=== PATIENT | male | born 1945 | race Caucasian/White ===

== ENCOUNTER → 2016-11-02 | Outpatient (CLI) | payer MEDICARE ==
[~2016-11-02] VITALS: Ht 182.9 cm; Wt 79.8 kg
[~2016-11-02] MED LIST: BISO5TAB5 PO; CREO12CA PO; GLIP5TAB15 PO; HUMA100I5 SC; LOSA25TA8 PO; NS 1,000 ML IV ONE; PHENYLephrine HCL 500 MCG/5 ML (100MCG/ML) SYRINGE (J2370) As Ordered ONE; TOUJ1.2I SC; VOTRIENT PO
--- NOTE | 2016-11-02 10:53 | ROOR ---
Patient Name: Zeke Jo Procedure Date: 11/02/2016 10:24 AM Date of : 1945 Age: 71 Room: [facility] Gender: Male Note Status: Finalized Procedure: Colonoscopy to Cecum + Biopsies Indications: Clinically significant diarrhea of unexplained origin Providers: Kevin Valentin MD Referring MD: SHAKIRA MCHUGH DO Requesting Provider: Medicines: Monitored Anesthesia Care Complications: No immediate complications. Procedure: Pre-Anesthesia Assessment: - The heart rate, respiratory rate, oxygen saturations, blood pressure, adequacy of pulmonary ventilation, and response to care were monitored throughout the procedure. The Colonoscope was introduced through the anus and advanced to the cecum, identified by appendiceal orifice and ileocecal valve. The colonoscopy was performed without difficulty. The patient tolerated the procedure well. The quality of the bowel preparation was excellent. Findings: The perianal and digital rectal examinations were normal. Scattered small-mouthed diverticula were found in the recto-sigmoid colon, sigmoid colon and descending colon. The exam was otherwise without abnormality on direct and retroflexion views. Biopsies for histology were taken with a cold forceps from the ascending colon and transverse colon for evaluation of microscopic colitis. The exam was otherwise without abnormality. Impression: - Diverticulosis in the recto-sigmoid colon, in the sigmoid colon and in the descending colon. - The examination was otherwise normal on direct and retroflexion views. - The examination was otherwise normal. - Biopsies were taken with a cold forceps from the ascending colon and transverse colon for evaluation of microscopic colitis. - The exam was otherwise normal to the cecum. Recommendation: - Patient has a contact number available for emergencies. The signs and symptoms of potential delayed complications were discussed with the patient. Return to normal activities tomorrow. Written discharge instructions were provided to the patient. - High fiber diet. - Discharge patient to home. - Continue present medications. - Await pathology results. - Telephone GI clinic for pathology results in 1 week. - Return to referring physician. - The findings and recommendations were discussed with the patient's family. Kevin Valentin MD Kevin Valentin MD 11/02/2016 10:53:00 AM This report has been signed electronically. Number of Addenda: 0 Note Initiated On: 11/02/2016 10:24 AM Estimated Blood Loss: Estimated blood loss: none.
[2016-11-02 11:15] VITALS: BP 100/62
== END | disposition home or self-care (01) ==
LOC: M OPP 09:59
PROVIDERS: ATTEND Internal Medicine Gastroenterology
DX: R19.7 Diarrhea, unspecified (principal); K57.30 Diverticulosis of large intestine without perforation or abscess without bleeding; I12.9 Hypertensive chronic kidney disease with stage 1 through stage 4 chronic kidney disease, or unspecified chronic kidney disease; E11.9 Type 2 diabetes mellitus without complications; R91.8 Other nonspecific abnormal finding of lung field; Z85.528 Personal history of other malignant neoplasm of kidney; Z92.21 Personal history of antineoplastic chemotherapy; C25.9 Malignant neoplasm of pancreas, unspecified; Z90.5 Acquired absence of kidney; N18.9 Chronic kidney disease, unspecified; Z79.4 Long term (current) use of insulin; Z79.84 Long term (current) use of oral hypoglycemic drugs; Z79.899 Other long term (current) drug therapy
CPT/HCPCS: 45380; 88305; J2370

== ENCOUNTER → 2017-12-15 | Outpatient (REF) | payer MEDICARE | LOC: M LAB REF 12:17 | DX: E11.621 Type 2 diabetes mellitus with foot ulcer (principal); L97.524 Non-pressure chronic ulcer of other part of left foot with necrosis of bone | CPT/HCPCS: 88304 ==

== ENCOUNTER → 2018-01-10 | Outpatient (REF) | payer MEDICARE | LOC: M LAB REF 17:09 | DX: M86.171 Other acute osteomyelitis, right ankle and foot (principal); E11.621 Type 2 diabetes mellitus with foot ulcer | CPT/HCPCS: 88305 ==

== ENCOUNTER → 2018-01-11 | Outpatient (CLI) | payer MEDICARE ==
[~2018-01-11] MED LIST changes: -BISO5TAB5 PO; -CREO12CA PO; -GLIP5TAB15 PO; +HEPARIN 1,000 UNITS/ML 10ML VIAL (FOR RADIOLOGY& DIALYSIS ONLY) As Ordered; -HUMA100I5 SC; +ISOVUE-300 61% 50ML VIAL (Q9967) As Ordered; -LOSA25TA8 PO; +MIDAZOLAM INJ 2 MG/2 ML VIAL (J2250) As Ordered; -NS 1,000 ML IV ONE; -PHENYLephrine HCL 500 MCG/5 ML (100MCG/ML) SYRINGE (J2370) As Ordered ONE; -TOUJ1.2I SC; -VOTRIENT PO; +fentaNYL 100 MCG/2 ML INJECTION (J3010) As Ordered
== END ==
LOC: M IRPRO 06:19
DX: I70.235 Atherosclerosis of native arteries of right leg with ulceration of other part of foot (principal)
CPT/HCPCS: 36247

== ENCOUNTER 2018-01-14 15:55 | Inpatient (IN) | payer MEDICARE ==
[2018-01-14] MEDS: DILUENT IV (16:45)
[2018-01-14] MEDS: NS IV (16:45)
[2018-01-14] MEDS: ACETAMINOPHEN TAB 650MG DOSE (2X325MG) PO ×2 (16:45)
[2018-01-14 17:12] LABS: HEMATOCRIT 28.9 % (42.0-52.0); HEMOGLOBIN 9.1 g/dl (13.5-17.5); MEAN CORPUSCULAR HGB CONC 31.5 g/dl (32.0-36.5); MEAN CORPUSCULAR VOLUME 85.8 fl (80.0-96.0); PLATELET COUNT, AUTOMATED 217 10^3/uL (150-450); RED BLOOD COUNT 3.37 10^6/uL (4.30-6.10); RED CELL DISTRIBUTION WIDTH 14.5 % (11.5-14.5); WHITE BLOOD COUNT 15.7 10^3/uL (4.0-10.0)
[2018-01-14 17:18] LABS: POSITIVE MORPH POS FLAG
[2018-01-14 17:19] LABS: ADD MANUAL DIFFER YES; DIFF SLIDE NUMBER 325
[2018-01-14 17:23] LABS: ABG BASE EXCESS -4.1 (-2.0-2.0); ABG HCO3 19.1 MEQ/L (22.0-26.0); ABG O2 SATURATION 95.9 % (95.0-99.0); ABG PARTIAL PRESSURE CO2 27.8 mmHg (35.0-45.0); ABG PARTIAL PRESSURE O2 77.2 mmHg (75.0-100.0); ABG TOTAL CO2 19.9 MEQ/L (23.0-31.0); ABG pH (ARTERIAL) 7.454 UNITS (7.350-7.450)
[2018-01-14 17:35] LABS: INR 1.24; PROTHROMBIN TIME 15.8 SECONDS (12.1-14.4)
[2018-01-14 17:36] LABS: PARTIAL THROMBOPLASTIN TIME 40.4 SECONDS (25.4-37.6)
[2018-01-14] MEDS: AMPICILLIN SOD/SULBACTAM SOD 3 GM in D5W MINI-BAG PLUS 100 ML IV (17:45)
[2018-01-14 17:48] LABS: LACTIC ACID SEPSIS PROTOCOL 1.7 MMOL/L (0.4-2.0)
[2018-01-14 17:53] LABS: BANDS 4 % (< 11); LYMPHOCYTES 4 % (16-52); MONOCYTES 8 % (0-8); NEUTROPHILS 84 % (35-75)
[2018-01-14 17:54] LABS: HYPOCHROMASIA 1+; PLATELET ESTIMATE NORMAL (NORMAL)
[2018-01-14 18:13] LABS: APPEARANCE, URINE HAZY (CLEAR); BACTERIA, URINE AUTO 1+ (NEGATIVE); BILIRUBIN, URINE AUTO NEGATIVE (NEGATIVE); BLOOD, URINE BLOOD 1+ (NEGATIVE); COLOR, URINE YELLOW (YELLOW); GLUCOSE, URINE (UA) AUTO NEGATIVE (NEGATIVE); KETONE, URINE AUTO NEGATIVE (NEGATIVE); LEUKOCYTE ESTERASE, URINE AUTO NEGATIVE (NEGATIVE); MUCUS, URINE SMALL (NEGATIVE); NITRITE, URINE AUTO NEGATIVE (NEGATIVE); PROTEIN, URINE AUTO 2+ mg/dL (NEGATIVE); RBC, URINE AUTO 0 /HPF (0-3); SQUAMOUS EPITHELIAL CELL UR AU 1 /HPF (0-6); UROBILINOGEN, URINE AUTO 0.2 mg/dL (0.0-2.0); WBC, URINE AUTO 16 /HPF (0-3)
[2018-01-14 18:25] LABS: INFLUENZA A AMPLIFICATION NEGATIVE (NEGATIVE); INFLUENZA B AMPLIFICATION NEGATIVE (NEGATIVE)
[2018-01-14 19:52] LABS: ALBUMIN 2.5 GM/DL (3.2-5.2); ALBUMIN/GLOBULIN RATIO 0.71 (1.00-1.93); ALKALINE PHOSPHATASE 197 U/L (45-117); ALT/SGPT 37 U/L (12-78); AMYLASE 7 U/L (25-115); ANION GAP 10 MEQ/L (8-16); AST/SGOT 25 U/L (7-37); BILIRUBIN,DIRECT 0.2 MG/DL (0.0-0.2); BILIRUBIN,TOTAL 0.7 MG/DL (0.2-1.0); BLOOD UREA NITROGEN 36 MG/DL (7-18); CARBON DIOXIDE LEVEL 24 MEQ/L (21-32); CHLORIDE LEVEL 109 MEQ/L (98-107); CK-MB VALUE MASS < 1.0 NG/ML (<3.6); CPK CREATINE PHOSPHOKINASE 52 U/L (39-308); CREATININE FOR GFR 2.25 MG/DL (0.70-1.30); GLOMERULAR FILTRATION RATE 30.8 (>42); GLUCOSE, FASTING 78 MG/DL (70-100); MB/CK RELATIVE INDEX 1.92 (< OR =4); POTASSIUM SERUM 3.8 MEQ/L (3.5-5.1); SODIUM LEVEL 143 MEQ/L (136-145); TROPONIN I < 0.02 NG/ML (< 0.10)
[2018-01-14] MEDS ORDERED: ONDANSETRON 4MG/2ML VIAL (J2405) IV ×2 (21:00)
[2018-01-14] MEDS ORDERED: DEXTROSE 50% 50 ML SYRINGE IV ×2 (21:00)
[2018-01-14] MEDS ORDERED: GLUCAGON FOR INJ 1 MG VIAL (J1610) SC ×2 (21:00)
[2018-01-14 21:21] LABS: BEDSIDE GLUCOSE 88 MG/DL (83-110)
[2018-01-15] MEDS: VANCOMYCIN HCL 1,000 MG, VIAL MATE ADAPTER 1 EACH in D5W 250 ML IV ×4 (00:44→11:48)
[2018-01-15] MEDS: ACETAMINOPHEN TAB 650MG DOSE (2X325MG) PO ×10 (00:44→23:48)
[2018-01-15] MEDS: VANCOMYCIN ORAL SOL 250MG/5ML ORAL SYRINGE PO ×8 (01:34→23:47)
[2018-01-15] MEDS ORDERED: PANTOPRAZOLE 40MG INJ (PROTONIX) (C9113) IV ×2 (01:45)
[2018-01-15] MEDS: GABAPENTIN 300 MG CAP PO ×4 (02:21→20:29)
[2018-01-15] MEDS: HumaLOG INSULIN (NovoLOG) PER UNIT SC ×10 (02:21→20:29)
[2018-01-15] MEDS: PIPERACILLIN/TAZOBACTAM SOD 2.25 GM in D5W MINI-BAG PLUS 50 ML IV ×5 (02:22→23:49)
[2018-01-15] MEDS: NS 1,000 ML IV ×8 (02:22→10:30)
[2018-01-15 02:31] LABS: BEDSIDE GLUCOSE 128 MG/DL (83-110)
[2018-01-15] MEDS: LEVEMIR (INSULIN DETEMIR) 1 UNITS/0.01ML SC ×4 (02:38→20:29)
[2018-01-15] MEDS: NS 500 ML IV ×4 (02:45→13:16)
[2018-01-15] MEDS ORDERED: NS 1,000 ML IV ×2 (02:45)
[2018-01-15 05:23] LABS: HEMATOCRIT 20.9 % (42.0-52.0); MEAN CORPUSCULAR HEMOGLOBIN 27.5 pg (27.0-33.0); MEAN CORPUSCULAR HGB CONC 31.6 g/dl (32.0-36.5); MEAN CORPUSCULAR VOLUME 87.1 fl (80.0-96.0); PLATELET COUNT, AUTOMATED 171 10^3/uL (150-450); RED CELL DISTRIBUTION WIDTH 14.6 % (11.5-14.5); WHITE BLOOD COUNT 11.3 10^3/uL (4.0-10.0)
[2018-01-15 05:35] LABS: ANION GAP 9 MEQ/L (8-16); BLOOD UREA NITROGEN 38 MG/DL (7-18); CARBON DIOXIDE LEVEL 20 MEQ/L (21-32); CHLORIDE LEVEL 111 MEQ/L (98-107); GLOMERULAR FILTRATION RATE 31.6 (>42); GLUCOSE, FASTING 136 MG/DL (70-100); POTASSIUM SERUM 3.2 MEQ/L (3.5-5.1); SODIUM LEVEL 140 MEQ/L (136-145)
[2018-01-15 05:42] LABS: ADD MANUAL DIFFER YES; DIFF SLIDE NUMBER 71; HEMOGLOBIN 6.6 g/dl (13.5-17.5); POSITIVE MORPH POS FLAG
[2018-01-15] MEDS: HEPARIN SOD (PORCINE) 5000 UNITS/ML VIAL SC ×4 (06:00→13:08)
[2018-01-15 06:02] LABS: BANDS 3 % (< 11); LYMPHOCYTES 4 % (16-52); MONOCYTES 8 % (0-8); NEUTROPHILS 85 % (35-75); PLATELET ESTIMATE NORMAL (NORMAL)
[2018-01-15 06:03] LABS: HYPOCHROMASIA 1+
[2018-01-15] MEDS: CREON-12 CAPSULE PO ×8 (08:32→20:29)
[2018-01-15] MEDS: LACTOBACILLUS ACIDOPHILUS CAP (BACID) PO ×6 (08:33→18:02)
[2018-01-15] MEDS: MULTIVITAMINS/MINERALS THERAP 1 TAB PO ×2 (08:33)
[2018-01-15 08:42] LABS: IMMEDIATE SPIN CROSSMATCH 1 2
[2018-01-15 11:32] LABS: BEDSIDE GLUCOSE 140 MG/DL (83-110)
[2018-01-15 16:26] LABS: HEMATOCRIT 28.6 % (42.0-52.0)
[2018-01-15 17:37] LABS: BEDSIDE GLUCOSE 186 MG/DL (83-110)
[2018-01-15 20:27] LABS: BEDSIDE GLUCOSE 204 MG/DL (83-110)
[2018-01-15] MEDS: HEPARIN SOD (PORCINE) 5000 UNITS/ML VIAL SQ ×2 (20:30)
[2018-01-16] MEDS: NS 1,000 ML IV ×6 (01:10→09:15)
[2018-01-16 04:34] LABS: HEMATOCRIT 25.6 % (42.0-52.0); HEMOGLOBIN 8.3 g/dl (13.5-17.5); MEAN CORPUSCULAR HEMOGLOBIN 27.7 pg (27.0-33.0); MEAN CORPUSCULAR HGB CONC 32.4 g/dl (32.0-36.5); MEAN CORPUSCULAR VOLUME 85.3 fl (80.0-96.0); PLATELET COUNT, AUTOMATED 188 10^3/uL (150-450); RED CELL DISTRIBUTION WIDTH 14.7 % (11.5-14.5); WHITE BLOOD COUNT 13.5 10^3/uL (4.0-10.0)
[2018-01-16 04:40] LABS: ADD MANUAL DIFFER YES; DIFF SLIDE NUMBER 47; POSITIVE MORPH POS FLAG
[2018-01-16 04:56] LABS: ANION GAP 9 MEQ/L (8-16); BLOOD UREA NITROGEN 36 MG/DL (7-18); CALCIUM LEVEL 6.7 MG/DL (8.8-10.2); CARBON DIOXIDE LEVEL 20 MEQ/L (21-32); CHLORIDE LEVEL 112 MEQ/L (98-107); CREATININE FOR GFR 1.91 MG/DL (0.70-1.30); GLOMERULAR FILTRATION RATE 37.2 (>42); GLUCOSE, FASTING 153 MG/DL (70-100); POTASSIUM SERUM 3.4 MEQ/L (3.5-5.1); SODIUM LEVEL 141 MEQ/L (136-145)
[2018-01-16 05:21] LABS: ANISOCYTOSIS 1+; BANDS 5 % (< 11); EOSINOPHILS 2 % (0-5); LYMPHOCYTES 6 % (16-52); METAMYELOCYTES 2 % (0-0); MONOCYTES 4 % (0-8); MYELOCYTES 1 % (0-0); NEUTROPHILS 80 % (35-75); PLATELET CLUMPS SMALL AMT; PLATELET ESTIMATE NORMAL (NORMAL)
[2018-01-16] MEDS: VANCOMYCIN ORAL SOL 250MG/5ML ORAL SYRINGE PO ×8 (06:24→23:56)
[2018-01-16] MEDS: ACETAMINOPHEN TAB 650MG DOSE (2X325MG) PO ×4 (06:24→23:56)
[2018-01-16] MEDS: PIPERACILLIN/TAZOBACTAM SOD 2.25 GM in D5W MINI-BAG PLUS 50 ML IV (06:24)
[2018-01-16] MEDS: LACTOBACILLUS ACIDOPHILUS CAP (BACID) PO ×6 (08:23→17:39)
[2018-01-16] MEDS: MULTIVITAMINS/MINERALS THERAP 1 TAB PO ×2 (08:23)
[2018-01-16] MEDS: POTASSIUM CHLORIDE 10 MEQ SR TABLET PO ×2 (08:24)
[2018-01-16] MEDS: CREON-12 CAPSULE PO ×8 (08:24→21:02)
[2018-01-16] MEDS: HEPARIN SOD (PORCINE) 5000 UNITS/ML VIAL SQ ×4 (08:24→21:03)
[2018-01-16] MEDS: HumaLOG INSULIN (NovoLOG) PER UNIT SC ×8 (08:25→21:00)
[2018-01-16 11:50] LABS: VANCOMYCIN RANDOM 9.9 UG/ML
[2018-01-16] MEDS: FIDAXOMICIN 200 MG TAB (DIFICID) PO ×4 (11:58→21:03)
[2018-01-16] MEDS: VANCOMYCIN HCL 1,000 MG, VIAL MATE ADAPTER 1 EACH in D5W 250 ML IV ×2 (12:00)
[2018-01-16 17:09] LABS: BEDSIDE GLUCOSE 224 MG/DL (83-110)
[2018-01-16 19:44] LABS: BEDSIDE GLUCOSE 190 MG/DL (83-110)
[2018-01-16] MEDS: GABAPENTIN 300 MG CAP PO ×2 (21:02)
[2018-01-16] MEDS: zolPIDEM TARTRATE 5 MG TAB PO ×2 (21:02)
[2018-01-16] MEDS: LEVEMIR (INSULIN DETEMIR) 1 UNITS/0.01ML SC ×2 (21:03)
[2018-01-17 05:44] LABS: HEMATOCRIT 27.4 % (42.0-52.0); HEMOGLOBIN 8.9 g/dl (13.5-17.5); MEAN CORPUSCULAR HEMOGLOBIN 27.3 pg (27.0-33.0); MEAN CORPUSCULAR HGB CONC 32.5 g/dl (32.0-36.5); PLATELET COUNT, AUTOMATED 213 10^3/uL (150-450); RED BLOOD COUNT 3.26 10^6/uL (4.30-6.10); RED CELL DISTRIBUTION WIDTH 14.9 % (11.5-14.5); WHITE BLOOD COUNT 15.6 10^3/uL (4.0-10.0)
[2018-01-17 06:14] LABS: ADD MANUAL DIFFER YES; DIFF SLIDE NUMBER 39; POSITIVE MORPH POS FLAG
[2018-01-17 06:16] LABS: BANDS 2 % (< 11); EOSINOPHILS 7 % (0-5); LYMPHOCYTES 6 % (16-52); METAMYELOCYTES 1 % (0-0); MONOCYTES 2 % (0-8); MYELOCYTES 2 % (0-0); NEUTROPHILS 80 % (35-75); PLATELET ESTIMATE NORMAL (NORMAL)
[2018-01-17 06:21] LABS: ANION GAP 8 MEQ/L (8-16); BLOOD UREA NITROGEN 32 MG/DL (7-18); CALCIUM LEVEL 7.2 MG/DL (8.8-10.2); CARBON DIOXIDE LEVEL 20 MEQ/L (21-32); CHLORIDE LEVEL 116 MEQ/L (98-107); CREATININE FOR GFR 1.44 MG/DL (0.70-1.30); GLOMERULAR FILTRATION RATE 51.5 (>42); GLUCOSE, FASTING 139 MG/DL (70-100); POTASSIUM SERUM 3.7 MEQ/L (3.5-5.1); SODIUM LEVEL 144 MEQ/L (136-145)
[2018-01-17] MEDS: VANCOMYCIN ORAL SOL 250MG/5ML ORAL SYRINGE PO ×4 (06:25→12:29)
[2018-01-17] MEDS: VANCOMYCIN HCL 1,000 MG, VIAL MATE ADAPTER 1 EACH in D5W 250 ML IV ×2 (06:25)
[2018-01-17] MEDS: MULTIVITAMINS/MINERALS THERAP 1 TAB PO ×2 (08:38)
[2018-01-17] MEDS: LACTOBACILLUS ACIDOPHILUS CAP (BACID) PO ×6 (08:38→18:30)
[2018-01-17] MEDS: CREON-12 CAPSULE PO ×8 (08:39→20:06)
[2018-01-17] MEDS: FIDAXOMICIN 200 MG TAB (DIFICID) PO ×4 (08:39→20:06)
[2018-01-17] MEDS: HEPARIN SOD (PORCINE) 5000 UNITS/ML VIAL SQ ×4 (08:40→20:06)
[2018-01-17] MEDS: HumaLOG INSULIN (NovoLOG) PER UNIT SC ×8 (08:42→21:00)
[2018-01-17 10:35] LABS: BEDSIDE GLUCOSE 112 MG/DL (83-110)
[2018-01-17 12:21] LABS: BEDSIDE GLUCOSE 147 MG/DL (83-110)
[2018-01-17] MEDS: BISOPROLOL FUMARATE 5 MG TAB PO ×2 (12:30)
[2018-01-17 16:54] LABS: BEDSIDE GLUCOSE 185 MG/DL (83-110)
[2018-01-17] MEDS: GABAPENTIN 300 MG CAP PO ×2 (20:06)
[2018-01-17] MEDS: SODIUM CHLORIDE 0.9% INJ 10 ML SYR IV ×2 (20:08)
[2018-01-17] MEDS: zolPIDEM TARTRATE 5 MG TAB PO ×2 (21:21)
[2018-01-17] MEDS: LEVEMIR (INSULIN DETEMIR) 1 UNITS/0.01ML SC ×2 (21:22)
[2018-01-17 21:27] LABS: BEDSIDE GLUCOSE 196 MG/DL (83-110)
[2018-01-18] MEDS: VANCOMYCIN HCL 1,000 MG, VIAL MATE ADAPTER 1 EACH in D5W 250 ML IV ×2 (00:03)
[2018-01-18] MEDS: SODIUM CHLORIDE 0.9% INJ 10 ML SYR IV ×6 (01:08→10:09)
[2018-01-18 05:48] LABS: BASO # 0.1 10^3/uL (0.0-0.2); BASO % 0.8 % (0.0-1.0); EOS # 0.6 10^3/uL (0.0-0.50); EOS % 5.8 % (0.0-3.0); HEMATOCRIT 27.2 % (42.0-52.0); HEMOGLOBIN 8.9 g/dl (13.5-17.5); IMMATURE GRANULOCYTE % 4.6 % (0-3.0); LYMPH % 9.2 % (24.0-44.0); MEAN CORPUSCULAR HEMOGLOBIN 27.4 pg (27.0-33.0); MEAN CORPUSCULAR HGB CONC 32.7 g/dl (32.0-36.5); MEAN CORPUSCULAR VOLUME 83.7 fl (80.0-96.0); MONO # 0.6 10^3/uL (0.0-0.8); MONO % 5.8 % (0.0-5.0); NEUTROPHILS # 7.8 10^3/uL (1.8-7.7); NEUTROPHILS % 73.8 % (36.0-66.0); PLATELET COUNT, AUTOMATED 226 10^3/uL (150-450); RED BLOOD COUNT 3.25 10^6/uL (4.30-6.10); RED CELL DISTRIBUTION WIDTH 15.1 % (11.5-14.5); WHITE BLOOD COUNT 10.5 10^3/uL (4.0-10.0)
[2018-01-18 06:11] LABS: ANION GAP 9 MEQ/L (8-16); BLOOD UREA NITROGEN 28 MG/DL (7-18); CALCIUM LEVEL 6.9 MG/DL (8.8-10.2); CARBON DIOXIDE LEVEL 22 MEQ/L (21-32); CHLORIDE LEVEL 115 MEQ/L (98-107); CREATININE FOR GFR 1.21 MG/DL (0.70-1.30); GLOMERULAR FILTRATION RATE > 60.0 (>42); GLUCOSE, FASTING 190 MG/DL (70-100); MAGNESIUM LEVEL 2.1 MG/DL (1.8-2.4); POTASSIUM SERUM 3.5 MEQ/L (3.5-5.1); SODIUM LEVEL 146 MEQ/L (136-145)
[2018-01-18] MEDS: MULTIVITAMINS/MINERALS THERAP 1 TAB PO ×2 (09:00)
[2018-01-18] MEDS: HumaLOG INSULIN (NovoLOG) PER UNIT SC ×8 (09:09→21:00)
[2018-01-18] MEDS: FIDAXOMICIN 200 MG TAB (DIFICID) PO ×4 (10:01→22:02)
[2018-01-18] MEDS: CREON-12 CAPSULE PO ×8 (10:01→22:02)
[2018-01-18] MEDS: LACTOBACILLUS ACIDOPHILUS CAP (BACID) PO ×6 (10:01→17:38)
[2018-01-18] MEDS: BISOPROLOL FUMARATE 5 MG TAB PO ×2 (10:02)
[2018-01-18] MEDS: HEPARIN SOD (PORCINE) 5000 UNITS/ML VIAL SQ ×4 (10:03→22:03)
[2018-01-18 12:23] LABS: BEDSIDE GLUCOSE 176 MG/DL (83-110)
[2018-01-18 17:28] LABS: BEDSIDE GLUCOSE 115 MG/DL (83-110)
[2018-01-18] MEDS: LEVEMIR (INSULIN DETEMIR) 1 UNITS/0.01ML SC ×2 (21:00)
[2018-01-18 21:06] LABS: BEDSIDE GLUCOSE 99 MG/DL (83-110)
[2018-01-18] MEDS: GABAPENTIN 300 MG CAP PO ×2 (22:02)
[2018-01-18 22:08] LABS: BEDSIDE GLUCOSE 131 MG/DL (83-110)
[2018-01-19] MEDS: SODIUM CHLORIDE 0.9% INJ 10 ML SYR IV ×4 (04:10→08:30)
[2018-01-19 04:16] LABS: HEMATOCRIT 27.9 % (42.0-52.0); HEMOGLOBIN 8.9 g/dl (13.5-17.5); MEAN CORPUSCULAR HEMOGLOBIN 27.3 pg (27.0-33.0); MEAN CORPUSCULAR HGB CONC 31.9 g/dl (32.0-36.5); MEAN CORPUSCULAR VOLUME 85.6 fl (80.0-96.0); PLATELET COUNT, AUTOMATED 227 10^3/uL (150-450); RED BLOOD COUNT 3.26 10^6/uL (4.30-6.10); RED CELL DISTRIBUTION WIDTH 15.3 % (11.5-14.5); WHITE BLOOD COUNT 8.3 10^3/uL (4.0-10.0)
[2018-01-19 04:20] LABS: ADD MANUAL DIFFER YES; DIFF SLIDE NUMBER 22; POS COUNT POS FLAG; POSITIVE MORPH POS FLAG
[2018-01-19 04:50] LABS: ANION GAP 11 MEQ/L (8-16); BLOOD UREA NITROGEN 26 MG/DL (7-18); C REACTIVE PROTEIN QUANTITATIV 6.06 MG/DL (0.00-0.30); CALCIUM LEVEL 6.8 MG/DL (8.8-10.2); CARBON DIOXIDE LEVEL 21 MEQ/L (21-32); CHLORIDE LEVEL 114 MEQ/L (98-107); CREATININE FOR GFR 1.15 MG/DL (0.70-1.30); GLOMERULAR FILTRATION RATE > 60.0 (>42); GLUCOSE, FASTING 211 MG/DL (70-100); MAGNESIUM LEVEL 1.9 MG/DL (1.8-2.4); POTASSIUM SERUM 3.4 MEQ/L (3.5-5.1); SODIUM LEVEL 146 MEQ/L (136-145)
[2018-01-19 05:14] LABS: BANDS 2 % (< 11); BASOPHILS 1 % (0-4); EOSINOPHILS 6 % (0-5); LYMPHOCYTES 11 % (16-52); MONOCYTES 2 % (0-8); MYELOCYTES 2 % (0-0); NEUTROPHILS 76 % (35-75)
[2018-01-19 05:15] LABS: PLATELET ESTIMATE NORMAL (NORMAL)
[2018-01-19 05:19] LABS: ANISOCYTOSIS 1+
[2018-01-19] MEDS: CREON-12 CAPSULE PO ×8 (08:28→20:48)
[2018-01-19] MEDS: POTASSIUM CHLORIDE 10 MEQ SR TABLET PO ×2 (08:28)
[2018-01-19] MEDS: FIDAXOMICIN 200 MG TAB (DIFICID) PO ×4 (08:28→20:49)
[2018-01-19] MEDS: LACTOBACILLUS ACIDOPHILUS CAP (BACID) PO ×6 (08:28→17:51)
[2018-01-19] MEDS: HumaLOG INSULIN (NovoLOG) PER UNIT SC ×8 (08:29→20:39)
[2018-01-19] MEDS: MULTIVITAMINS/MINERALS THERAP 1 TAB PO ×2 (08:29)
[2018-01-19] MEDS: BISOPROLOL FUMARATE 5 MG TAB PO ×2 (08:30)
[2018-01-19] MEDS: HEPARIN SOD (PORCINE) 5000 UNITS/ML VIAL SQ ×4 (08:30→20:49)
[2018-01-19 11:44] LABS: BEDSIDE GLUCOSE 227 MG/DL (83-110)
[2018-01-19 17:32] LABS: BEDSIDE GLUCOSE 225 MG/DL (83-110)
[2018-01-19 20:40] LABS: BEDSIDE GLUCOSE 246 MG/DL (83-110)
[2018-01-19] MEDS: LEVEMIR (INSULIN DETEMIR) 1 UNITS/0.01ML SC ×2 (20:49)
[2018-01-19] MEDS: GABAPENTIN 300 MG CAP PO ×2 (20:49)
[2018-01-20 04:04] LABS: HEMATOCRIT 27.8 % (42.0-52.0); HEMOGLOBIN 8.8 g/dl (13.5-17.5); MEAN CORPUSCULAR HEMOGLOBIN 27.2 pg (27.0-33.0); MEAN CORPUSCULAR HGB CONC 31.7 g/dl (32.0-36.5); MEAN CORPUSCULAR VOLUME 86.1 fl (80.0-96.0); PLATELET COUNT, AUTOMATED 251 10^3/uL (150-450); RED BLOOD COUNT 3.23 10^6/uL (4.30-6.10); RED CELL DISTRIBUTION WIDTH 15.5 % (11.5-14.5); WHITE BLOOD COUNT 8.8 10^3/uL (4.0-10.0)
[2018-01-20 04:06] LABS: ADD MANUAL DIFFER YES; DIFF SLIDE NUMBER 9; POS COUNT POS FLAG; POSITIVE MORPH POS FLAG
[2018-01-20 04:28] LABS: BANDS 3 % (< 11); BASOPHILS 2 % (0-4); EOSINOPHILS 7 % (0-5); LYMPHOCYTES 15 % (16-52); METAMYELOCYTES 3 % (0-0); MONOCYTES 2 % (0-8); MYELOCYTES 1 % (0-0); NEUTROPHILS 67 % (35-75)
[2018-01-20 04:29] LABS: ANION GAP 8 MEQ/L (8-16); BLOOD UREA NITROGEN 24 MG/DL (7-18); C REACTIVE PROTEIN QUANTITATIV 3.38 MG/DL (0.00-0.30); CALCIUM LEVEL 7.2 MG/DL (8.8-10.2); CARBON DIOXIDE LEVEL 24 MEQ/L (21-32); CHLORIDE LEVEL 116 MEQ/L (98-107); CREATININE FOR GFR 1.18 MG/DL (0.70-1.30); GLOMERULAR FILTRATION RATE > 60.0 (>42); GLUCOSE, FASTING 125 MG/DL (70-100); POTASSIUM SERUM 3.5 MEQ/L (3.5-5.1); SODIUM LEVEL 148 MEQ/L (136-145); TOXIC GRANULATION 1+
[2018-01-20 04:30] LABS: ANISOCYTOSIS 1+; HYPOCHROMASIA 1+; PLATELET ESTIMATE NORMAL (NORMAL)
[2018-01-20] MEDS: HumaLOG INSULIN (NovoLOG) PER UNIT SC ×8 (07:53→20:54)
[2018-01-20] MEDS: CREON-12 CAPSULE PO ×8 (08:00→20:51)
[2018-01-20] MEDS: HEPARIN SOD (PORCINE) 5000 UNITS/ML VIAL SQ ×4 (09:00→20:52)
[2018-01-20] MEDS: SODIUM CHLORIDE 0.9% INJ 10 ML SYR IV ×2 (09:00)
[2018-01-20] MEDS: LACTOBACILLUS ACIDOPHILUS CAP (BACID) PO ×6 (09:35→18:00)
[2018-01-20] MEDS: MULTIVITAMINS/MINERALS THERAP 1 TAB PO ×2 (09:35)
[2018-01-20] MEDS: BISOPROLOL FUMARATE 5 MG TAB PO ×2 (09:36)
[2018-01-20] MEDS: FIDAXOMICIN 200 MG TAB (DIFICID) PO ×4 (09:36→20:51)
[2018-01-20] MEDS: D5W 1,000 ML IV ×2 (10:42)
[2018-01-20 12:40] LABS: BEDSIDE GLUCOSE 210 MG/DL (83-110)
[2018-01-20 14:27] LABS: ANION GAP 5 MEQ/L (8-16); BLOOD UREA NITROGEN 23 MG/DL (7-18); CALCIUM LEVEL 7.5 MG/DL (8.8-10.2); CARBON DIOXIDE LEVEL 25 MEQ/L (21-32); CHLORIDE LEVEL 113 MEQ/L (98-107); CREATININE FOR GFR 1.22 MG/DL (0.70-1.30); GLOMERULAR FILTRATION RATE > 60.0 (>42); GLUCOSE, FASTING 224 MG/DL (70-100); POTASSIUM SERUM 3.7 MEQ/L (3.5-5.1); SODIUM LEVEL 143 MEQ/L (136-145)
[2018-01-20] MEDS ORDERED: fentaNYL 100 MCG/2 ML INJECTION (J3010) As Ordered ×2 (14:46)
[2018-01-20] MEDS ORDERED: ONDANSETRON 4MG/2ML VIAL (J2405) As Ordered ×2 (14:47)
[2018-01-20] MEDS ORDERED: LIDOCAINE 2% INJ 100 MG/5 ML SDV (FOR ANES.) As Ordered ×2 (14:47)
[2018-01-20] MEDS ORDERED: PROPOFOL 200 MG/20 ML VIAL As Ordered ×4 (14:47→16:41)
[2018-01-20] MEDS ORDERED: MIDAZOLAM INJ 2 MG/2 ML VIAL (J2250) As Ordered ×2 (14:47)
[2018-01-20] MEDS: LIDOCAINE 1% MDV 20ML VIAL As Ordered ×2 (16:39)
[2018-01-20] MEDS: BUPIVACAINE HCL 0.5% 10 ML VIAL As Ordered ×2 (16:39)
[2018-01-20] MEDS ORDERED: PHENYLEPHRINE INJ 10MG/ML VIAL (J2370) As Ordered ×2 (16:51)
[2018-01-20] MEDS: VANCOMYCIN HCL 500 MG/10 ML VIAL (J3370) As Ordered ×2 (17:00)
[2018-01-20] MEDS ORDERED: fentaNYL 100 MCG/2 ML INJECTION (J3010) IV ×2 (18:30)
[2018-01-20] MEDS ORDERED: ONDANSETRON 4MG/2ML VIAL (J2405) IV ×2 (18:30)
[2018-01-20] MEDS ORDERED: LR 1,000 ML IV ×2 (18:30)
[2018-01-20] MEDS ORDERED: NORCO, ANEXSIA 5/325MG TABLET (HYDROcodone/ACETAMINOPHEN) PO ×2 (18:30)
[2018-01-20 20:22] LABS: BEDSIDE GLUCOSE 162 MG/DL (83-110)
[2018-01-20] MEDS: LEVEMIR (INSULIN DETEMIR) 1 UNITS/0.01ML SC ×2 (20:52)
[2018-01-20] MEDS: GABAPENTIN 300 MG CAP PO ×2 (20:52)
[2018-01-21] MEDS: PERCOCET 5MG/325MG TAB PO ×6 (00:15→19:42)
[2018-01-21 01:00] LABS: HEMATOCRIT 29.1 % (42.0-52.0); HEMOGLOBIN 9.2 g/dl (13.5-17.5); MEAN CORPUSCULAR HEMOGLOBIN 27.5 pg (27.0-33.0); MEAN CORPUSCULAR HGB CONC 31.6 g/dl (32.0-36.5); MEAN CORPUSCULAR VOLUME 87.1 fl (80.0-96.0); PLATELET COUNT, AUTOMATED 237 10^3/uL (150-450); RED BLOOD COUNT 3.34 10^6/uL (4.30-6.10); RED CELL DISTRIBUTION WIDTH 15.6 % (11.5-14.5)
[2018-01-21 01:26] LABS: INR 1.08; PROTHROMBIN TIME 14.2 SECONDS (12.1-14.4)
[2018-01-21 01:28] LABS: ALBUMIN 1.8 GM/DL (3.2-5.2); ALBUMIN/GLOBULIN RATIO 0.64 (1.00-1.93); ALKALINE PHOSPHATASE 147 U/L (45-117); ALT/SGPT 36 U/L (12-78); ANION GAP 7 MEQ/L (8-16); AST/SGOT 27 U/L (7-37); BILIRUBIN,TOTAL 0.3 MG/DL (0.2-1.0); BLOOD UREA NITROGEN 22 MG/DL (7-18); CALCIUM LEVEL 7.2 MG/DL (8.8-10.2); CARBON DIOXIDE LEVEL 25 MEQ/L (21-32); CHLORIDE LEVEL 113 MEQ/L (98-107); CREATININE FOR GFR 1.25 MG/DL (0.70-1.30); GLOMERULAR FILTRATION RATE > 60.0 (>42); GLUCOSE, FASTING 263 MG/DL (70-100); POTASSIUM SERUM 3.7 MEQ/L (3.5-5.1); SODIUM LEVEL 145 MEQ/L (136-145); TOTAL PROTEIN 4.6 GM/DL (6.4-8.2)
[2018-01-21] MEDS: HumaLOG INSULIN (NovoLOG) PER UNIT SC ×8 (08:04→20:30)
[2018-01-21] MEDS: LACTOBACILLUS ACIDOPHILUS CAP (BACID) PO ×6 (08:05→17:58)
[2018-01-21] MEDS: CREON-12 CAPSULE PO ×8 (08:05→20:30)
[2018-01-21 08:26] LABS: HEMATOCRIT 29.6 % (42.0-52.0); HEMOGLOBIN 9.4 g/dl (13.5-17.5); MEAN CORPUSCULAR HEMOGLOBIN 27.6 pg (27.0-33.0); MEAN CORPUSCULAR HGB CONC 31.8 g/dl (32.0-36.5); MEAN CORPUSCULAR VOLUME 87.1 fl (80.0-96.0); PLATELET COUNT, AUTOMATED 265 10^3/uL (150-450); RED CELL DISTRIBUTION WIDTH 15.6 % (11.5-14.5); WHITE BLOOD COUNT 9.3 10^3/uL (4.0-10.0)
[2018-01-21 08:27] LABS: POS COUNT POS FLAG; POSITIVE MORPH POS FLAG
[2018-01-21 08:28] LABS: ADD MANUAL DIFFER YES; DIFF SLIDE NUMBER 8
[2018-01-21 08:39] LABS: BANDS 1 % (< 11); EOSINOPHILS 5 % (0-5); LYMPHOCYTES 18 % (16-52); MONOCYTES 2 % (0-8); NEUTROPHILS 74 % (35-75); PLATELET ESTIMATE NORMAL (NORMAL)
[2018-01-21 08:45] LABS: ANION GAP 5 MEQ/L (8-16); BLOOD UREA NITROGEN 21 MG/DL (7-18); C REACTIVE PROTEIN QUANTITATIV 2.18 MG/DL (0.00-0.30); CALCIUM LEVEL 7.4 MG/DL (8.8-10.2); CARBON DIOXIDE LEVEL 26 MEQ/L (21-32); CHLORIDE LEVEL 115 MEQ/L (98-107); CREATININE FOR GFR 1.21 MG/DL (0.70-1.30); GLOMERULAR FILTRATION RATE > 60.0 (>42); GLUCOSE, FASTING 156 MG/DL (70-100); MAGNESIUM LEVEL 2.2 MG/DL (1.8-2.4); POTASSIUM SERUM 3.9 MEQ/L (3.5-5.1); SODIUM LEVEL 146 MEQ/L (136-145)
[2018-01-21] MEDS: MULTIVITAMINS/MINERALS THERAP 1 TAB PO ×2 (10:03)
[2018-01-21] MEDS: FIDAXOMICIN 200 MG TAB (DIFICID) PO ×4 (10:04→20:30)
[2018-01-21] MEDS: BISOPROLOL FUMARATE 5 MG TAB PO ×2 (10:04)
[2018-01-21] MEDS: HEPARIN SOD (PORCINE) 5000 UNITS/ML VIAL SQ ×4 (10:05→20:29)
[2018-01-21] MEDS: SODIUM CHLORIDE 0.9% INJ 10 ML SYR IV ×2 (10:06)
[2018-01-21 12:08] LABS: BEDSIDE GLUCOSE 60 MG/DL (83-110)
[2018-01-21 17:06] LABS: BEDSIDE GLUCOSE 171 MG/DL (83-110)
[2018-01-21 20:23] LABS: BEDSIDE GLUCOSE 231 MG/DL (83-110)
[2018-01-21] MEDS: GABAPENTIN 300 MG CAP PO ×2 (20:30)
[2018-01-21] MEDS: LEVEMIR (INSULIN DETEMIR) 1 UNITS/0.01ML SC ×2 (20:30)
[2018-01-22] MEDS: HumaLOG INSULIN (NovoLOG) PER UNIT SC ×8 (07:30→20:42)
[2018-01-22 07:37] LABS: BEDSIDE GLUCOSE 54 MG/DL (83-110)
[2018-01-22] MEDS: FIDAXOMICIN 200 MG TAB (DIFICID) PO ×4 (08:22→21:28)
[2018-01-22] MEDS: MULTIVITAMINS/MINERALS THERAP 1 TAB PO ×2 (08:22)
[2018-01-22] MEDS: CREON-12 CAPSULE PO ×8 (08:22→21:00)
[2018-01-22] MEDS: LACTOBACILLUS ACIDOPHILUS CAP (BACID) PO ×6 (08:23→17:14)
[2018-01-22] MEDS: BISOPROLOL FUMARATE 5 MG TAB PO ×2 (08:24)
[2018-01-22] MEDS: SODIUM CHLORIDE 0.9% INJ 10 ML SYR IV ×6 (08:24→08:44)
[2018-01-22] MEDS: HEPARIN SOD (PORCINE) 5000 UNITS/ML VIAL SQ ×4 (08:24→21:28)
[2018-01-22 10:06] LABS: BASO # 0.1 10^3/uL (0.0-0.2); BASO % 0.4 % (0.0-1.0); EOS # 0.1 10^3/uL (0.0-0.50); EOS % 1.1 % (0.0-3.0); HEMATOCRIT 28.6 % (42.0-52.0); IMMATURE GRANULOCYTE % 2.4 % (0-3.0); LYMPH # 0.8 10^3/uL (1.5-4.5); LYMPH % 6.6 % (24.0-44.0); MEAN CORPUSCULAR HEMOGLOBIN 27.6 pg (27.0-33.0); MEAN CORPUSCULAR HGB CONC 31.5 g/dl (32.0-36.5); MEAN CORPUSCULAR VOLUME 87.7 fl (80.0-96.0); MONO # 0.6 10^3/uL (0.0-0.8); MONO % 4.5 % (0.0-5.0); NEUTROPHILS # 10.4 10^3/uL (1.8-7.7); PLATELET COUNT, AUTOMATED 252 10^3/uL (150-450); RED BLOOD COUNT 3.26 10^6/uL (4.30-6.10); RED CELL DISTRIBUTION WIDTH 15.7 % (11.5-14.5); WHITE BLOOD COUNT 12.3 10^3/uL (4.0-10.0)
[2018-01-22 10:17] LABS: MAGNESIUM LEVEL 1.8 MG/DL (1.8-2.4)
[2018-01-22 10:24] LABS: ALBUMIN 1.8 GM/DL (3.2-5.2); ALBUMIN/GLOBULIN RATIO 0.55 (1.00-1.93); ALKALINE PHOSPHATASE 140 U/L (45-117); ALT/SGPT 32 U/L (12-78); ANION GAP 5 MEQ/L (8-16); AST/SGOT 19 U/L (7-37); BILIRUBIN,TOTAL 0.4 MG/DL (0.2-1.0); BLOOD UREA NITROGEN 18 MG/DL (7-18); C REACTIVE PROTEIN QUANTITATIV 5.68 MG/DL (0.00-0.30); CALCIUM LEVEL 7.4 MG/DL (8.8-10.2); CARBON DIOXIDE LEVEL 27 MEQ/L (21-32); CHLORIDE LEVEL 110 MEQ/L (98-107); CREATININE FOR GFR 1.22 MG/DL (0.70-1.30); GLOMERULAR FILTRATION RATE > 60.0 (>42); GLUCOSE, FASTING 130 MG/DL (70-100); POTASSIUM SERUM 3.8 MEQ/L (3.5-5.1); SODIUM LEVEL 142 MEQ/L (136-145); TOTAL PROTEIN 5.1 GM/DL (6.4-8.2)
[2018-01-22 12:40] LABS: BEDSIDE GLUCOSE 96 MG/DL (83-110)
[2018-01-22] MEDS: PERCOCET 5MG/325MG TAB PO ×4 (14:27→23:01)
[2018-01-22 17:58] LABS: BEDSIDE GLUCOSE 220 MG/DL (83-110)
[2018-01-22 20:30] LABS: BEDSIDE GLUCOSE 213 MG/DL (83-110)
[2018-01-22] MEDS: LEVEMIR (INSULIN DETEMIR) 1 UNITS/0.01ML SC ×2 (21:28)
[2018-01-22] MEDS: GABAPENTIN 300 MG CAP PO ×2 (21:28)
[2018-01-23 06:04] LABS: BASO # 0.1 10^3/uL (0.0-0.2); BASO % 0.6 % (0.0-1.0); EOS # 0.2 10^3/uL (0.0-0.50); EOS % 2.9 % (0.0-3.0); HEMATOCRIT 26.5 % (42.0-52.0); HEMOGLOBIN 8.4 g/dl (13.5-17.5); IMMATURE GRANULOCYTE % 2.1 % (0-3.0); LYMPH # 1.1 10^3/uL (1.5-4.5); LYMPH % 13.7 % (24.0-44.0); MEAN CORPUSCULAR HEMOGLOBIN 27.5 pg (27.0-33.0); MEAN CORPUSCULAR HGB CONC 31.7 g/dl (32.0-36.5); MEAN CORPUSCULAR VOLUME 86.9 fl (80.0-96.0); MONO # 0.5 10^3/uL (0.0-0.8); MONO % 5.9 % (0.0-5.0); NEUTROPHILS # 6.2 10^3/uL (1.8-7.7); NEUTROPHILS % 74.8 % (36.0-66.0); PLATELET COUNT, AUTOMATED 213 10^3/uL (150-450); RED BLOOD COUNT 3.05 10^6/uL (4.30-6.10); RED CELL DISTRIBUTION WIDTH 15.7 % (11.5-14.5); WHITE BLOOD COUNT 8.3 10^3/uL (4.0-10.0)
[2018-01-23 06:38] LABS: ALBUMIN 1.7 GM/DL (3.2-5.2); ALBUMIN/GLOBULIN RATIO 0.57 (1.00-1.93); ALKALINE PHOSPHATASE 126 U/L (45-117); ALT/SGPT 25 U/L (12-78); ANION GAP 5 MEQ/L (8-16); AST/SGOT 11 U/L (7-37); BILIRUBIN,TOTAL 0.3 MG/DL (0.2-1.0); BLOOD UREA NITROGEN 18 MG/DL (7-18); C REACTIVE PROTEIN QUANTITATIV 6.76 MG/DL (0.00-0.30); CALCIUM LEVEL 7.5 MG/DL (8.8-10.2); CARBON DIOXIDE LEVEL 27 MEQ/L (21-32); CHLORIDE LEVEL 111 MEQ/L (98-107); GLOMERULAR FILTRATION RATE > 60.0 (>42); GLUCOSE, FASTING 98 MG/DL (70-100); MAGNESIUM LEVEL 1.8 MG/DL (1.8-2.4); POTASSIUM SERUM 3.4 MEQ/L (3.5-5.1); SODIUM LEVEL 143 MEQ/L (136-145); TOTAL PROTEIN 4.7 GM/DL (6.4-8.2)
[2018-01-23] MEDS: HumaLOG INSULIN (NovoLOG) PER UNIT SC ×8 (07:30→23:54)
[2018-01-23] MEDS: POTASSIUM CHLORIDE 10 MEQ SR TABLET PO ×2 (08:46)
[2018-01-23] MEDS: FIDAXOMICIN 200 MG TAB (DIFICID) PO ×2 (08:46)
[2018-01-23] MEDS: LACTOBACILLUS ACIDOPHILUS CAP (BACID) PO ×6 (08:46→18:29)
[2018-01-23] MEDS: MULTIVITAMINS/MINERALS THERAP 1 TAB PO ×2 (08:46)
[2018-01-23] MEDS: CREON-12 CAPSULE PO ×8 (08:46→21:19)
[2018-01-23] MEDS: BISOPROLOL FUMARATE 5 MG TAB PO ×2 (08:51)
[2018-01-23] MEDS ORDERED: SODIUM CHLORIDE 0.9% INJ 10 ML SYR IV ×2 (09:00)
[2018-01-23] MEDS ORDERED: SLF 3 ML SYR IV ×2 (10:30)
[2018-01-23 11:31] LABS: BEDSIDE GLUCOSE 128 MG/DL (83-110)
[2018-01-23] MEDS: PERCOCET 5MG/325MG TAB PO ×2 (11:49)
[2018-01-23] MEDS: D5W/0.45% SODIUM CHLORIDE 1,000 ML IV ×4 (11:50→23:53)
[2018-01-23] MEDS: HEPARIN SOD (PORCINE) 5000 UNITS/ML VIAL SQ ×4 (11:50→21:20)
[2018-01-23] MEDS: SLF 3 ML SYR IV ×4 (11:52→21:21)
[2018-01-23] MEDS: GOLYTELY SOLN 4000 ML BTL PO ×2 (14:13)
[2018-01-23 18:04] LABS: BEDSIDE GLUCOSE 247 MG/DL (83-110)
[2018-01-23] MEDS: LEVEMIR (INSULIN DETEMIR) 1 UNITS/0.01ML SC ×2 (21:20)
[2018-01-23] MEDS: GABAPENTIN 300 MG CAP PO ×2 (21:21)
[2018-01-23 21:38] LABS: ANION GAP 8 MEQ/L (8-16); BLOOD UREA NITROGEN 13 MG/DL (7-18); CALCIUM LEVEL 7.5 MG/DL (8.8-10.2); CARBON DIOXIDE LEVEL 27 MEQ/L (21-32); CHLORIDE LEVEL 105 MEQ/L (98-107); CREATININE FOR GFR 1.18 MG/DL (0.70-1.30); GLOMERULAR FILTRATION RATE > 60.0 (>42); GLUCOSE, FASTING 303 MG/DL (70-100); MAGNESIUM LEVEL 1.8 MG/DL (1.8-2.4); POTASSIUM SERUM 3.9 MEQ/L (3.5-5.1); SODIUM LEVEL 140 MEQ/L (136-145)
[2018-01-23 23:09] LABS: BEDSIDE GLUCOSE 223 MG/DL (83-110)
[2018-01-24] MEDS: PERCOCET 5MG/325MG TAB PO ×2 (00:52)
[2018-01-24 06:01] LABS: BEDSIDE GLUCOSE 61 MG/DL (83-110)
[2018-01-24 06:03] LABS: BASO # 0.1 10^3/uL (0.0-0.2); BASO % 0.7 % (0.0-1.0); EOS # 0.3 10^3/uL (0.0-0.50); EOS % 3.8 % (0.0-3.0); HEMATOCRIT 24.2 % (42.0-52.0); HEMOGLOBIN 7.8 g/dl (13.5-17.5); IMMATURE GRANULOCYTE % 1.2 % (0-3.0); LYMPH # 1.1 10^3/uL (1.5-4.5); LYMPH % 14.6 % (24.0-44.0); MEAN CORPUSCULAR HGB CONC 32.2 g/dl (32.0-36.5); MEAN CORPUSCULAR VOLUME 86.7 fl (80.0-96.0); MONO # 0.4 10^3/uL (0.0-0.8); MONO % 5.4 % (0.0-5.0); NEUTROPHILS # 5.6 10^3/uL (1.8-7.7); NEUTROPHILS % 74.3 % (36.0-66.0); PLATELET COUNT, AUTOMATED 231 10^3/uL (150-450); RED BLOOD COUNT 2.79 10^6/uL (4.30-6.10); RED CELL DISTRIBUTION WIDTH 15.8 % (11.5-14.5); WHITE BLOOD COUNT 7.5 10^3/uL (4.0-10.0)
[2018-01-24] MEDS: SLF 3 ML SYR IV ×6 (06:05→21:34)
[2018-01-24] MEDS: HumaLOG INSULIN (NovoLOG) PER UNIT SC ×6 (06:05→18:32)
[2018-01-24 06:24] LABS: ALBUMIN 1.7 GM/DL (3.2-5.2); ALBUMIN/GLOBULIN RATIO 0.52 (1.00-1.93); ALKALINE PHOSPHATASE 121 U/L (45-117); ALT/SGPT 24 U/L (12-78); ANION GAP 5 MEQ/L (8-16); AST/SGOT 14 U/L (7-37); BILIRUBIN,TOTAL 0.5 MG/DL (0.2-1.0); BLOOD UREA NITROGEN 10 MG/DL (7-18); C REACTIVE PROTEIN QUANTITATIV 7.71 MG/DL (0.00-0.30); CALCIUM LEVEL 7.3 MG/DL (8.8-10.2); CARBON DIOXIDE LEVEL 28 MEQ/L (21-32); CHLORIDE LEVEL 111 MEQ/L (98-107); CREATININE FOR GFR 0.95 MG/DL (0.70-1.30); GLOMERULAR FILTRATION RATE > 60.0 (>42); GLUCOSE, FASTING 54 MG/DL (70-100); MAGNESIUM LEVEL 1.8 MG/DL (1.8-2.4); POTASSIUM SERUM 3.2 MEQ/L (3.5-5.1); SODIUM LEVEL 144 MEQ/L (136-145)
[2018-01-24] MEDS ORDERED: PROPOFOL 200 MG/20 ML VIAL As Ordered ×4 (07:00→15:18)
[2018-01-24] MEDS ORDERED: LIDOCAINE 2% INJ 100 MG/5 ML SDV (FOR ANES.) As Ordered ×2 (07:06)
[2018-01-24] MEDS: BISOPROLOL FUMARATE 5 MG TAB PO ×2 (08:18)
[2018-01-24] MEDS: MULTIVITAMINS/MINERALS THERAP 1 TAB PO ×2 (08:18)
[2018-01-24] MEDS: LACTOBACILLUS ACIDOPHILUS CAP (BACID) PO ×6 (08:18→18:28)
[2018-01-24] MEDS: CREON-12 CAPSULE PO ×8 (08:18→21:28)
[2018-01-24] MEDS: POTASSIUM CHLORIDE 10 MEQ SR TABLET PO ×2 (08:19)
[2018-01-24] MEDS: GLUCOSE 4 GM CHEW TABLET PO ×4 (08:20→09:00)
[2018-01-24] MEDS: HEPARIN SOD (PORCINE) 5000 UNITS/ML VIAL SQ ×4 (09:00→21:28)
[2018-01-24 10:30] LABS: BEDSIDE GLUCOSE 96 MG/DL (83-110)
[2018-01-24 12:03] LABS: BEDSIDE GLUCOSE 73 MG/DL (83-110)
[2018-01-24 12:21] LABS: HEMATOCRIT 27.1 % (42.0-52.0); HEMOGLOBIN 8.6 g/dl (13.5-17.5)
[2018-01-24] MEDS: D5W/0.45% SODIUM CHLORIDE 1,000 ML IV ×4 (12:28→21:34)
[2018-01-24 14:20] LABS: BEDSIDE GLUCOSE 78 MG/DL (83-110)
[2018-01-24] MEDS: FECAL MICROBIOTA PREPARATION 250 ML BTL (J3590) XX ×2 (14:45)
[2018-01-24 18:11] LABS: BEDSIDE GLUCOSE 114 MG/DL (83-110)
[2018-01-24 21:14] LABS: BEDSIDE GLUCOSE 238 MG/DL (83-110)
[2018-01-24] MEDS: GABAPENTIN 300 MG CAP PO ×2 (21:28)
[2018-01-24] MEDS: LEVEMIR (INSULIN DETEMIR) 1 UNITS/0.01ML SC ×2 (21:29)
[2018-01-24 23:50] LABS: BEDSIDE GLUCOSE 298 MG/DL (83-110)
[2018-01-25] MEDS: HumaLOG INSULIN (NovoLOG) PER UNIT SC ×8 (00:23→18:17)
[2018-01-25 05:53] LABS: BEDSIDE GLUCOSE 95 MG/DL (83-110)
[2018-01-25] MEDS: SLF 3 ML SYR IV ×6 (05:53→20:37)
[2018-01-25 06:51] LABS: BASO % 0.6 % (0.0-1.0); EOS # 0.1 10^3/uL (0.0-0.50); EOS % 2.1 % (0.0-3.0); HEMATOCRIT 26.2 % (42.0-52.0); HEMOGLOBIN 8.2 g/dl (13.5-17.5); IMMATURE GRANULOCYTE % 1.2 % (0-3.0); LYMPH % 15.7 % (24.0-44.0); MEAN CORPUSCULAR HEMOGLOBIN 27.6 pg (27.0-33.0); MEAN CORPUSCULAR HGB CONC 31.3 g/dl (32.0-36.5); MEAN CORPUSCULAR VOLUME 88.2 fl (80.0-96.0); MONO # 0.3 10^3/uL (0.0-0.8); NEUTROPHILS % 75.4 % (36.0-66.0); PLATELET COUNT, AUTOMATED 242 10^3/uL (150-450); RED BLOOD COUNT 2.97 10^6/uL (4.30-6.10); RED CELL DISTRIBUTION WIDTH 15.9 % (11.5-14.5); WHITE BLOOD COUNT 6.6 10^3/uL (4.0-10.0)
[2018-01-25 07:09] LABS: ALBUMIN 1.6 GM/DL (3.2-5.2); ALBUMIN/GLOBULIN RATIO 0.52 (1.00-1.93); ALKALINE PHOSPHATASE 122 U/L (45-117); ALT/SGPT 22 U/L (12-78); ANION GAP 8 MEQ/L (8-16); AST/SGOT 16 U/L (7-37); BILIRUBIN,TOTAL 0.5 MG/DL (0.2-1.0); BLOOD UREA NITROGEN 6 MG/DL (7-18); C REACTIVE PROTEIN QUANTITATIV 5.94 MG/DL (0.00-0.30); CALCIUM LEVEL 7.5 MG/DL (8.8-10.2); CARBON DIOXIDE LEVEL 27 MEQ/L (21-32); CHLORIDE LEVEL 110 MEQ/L (98-107); CREATININE FOR GFR 0.98 MG/DL (0.70-1.30); GLOMERULAR FILTRATION RATE > 60.0 (>42); GLUCOSE, FASTING 90 MG/DL (70-100); MAGNESIUM LEVEL 1.8 MG/DL (1.8-2.4); POTASSIUM SERUM 3.4 MEQ/L (3.5-5.1); SODIUM LEVEL 145 MEQ/L (136-145); TOTAL PROTEIN 4.7 GM/DL (6.4-8.2)
[2018-01-25] MEDS: MULTIVITAMINS/MINERALS THERAP 1 TAB PO ×2 (09:57)
[2018-01-25] MEDS: CREON-12 CAPSULE PO ×8 (09:58→20:36)
[2018-01-25] MEDS: BISOPROLOL FUMARATE 5 MG TAB PO ×2 (09:58)
[2018-01-25] MEDS: POTASSIUM CHLORIDE 10 MEQ SR TABLET PO ×2 (09:58)
[2018-01-25] MEDS: LACTOBACILLUS ACIDOPHILUS CAP (BACID) PO ×6 (09:58→17:57)
[2018-01-25] MEDS: HEPARIN SOD (PORCINE) 5000 UNITS/ML VIAL SQ ×4 (09:59→20:36)
[2018-01-25 11:53] LABS: BEDSIDE GLUCOSE 155 MG/DL (83-110)
[2018-01-25 12:02] LABS: HEMATOCRIT 28.3 % (42.0-52.0); HEMOGLOBIN 8.8 g/dl (13.5-17.5)
[2018-01-25 18:04] LABS: BEDSIDE GLUCOSE 240 MG/DL (83-110)
[2018-01-25 18:16] LABS: HEMATOCRIT 28.3 % (42.0-52.0); HEMOGLOBIN 8.8 g/dl (13.5-17.5)
[2018-01-25] MEDS: GABAPENTIN 300 MG CAP PO ×2 (20:36)
[2018-01-25] MEDS: LEVEMIR (INSULIN DETEMIR) 1 UNITS/0.01ML SC ×2 (20:36)
[2018-01-25 23:45] LABS: BEDSIDE GLUCOSE 222 MG/DL (83-110)
[2018-01-26 00:38] LABS: HEMATOCRIT 24.2 % (42.0-52.0); HEMOGLOBIN 7.6 g/dl (13.5-17.5)
[2018-01-26] MEDS: HumaLOG INSULIN (NovoLOG) PER UNIT SC ×4 (05:32)
[2018-01-26] MEDS: SLF 3 ML SYR IV ×2 (05:32)
[2018-01-26 05:37] LABS: BEDSIDE GLUCOSE 65 MG/DL (83-110)
[2018-01-26 05:44] LABS: BASO # 0.1 10^3/uL (0.0-0.2); EOS # 0.2 10^3/uL (0.0-0.50); EOS % 2.9 % (0.0-3.0); HEMATOCRIT 26.8 % (42.0-52.0); HEMOGLOBIN 8.2 g/dl (13.5-17.5); IMMATURE GRANULOCYTE % 0.6 % (0-3.0); LYMPH # 1.5 10^3/uL (1.5-4.5); LYMPH % 21.1 % (24.0-44.0); MEAN CORPUSCULAR HEMOGLOBIN 26.8 pg (27.0-33.0); MEAN CORPUSCULAR HGB CONC 30.6 g/dl (32.0-36.5); MEAN CORPUSCULAR VOLUME 87.6 fl (80.0-96.0); MONO # 0.4 10^3/uL (0.0-0.8); MONO % 5.4 % (0.0-5.0); NEUTROPHILS # 4.8 10^3/uL (1.8-7.7); PLATELET COUNT, AUTOMATED 252 10^3/uL (150-450); RED BLOOD COUNT 3.06 10^6/uL (4.30-6.10); RED CELL DISTRIBUTION WIDTH 15.9 % (11.5-14.5)
[2018-01-26 06:09] LABS: ALBUMIN 1.8 GM/DL (3.2-5.2); ALKALINE PHOSPHATASE 132 U/L (45-117); ALT/SGPT 25 U/L (12-78); ANION GAP 6 MEQ/L (8-16); AST/SGOT 18 U/L (7-37); BILIRUBIN,TOTAL 0.4 MG/DL (0.2-1.0); BLOOD UREA NITROGEN 11 MG/DL (7-18); C REACTIVE PROTEIN QUANTITATIV 4.14 MG/DL (0.00-0.30); CALCIUM LEVEL 7.6 MG/DL (8.8-10.2); CARBON DIOXIDE LEVEL 28 MEQ/L (21-32); CHLORIDE LEVEL 112 MEQ/L (98-107); CREATININE FOR GFR 1.06 MG/DL (0.70-1.30); GLOMERULAR FILTRATION RATE > 60.0 (>42); GLUCOSE, FASTING 63 MG/DL (70-100); MAGNESIUM LEVEL 1.8 MG/DL (1.8-2.4); POTASSIUM SERUM 3.9 MEQ/L (3.5-5.1); SODIUM LEVEL 146 MEQ/L (136-145); TOTAL PROTEIN 5.4 GM/DL (6.4-8.2)
[2018-01-26 06:47] LABS: BEDSIDE GLUCOSE 119 MG/DL (83-110)
[2018-01-26] MEDS: HEPARIN SOD (PORCINE) 5000 UNITS/ML VIAL SQ ×2 (09:30)
[2018-01-26] MEDS: MULTIVITAMINS/MINERALS THERAP 1 TAB PO ×2 (09:30)
[2018-01-26] MEDS: BISOPROLOL FUMARATE 5 MG TAB PO ×2 (09:32)
[2018-01-26] MEDS: LACTOBACILLUS ACIDOPHILUS CAP (BACID) PO ×2 (09:32)
[2018-01-26] MEDS: CREON-12 CAPSULE PO ×2 (09:32)
[2018-01-26] MEDS ORDERED: LEVEMIR (INSULIN DETEMIR) 1 UNITS/0.01ML SC ×2 (21:00)
[2018-02-20] MEDS ORDERED: SODIUM CHLORIDE 0.9% INJ 10 ML SYR IV ×2 (09:00)
== END 2018-01-26 11:22 | disposition home or self-care (01) | DRG 854 ==
LOC: M MSPAV 01-15 01:56 → M ICU 01-15 06:20 → M ED 15:55 → M PCU 01-19 16:13 → M ED INP 23:44
PROC: 0Y6S0Z0 Detachment at Left 2nd Toe, Complete, Open Approach (ICD-10-PCS; principal; 2018-01-20 16:00)
PROC: 0Y6Q0Z0 Detachment at Left 1st Toe, Complete, Open Approach (ICD-10-PCS; 2018-01-20 16:00)
PROC: 0Y6M0ZF Detachment at Right Foot, Partial 5th Ray, Open Approach (ICD-10-PCS; 2018-01-20 16:00)
PROC: 0LBW0ZZ Excision of Left Foot Tendon, Open Approach (ICD-10-PCS; 2018-01-20 16:00)
PROC: 0JBQ0ZZ Excision of Right Foot Subcutaneous Tissue and Fascia, Open Approach (ICD-10-PCS; 2018-01-20 16:00)
PROC: 30233N1 Transfusion of Nonautologous Red Blood Cells into Peripheral Vein, Percutaneous Approach (ICD-10-PCS; 2018-01-20 16:30)
PROC: 3E0H8GC Introduction of Other Therapeutic Substance into Lower GI, Via Natural or Artificial Opening Endoscopic (ICD-10-PCS; 2018-01-20 16:30)
PROC: B41DYZZ Fluoroscopy of Aorta and Bilateral Lower Extremity Arteries using Other Contrast (ICD-10-PCS; 2018-01-20 16:30)
DX: A41.9 Sepsis, unspecified organism (principal); C78.7 Secondary malignant neoplasm of liver and intrahepatic bile duct; C78.89 Secondary malignant neoplasm of other digestive organs; A04.72 Enterocolitis due to Clostridium difficile, not specified as recurrent; C64.9 Malignant neoplasm of unspecified kidney, except renal pelvis; C78.00 Secondary malignant neoplasm of unspecified lung; M86.671 Other chronic osteomyelitis, right ankle and foot; E11.52 Type 2 diabetes mellitus with diabetic peripheral angiopathy with gangrene; L97.516 Non-pressure chronic ulcer of other part of right foot with bone involvement without evidence of necrosis; L97.526 Non-pressure chronic ulcer of other part of left foot with bone involvement without evidence of necrosis; N17.9 Acute kidney failure, unspecified; I70.235 Atherosclerosis of native arteries of right leg with ulceration of other part of foot; E11.621 Type 2 diabetes mellitus with foot ulcer; I12.9 Hypertensive chronic kidney disease with stage 1 through stage 4 chronic kidney disease, or unspecified chronic kidney disease; N18.3 Chronic kidney disease, stage 3 (moderate); D64.9 Anemia, unspecified; E11.42 Type 2 diabetes mellitus with diabetic polyneuropathy; Z86.14 Personal history of Methicillin resistant Staphylococcus aureus infection; Z90.5 Acquired absence of kidney; Z89.422 Acquired absence of other left toe(s); Z79.4 Long term (current) use of insulin; Z79.899 Other long term (current) drug therapy

== ENCOUNTER 2018-03-05 13:55 | Inpatient (IN) | payer MEDICARE ==
[2018-03-05 14:40] LABS: BASO % 0.3 % (0.0-1.0); EOS # 0.2 10^3/uL (0.0-0.50); EOS % 1.2 % (0.0-3.0); HEMATOCRIT 29.3 % (42.0-52.0); IMMATURE GRANULOCYTE % 0.8 % (0-3.0); LYMPH % 7.7 % (24.0-44.0); MEAN CORPUSCULAR HEMOGLOBIN 27.2 pg (27.0-33.0); MEAN CORPUSCULAR HGB CONC 30.7 g/dl (32.0-36.5); MEAN CORPUSCULAR VOLUME 88.5 fl (80.0-96.0); MONO # 0.5 10^3/uL (0.0-0.8); MONO % 4.1 % (0.0-5.0); NEUTROPHILS # 11.2 10^3/uL (1.8-7.7); NEUTROPHILS % 85.9 % (36.0-66.0); PLATELET COUNT, AUTOMATED 289 10^3/uL (150-450); RED BLOOD COUNT 3.31 10^6/uL (4.30-6.10); RED CELL DISTRIBUTION WIDTH 15.9 % (11.5-14.5)
[2018-03-05 15:07] LABS: LACTIC ACID SEPSIS PROTOCOL 1.3 MMOL/L (0.4-2.0)
[2018-03-05 15:11] LABS: ANION GAP 7 MEQ/L (8-16); BLOOD UREA NITROGEN 25 MG/DL (7-18); CALCIUM LEVEL 9.3 MG/DL (8.8-10.2); CARBON DIOXIDE LEVEL 26 MEQ/L (21-32); CHLORIDE LEVEL 102 MEQ/L (98-107); CREATININE FOR GFR 1.54 MG/DL (0.70-1.30); GLOMERULAR FILTRATION RATE 47.6 (>42); GLUCOSE, FASTING 233 MG/DL (70-100); POTASSIUM SERUM 4.6 MEQ/L (3.5-5.1); SODIUM LEVEL 135 MEQ/L (136-145)
[2018-03-05 16:04] LABS: ERYTHROCYTE SEDIMENTATION RATE 126 mm/hr (0-20)
[2018-03-05] MEDS ORDERED: DEXTROSE 50% 50 ML SYRINGE IV (16:15)
[2018-03-05] MEDS ORDERED: GLUCAGON FOR INJ 1 MG VIAL (J1610) SC (16:15)
[2018-03-05] MEDS ORDERED: GLUCOSE 4 GM CHEW TABLET PO (16:15)
[2018-03-05] MEDS ORDERED: ONDANSETRON 4MG/2ML VIAL (J2405) IV (16:30)
[2018-03-05 17:47] LABS: BEDSIDE GLUCOSE 193 MG/DL (83-110)
[2018-03-05] MEDS: HumaLOG INSULIN (NovoLOG) PER UNIT SC ×2 (18:07→20:56)
[2018-03-05] MEDS: VANCOMYCIN HCL 1,000 MG, VIAL MATE ADAPTER 1 EACH in D5W 250 ML IV ×2 (18:08→22:10)
[2018-03-05 20:16] LABS: BEDSIDE GLUCOSE 198 MG/DL (83-110)
[2018-03-05] MEDS: SENOKOT S TAB PO (21:00)
[2018-03-05] MEDS: NS 1,000 ML IV (21:03)
[2018-03-05] MEDS: LEVEMIR (INSULIN DETEMIR) 1 UNITS/0.01ML SC (21:10)
[2018-03-05] MEDS: GABAPENTIN 300 MG CAP PO (21:11)
[2018-03-05] MEDS: HEPARIN SOD (PORCINE) 5000 UNITS/ML VIAL SC (21:11)
[2018-03-05] MEDS: LACTOBACILLUS ACIDOPHILUS CAP (BACID) PO (21:11)
[2018-03-05] MEDS: CREON-12 CAPSULE PO (21:33)
[2018-03-05] MEDS: ACETAMINOPHEN TAB 650MG DOSE (2X325MG) PO (22:22)
[2018-03-06 06:16] LABS: BASO % 0.3 % (0.0-1.0); EOS # 0.3 10^3/uL (0.0-0.50); EOS % 2.7 % (0.0-3.0); HEMATOCRIT 26.2 % (42.0-52.0); HEMOGLOBIN 8.3 g/dl (13.5-17.5); IMMATURE GRANULOCYTE % 0.6 % (0-3.0); MEAN CORPUSCULAR HEMOGLOBIN 27.7 pg (27.0-33.0); MEAN CORPUSCULAR HGB CONC 31.7 g/dl (32.0-36.5); MEAN CORPUSCULAR VOLUME 87.3 fl (80.0-96.0); MONO # 0.3 10^3/uL (0.0-0.8); MONO % 2.6 % (0.0-5.0); NEUTROPHILS # 10.2 10^3/uL (1.8-7.7); NEUTROPHILS % 85.8 % (36.0-66.0); PLATELET COUNT, AUTOMATED 251 10^3/uL (150-450); RED CELL DISTRIBUTION WIDTH 15.9 % (11.5-14.5); WHITE BLOOD COUNT 11.9 10^3/uL (4.0-10.0)
[2018-03-06 06:43] LABS: ALBUMIN 2.3 GM/DL (3.2-5.2); ALBUMIN/GLOBULIN RATIO 0.47 (1.00-1.93); ALKALINE PHOSPHATASE 134 U/L (45-117); ALT/SGPT 26 U/L (12-78); ANION GAP 7 MEQ/L (8-16); AST/SGOT 15 U/L (7-37); BILIRUBIN,TOTAL 0.4 MG/DL (0.2-1.0); BLOOD UREA NITROGEN 23 MG/DL (7-18); CALCIUM LEVEL 8.4 MG/DL (8.8-10.2); CARBON DIOXIDE LEVEL 25 MEQ/L (21-32); CHLORIDE LEVEL 106 MEQ/L (98-107); CREATININE FOR GFR 1.39 MG/DL (0.70-1.30); GLOMERULAR FILTRATION RATE 53.6 (>42); GLUCOSE, FASTING 124 MG/DL (70-100); POTASSIUM SERUM 4.1 MEQ/L (3.5-5.1); SODIUM LEVEL 138 MEQ/L (136-145); TOTAL PROTEIN 7.2 GM/DL (6.4-8.2)
[2018-03-06] MEDS: ACETAMINOPHEN TAB 650MG DOSE (2X325MG) PO (08:16)
[2018-03-06] MEDS: HumaLOG INSULIN (NovoLOG) PER UNIT SC ×4 (08:16→21:42)
[2018-03-06] MEDS: HEPARIN SOD (PORCINE) 5000 UNITS/ML VIAL SC ×2 (08:17→21:41)
[2018-03-06] MEDS: LACTOBACILLUS ACIDOPHILUS CAP (BACID) PO ×3 (08:17→17:36)
[2018-03-06] MEDS: BISOPROLOL FUMARATE 5 MG TAB PO (08:17)
[2018-03-06] MEDS: CREON-12 CAPSULE PO ×2 (08:17→17:37)
[2018-03-06] MEDS: MULTIVITAMINS/MINERALS THERAP 1 TAB PO (08:17)
[2018-03-06] MEDS: SENOKOT S TAB PO ×2 (08:17→21:41)
[2018-03-06] MEDS: INFLUENZA VIRUS VACCINE HIGH DOSE 0.5 ML SYRINGE (90662) IM (09:00)
[2018-03-06 11:30] LABS: BEDSIDE GLUCOSE 69 MG/DL (83-110)
[2018-03-06] MEDS: VANCOMYCIN HCL 1,000 MG, VIAL MATE ADAPTER 1 EACH in D5W 250 ML IV (15:07)
[2018-03-06 16:59] LABS: BEDSIDE GLUCOSE 230 MG/DL (83-110)
[2018-03-06 20:44] LABS: BEDSIDE GLUCOSE 285 MG/DL (83-110)
[2018-03-06] MEDS: GABAPENTIN 300 MG CAP PO (21:41)
[2018-03-06] MEDS: LEVEMIR (INSULIN DETEMIR) 1 UNITS/0.01ML SC (21:42)
[2018-03-07] MEDS: RAMELTEON 8 MG TAB (ROZEREM) PO ×2 (00:42→23:05)
[2018-03-07 01:51] LABS: APPEARANCE, URINE CLEAR (CLEAR); BACTERIA, URINE AUTO NEGATIVE (NEGATIVE); BILIRUBIN, URINE AUTO NEGATIVE (NEGATIVE); BLOOD, URINE BLOOD NEGATIVE (NEGATIVE); COLOR, URINE YELLOW (YELLOW); GLUCOSE, URINE (UA) AUTO 2+ mg/dL (NEGATIVE); KETONE, URINE AUTO NEGATIVE (NEGATIVE); LEUKOCYTE ESTERASE, URINE AUTO NEGATIVE (NEGATIVE); NITRITE, URINE AUTO NEGATIVE (NEGATIVE); PROTEIN, URINE AUTO 1+ mg/dL (NEGATIVE); RBC, URINE AUTO 1 /HPF (0-3); SPECIFIC GRAVITY URINE AUTO 1.017 (1.002-1.035); SQUAMOUS EPITHELIAL CELL UR AU 0 /HPF (0-6); UROBILINOGEN, URINE AUTO 0.2 mg/dL (0.0-2.0); WBC, URINE AUTO 1 /HPF (0-3)
[2018-03-07 02:05] LABS: OSMOLALITY URINE 643 MOSM/KG (500-800)
[2018-03-07 02:18] LABS: CHLORIDE,RANDOM URINE 160 MEQ/L; CREATININE,RANDOM URINE 81.6 MG/DL; POTASSIUM RANDOM URINE 32.8 MEQ/L; SODIUM,RANDOM URINE 153 MEQ/L; TOTAL PROTEIN,RANDOM URINE 90.6 MG/DL (0.0-12.0)
[2018-03-07 07:18] LABS: BEDSIDE GLUCOSE 55 MG/DL (83-110)
[2018-03-07] MEDS: HumaLOG INSULIN (NovoLOG) PER UNIT SC ×4 (07:24→22:43)
[2018-03-07] MEDS: SENOKOT S TAB PO ×2 (07:51→22:30)
[2018-03-07] MEDS: LACTOBACILLUS ACIDOPHILUS CAP (BACID) PO ×3 (07:51→18:00)
[2018-03-07] MEDS: VANCOMYCIN HCL 1,000 MG, VIAL MATE ADAPTER 1 EACH in D5W 250 ML IV ×2 (07:51→16:22)
[2018-03-07] MEDS: CREON-12 CAPSULE PO ×2 (07:51→18:00)
[2018-03-07] MEDS: MULTIVITAMINS/MINERALS THERAP 1 TAB PO (07:51)
[2018-03-07] MEDS: BISOPROLOL FUMARATE 5 MG TAB PO (07:52)
[2018-03-07 08:56] LABS: BASO # 0.1 10^3/uL (0.0-0.2); BASO % 0.5 % (0.0-1.0); EOS # 0.4 10^3/uL (0.0-0.50); EOS % 3.9 % (0.0-3.0); HEMATOCRIT 23.9 % (42.0-52.0); HEMOGLOBIN 7.5 g/dl (13.5-17.5); IMMATURE GRANULOCYTE % 0.5 % (0-3.0); MEAN CORPUSCULAR HGB CONC 31.4 g/dl (32.0-36.5); MONO # 0.5 10^3/uL (0.0-0.8); MONO % 4.8 % (0.0-5.0); NEUTROPHILS # 8.6 10^3/uL (1.8-7.7); NEUTROPHILS % 81.3 % (36.0-66.0); PLATELET COUNT, AUTOMATED 248 10^3/uL (150-450); RED BLOOD COUNT 2.78 10^6/uL (4.30-6.10); RED CELL DISTRIBUTION WIDTH 15.9 % (11.5-14.5); WHITE BLOOD COUNT 10.6 10^3/uL (4.0-10.0)
[2018-03-07 09:23] LABS: ALBUMIN 2.3 GM/DL (3.2-5.2); ALBUMIN/GLOBULIN RATIO 0.59 (1.00-1.93); ALKALINE PHOSPHATASE 125 U/L (45-117); ALT/SGPT 26 U/L (12-78); ANION GAP 11 MEQ/L (8-16); AST/SGOT 15 U/L (7-37); BILIRUBIN,TOTAL 0.3 MG/DL (0.2-1.0); BLOOD UREA NITROGEN 21 MG/DL (7-18); CALCIUM LEVEL 8.2 MG/DL (8.8-10.2); CARBON DIOXIDE LEVEL 24 MEQ/L (21-32); CHLORIDE LEVEL 107 MEQ/L (98-107); CREATININE FOR GFR 1.19 MG/DL (0.70-1.30); GLOMERULAR FILTRATION RATE > 60.0 (>42); GLUCOSE, FASTING 93 MG/DL (70-100); MAGNESIUM LEVEL 2.3 MG/DL (1.8-2.4); SODIUM LEVEL 142 MEQ/L (136-145); TOTAL PROTEIN 6.2 GM/DL (6.4-8.2)
[2018-03-07 11:25] LABS: BEDSIDE GLUCOSE 190 MG/DL (83-110)
[2018-03-07] MEDS: PERCOCET 5MG/325MG TAB PO ×2 (11:58→22:31)
[2018-03-07 15:52] LABS: VANCOMYCIN LEVEL TROUGH 14.1 UG/ML (10.0-20.0)
[2018-03-07 16:31] LABS: BEDSIDE GLUCOSE 119 MG/DL (83-110)
[2018-03-07] MEDS: BUPIVACAINE HCL 0.5% 10 ML VIAL As Ordered (19:40)
[2018-03-07] MEDS: LIDOCAINE 1% MDV 20ML VIAL As Ordered (19:40)
[2018-03-07] MEDS: LIDOCAINE 1% SDV INJ 30 ML VIAL As Ordered (19:49)
[2018-03-07] MEDS ORDERED: fentaNYL 100 MCG/2 ML INJECTION (J3010) As Ordered (19:59)
[2018-03-07] MEDS ORDERED: MIDAZOLAM INJ 2 MG/2 ML VIAL (J2250) As Ordered (19:59)
[2018-03-07] MEDS ORDERED: ONDANSETRON 4MG/2ML VIAL (J2405) As Ordered (19:59)
[2018-03-07] MEDS ORDERED: PROPOFOL 200 MG/20 ML VIAL As Ordered ×4 (19:59→20:00)
[2018-03-07] MEDS ORDERED: LIDOCAINE 2% INJ 100 MG/5 ML SDV (FOR ANES.) As Ordered (20:01)
[2018-03-07 20:07] LABS: BEDSIDE GLUCOSE 141 MG/DL (83-110)
[2018-03-07] MEDS ORDERED: PHENYLephrine HCL 500 MCG/5 ML (100MCG/ML) SYRINGE (J2370) As Ordered (20:21)
[2018-03-07] MEDS: LR 1,000 ML IV (21:00)
[2018-03-07] MEDS ORDERED: MORPHINE 4 MG/ML 1ML VIAL/SYRINGE (J2270) IV (21:00)
[2018-03-07] MEDS ORDERED: fentaNYL 100 MCG/2 ML INJECTION (J3010) IV (21:00)
[2018-03-07] MEDS ORDERED: ONDANSETRON 4MG/2ML VIAL (J2405) IV (21:00)
[2018-03-07 22:26] LABS: BEDSIDE GLUCOSE 106 MG/DL (83-110)
[2018-03-07] MEDS: GABAPENTIN 300 MG CAP PO (22:30)
[2018-03-08 00:08] LABS: BEDSIDE GLUCOSE 206 MG/DL (83-110)
[2018-03-08] MEDS: LEVEMIR (INSULIN DETEMIR) 1 UNITS/0.01ML SC ×2 (00:23→21:34)
[2018-03-08] MEDS: VANCOMYCIN HCL 1,000 MG, VIAL MATE ADAPTER 1 EACH in D5W 250 ML IV ×2 (03:29→20:58)
[2018-03-08 04:25] LABS: BEDSIDE GLUCOSE 317 MG/DL (83-110)
[2018-03-08] MEDS: PERCOCET 5MG/325MG TAB PO ×4 (06:01→23:04)
[2018-03-08 06:25] LABS: ALBUMIN 2.2 GM/DL (3.2-5.2); ALBUMIN/GLOBULIN RATIO 0.45 (1.00-1.93); ALKALINE PHOSPHATASE 118 U/L (45-117); ALT/SGPT 23 U/L (12-78); ANION GAP 6 MEQ/L (8-16); AST/SGOT 14 U/L (7-37); BILIRUBIN,TOTAL 0.3 MG/DL (0.2-1.0); BLOOD UREA NITROGEN 20 MG/DL (7-18); CARBON DIOXIDE LEVEL 27 MEQ/L (21-32); CHLORIDE LEVEL 103 MEQ/L (98-107); CREATININE FOR GFR 1.28 MG/DL (0.70-1.30); GLUCOSE, FASTING 287 MG/DL (70-100); POTASSIUM SERUM 4.7 MEQ/L (3.5-5.1); SODIUM LEVEL 136 MEQ/L (136-145); TOTAL PROTEIN 7.1 GM/DL (6.4-8.2)
[2018-03-08 06:51] LABS: BASO % 0.4 % (0.0-1.0); EOS # 0.4 10^3/uL (0.0-0.50); EOS % 5.6 % (0.0-3.0); HEMATOCRIT 27.4 % (42.0-52.0); HEMOGLOBIN 8.4 g/dl (13.5-17.5); IMMATURE GRANULOCYTE % 0.8 % (0-3.0); LYMPH % 13.5 % (24.0-44.0); MEAN CORPUSCULAR HEMOGLOBIN 27.5 pg (27.0-33.0); MEAN CORPUSCULAR HGB CONC 30.7 g/dl (32.0-36.5); MEAN CORPUSCULAR VOLUME 89.5 fl (80.0-96.0); MONO # 0.5 10^3/uL (0.0-0.8); MONO % 6.5 % (0.0-5.0); NEUTROPHILS # 5.7 10^3/uL (1.8-7.7); NEUTROPHILS % 73.2 % (36.0-66.0); PLATELET COUNT, AUTOMATED 239 10^3/uL (150-450); RED BLOOD COUNT 3.06 10^6/uL (4.30-6.10); RED CELL DISTRIBUTION WIDTH 16.1 % (11.5-14.5); WHITE BLOOD COUNT 7.7 10^3/uL (4.0-10.0)
[2018-03-08] MEDS: CREON-12 CAPSULE PO ×2 (08:28→17:22)
[2018-03-08] MEDS: SENOKOT S TAB PO ×2 (08:28→20:57)
[2018-03-08] MEDS: HEPARIN SOD (PORCINE) 5000 UNITS/ML VIAL SC ×2 (08:28→20:58)
[2018-03-08] MEDS: LACTOBACILLUS ACIDOPHILUS CAP (BACID) PO ×3 (08:28→17:22)
[2018-03-08] MEDS: MULTIVITAMINS/MINERALS THERAP 1 TAB PO (08:28)
[2018-03-08] MEDS: BISOPROLOL FUMARATE 5 MG TAB PO (08:28)
[2018-03-08] MEDS: HumaLOG INSULIN (NovoLOG) PER UNIT SC ×4 (08:29→21:34)
[2018-03-08 11:54] LABS: BEDSIDE GLUCOSE 73 MG/DL (83-110)
[2018-03-08 16:33] LABS: BEDSIDE GLUCOSE 200 MG/DL (83-110)
[2018-03-08 20:38] LABS: VANCOMYCIN LEVEL TROUGH 16.7 UG/ML (10.0-20.0)
[2018-03-08] MEDS: GABAPENTIN 300 MG CAP PO (20:57)
[2018-03-08 21:14] LABS: BEDSIDE GLUCOSE 325 MG/DL (83-110)
[2018-03-08] MEDS: RAMELTEON 8 MG TAB (ROZEREM) PO (21:34)
[2018-03-09 06:44] LABS: BASO % 0.5 % (0.0-1.0); EOS # 0.3 10^3/uL (0.0-0.50); EOS % 4.1 % (0.0-3.0); HEMATOCRIT 24.6 % (42.0-52.0); HEMOGLOBIN 7.6 g/dl (13.5-17.5); IMMATURE GRANULOCYTE % 0.7 % (0-3.0); LYMPH # 1.1 10^3/uL (1.5-4.5); MEAN CORPUSCULAR HGB CONC 30.9 g/dl (32.0-36.5); MEAN CORPUSCULAR VOLUME 87.2 fl (80.0-96.0); MONO # 0.5 10^3/uL (0.0-0.8); MONO % 6.3 % (0.0-5.0); NEUTROPHILS # 6.2 10^3/uL (1.8-7.7); NEUTROPHILS % 75.4 % (36.0-66.0); PLATELET COUNT, AUTOMATED 245 10^3/uL (150-450); RED BLOOD COUNT 2.82 10^6/uL (4.30-6.10); RED CELL DISTRIBUTION WIDTH 15.9 % (11.5-14.5); WHITE BLOOD COUNT 8.2 10^3/uL (4.0-10.0)
[2018-03-09 06:59] LABS: ALBUMIN 2.1 GM/DL (3.2-5.2); ALBUMIN/GLOBULIN RATIO 0.45 (1.00-1.93); ALKALINE PHOSPHATASE 106 U/L (45-117); ALT/SGPT 20 U/L (12-78); ANION GAP 4 MEQ/L (8-16); AST/SGOT 12 U/L (7-37); BILIRUBIN,TOTAL 0.3 MG/DL (0.2-1.0); BLOOD UREA NITROGEN 20 MG/DL (7-18); CALCIUM LEVEL 8.1 MG/DL (8.8-10.2); CARBON DIOXIDE LEVEL 29 MEQ/L (21-32); CHLORIDE LEVEL 105 MEQ/L (98-107); CREATININE FOR GFR 1.31 MG/DL (0.70-1.30); GLOMERULAR FILTRATION RATE 57.4 (>42); GLUCOSE, FASTING 147 MG/DL (70-100); POTASSIUM SERUM 4.5 MEQ/L (3.5-5.1); SODIUM LEVEL 138 MEQ/L (136-145); TOTAL PROTEIN 6.8 GM/DL (6.4-8.2)
[2018-03-09] MEDS: HEPARIN SOD (PORCINE) 5000 UNITS/ML VIAL SC (08:46)
[2018-03-09] MEDS: HumaLOG INSULIN (NovoLOG) PER UNIT SC ×4 (08:47→20:42)
[2018-03-09] MEDS: MULTIVITAMINS/MINERALS THERAP 1 TAB PO (08:47)
[2018-03-09] MEDS: SENOKOT S TAB PO ×2 (08:47→20:39)
[2018-03-09] MEDS: CREON-12 CAPSULE PO ×2 (08:49→18:15)
[2018-03-09] MEDS: PERCOCET 5MG/325MG TAB PO ×3 (08:49→22:01)
[2018-03-09] MEDS: LACTOBACILLUS ACIDOPHILUS CAP (BACID) PO ×3 (08:49→18:15)
[2018-03-09] MEDS: BISOPROLOL FUMARATE 5 MG TAB PO (09:00)
[2018-03-09 11:47] LABS: BEDSIDE GLUCOSE 168 MG/DL (83-110)
[2018-03-09 12:16] LABS: HEMATOCRIT 24.7 % (42.0-52.0); HEMOGLOBIN 7.5 g/dl (13.5-17.5)
[2018-03-09] MEDS: VANCOMYCIN HCL 1,000 MG, VIAL MATE ADAPTER 1 EACH in D5W 250 ML IV (15:12)
[2018-03-09 18:16] LABS: BEDSIDE GLUCOSE 308 MG/DL (83-110)
[2018-03-09] MEDS: GABAPENTIN 300 MG CAP PO (20:39)
[2018-03-09] MEDS: LEVEMIR (INSULIN DETEMIR) 1 UNITS/0.01ML SC (20:40)
[2018-03-09 20:43] LABS: BEDSIDE GLUCOSE 297 MG/DL (83-110)
[2018-03-09] MEDS: RAMELTEON 8 MG TAB (ROZEREM) PO (22:00)
[2018-03-10 06:18] LABS: BASO # 0.1 10^3/uL (0.0-0.2); BASO % 0.7 % (0.0-1.0); EOS # 0.4 10^3/uL (0.0-0.50); EOS % 4.7 % (0.0-3.0); HEMATOCRIT 24.4 % (42.0-52.0); HEMOGLOBIN 7.6 g/dl (13.5-17.5); IMMATURE GRANULOCYTE % 1.2 % (0-3.0); LYMPH # 1.1 10^3/uL (1.5-4.5); LYMPH % 14.5 % (24.0-44.0); MEAN CORPUSCULAR HEMOGLOBIN 27.1 pg (27.0-33.0); MEAN CORPUSCULAR HGB CONC 31.1 g/dl (32.0-36.5); MEAN CORPUSCULAR VOLUME 87.1 fl (80.0-96.0); MONO # 0.5 10^3/uL (0.0-0.8); MONO % 6.5 % (0.0-5.0); NEUTROPHILS # 5.4 10^3/uL (1.8-7.7); NEUTROPHILS % 72.4 % (36.0-66.0); PLATELET COUNT, AUTOMATED 255 10^3/uL (150-450); RED CELL DISTRIBUTION WIDTH 15.9 % (11.5-14.5); WHITE BLOOD COUNT 7.4 10^3/uL (4.0-10.0)
[2018-03-10 06:53] LABS: ALBUMIN 2.3 GM/DL (3.2-5.2); ALBUMIN/GLOBULIN RATIO 0.53 (1.00-1.93); ALKALINE PHOSPHATASE 106 U/L (45-117); ALT/SGPT 18 U/L (12-78); ANION GAP 8 MEQ/L (8-16); AST/SGOT 9 U/L (7-37); BILIRUBIN,TOTAL 0.3 MG/DL (0.2-1.0); BLOOD UREA NITROGEN 20 MG/DL (7-18); CALCIUM LEVEL 8.4 MG/DL (8.8-10.2); CARBON DIOXIDE LEVEL 26 MEQ/L (21-32); CHLORIDE LEVEL 106 MEQ/L (98-107); CREATININE FOR GFR 1.18 MG/DL (0.70-1.30); GLOMERULAR FILTRATION RATE > 60.0 (>42); GLUCOSE, FASTING 102 MG/DL (70-100); MAGNESIUM LEVEL 2.1 MG/DL (1.8-2.4); POTASSIUM SERUM 4.3 MEQ/L (3.5-5.1); SODIUM LEVEL 140 MEQ/L (136-145); TOTAL PROTEIN 6.6 GM/DL (6.4-8.2)
[2018-03-10] MEDS: CREON-12 CAPSULE PO ×2 (08:31→17:33)
[2018-03-10] MEDS: MULTIVITAMINS/MINERALS THERAP 1 TAB PO (08:31)
[2018-03-10] MEDS: LACTOBACILLUS ACIDOPHILUS CAP (BACID) PO ×3 (08:31→17:33)
[2018-03-10] MEDS: SENOKOT S TAB PO ×2 (08:31→20:30)
[2018-03-10] MEDS: HumaLOG INSULIN (NovoLOG) PER UNIT SC ×4 (08:31→20:30)
[2018-03-10] MEDS: VANCOMYCIN HCL 1,000 MG, VIAL MATE ADAPTER 1 EACH in D5W 250 ML IV (08:31)
[2018-03-10] MEDS: BISOPROLOL FUMARATE 5 MG TAB PO (08:32)
[2018-03-10] MEDS: PERCOCET 5MG/325MG TAB PO ×2 (08:41→19:35)
[2018-03-10 12:10] LABS: BEDSIDE GLUCOSE 134 MG/DL (83-110)
[2018-03-10 17:00] LABS: BEDSIDE GLUCOSE 310 MG/DL (83-110)
[2018-03-10 20:21] LABS: BEDSIDE GLUCOSE 301 MG/DL (83-110)
[2018-03-10] MEDS: GABAPENTIN 300 MG CAP PO (20:30)
[2018-03-10] MEDS: RAMELTEON 8 MG TAB (ROZEREM) PO (20:30)
[2018-03-10] MEDS: LEVEMIR (INSULIN DETEMIR) 1 UNITS/0.01ML SC (20:30)
[2018-03-11] MEDS: VANCOMYCIN HCL 1,000 MG, VIAL MATE ADAPTER 1 EACH in D5W 250 ML IV (03:00)
[2018-03-11] MEDS: PERCOCET 5MG/325MG TAB PO ×2 (06:21→10:58)
[2018-03-11 06:42] LABS: BASO # 0.1 10^3/uL (0.0-0.2); BASO % 0.8 % (0.0-1.0); EOS # 0.3 10^3/uL (0.0-0.50); EOS % 4.5 % (0.0-3.0); HEMATOCRIT 28.2 % (42.0-52.0); HEMOGLOBIN 8.7 g/dl (13.5-17.5); IMMATURE GRANULOCYTE % 1.3 % (0-3.0); LYMPH # 1.2 10^3/uL (1.5-4.5); LYMPH % 15.8 % (24.0-44.0); MEAN CORPUSCULAR HEMOGLOBIN 27.1 pg (27.0-33.0); MEAN CORPUSCULAR HGB CONC 30.9 g/dl (32.0-36.5); MEAN CORPUSCULAR VOLUME 87.9 fl (80.0-96.0); MONO # 0.4 10^3/uL (0.0-0.8); MONO % 5.9 % (0.0-5.0); NEUTROPHILS # 5.3 10^3/uL (1.8-7.7); NEUTROPHILS % 71.7 % (36.0-66.0); PLATELET COUNT, AUTOMATED 292 10^3/uL (150-450); RED BLOOD COUNT 3.21 10^6/uL (4.30-6.10); RED CELL DISTRIBUTION WIDTH 15.9 % (11.5-14.5); WHITE BLOOD COUNT 7.4 10^3/uL (4.0-10.0)
[2018-03-11 07:04] LABS: ALBUMIN 2.4 GM/DL (3.2-5.2); ALBUMIN/GLOBULIN RATIO 0.46 (1.00-1.93); ALKALINE PHOSPHATASE 107 U/L (45-117); ALT/SGPT 22 U/L (12-78); ANION GAP 7 MEQ/L (8-16); AST/SGOT 11 U/L (7-37); BILIRUBIN,TOTAL 0.4 MG/DL (0.2-1.0); BLOOD UREA NITROGEN 19 MG/DL (7-18); CARBON DIOXIDE LEVEL 28 MEQ/L (21-32); CHLORIDE LEVEL 105 MEQ/L (98-107); CREATININE FOR GFR 1.17 MG/DL (0.70-1.30); GLOMERULAR FILTRATION RATE > 60.0 (>42); GLUCOSE, FASTING 111 MG/DL (70-100); POTASSIUM SERUM 4.5 MEQ/L (3.5-5.1); SODIUM LEVEL 140 MEQ/L (136-145); TOTAL PROTEIN 7.6 GM/DL (6.4-8.2)
[2018-03-11] MEDS: CREON-12 CAPSULE PO (08:17)
[2018-03-11] MEDS: SENOKOT S TAB PO (08:17)
[2018-03-11] MEDS: LACTOBACILLUS ACIDOPHILUS CAP (BACID) PO ×2 (08:17→12:18)
[2018-03-11] MEDS: HumaLOG INSULIN (NovoLOG) PER UNIT SC ×2 (08:17→12:18)
[2018-03-11] MEDS: MULTIVITAMINS/MINERALS THERAP 1 TAB PO (08:17)
[2018-03-11] MEDS: BISOPROLOL FUMARATE 5 MG TAB PO (08:18)
[2018-03-11 11:34] LABS: BEDSIDE GLUCOSE 167 MG/DL (83-110)
[2018-03-11] MEDS: LINEZOLID 600MG TABLET (ZYVOX) PO (15:23)
== END 2018-03-11 15:30 | disposition home or self-care (01) | DRG 617 ==
LOC: M ED 13:55 → M ED INP 16:21 → M MSPAV 18:45
PROC: 0Y6P0Z0 Detachment at Right 1st Toe, Complete, Open Approach (ICD-10-PCS; principal; 2018-03-07 16:45)
PROC: 0Y6R0Z0 Detachment at Right 2nd Toe, Complete, Open Approach (ICD-10-PCS; 2018-03-07 16:45)
PROC: 0Y6T0Z0 Detachment at Right 3rd Toe, Complete, Open Approach (ICD-10-PCS; 2018-03-07 16:45)
PROC: 0Y6V0Z0 Detachment at Right 4th Toe, Complete, Open Approach (ICD-10-PCS; 2018-03-07 16:45)
DX: E11.69 Type 2 diabetes mellitus with other specified complication (principal); C78.7 Secondary malignant neoplasm of liver and intrahepatic bile duct; C78.89 Secondary malignant neoplasm of other digestive organs; L97.518 Non-pressure chronic ulcer of other part of right foot with other specified severity; M86.171 Other acute osteomyelitis, right ankle and foot; E11.40 Type 2 diabetes mellitus with diabetic neuropathy, unspecified; E11.51 Type 2 diabetes mellitus with diabetic peripheral angiopathy without gangrene; B95.4 Other streptococcus as the cause of diseases classified elsewhere; E11.621 Type 2 diabetes mellitus with foot ulcer; Z66 Do not resuscitate; D64.9 Anemia, unspecified; N17.9 Acute kidney failure, unspecified; I10 Essential (primary) hypertension; Z86.14 Personal history of Methicillin resistant Staphylococcus aureus infection; Z90.5 Acquired absence of kidney; Z89.421 Acquired absence of other right toe(s); Z89.422 Acquired absence of other left toe(s); Z79.4 Long term (current) use of insulin; Z79.899 Other long term (current) drug therapy

== ENCOUNTER 2018-03-23 09:06 | Inpatient (IN) | payer MEDICARE ==
[2018-03-23] MEDS ORDERED: LR 1,000 ML IV (09:15)
[2018-03-23] MEDS ORDERED: fentaNYL 100 MCG/2 ML INJECTION (J3010) As Ordered (10:01)
[2018-03-23] MEDS ORDERED: LIDOCAINE 2% INJ 100 MG/5 ML SDV (FOR ANES.) As Ordered (10:01)
[2018-03-23] MEDS ORDERED: PROPOFOL 200 MG/20 ML VIAL As Ordered (10:01)
[2018-03-23] MEDS ORDERED: MIDAZOLAM INJ 2 MG/2 ML VIAL (J2250) As Ordered (10:02)
[2018-03-23 10:17] LABS: BEDSIDE GLUCOSE 103 MG/DL (83-110)
[2018-03-23] MEDS ORDERED: ceFAZolin 2 GM/D5W 50 ML IV BAG (J0690 PER 500MG) As Ordered (10:28)
[2018-03-23] MEDS: LIDOCAINE 1% MDV 20ML VIAL As Ordered (11:01)
[2018-03-23] MEDS: BUPIVACAINE HCL 0.5% 10 ML VIAL As Ordered (11:01)
[2018-03-23] MEDS ORDERED: PHENYLephrine HCL 500 MCG/5 ML (100MCG/ML) SYRINGE (J2370) As Ordered (11:10)
[2018-03-23] MEDS ORDERED: ONDANSETRON 4MG/2ML VIAL (J2405) As Ordered (11:23)
[2018-03-23] MEDS: LR 1,000 ML IV (12:00)
[2018-03-23] MEDS ORDERED: fentaNYL 100 MCG/2 ML INJECTION (J3010) IV (12:00)
[2018-03-23] MEDS ORDERED: GLUCAGON FOR INJ 1 MG VIAL (J1610) SC (13:15)
[2018-03-23] MEDS ORDERED: DEXTROSE 50% 50 ML SYRINGE IV (13:15)
[2018-03-23] MEDS ORDERED: GLUCOSE 4 GM CHEW TABLET PO (13:15)
[2018-03-23] MEDS ORDERED: BISACODYL 10 MG SUPP PR (13:15)
[2018-03-23] MEDS ORDERED: ONDANSETRON 4MG/2ML VIAL (J2405) IV (13:15)
[2018-03-23] MEDS ORDERED: ACETAMINOPHEN TAB 650MG DOSE (2X325MG) PO (13:15)
[2018-03-23] MEDS: MULTIVITAMINS/MINERALS THERAP 1 TAB PO (14:33)
[2018-03-23] MEDS: VANCOMYCIN HCL 1,000 MG, VIAL MATE ADAPTER 1 EACH in D5W 250 ML IV ×2 (14:34→16:01)
[2018-03-23 15:20] LABS: ANION GAP 5 MEQ/L (8-16); BLOOD UREA NITROGEN 36 MG/DL (7-18); CALCIUM LEVEL 8.9 MG/DL (8.8-10.2); CARBON DIOXIDE LEVEL 28 MEQ/L (21-32); CHLORIDE LEVEL 107 MEQ/L (98-107); CREATININE FOR GFR 1.35 MG/DL (0.70-1.30); GLOMERULAR FILTRATION RATE 55.5 (>42); GLUCOSE, FASTING 140 MG/DL (70-100); POTASSIUM SERUM 4.5 MEQ/L (3.5-5.1); SODIUM LEVEL 140 MEQ/L (136-145)
[2018-03-23 17:51] LABS: C REACTIVE PROTEIN QUANTITATIV 3.18 MG/DL (0.00-0.30)
[2018-03-23] MEDS: HumaLOG INSULIN (NovoLOG) PER UNIT SC ×2 (18:13→22:16)
[2018-03-23] MEDS: GABAPENTIN 300 MG CAP PO (19:50)
[2018-03-23] MEDS: SENOKOT S TAB PO (19:50)
[2018-03-23] MEDS: CREON-12 CAPSULE PO (19:51)
[2018-03-23] MEDS: PERCOCET 5MG/325MG TAB PO (19:51)
[2018-03-23] MEDS: RAMELTEON 8 MG TAB (ROZEREM) PO (22:28)
[2018-03-24] MEDS: PERCOCET 5MG/325MG TAB PO ×3 (05:48→18:11)
[2018-03-24 06:52] LABS: HEMATOCRIT 23.2 % (42.0-52.0); HEMOGLOBIN 7.2 g/dl (13.5-17.5); MEAN CORPUSCULAR HEMOGLOBIN 27.4 pg (27.0-33.0); MEAN CORPUSCULAR VOLUME 88.2 fl (80.0-96.0); RED BLOOD COUNT 2.63 10^6/uL (4.30-6.10); RED CELL DISTRIBUTION WIDTH 16.9 % (11.5-14.5); WHITE BLOOD COUNT 7.5 10^3/uL (4.0-10.0)
[2018-03-24 07:05] LABS: ANION GAP 7 MEQ/L (8-16); BLOOD UREA NITROGEN 33 MG/DL (7-18); CALCIUM LEVEL 8.5 MG/DL (8.8-10.2); CARBON DIOXIDE LEVEL 25 MEQ/L (21-32); CHLORIDE LEVEL 107 MEQ/L (98-107); CREATININE FOR GFR 1.35 MG/DL (0.70-1.30); GLOMERULAR FILTRATION RATE 55.5 (>42); GLUCOSE, FASTING 113 MG/DL (70-100); POTASSIUM SERUM 4.7 MEQ/L (3.5-5.1); SODIUM LEVEL 139 MEQ/L (136-145)
[2018-03-24 07:06] LABS: C REACTIVE PROTEIN QUANTITATIV 4.35 MG/DL (0.00-0.30)
[2018-03-24 07:21] LABS: IMMATURE PLATELET FRACTION % 2.4 % (0.0-10.9); PLATELET COUNT, AUTOMATED 96 10^3/uL (150-450)
[2018-03-24 08:55] LABS: FERRITIN 300 NG/ML (26-388); IRON (FE) 79 UG/DL (65-175); PERCENT SATURATION 35.7 % (19.7-50.0); TOTAL IRON BINDING CAPACITY 221 UG/DL (250-450)
[2018-03-24] MEDS: BISOPROLOL FUMARATE 5 MG TAB PO (09:00)
[2018-03-24] MEDS: LOSARTAN 25 MG TAB PO (09:00)
[2018-03-24] MEDS: VANCOMYCIN HCL 1,000 MG, VIAL MATE ADAPTER 1 EACH in D5W 250 ML IV (09:09)
[2018-03-24] MEDS: CREON-12 CAPSULE PO ×2 (09:10→19:57)
[2018-03-24] MEDS: SENOKOT S TAB PO ×2 (09:14→19:57)
[2018-03-24] MEDS: MULTIVITAMINS/MINERALS THERAP 1 TAB PO (09:14)
[2018-03-24] MEDS: HumaLOG INSULIN (NovoLOG) PER UNIT SC ×4 (09:15→19:57)
[2018-03-24 12:16] LABS: BEDSIDE GLUCOSE 213 MG/DL (83-110)
[2018-03-24 13:12] LABS: HEMATOCRIT 22.6 % (42.0-52.0)
[2018-03-24 15:02] LABS: FOLATE 23.8 NG/ML (>5.4)
[2018-03-24 16:06] LABS: IMMEDIATE SPIN CROSSMATCH 1 1
[2018-03-24] MEDS: GABAPENTIN 300 MG CAP PO (19:57)
[2018-03-24 21:58] LABS: BEDSIDE GLUCOSE 194 MG/DL (83-110)
[2018-03-24 21:59] LABS: BEDSIDE GLUCOSE 300 MG/DL (83-110)
[2018-03-24 21:59] LABS: BEDSIDE GLUCOSE 263 MG/DL (83-110)
[2018-03-24 21:59] LABS: BEDSIDE GLUCOSE 230 MG/DL (83-110)
[2018-03-25] MEDS: VANCOMYCIN HCL 1,000 MG, VIAL MATE ADAPTER 1 EACH in D5W 250 ML IV (02:02)
[2018-03-25] MEDS: PERCOCET 5MG/325MG TAB PO ×4 (03:49→21:00)
[2018-03-25 07:25] LABS: HEMATOCRIT 24.1 % (42.0-52.0); HEMOGLOBIN 7.5 g/dl (13.5-17.5); MEAN CORPUSCULAR HEMOGLOBIN 27.3 pg (27.0-33.0); MEAN CORPUSCULAR HGB CONC 31.1 g/dl (32.0-36.5); MEAN CORPUSCULAR VOLUME 87.6 fl (80.0-96.0); RED BLOOD COUNT 2.75 10^6/uL (4.30-6.10); RED CELL DISTRIBUTION WIDTH 16.4 % (11.5-14.5); WHITE BLOOD COUNT 7.2 10^3/uL (4.0-10.0)
[2018-03-25 07:48] LABS: ANION GAP 5 MEQ/L (8-16); BLOOD UREA NITROGEN 28 MG/DL (7-18); CALCIUM LEVEL 8.2 MG/DL (8.8-10.2); CARBON DIOXIDE LEVEL 27 MEQ/L (21-32); CHLORIDE LEVEL 104 MEQ/L (98-107); CREATININE FOR GFR 1.37 MG/DL (0.70-1.30); GLOMERULAR FILTRATION RATE 54.5 (>42); GLUCOSE, FASTING 187 MG/DL (70-100); MAGNESIUM LEVEL 1.9 MG/DL (1.8-2.4); POTASSIUM SERUM 4.8 MEQ/L (3.5-5.1); SODIUM LEVEL 136 MEQ/L (136-145)
[2018-03-25 08:11] LABS: PLATELET COUNT, AUTOMATED 70 10^3/uL (150-450)
[2018-03-25 08:12] LABS: IMMATURE PLATELET FRACTION % 3.1 % (0.0-10.9)
[2018-03-25] MEDS: SENOKOT S TAB PO ×2 (09:05→20:58)
[2018-03-25] MEDS: LOSARTAN 25 MG TAB PO (09:05)
[2018-03-25] MEDS: HumaLOG INSULIN (NovoLOG) PER UNIT SC ×4 (09:05→21:01)
[2018-03-25] MEDS: MULTIVITAMINS/MINERALS THERAP 1 TAB PO (09:05)
[2018-03-25] MEDS: CREON-12 CAPSULE PO ×2 (09:06→20:59)
[2018-03-25] MEDS: BISOPROLOL FUMARATE 5 MG TAB PO (09:07)
[2018-03-25 11:35] LABS: IMMEDIATE SPIN CROSSMATCH 1 1
[2018-03-25 11:45] LABS: BEDSIDE GLUCOSE 238 MG/DL (83-110)
[2018-03-25] MEDS: LevoFLOXacin IV 750 MG in APPROPRIATE DILUENT 1 EA IV (14:09)
[2018-03-25 16:17] LABS: BEDSIDE GLUCOSE 280 MG/DL (83-110)
[2018-03-25 20:25] LABS: BEDSIDE GLUCOSE 278 MG/DL (83-110)
[2018-03-25] MEDS: GABAPENTIN 300 MG CAP PO (20:58)
[2018-03-25] MEDS: RAMELTEON 8 MG TAB (ROZEREM) PO (22:55)
[2018-03-26 07:13] LABS: HEMATOCRIT 26.2 % (42.0-52.0); HEMOGLOBIN 8.5 g/dl (13.5-17.5); MEAN CORPUSCULAR HEMOGLOBIN 28.1 pg (27.0-33.0); MEAN CORPUSCULAR HGB CONC 32.4 g/dl (32.0-36.5); MEAN CORPUSCULAR VOLUME 86.8 fl (80.0-96.0); RED BLOOD COUNT 3.02 10^6/uL (4.30-6.10)
[2018-03-26 07:18] LABS: PLATELET COUNT, AUTOMATED 71 10^3/uL (150-450)
[2018-03-26 07:41] LABS: ANION GAP 7 MEQ/L (8-16); BLOOD UREA NITROGEN 28 MG/DL (7-18); CALCIUM LEVEL 8.7 MG/DL (8.8-10.2); CARBON DIOXIDE LEVEL 26 MEQ/L (21-32); CHLORIDE LEVEL 104 MEQ/L (98-107); GLOMERULAR FILTRATION RATE 57.9 (>42); GLUCOSE, FASTING 246 MG/DL (70-100); POTASSIUM SERUM 4.7 MEQ/L (3.5-5.1); SODIUM LEVEL 137 MEQ/L (136-145)
[2018-03-26] MEDS: HumaLOG INSULIN (NovoLOG) PER UNIT SC ×4 (08:06→21:00)
[2018-03-26] MEDS: MULTIVITAMINS/MINERALS THERAP 1 TAB PO (08:07)
[2018-03-26] MEDS: SENOKOT S TAB PO ×2 (08:07→21:06)
[2018-03-26] MEDS: CREON-12 CAPSULE PO ×2 (08:07→21:07)
[2018-03-26] MEDS: BISOPROLOL FUMARATE 5 MG TAB PO (08:07)
[2018-03-26] MEDS: PERCOCET 5MG/325MG TAB PO ×2 (08:08→18:27)
[2018-03-26] MEDS: LOSARTAN 25 MG TAB PO (08:08)
[2018-03-26] MEDS: MOM 30ML SUSPENSION UDC PO (10:26)
[2018-03-26 11:49] LABS: BEDSIDE GLUCOSE 234 MG/DL (83-110)
[2018-03-26] MEDS: LevoFLOXacin IV 750 MG in APPROPRIATE DILUENT 1 EA IV (12:14)
[2018-03-26 16:55] LABS: BEDSIDE GLUCOSE 333 MG/DL (83-110)
[2018-03-26 20:33] LABS: BEDSIDE GLUCOSE 233 MG/DL (83-110)
[2018-03-26] MEDS: GABAPENTIN 300 MG CAP PO (21:06)
[2018-03-26] MEDS: RAMELTEON 8 MG TAB (ROZEREM) PO (21:09)
[2018-03-27 06:32] LABS: HEMATOCRIT 24.5 % (42.0-52.0); HEMOGLOBIN 7.9 g/dl (13.5-17.5); MEAN CORPUSCULAR HEMOGLOBIN 28.2 pg (27.0-33.0); MEAN CORPUSCULAR HGB CONC 32.2 g/dl (32.0-36.5); MEAN CORPUSCULAR VOLUME 87.5 fl (80.0-96.0); RED CELL DISTRIBUTION WIDTH 16.1 % (11.5-14.5); WHITE BLOOD COUNT 6.6 10^3/uL (4.0-10.0)
[2018-03-27 06:42] LABS: PLATELET COUNT, AUTOMATED 78 10^3/uL (150-450)
[2018-03-27 06:43] LABS: IMMATURE PLATELET FRACTION % 4.6 % (0.0-10.9)
[2018-03-27 07:02] LABS: ANION GAP 5 MEQ/L (8-16); BLOOD UREA NITROGEN 28 MG/DL (7-18); CALCIUM LEVEL 8.7 MG/DL (8.8-10.2); CARBON DIOXIDE LEVEL 28 MEQ/L (21-32); CHLORIDE LEVEL 104 MEQ/L (98-107); CREATININE FOR GFR 1.26 MG/DL (0.70-1.30); GLOMERULAR FILTRATION RATE > 60.0 (>42); GLUCOSE, FASTING 241 MG/DL (70-100); POTASSIUM SERUM 4.4 MEQ/L (3.5-5.1); SODIUM LEVEL 137 MEQ/L (136-145)
[2018-03-27] MEDS: HumaLOG INSULIN (NovoLOG) PER UNIT SC ×5 (07:30→21:38)
[2018-03-27 09:07] LABS: RETIC HEMOGLOBIN EQUIVALENT 33.8 pg (24-36); RETICULOCYTE # 11.2 10^9/L (17-77); RETICULOCYTE % 0.4 % (0.5-1.5)
[2018-03-27] MEDS ORDERED: PROPOFOL 200 MG/20 ML VIAL As Ordered (09:36)
[2018-03-27] MEDS ORDERED: MIDAZOLAM INJ 2 MG/2 ML VIAL (J2250) As Ordered (09:36)
[2018-03-27] MEDS ORDERED: LIDOCAINE 2% INJ 100 MG/5 ML SDV (FOR ANES.) As Ordered (09:36)
[2018-03-27] MEDS ORDERED: fentaNYL 100 MCG/2 ML INJECTION (J3010) As Ordered (09:36)
[2018-03-27] MEDS: LIDOCAINE 1% MDV 20ML VIAL As Ordered (09:59)
[2018-03-27] MEDS: BUPIVACAINE HCL 0.5% 10 ML VIAL As Ordered (09:59)
[2018-03-27] MEDS: LR 1,000 ML IV (10:43)
[2018-03-27] MEDS ORDERED: HumaLOG INSULIN (NovoLOG) PER UNIT As Ordered (11:14)
[2018-03-27 11:15] LABS: BEDSIDE GLUCOSE 254 MG/DL (83-110)
[2018-03-27] MEDS ORDERED: PERCOCET 5MG/325MG TAB PO (11:15)
[2018-03-27] MEDS ORDERED: fentaNYL 100 MCG/2 ML INJECTION (J3010) IV (11:15)
[2018-03-27] MEDS ORDERED: ONDANSETRON 4MG/2ML VIAL (J2405) IV (11:15)
[2018-03-27] MEDS: CREON-12 CAPSULE PO ×2 (11:50→20:06)
[2018-03-27] MEDS: LevoFLOXacin IV 750 MG in APPROPRIATE DILUENT 1 EA IV (11:50)
[2018-03-27] MEDS: BISOPROLOL FUMARATE 5 MG TAB PO (11:51)
[2018-03-27] MEDS: LOSARTAN 25 MG TAB PO (11:52)
[2018-03-27] MEDS: SENOKOT S TAB PO ×2 (11:52→20:06)
[2018-03-27] MEDS: MULTIVITAMINS/MINERALS THERAP 1 TAB PO (11:52)
[2018-03-27] MEDS: PERCOCET 5MG/325MG TAB PO (16:12)
[2018-03-27 16:48] LABS: BEDSIDE GLUCOSE 291 MG/DL (83-110)
[2018-03-27] MEDS: LEVEMIR (INSULIN DETEMIR) 1 UNITS/0.01ML SC (20:06)
[2018-03-27] MEDS: GABAPENTIN 300 MG CAP PO (20:06)
[2018-03-27 20:15] LABS: BEDSIDE GLUCOSE 280 MG/DL (83-110)
[2018-03-28] MEDS: PERCOCET 5MG/325MG TAB PO ×2 (05:58→16:27)
[2018-03-28 07:06] LABS: HEMATOCRIT 24.4 % (42.0-52.0); HEMOGLOBIN 7.8 g/dl (13.5-17.5); MEAN CORPUSCULAR HEMOGLOBIN 28.1 pg (27.0-33.0); MEAN CORPUSCULAR VOLUME 87.8 fl (80.0-96.0); RED BLOOD COUNT 2.78 10^6/uL (4.30-6.10); RED CELL DISTRIBUTION WIDTH 16.1 % (11.5-14.5); WHITE BLOOD COUNT 6.8 10^3/uL (4.0-10.0)
[2018-03-28 07:18] LABS: IMMATURE PLATELET FRACTION % 3.5 % (0.0-10.9); PLATELET COUNT, AUTOMATED 96 10^3/uL (150-450)
[2018-03-28 07:27] LABS: ANION GAP 6 MEQ/L (8-16); BLOOD UREA NITROGEN 29 MG/DL (7-18); CALCIUM LEVEL 8.6 MG/DL (8.8-10.2); CARBON DIOXIDE LEVEL 27 MEQ/L (21-32); CHLORIDE LEVEL 106 MEQ/L (98-107); CREATININE FOR GFR 1.36 MG/DL (0.70-1.30); GLUCOSE, FASTING 246 MG/DL (70-100); MAGNESIUM LEVEL 1.9 MG/DL (1.8-2.4); POTASSIUM SERUM 4.5 MEQ/L (3.5-5.1); SODIUM LEVEL 139 MEQ/L (136-145)
[2018-03-28] MEDS: HumaLOG INSULIN (NovoLOG) PER UNIT SC ×4 (08:28→20:16)
[2018-03-28] MEDS: LOSARTAN 25 MG TAB PO (08:28)
[2018-03-28] MEDS: MULTIVITAMINS/MINERALS THERAP 1 TAB PO (08:28)
[2018-03-28] MEDS: BISOPROLOL FUMARATE 5 MG TAB PO (08:28)
[2018-03-28] MEDS: CREON-12 CAPSULE PO ×2 (08:28→20:09)
[2018-03-28] MEDS: SENOKOT S TAB PO ×2 (08:28→20:09)
[2018-03-28 11:16] LABS: IMMEDIATE SPIN CROSSMATCH 1 1
[2018-03-28 11:47] LABS: BEDSIDE GLUCOSE 230 MG/DL (83-110)
[2018-03-28 17:13] LABS: BEDSIDE GLUCOSE 235 MG/DL (83-110)
[2018-03-28] MEDS: LevoFLOXacin IV 750 MG in APPROPRIATE DILUENT 1 EA IV (17:47)
[2018-03-28] MEDS: GABAPENTIN 300 MG CAP PO (20:09)
[2018-03-28] MEDS: LEVEMIR (INSULIN DETEMIR) 1 UNITS/0.01ML SC (20:10)
[2018-03-28 20:11] LABS: BEDSIDE GLUCOSE 297 MG/DL (83-110)
[2018-03-29] MEDS: PERCOCET 5MG/325MG TAB PO ×3 (03:14→21:25)
[2018-03-29 06:21] LABS: HEMATOCRIT 26.8 % (42.0-52.0); HEMOGLOBIN 8.7 g/dl (13.5-17.5); MEAN CORPUSCULAR HEMOGLOBIN 28.1 pg (27.0-33.0); MEAN CORPUSCULAR HGB CONC 32.5 g/dl (32.0-36.5); MEAN CORPUSCULAR VOLUME 86.5 fl (80.0-96.0); PLATELET COUNT, AUTOMATED 132 10^3/uL (150-450); RED CELL DISTRIBUTION WIDTH 16.1 % (11.5-14.5)
[2018-03-29 06:45] LABS: ANION GAP 6 MEQ/L (8-16); BLOOD UREA NITROGEN 28 MG/DL (7-18); CARBON DIOXIDE LEVEL 27 MEQ/L (21-32); CHLORIDE LEVEL 107 MEQ/L (98-107); CREATININE FOR GFR 1.19 MG/DL (0.70-1.30); GLOMERULAR FILTRATION RATE > 60.0 (>42); GLUCOSE, FASTING 71 MG/DL (70-100); SODIUM LEVEL 140 MEQ/L (136-145)
[2018-03-29] MEDS: HumaLOG INSULIN (NovoLOG) PER UNIT SC ×4 (07:27→21:00)
[2018-03-29] MEDS: BISOPROLOL FUMARATE 5 MG TAB PO (08:43)
[2018-03-29] MEDS: CREON-12 CAPSULE PO ×2 (08:43→21:16)
[2018-03-29] MEDS: LOSARTAN 25 MG TAB PO (08:44)
[2018-03-29] MEDS: MULTIVITAMINS/MINERALS THERAP 1 TAB PO (08:44)
[2018-03-29] MEDS: SENOKOT S TAB PO ×2 (08:44→21:16)
[2018-03-29 12:37] LABS: BEDSIDE GLUCOSE 226 MG/DL (83-110)
[2018-03-29] MEDS: LevoFLOXacin IV 750 MG in APPROPRIATE DILUENT 1 EA IV (12:43)
[2018-03-29] MEDS ORDERED: MIDAZOLAM INJ 2 MG/2 ML VIAL (J2250) As Ordered (16:12)
[2018-03-29] MEDS ORDERED: PROPOFOL 200 MG/20 ML VIAL As Ordered (16:12)
[2018-03-29] MEDS ORDERED: ONDANSETRON 4MG/2ML VIAL (J2405) As Ordered (16:12)
[2018-03-29] MEDS ORDERED: LIDOCAINE 2% INJ 100 MG/5 ML SDV (FOR ANES.) As Ordered (16:12)
[2018-03-29 16:33] LABS: BEDSIDE GLUCOSE 159 MG/DL (83-110)
[2018-03-29] MEDS: LIDOCAINE 1% SDV INJ 30 ML VIAL As Ordered (16:50)
[2018-03-29] MEDS: BUPIVACAINE HCL 0.5% 10 ML VIAL As Ordered (16:50)
[2018-03-29] MEDS ORDERED: PHENYLephrine HCL 500 MCG/5 ML (100MCG/ML) SYRINGE (J2370) As Ordered (17:04)
[2018-03-29] MEDS ORDERED: fentaNYL 100 MCG/2 ML INJECTION (J3010) As Ordered (17:07)
[2018-03-29] MEDS ORDERED: ONDANSETRON 4MG/2ML VIAL (J2405) IV (17:45)
[2018-03-29] MEDS: LR 1,000 ML IV (17:45)
[2018-03-29 18:28] LABS: BEDSIDE GLUCOSE 128 MG/DL (83-110)
[2018-03-29 20:37] LABS: BEDSIDE GLUCOSE 248 MG/DL (83-110)
[2018-03-29] MEDS: GABAPENTIN 300 MG CAP PO (21:16)
[2018-03-29] MEDS: LEVEMIR (INSULIN DETEMIR) 1 UNITS/0.01ML SC (21:17)
[2018-03-30] MEDS: PERCOCET 5MG/325MG TAB PO ×3 (03:25→20:51)
[2018-03-30 07:08] LABS: HEMATOCRIT 27.2 % (42.0-52.0); HEMOGLOBIN 8.6 g/dl (13.5-17.5); MEAN CORPUSCULAR HEMOGLOBIN 27.5 pg (27.0-33.0); MEAN CORPUSCULAR HGB CONC 31.6 g/dl (32.0-36.5); MEAN CORPUSCULAR VOLUME 86.9 fl (80.0-96.0); PLATELET COUNT, AUTOMATED 116 10^3/uL (150-450); RED BLOOD COUNT 3.13 10^6/uL (4.30-6.10); RED CELL DISTRIBUTION WIDTH 16.1 % (11.5-14.5); WHITE BLOOD COUNT 5.9 10^3/uL (4.0-10.0)
[2018-03-30 07:22] LABS: ANION GAP 2 MEQ/L (8-16); BLOOD UREA NITROGEN 26 MG/DL (7-18); C REACTIVE PROTEIN QUANTITATIV 7.44 MG/DL (0.00-0.30); CALCIUM LEVEL 8.4 MG/DL (8.8-10.2); CARBON DIOXIDE LEVEL 30 MEQ/L (21-32); CHLORIDE LEVEL 106 MEQ/L (98-107); GLOMERULAR FILTRATION RATE 57.9 (>42); GLUCOSE, FASTING 220 MG/DL (70-100); MAGNESIUM LEVEL 2.2 MG/DL (1.8-2.4); POTASSIUM SERUM 4.5 MEQ/L (3.5-5.1); SODIUM LEVEL 138 MEQ/L (136-145)
[2018-03-30] MEDS: HumaLOG INSULIN (NovoLOG) PER UNIT SC ×4 (07:48→20:50)
[2018-03-30] MEDS: CREON-12 CAPSULE PO ×2 (08:08→20:49)
[2018-03-30] MEDS: LOSARTAN 25 MG TAB PO (08:08)
[2018-03-30] MEDS: BISOPROLOL FUMARATE 5 MG TAB PO (08:08)
[2018-03-30] MEDS: SENOKOT S TAB PO ×2 (08:09→20:50)
[2018-03-30] MEDS: MULTIVITAMINS/MINERALS THERAP 1 TAB PO (08:09)
[2018-03-30 11:13] LABS: BEDSIDE GLUCOSE 115 MG/DL (83-110)
[2018-03-30] MEDS: LevoFLOXacin IV 750 MG in APPROPRIATE DILUENT 1 EA IV (12:34)
[2018-03-30 17:25] LABS: BEDSIDE GLUCOSE 245 MG/DL (83-110)
[2018-03-30 20:13] LABS: BEDSIDE GLUCOSE 286 MG/DL (83-110)
[2018-03-30] MEDS: LEVEMIR (INSULIN DETEMIR) 1 UNITS/0.01ML SC (20:50)
[2018-03-30] MEDS: GABAPENTIN 300 MG CAP PO (20:50)
[2018-03-31] MEDS: PERCOCET 5MG/325MG TAB PO ×3 (04:00→22:33)
[2018-03-31 06:30] LABS: C REACTIVE PROTEIN QUANTITATIV 8.07 MG/DL (0.00-0.30)
[2018-03-31 07:31] LABS: BEDSIDE GLUCOSE 114 MG/DL (83-110)
[2018-03-31] MEDS: CREON-12 CAPSULE PO ×2 (08:45→21:24)
[2018-03-31] MEDS: LOSARTAN 25 MG TAB PO (08:46)
[2018-03-31] MEDS: MULTIVITAMINS/MINERALS THERAP 1 TAB PO (08:46)
[2018-03-31] MEDS: BISOPROLOL FUMARATE 5 MG TAB PO (08:47)
[2018-03-31] MEDS: SENOKOT S TAB PO ×2 (08:53→21:24)
[2018-03-31] MEDS: HumaLOG INSULIN (NovoLOG) PER UNIT SC ×4 (09:17→21:25)
[2018-03-31 11:48] LABS: BEDSIDE GLUCOSE 173 MG/DL (83-110)
[2018-03-31] MEDS: LevoFLOXacin IV 750 MG in APPROPRIATE DILUENT 1 EA IV (13:47)
[2018-03-31 16:43] LABS: BEDSIDE GLUCOSE 304 MG/DL (83-110)
[2018-03-31 20:40] LABS: BEDSIDE GLUCOSE 322 MG/DL (83-110)
[2018-03-31] MEDS: GABAPENTIN 300 MG CAP PO (21:24)
[2018-03-31] MEDS: LEVEMIR (INSULIN DETEMIR) 1 UNITS/0.01ML SC (21:25)
[2018-04-01 05:48] LABS: BEDSIDE GLUCOSE 106 MG/DL (83-110)
[2018-04-01 06:11] LABS: C REACTIVE PROTEIN QUANTITATIV 6.77 MG/DL (0.00-0.30)
[2018-04-01] MEDS: HumaLOG INSULIN (NovoLOG) PER UNIT SC (07:30)
[2018-04-01] MEDS: SENOKOT S TAB PO (10:50)
[2018-04-01] MEDS: MULTIVITAMINS/MINERALS THERAP 1 TAB PO (10:50)
[2018-04-01] MEDS: LOSARTAN 25 MG TAB PO (10:51)
[2018-04-01] MEDS: CREON-12 CAPSULE PO (10:51)
[2018-04-01] MEDS: BISOPROLOL FUMARATE 5 MG TAB PO (10:51)
[2018-04-01] MEDS: PERCOCET 5MG/325MG TAB PO (10:52)
[2018-04-01 11:26] LABS: BEDSIDE GLUCOSE 154 MG/DL (83-110)
== END 2018-04-01 12:44 | disposition home or self-care (01) | DRG 629 ==
LOC: M SDC 09:06 → M MS5PR 12:50 → M SDC 13:13 → M MS5PR 13:14
PROVIDERS: Internal Medicine
PROC: 0X6 Anatomical Regions, Upper Extremities, Detachment (ICD-10-PCS; 2018-03-23 10:20)
PROC: 0QBN0ZZ Excision of Right Metatarsal, Open Approach (ICD-10-PCS; principal; 2018-03-23 10:52)
PROC: 0HDMXZZ Extraction of Right Foot Skin, External Approach (ICD-10-PCS; 2018-03-23 10:52)
PROC: 30233N1 Transfusion of Nonautologous Red Blood Cells into Peripheral Vein, Percutaneous Approach (ICD-10-PCS; 2018-03-23 10:52)
DX: E11.69 Type 2 diabetes mellitus with other specified complication (principal); L03.115 Cellulitis of right lower limb; C78.7 Secondary malignant neoplasm of liver and intrahepatic bile duct; C78.89 Secondary malignant neoplasm of other digestive organs; C64.9 Malignant neoplasm of unspecified kidney, except renal pelvis; M86.171 Other acute osteomyelitis, right ankle and foot; E11.40 Type 2 diabetes mellitus with diabetic neuropathy, unspecified; I12.9 Hypertensive chronic kidney disease with stage 1 through stage 4 chronic kidney disease, or unspecified chronic kidney disease; N18.3 Chronic kidney disease, stage 3 (moderate); B96.89 Other specified bacterial agents as the cause of diseases classified elsewhere; E11.51 Type 2 diabetes mellitus with diabetic peripheral angiopathy without gangrene; E11.22 Type 2 diabetes mellitus with diabetic chronic kidney disease; L97.519 Non-pressure chronic ulcer of other part of right foot with unspecified severity; D64.9 Anemia, unspecified; E11.621 Type 2 diabetes mellitus with foot ulcer; Z79.4 Long term (current) use of insulin; Z90.5 Acquired absence of kidney; Z89.422 Acquired absence of other left toe(s); Z89.421 Acquired absence of other right toe(s); Z79.899 Other long term (current) drug therapy

== ENCOUNTER → 2019-03-08 | Outpatient (CLI) | payer MEDICARE ==
[~2019-03-08] MED LIST changes: +BASA100I SC; +BISO10TA14 PO; +BISO5TAB14 PO; +CREO12CA PO; +DIFI200T PO; +DOXY100C37 PO; +GABA-843 PO; +GLIP10TA18 PO; +GLIP5TAB20 PO; -HEPARIN 1,000 UNITS/ML 10ML VIAL (FOR RADIOLOGY& DIALYSIS ONLY) As Ordered; +HUMA100I5 SC; +INSUH10VL SC; -ISOVUE-300 61% 50ML VIAL (Q9967) As Ordered; +LEVA750T7 PO; +LEVO500T3 PO; +LOSA25TA14 PO; -MIDAZOLAM INJ 2 MG/2 ML VIAL (J2250) As Ordered; +OPDI240I IV; +PERCOCET PO; +RISATAB3 PO; +SYNT25TA PO; +TOUJ1.2I SC; +VITMTA PO; +VOTRIENT PO; +ZYVO1TAB PO; -fentaNYL 100 MCG/2 ML INJECTION (J3010) As Ordered
[2019-03-08 16:21] LABS: BASO # 0.1 10^3/uL (0.0-0.2); BASO % 1.1 % (0.0-1.0); EOS % 13.3 % (0.0-3.0); HEMATOCRIT 38.6 % (42.0-52.0); HEMOGLOBIN 12.3 g/dl (13.5-17.5); LYMPH # 1.5 10^3/uL (1.5-5.0); LYMPH % 20.6 % (24.0-44.0); MEAN CORPUSCULAR HEMOGLOBIN 29.9 pg (27.0-33.0); MEAN CORPUSCULAR HGB CONC 31.9 g/dl (32.0-36.5); MEAN CORPUSCULAR VOLUME 93.7 fl (80.0-96.0); MONO # 0.5 10^3/uL (0.0-0.8); MONO % 6.1 % (0.0-5.0); NEUTROPHILS # 4.4 10^3/uL (1.5-8.5); NEUTROPHILS % 58.6 % (36.0-66.0); PLATELET COUNT, AUTOMATED 154 10^3/uL (150-450); RED BLOOD COUNT 4.12 10^6/uL (4.30-6.10); WHITE BLOOD COUNT 7.4 10^3/uL (4.0-10.0)
[2019-03-08 16:45] LABS: CALCIUM LEVEL 9.1 MG/DL (8.8-10.2); CREATININE FOR GFR 1.77 MG/DL (0.70-1.30); GLOMERULAR FILTRATION RATE 40.5 (>42); POTASSIUM SERUM 5.2 MEQ/L (3.5-5.1)
== END ==
LOC: M LAB 14:57
PROVIDERS: ATTEND Surgery Vascular Surgery
DX: I70.235 Atherosclerosis of native arteries of right leg with ulceration of other part of foot (principal); I70.213 Atherosclerosis of native arteries of extremities with intermittent claudication, bilateral legs

== ENCOUNTER → 2019-04-13 | Outpatient (CLI) | payer MEDICARE ==
[~2019-04-13] MED LIST changes: -BASA100I SC; +BISO10TA10 PO; -BISO10TA14 PO; -BISO5TAB14 PO; +BISO5TAB9 PO; -LEVO500T3 PO; -SYNT25TA PO
[2019-04-13 15:16] LABS: HEMATOCRIT 41.1 % (42.0-52.0); HEMOGLOBIN 13.1 g/dl (13.5-17.5); MEAN CORPUSCULAR HEMOGLOBIN 29.3 pg (27.0-33.0); MEAN CORPUSCULAR HGB CONC 31.9 g/dl (32.0-36.5); MEAN CORPUSCULAR VOLUME 91.9 fl (80.0-96.0); PLATELET COUNT, AUTOMATED 155 10^3/uL (150-450); RED BLOOD COUNT 4.47 10^6/uL (4.30-6.10); WHITE BLOOD COUNT 6.2 10^3/uL (4.0-10.0)
[2019-04-13 15:38] LABS: CALCIUM LEVEL 9.2 MG/DL (8.8-10.2); CREATININE FOR GFR 1.52 MG/DL (0.70-1.30); GLOMERULAR FILTRATION RATE 48.2 (>42); POTASSIUM SERUM 4.6 MEQ/L (3.5-5.1)
== END ==
LOC: M LAB 14:50
PROVIDERS: ATTEND Surgery Vascular Surgery
DX: I70.235 Atherosclerosis of native arteries of right leg with ulceration of other part of foot (principal)

== ENCOUNTER → 2019-04-17 | Outpatient (CLI) | payer MEDICARE ==
[~2019-04-17] MED LIST changes: +HEPARIN 1,000 UNITS/ML 10ML VIAL (FOR RADIOLOGY& DIALYSIS ONLY) As Ordered ONE; +ISOVUE-300 61% 50ML VIAL (Q9967) As Ordered ONE; +LIDOCAINE 1% MDV 20ML VIAL As Ordered ONE; +MIDAZOLAM INJ 2 MG/2 ML VIAL (J2250) As Ordered ONE; +diphenhydrAMINE INJ 50MG/ML VIAL (J1200) As Ordered ONE; +fentaNYL 100 MCG/2 ML INJECTION (J3010) As Ordered ONE
--- NOTE | 2019-04-17 13:51 | ROOPDOC ---
[facility] Report Of Operation Report of Operation DATE OF PROCEDURE: 04/17/19 PREPROCEDURE DIAGNOSES: Atherosclerosis of the [place] vessels with nonhealing wound right plantar foot POSTPROCEDURE DIAGNOSES: Same PROCEDURE: 1. Ultrasound-guided access left common femoral artery 2. Aortoiliofemoral arteriogram with right lower extremity runoff with selection of right common femoral artery, right anterior tibial artery, right peroneal artery 3. Angioplasty right distal SFA and popliteal artery with 5 x 200 [place] balloon 4. Angioplasty right anterior tibial artery with 2.5 x 220 [place] balloon and 2 x 220 [place] balloon 5. Attempt to cross chronic total occlusion peroneal artery and posterior tibial artery, aborted 6. Completion arteriograms 7. Minx closure left common femoral artery SURGEON: Rona Fontaine MD ANESTHESIA: Lidocaine local anesthesia 9 mL. Monitored intravenous conscious sedation was supervised by Dr. Fontaine. The patient was independently monitored by registered nurse in to the department of radiology using automated blood pressure, EKG, and pulse oximetry. The detailed conscious sedation record is probably housed in the hospital information system. The following is the brief sedation record: Start time 11:40, stop time 13:20, Versed 1 mg IV, fentanyl 25 g IV, heparin 5000 units IV. CONTRAST: 58 mL Isovue INDICATION FOR PROCEDURE: This is a very pleasant 73-year-old gentleman with long-standing atherosclerosis of the [place] vessels and history of right foot transmetatarsal amputation, healed, who developed a plantar ulcer on his right foot that has failed to heal despite aggressive wound care with podiatry. The patient peripheral vascular diseases likely a large contributor, and we discussed the risks benefits and alternatives to arteriogram with attempt for intervention to see if we can improve in line flow-through of the foot. Risks benefits and alternatives were explained. The patient was agreeable to proceed. Informed consent was obtained. INTERPRETATION: 1. Aortoiliac vessels are widely patent. 2. The right common femoral artery is widely patent as is the profunda. The anguiano perficial femoral artery is mildly ectatic but no flow-limiting stenoses are noted. 3. There is a 70% focal stenosis in the mid popliteal artery along with some ectasia proximal to this up to Vikash's canal. After angioplasty, there is less than 10% residual stenosis in the popliteal artery. No extravasation, embolization, or dissection noted. 4. Despite over an hour aggressive attempts, we were not able to open in-line flow through any of the 3 tibial vessels to the foot. The anterior tibial artery with the best flow to the lower leg, but he did have a 40% stenosis at the origin. We were able to cross in the anterior tibial artery almost to the ankle, but could not go the last few centimeters into the dorsal pedis vessel. The posterior tibial artery has a large mobile plaque right at its origin, and then occludes 5 cm from the origin and appears to faintly reconstitute near the ankle with collaterals from the distal anterior tibial artery. The peroneal artery is open for the proximal third, but heavily stenotic, and then has occasional reconstitution throughout its path from collaterals from the anterior tibial artery. The entire foot is filled with collaterals, and I do not see named vessels at all. There is however an extensive amount of collaterals, likely from a decade or more of arterial occlusions in the distal tibials. We were able to angioplasty the right anterior tibial artery to the ankle with a 2.5 x 220 [place] balloon and 2 x 220 [place] balloon. Completion arteriograms did not show extravasation embolization or dissection. We also attempted to angioplasty the peroneal artery in order to open up a path for us to cross more distally, but this was unsuccessful and we only angioplasty the proximal third of the vessel. REPORT OF OPERATION: The patient was brought to the angiographic suite in stable condition and bilateral groins were prepped and draped in a sterile fashion. A timeout was performed. Local anesthesia was administered to the skin and subcutaneous tissue over the left common femoral artery and a microneedle was used to access the artery under ultrasound guidance. A wire was passed through this access and a micro-sheath was placed, and through this access of Glidewire was advanced under fluoroscopic guidance into the aorta. A 6 [place] sheath was placed and flushed with saline. The catheter was placed over the wire and and aortoiliofemoral arteriogram was performed. Please see interpretation above. We then went up and over the bifurcation with the Glidewire and catheter and selected the common femoral artery. Arteriograms were performed. Please see interpretation above. We then selected the SFA and distal arteriograms were performed. We then advanced the Glidewire across the popliteal artery and the catheter was removed, and the sheath was exchanged for 45 cm 6 [place] sheath. The sheath was flushed with saline. We angioplasty across the popliteal artery and the distal SFA with a 5 x 200 [place] balloon. Three-minute inflations was performed. Following this, there is no dissection or extravasation, and less than 10% residual stenosis was noted. We did not feel the patient required a stent in this area. Next, we spent over an hour trying to cross through the tibial vessels with multiple wires and catheters and balloons. Eventually, we were able to cross to the ankle in the anterior tibial artery and open this up, but could not get the last few centimeters across to the dorsal pedis artery for in-line flow to the foot. We were however able to open up flow at the origin of the vessel with no significant residual stenosis noted, as well as open up flow to the ankle to improve flow to the collateral circulation. This is not as good as if we could divide in-line flow to the foot, but unfortunately this was the best we could offer today. Aggressive attempts were made to cross through the posterior tibial artery and we were eventually able to get around the plaque at the origin but could not pass the balloon passed it to angioplasty at. We also could not pass a wire distally, so outflow would not have been optimal even if we had been able to angioplasty the origin. The peroneal artery was extremely calcified and occludes several centimeters from its origin. We were able to cross just distal to this but despite aggressive attempts with angioplasty we were not able to open up any further distally. We attempted multiple wires and catheters, and we attempted to create a path by angioplasty down to the occlusion, but unfortunately were not able to get anything further distal. Eventually, our attempts to gain in-line flow to the foot were aborted and we exchanged sheath for short 6 [place] sheath and a mynx closure device was deployed with good hemostasis. Pressure was held for 10 minutes and the patient was taken to recovery in stable condition. He tolerated the procedure well. ESTIMATED BLOOD LOSS: Approximately 5 mL. COMPLICATIONS: None. PLAN: We'll see the patient back in clinic within the week to see how he is doing status post intervention, and check his left groin access. It is unclear if we have made enough improvement that he will see a benefit for wound healing on the right foot. Ideally, we would be able to get in line flow-through at least one tibial vessel all the way to the foot, but at the ankle the patient only has significant collaterals from long-term occlusions arising from the distal anterior tibial artery. We will discuss an clinic proceeding with the left lower extremity arteriogram and intervention. Okay to resume all home medications. RONA FONTAINE MD Apr 17, 2019 13:51
[2019-04-17 17:44] VITALS: BP 150/72
== END ==
LOC: M IRPRO 09:31
PROVIDERS: ATTEND Surgery Vascular Surgery
DX: I70.235 Atherosclerosis of native arteries of right leg with ulceration of other part of foot (principal); L97.519 Non-pressure chronic ulcer of other part of right foot with unspecified severity; I70.92 Chronic total occlusion of artery of the extremities
CPT/HCPCS: 37224; 37228; 75710; 99152; 99153; C1725; C1760; C1769; C1887; C1894; J2250; J3010; Q9967

== ENCOUNTER → 2019-05-08 | Outpatient (CLI) | payer MEDICARE ==
[~2019-05-08] MED LIST changes: +SYNT25TA PO; -diphenhydrAMINE INJ 50MG/ML VIAL (J1200) As Ordered ONE
[2019-05-08 08:50] LABS: HEMATOCRIT 40.8 % (42.0-52.0); HEMOGLOBIN 12.8 g/dl (13.5-17.5); MEAN CORPUSCULAR HEMOGLOBIN 29.6 pg (27.0-33.0); MEAN CORPUSCULAR HGB CONC 31.4 g/dl (32.0-36.5); MEAN CORPUSCULAR VOLUME 94.2 fl (80.0-96.0); PLATELET COUNT, AUTOMATED 145 10^3/uL (150-450); RED BLOOD COUNT 4.33 10^6/uL (4.30-6.10); WHITE BLOOD COUNT 6.3 10^3/uL (4.0-10.0)
[2019-05-08 09:01] LABS: CALCIUM LEVEL 8.9 MG/DL (8.8-10.2); CREATININE FOR GFR 1.72 MG/DL (0.70-1.30); GLOMERULAR FILTRATION RATE 41.8 (>42); POTASSIUM SERUM 4.5 MEQ/L (3.5-5.1)
--- NOTE | 2019-05-08 10:47 | ROOPDOC ---
[facility] Report Of Operation Report of Operation DATE OF PROCEDURE: 05/08/19 PREPROCEDURE DIAGNOSES: Atherosclerosis in the [place] vessels with nonhealing wound left lower extremity. POSTPROCEDURE DIAGNOSES: Same. PROCEDURE: 1. Ultrasound-guided access right common femoral artery 2. Aortoiliofemoral arteriogram and left lower extremity runoff from common femoral artery selection and SFA selection 3. Angioplasty left superficial femoral artery and popliteal artery with 6 x 200 [place] balloon 4. Angioplasty proximal left posterior tibial artery, peroneal artery, and anterior tibial artery with 2.5 x 220 [place] balloon 5. Attempt to cry distal left posterior tibial artery, peroneal artery, anterior tibial artery, aborted 6. Mynx closure right common femoral artery SURGEON: Rona Fontaine MD ANESTHESIA: Local anesthesia 7 mL lidocaine. Moderate intravenous conscious sedation was supervised by Dr. Fontaine. The patient was independently monitor by registered nurse assigned in the department of radiology using automated blood pressure, EKG, and pulse oximetry. The detailed sedation record is permanently [place] the hospital information system. The following a brief sedation record: Start time 09:40, stop time 10:20, heparin 5000 units IV, fentanyl 50 g IV, Versed 1 mg IV. CONTRAST: 41 mL Isovue-300 INDICATION FOR PROCEDURE: Mr Jo is a very pleasant 73-year-old gentleman with atherosclerosis the [place] vessels a nonhealing wound left foot. The patient's wound is almost healed, but has stalled. We know from his noninvasive study that he has calcification of the entire arterial tree of the lower extremities, with severe tibial disease. We discussed the risks benefits and alternatives to an arteriogram in an attempt to open in-line flow to the foot. Risks benefits and alternatives were explained and he is agreeable to proceed. Informed consent was obtained. INTERPRETATION: 1. The aortoiliofemoral segments are heavily calcified but widely patent. No flow limitation noted. 2. The left common femoral artery is heavily calcified but widely patent and runs off into an extremely calcified ectatic profunda, and an ectatic and calcified superficial femoral artery. No focal stenoses are noted, but the entire vessel is ectatic which does somewhat limit flow. The popliteal artery is also heavily calcified but patent. Runoff to the foot is pretty limited. The p atient has flow through the anterior tibial artery to the ankle but it is heavily calcified and stenotic. There is a gap in perfusion across the ankle which then is crossed with collaterals into the dorsal pedis artery. The peroneal artery is diminutive but intermittently patent down to the ankle. The posterior tibial artery occludes 5 cm from its origin and does not reconstitute through collaterals. 3. After angioplasty of the left superficial femoral artery and popliteal artery with 6 x 200 [place] balloon, there is widely patent flow with no areas of dissection, extravasation, or embolization. The rate of flow is improved after a ngioplasty. 4. Aggressive attempts were made to cross through to all 3 tibials to the foot. Unfortunately, we were able to pass R wire distally but could not get a crossing catheter or balloon to pass distally. I attempted to open up flow a little at a time by angioplasty and down to the area of calcified occlusion, and seeing if I can pass the balloon distal to this after angioplasty, but we were unsuccessful. All 3 vessels were attempted in a similar fashion. We were able to get the wire distal but we'll could not pass the catheter or balloon. We did angioplasty down to the area of and possible occlusion in all 3 vessels to improve inflow, but did not restore in-line flow to the foot. Following angioplasty at the origin of the anterior tibial peroneal and posterior tibial artery, there was improved in flow and no dissection embolization or extravasation was noted. REPORT OF OPERATION: The patient was brought to the angiographic suite in stable condition. His bilateral groins were prepped and draped in a sterile fashion. A timeout was performed. Local anesthesia was administered to the skin and subcutaneous tissue over the right groin and a microneedle was used to access the common femoral artery under ultrasound guidance over the femoral head. A wire was passed through this access and the needle was removed and a micro- sheath was placed. Through this micro-sheath, Glidewire was advanced into the distal aorta under fluoroscopic guidance. The sheath was then exchanged for 6 [place] sheath over the wire using a Seldinger technique and flushed with saline. Following this, we advanced an omniflush catheter and is distal aorta and found widely patent iliac flow. We then went up and over the bifurcation with the catheter and Glidewire and selected the common femoral artery. Femoral arteriogram was performed. Please see interpretation above. We then selected the superficial femoral artery and a distal runoff was performed. Please see interpretation above. We then advanced the wire under fluoroscopic guidance into the distal popliteal artery and angioplasty the length of the superficial femoral artery and the proximal popliteal artery with a 6 x 200 [place] balloon for three-minute inflations along the length of the vessel. Following this, there was less ectasia and more brisk flow through the femoral system. We then exchanged the wire for an O18 Glidewire advantage and first selected the anterio r tibial artery. We were able to pass the wire to the distal anterior tibial artery, but could not cross the mid arterial occlusion with a crossing catheter or the balloon. We angioplastied with a 2.5 x 220 [place] balloon up to the occlusion for three-minute inflations, and then try to advance the balloon after angioplasty, but still could not navigate through. We have no other 018 crossing catheter at this time other than the [place]. Aggressive attempts were made to spin the catheter and the balloon to try to cross, but we could not get through. We then repeated this process in the posterior tibial artery. I was able to get the wire almost to the ankle, but could not pass a crossing catheter or balloon past the mid vessel. We angioplasty the proximal aspect with a 2.5 x 220 [place] balloon for three-minute inflations but then could not advance the catheter or the balloon any further. We then navigated the wire into the peroneal artery and we were able to pass the wire almost to the ankle, but again we could not navigate a balloon or catheter past the mid calf. We performed an angioplasty with a 2.5 x 220 [place] balloon to the mid calf and attempted to push the balloon further after angioplasty but again were not able to get the balloon or the catheter to go any further. Completion arteriogram stitch show improved flow, but no in-line flow to the foot, but the collateral circulation is improved at the ankle. I'm not sure this will be satisfactory for wound healing. The patient will likely need a more aggressive attempt at crossing to the distal ankle and we will attempt to special order additional catheters to try and cross. I did explain to him that it may be that the vessels are too calcified for us to improve flow, but it may be worth one more try. We exchanged the sheath for short 6 [place] sheath over Glidewire and flushed the sheath was saline. A mynx closure device was deployed under fluoroscopic guidance with good hemostasis. Pressure was held for 10 minutes and the patient was taken to recovery in stable condition. ESTIMATED BLOOD LOSS: Approximately 5 mL. COMPLICATIONS: None. PLAN: Unfortunately, today we were unable to cross distally in any of the tibial vessels due to heavy calcification. Neither are crossing catheter or balloon would past the calcified lesions. Depending on how the patient does with wound healing with a limited improvement in flow we gave him today, we may elect to bring him back for second procedure with special order crossing catheters to see if we could improve flow distally. We'd like to get at least one vessel in-line flow to the foot. We will see how he does when we see him in clinic. He can res ume all home medications. RONA FONTAINE MD May 08, 2019 10:47
[2019-05-08 14:15] VITALS: BP 133/76
== END ==
LOC: M IRPRO 08:09
PROVIDERS: ATTEND Surgery Vascular Surgery
DX: I70.245 Atherosclerosis of native arteries of left leg with ulceration of other part of foot (principal); I70.92 Chronic total occlusion of artery of the extremities; L97.529 Non-pressure chronic ulcer of other part of left foot with unspecified severity
CPT/HCPCS: 37224; 37228; 37232; 75710; 75774; 80048; 85027; 99152; 99153; C1725; C1729; C1760; C1769; C1887; C1894; J2250; J3010; Q9967

== ENCOUNTER → 2019-06-06 | Outpatient (REF) | payer MEDICARE ==
[~2019-06-06] MED LIST changes: -HEPARIN 1,000 UNITS/ML 10ML VIAL (FOR RADIOLOGY& DIALYSIS ONLY) As Ordered ONE; -ISOVUE-300 61% 50ML VIAL (Q9967) As Ordered ONE; -LIDOCAINE 1% MDV 20ML VIAL As Ordered ONE; -MIDAZOLAM INJ 2 MG/2 ML VIAL (J2250) As Ordered ONE; -fentaNYL 100 MCG/2 ML INJECTION (J3010) As Ordered ONE
== END ==
LOC: M LAB REF 17:47
PROVIDERS: ATTEND Podiatrist Foot & Ankle Surgery
DX: M89.9 Disorder of bone, unspecified (principal)

== ENCOUNTER 2019-06-16 14:52 | Inpatient (IN) | payer MEDICARE ==
[~2019-06-16] VITALS: Ht 182.9 cm; Wt 84.1 kg
[2019-06-16 17:17] LABS: BASO # 0.1 10^3/uL (0.0-0.2); BASO % 0.7 % (0.0-1.0); EOS # 0.6 10^3/uL (0.0-0.5); EOS % 6.6 % (0.0-3.0); HEMATOCRIT 38.7 % (42.0-52.0); LYMPH # 1.4 10^3/uL (1.5-5.0); LYMPH % 16.3 % (24.0-44.0); MEAN CORPUSCULAR HEMOGLOBIN 29.2 pg (27.0-33.0); MEAN CORPUSCULAR VOLUME 94.2 fl (80.0-96.0); MONO # 0.4 10^3/uL (0.0-0.8); MONO % 5.2 % (0.0-5.0); NEUTROPHILS # 5.8 10^3/uL (1.5-8.5); NEUTROPHILS % 70.2 % (36.0-66.0); PLATELET COUNT, AUTOMATED 217 10^3/uL (150-450); RED BLOOD COUNT 4.11 10^6/uL (4.30-6.10); WHITE BLOOD COUNT 8.3 10^3/uL (4.0-10.0)
[2019-06-16 17:31] LABS: INR 1.07; PROTHROMBIN TIME 13.7 SECONDS (11.8-14.0)
[2019-06-16 17:32] LABS: PARTIAL THROMBOPLASTIN TIME 38.9 SECONDS (25.0-38.4)
[2019-06-16 17:37] LABS: C REACTIVE PROTEIN QUANTITATIV 3.3 MG/DL (0.00-0.30); CALCIUM LEVEL 9.1 MG/DL (8.8-10.2); CREATININE FOR GFR 1.76 MG/DL (0.70-1.30); GLOMERULAR FILTRATION RATE 40.7 (>42); POTASSIUM SERUM 5.1 MEQ/L (3.5-5.1)
--- NOTE | 2019-06-16 17:37 | REP ---
Clinical: Necrosis. Technique: AP, lateral, bilateral oblique views of the left foot. Findings: Partial amputation involving the first and second toes. Underlying osteopenia, degenerative changes and evidence for small vessel disease. No periosteal reaction or obvious aggressive erosive changes are appreciated. There is evidence for subluxation at the fourth DIP joint. Impression: Changes as described above including partial amputation at the first and second toes and subluxation at the fourth DIP joint. No radiographic evidence to definitively suggest osteomyelitis. Electronically Signed by Solo Garcia MD 06/16/2019 05:28 P
[2019-06-16] MEDS ORDERED: ceFAZolin SOD 1 GM in D5W MINI-BAG PLUS 50 ML IV ONE (18:00)
[2019-06-16 18:10] LABS: ERYTHROCYTE SEDIMENTATION RATE 67 mm/hr (0-20)
[2019-06-16] MEDS ORDERED: NS 500 ML IV ONE (18:15)
[2019-06-16] MEDS ORDERED: VANCOMYCIN HCL 1,000 MG, VIAL MATE ADAPTER 1 EACH in D5W 250 ML IV ONE (19:00)
[2019-06-16] MEDS ORDERED: CEFTAROLINE FOSAMIL 600 MG in D5W MINI-BAG PLUS 50 ML IV ONE (19:00)
[2019-06-16] MEDS ORDERED: BASA100I SC (19:11)
[2019-06-16] MEDS ORDERED: LEVO500T3 PO (19:12)
[2019-06-16] MEDS: HumaLOG INSULIN (NovoLOG) PER UNIT SC SCH (21:00)
[2019-06-17] MEDS ORDERED: GLUCOSE 4 GM CHEW TABLET PO PRN
[2019-06-17] MEDS ORDERED: DEXTROSE 50% 50 ML SYRINGE IV PRN
[2019-06-17] MEDS ORDERED: GLUCAGON FOR INJ 1 MG VIAL (J1610) SC PRN
[2019-06-17 00:45] VITALS: BP 127/92
[2019-06-17] MEDS: LEVEMIR (INSULIN DETEMIR) 1 UNITS/0.01ML SC SCH ×2 (01:33→20:26)
[2019-06-17] MEDS: GABAPENTIN 300 MG CAP PO SCH ×2 (01:33→20:26)
--- NOTE | 2019-06-17 05:22 | HPEPDOC ---
[facility] Medical History & Physical Date of Admission Jun 17, 2019 Date of Service: Jun 17, 2019 Attending Physician: STANISLAW ACEVES MD History and Physical CHIEF COMPLAINT: Left Foot cellulitis HISTORY OF PRESENT ILLNESS: Patient is a 73 year old male with a past medical history significant for renal cell carcinoma with metastases to the liver and pancreas, diabetes mellitus type 2, diabetic neuropathy, hypertension, and history of osteomyelitis requiring amputation of all toes on the right foot and chronic right foot nonhealing ulcers who presented to the [facility] ER with complaint redness in his left foot. Patient states that he was previously seen in Dr. Kline office on the . He stated that he had part of his left third toe amputated and there was plans for further debridement/amputation on the 28 of June. The patient stated that he has recently developed redness in his left foot tracking up his leg. He denies any pain but states that he is unable to feel pain as he has significant neuropathy. He does admits to chills. He denies any fevers, nausea, or vomiting. He states that he otherwise feels well. In the ER the patient was afebrile and vitally stable. There was no elevation in his WBC. He had a slight lactic acidosis which corrected with IV fluid bolus. Hospitalist service was consulted and the patient was admitted for further evaluation and management of his left foot cellulitis PAST MEDICAL HISTORY: 1. 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 Diabetes Mellitus Type 2 3. Diabetic Neuropathy 4. Chronic Nonhealing diabetic ulcers on the right and left foot PAST SURGICAL HISTORY: 1. Angiogram 2. Left sided Nephrectomy 3. Left second toe amputation 4. Left first toe puncture amputation for osteomyelitis 5. Right knee surgery 6. Right foot debridement 7. Right toe amputation 1-5 8. Colonoscopy SOCIAL HISTORY: Patient lives at home with his . He ambulates without a cane or walker. He is a nonsmoker. He denies alcohol use. He denies IV or illicit drug use FAMILY HISTORY: Patients father has a history of a myocardial infarction. His mother had heart disease and diabetes. His sister has diabetes ALLERGIES: Please see below. REVIEW OF SYSTEMS: CONSTITUTIONAL: Admits to chills. Denies fevers. Denies unintentional weight loss. Denies night sweats HEENT: Denies cough. Denies dysphagia. Denies pain on swallowing. Denies lymphadenopathy CARDIOVASCULAR: Denies chest pain, palpitations, or feelings of the heart racing RESPIRATORY: Denies shortness of breath or wheezing GASTROINTESTINAL: Denies abdominal pain, nausea, vomiting, diarrhea, or constipation GENITOURINARY: Denies increased frequency, urgency, or retention/ SKIN: Admits to chronic right foot ulceration on plantar aspect. Admits to left 3rd toe ulceration/necrosis. Admits to erythema of left foot NEUROLOGICAL: Admits to diabetic neuropathy. Denies changes in gait from baseline. Denies difficulty with balance PSYCHIATRIC: Denies depression or anxiety t ENDOCRINE: Denies heat intolerance or cold intolerance HEMATOLOGIC/LYMPHATIC: Denies easy bruising or bleeding. Denies history of DVT or PE HOME MEDICATIONS: Please see below. PHYSICAL EXAMINATION: VITAL SIGNS: Temperature 98.0, pulse 93, respiratory rate 18, blood pressure 158/70, pulse oximetry 100% on room air. GENERAL APPEARANCE: Patient is awake, alert, and oriented. He is lying in bed comfortably. He does not appear to be in any acute distress HEENT: Atraumatic normocephalic. Eyes are nonicteric. Trachea is midline. No palpable cervical, axillary, or supraclavicular lymphadenoapthy CARDIOVASCULAR: Normal S1, S2. Regular rate and rhythm. No clicks rubs or murmurs LUNGS: Clear vesicular lung sounds bilaterally. Good respiratory effort. No wheezes, rhonchi, or rales ABDOMEN: Soft, nondistended. Nontender. No rebound tenderness or guarding. Norm oactive bowel sounds throughout EXTREMITIES: Left second toe amputated. Left third toe with necrotic ulcer. Area of erythema tracking from left third toe up the dorsal aspect of the foot. Right foot with transmetatarsal amputation. Area of ulceration on the plantar aspect of the right foot without necrosis or gangrene. Full and equal pulses in bilateral upper and lower extremities NEUROLOGICAL: No focal neurological deficits PSYCHIATRIC: Mood and affect appear appropriate LABORATORY DATA: See below. IMAGING: Clinical: Necrosis. Technique: AP, lateral, bilateral oblique views of the left foot. Findings: Partial amputation involving the first and second toes. Underlying osteopenia, degenerative changes and evidence for small vessel disease. No periosteal reaction or obvious aggressive erosive changes are appreciated. There is evidence for subluxation at the fourth DIP joint. Impression: Changes as described above including partial amputation at the first and second toes and subluxation at the fourth DIP joint. No radiographic evidence to definitively suggest osteomyelitis. Electronically Signed by Solo Garcia MD 06/16/2019 05:28 P MICROBIOLOGY: Please see below. ASSESSMENT: Patient is a 73 year old male with diabetes mellitus type 2 and chronic nonhealing ulcers on the right and left foot requiring amputation who presented to the [facility] ER with right third toe necrosis and cellulitis . PLAN: 1. Left foot cellulitis/3rd to necrosis/osteomyelitis -Patients left 3rd toe has an area of necrosis with overlying erythema tracking up the dorsal aspect of his foot. Concerning for cellulitis and possible osteomyelitis -Will start Ceftaroline. -Patient is followed by Dr. Hyatt as an outpatient. Will likely need amputation of his left 3rd toe. Consultation placed 2. Diabetes Mellitus Type 2 -Levemir 10 untis QHS -Sliding scale coverage 3. Hypertension -Continue home medications including losartan, Zebeta 4. Diabetic Neuropathy -Continue gabapentin 5. DVT prophylaxis -Heparin SQ Vital Signs Vital Signs Date Time Temp Pulse Resp B/P (MAP) Pulse Ox O2 Delivery O2 Flow Rate FiO2 06/17/19 00:45 97.9 94 18 127/92 (104) 99 Room Air Laboratory Data Labs 24H Laboratory Tests 2 06/16/19 17:00: Immature Granulocyte % (Auto) 1.0, Neutrophils (%) (Auto) 70.2H, Lymphocytes (%) (Auto) 16.3L, Monocytes (%) (Auto) 5.2H, Eosinophils (%) (Auto) 6.6H, Basophils (%) (Auto) 0.7, Neutrophils # (Auto) 5.8, Lymphocytes # (Auto) 1.4L, Monocytes # (Auto) 0.4, Eosinophils # (Auto) 0.6H, Basophils # (Auto) 0.1, Nucleated Red Blood Cells % (auto) 0.0, Erythrocyte Sedimentation Rate 67H, Prothrombin Time 13.7, Prothromb Time International Ratio 1.07, Activated Partial Thromboplast Time 38.9H, Anion Gap 5L, Glomerular Filtration Rate 40.7L, Lactic Acid Level 2.6*H, Calcium Level 9.1, C-Reactive Protein, Quantitative 3.30H 06/16/19 21:19: Lactic Acid Followup at 4 Hours 0.9 06/17/19 00:52: Bedside Glucose (Misc Panel) 237H CBC/BMP Laboratory Tests 06/16/19 17:00 Microbiology Microbiology 06/16/19 Blood Culture, Received Pending 06/16/19 Blood Culture, Received Pending Home Medications Scheduled Bisoprolol Fumarate (Bisoprolol Fumarate) 10 Mg Tab, 5 MG PO DAILY Gabapentin (Gabapentin) 300 Mg Cap, 300 MG PO QHS Glipizide (Glipizide ER) 10 Mg Tab, 10 MG PO DAILY Insulin Glargine,Hum.rec.anlog (Basaglar Kwikpen U-100) 100 Unit/1 Ml Insuln.pen, 20-24 UNIT SC QHS Insulin Human Lispro (Novolog) 100 U/Ml Inj, 1 DOSE SC AC PER SLIDING SCALE Levofloxacin (Levofloxacin) 500 Mg Tablet, 500 MG PO DAILY Levothyroxine Sodium (Synthroid) 25 Mcg Tablet, 25 MCG PO DAILY Losartan Potassium (Losartan Potassium) 25 Mg Tab, 25 MG PO DAILY Multivitamins (Thera M Plus Tablet) 1 Tab Tab, 1 TAB PO DAILY Nivolumab (Opdivo) 240 Mg/24 Ml Inj, 240 MG IV Q4WKS Pancreatic Enzymes (Creon Dr 12,000 Units Capsule) 1 Ea Capcr, 1 CAP PO BID Allergies Coded Allergies: No Known Allergies (Unverified , 03/23/18) A-FIB/CHADSVASC A-FIB History Current/History of A-Fib/PAF?: No AMERICA AGGARWAL DO Jun 17, 2019 05:01
[2019-06-17] MEDS: LEVOTHYROXINE 25MCG TABLET (0.025MG) PO SCH (05:32)
[2019-06-17] MEDS: HEPARIN SOD (PORCINE) 5000 UNITS/ML VIAL SQ SCH ×2 (05:33→17:14)
[2019-06-17 06:26] VITALS: BP 93/60
[2019-06-17 06:46] LABS: HEMATOCRIT 34.7 % (42.0-52.0); HEMOGLOBIN 10.9 g/dl (13.5-17.5); MEAN CORPUSCULAR HGB CONC 31.4 g/dl (32.0-36.5); MEAN CORPUSCULAR VOLUME 92.3 fl (80.0-96.0); PLATELET COUNT, AUTOMATED 174 10^3/uL (150-450); RED BLOOD COUNT 3.76 10^6/uL (4.30-6.10); WHITE BLOOD COUNT 7.4 10^3/uL (4.0-10.0)
[2019-06-17 07:09] LABS: C REACTIVE PROTEIN QUANTITATIV 2.38 MG/DL (0.00-0.30); CALCIUM LEVEL 8.4 MG/DL (8.8-10.2); CREATININE FOR GFR 1.44 MG/DL (0.70-1.30); GLOMERULAR FILTRATION RATE 51.3 (>42); POTASSIUM SERUM 4.8 MEQ/L (3.5-5.1)
[2019-06-17] MEDS: MULTIVITAMINS/MINERALS THERAP 1 TAB PO SCH (08:20)
[2019-06-17] MEDS: ACETAMINOPHEN TAB 650MG DOSE (2X325MG) PO PRN ×2 (08:20→18:48)
[2019-06-17] MEDS: CREON-12 CAPSULE PO SCH ×2 (08:20→17:14)
[2019-06-17] MEDS: bisoproloL fumarate 5 MG TAB PO SCH (08:20)
[2019-06-17] MEDS: HumaLOG INSULIN (NovoLOG) PER UNIT SC SCH ×4 (08:21→20:21)
[2019-06-17] MEDS: CEFTAROLINE FOSAMIL 600 MG in D5W MINI-BAG PLUS 50 ML IV SCH ×2 (08:21→20:26)
[2019-06-17] MEDS ORDERED: LOSARTAN 25 MG TAB PO SCH (09:00)
--- NOTE | 2019-06-17 10:48 | IPNPDOC ---
Subjective Date Seen The patient was seen on 06/17/19. Subjective Chief Complaint/HPI pt comfortable ,in no dsitress General: Denies: ROS Unobtainable, Chills, Night Sweats, Fatigue, Malaise, Normal Appetite, Other Symptoms Constitutional: Denies: Chills, Fever, Malaise, Night Sweats, Weakness, Fatigue, Weight Loss, Lethargy, Other Eyes: Denies: Pain, Vision change, Conjunctivae inflammation, Eyelid inflammation, Redness, Other ENT: Denies: Head Aches, Ear Pain, Dysphagia, Sinus Congestion, Post Nasal Drip, Sore Throat, Epistaxis, Other Symptoms Skin: Denies: Rash, Lesions, Jaundice, Bruising, Itching, Dry, Breakdown, Nail Changes, Other Pulmonary: Denies: Dyspnea, Cough, Pleuritic Chest Pain, Other Symptoms Cardiovascular: Denies: Chest Pain, Palpitations, Orthopnea, Paroxysmal Noc. Dyspnea, Edema, Lt Headedness, Other Symptoms Gastrointestinal: Denies: Nausea, Vomiting, Abdominal Pain, Diarrhea, Constipation, Melena, Hematochezia, Other Symptoms Musculoskeletal: Denies: Neck Pain, Back Pain, Shoulder Pain, Arm Pain, Hand Pain, Leg Pain, Foot Pain, Joint Pain, Muscle Pain, Spasms, Other Symptoms Neurological: Denies: Weakness, Numbness, Incoordination, Change in speech, Confusion, Seizures, Other Symptoms Psych: Denies: Mood Normal, Anxiety, Depression, Memory Issues, Thoughts of Self Harm, Anger, Thoughts of Harming Other, Other Psych Objective Physical Examination General Exam: Positive: Alert, Cooperative Eye Exam: Positive: PERRLA, Conjunctiva & lids normal ENT Exam: Positive: Atraumatic, Mucous membr. moist/pink Neck Exam: Positive: Supple Chest Exam: Positive: Normal air movement Heart Exam: Positive: Rate Normal, Normal S1, Normal S2 Abdomen Exam: Positive: Normal bowel sounds, Soft Extremity Exam: Positive: Normal pulses Skin Exam: Positive: Nl turgor and temperature Neuro Exam: Positive: Strength at 5/5 X4 ext, Sensation Intact, Cranial Nerves 3-12 NL Assessment /Plan Problems (1) Cellulitis of right foot Status: Acute Problem Text: Left foot cellulitis/3rd toe necrosis/osteomyelitis Patients left 3rd toe has an area of necrosis with overlying erythema tracking up the dorsal aspect of his foot. Concerning for cellulitis and possible osteomyelitis Patient has been started onceftroline and will continue same seen by podiatry, most likely crepitation is scheduled tomorrow. Awaiting official consult in the chart (2) DM2 (diabetes mellitus, type 2) Status: Chronic Problem Text: Fingerstick blood sugar every before meals and at bedtime with coverage Continue Levemir 10 units daily at bedtime (3) HTN (hypertension) Status: Chronic Problem Text: Under control Continue lovastatin and zebetta Plan/VTE VTE Prophylaxis Ordered?: Yes VS, I&O, 24H, Fishbone Vital Signs/I&O Vital Signs Date Time Temp Pulse Resp B/P (MAP) Pulse Ox O2 Delivery O2 Flow Rate FiO2 06/17/19 08:20 101 115/62 06/17/19 06:26 98.5 18 98 Room Air I&O- Last 24 Hours up to 6 AM 06/17/19 06:00 Intake Total 900 ml Output Total 260 ml Balance 640 ml Laboratory Data 24H LABS Laboratory Tests 2 06/16/19 17:00: Immature Granulocyte % (Auto) 1.0, Neutrophils (%) (Auto) 70.2H, Lymphocytes (%) (Auto) 16.3L, Monocytes (%) (Auto) 5.2H, Eosinophils (%) (Auto) 6.6H, Basophils (%) (Auto) 0.7, Neutrophils # (Auto) 5.8, Lymphocytes # (Auto) 1.4L, Monocytes # (Auto) 0.4, Eosinophils # (Auto) 0.6H, Basophils # (Auto) 0.1, Nucleated Red Blood Cells % (auto) 0.0, Erythrocyte Sedimentation Rate 67H, Prothrombin Time 13.7, Prothromb Time International Ratio 1.07, Activated Partial Thromboplast Time 38.9H, Anion Gap 5L, Glomerular Filtration Rate 40.7L, Lactic Acid Level 2.6*H, Calcium Level 9.1, C-Reactive Protein, Quantitative 3.30H 06/16/19 21:19: Lactic Acid Followup at 4 Hours 0.9 06/17/19 00:52: Bedside Glucose (Misc Panel) 237H 06/17/19 06:24: Nucleated Red Blood Cells % (auto) 0.0, Anion Gap 5L, Glomerular Filtration Rate 51.3, Calcium Level 8.4L, C-Reactive Protein, Quantitative 2.38H CBC/BMP Laboratory Tests 06/16/19 17:00 06/17/19 06:24 Microbiology Microbiology 06/16/19 Blood Culture, Received Pending 06/16/19 Blood Culture, Received Pending CHRIS ROSENBERG MD Jun 17, 2019 10:48
[2019-06-17 14:00] VITALS: BP 82/52
[2019-06-17 20:03] VITALS: BP 78/46
[2019-06-17 20:19] VITALS: BP 77/46
[2019-06-17] MEDS ORDERED: NS 1,000 ML IV ONE (20:30)
[2019-06-18 05:40] VITALS: BP 100/68
[2019-06-18] MEDS: LEVOTHYROXINE 25MCG TABLET (0.025MG) PO SCH (05:56)
[2019-06-18 06:40] LABS: HEMATOCRIT 34.6 % (42.0-52.0); MEAN CORPUSCULAR HEMOGLOBIN 29.6 pg (27.0-33.0); MEAN CORPUSCULAR HGB CONC 31.8 g/dl (32.0-36.5); PLATELET COUNT, AUTOMATED 170 10^3/uL (150-450); RED BLOOD COUNT 3.72 10^6/uL (4.30-6.10); WHITE BLOOD COUNT 6.4 10^3/uL (4.0-10.0)
[2019-06-18 07:02] LABS: CALCIUM LEVEL 8.9 MG/DL (8.8-10.2); CREATININE FOR GFR 1.68 MG/DL (0.70-1.30); POTASSIUM SERUM 4.6 MEQ/L (3.5-5.1)
[2019-06-18] MEDS ORDERED: KETOROLAC 60 MG/2 ML VIAL (J1885) As Ordered ONE (07:24)
[2019-06-18] MEDS ORDERED: dexameTHASONE 4 MG/ML 1ML VIAL (J1100) As Ordered ONE (07:24)
[2019-06-18] MEDS ORDERED: ONDANSETRON 4MG/2ML VIAL (J2405) As Ordered ONE (07:24)
[2019-06-18] MEDS ORDERED: LIDOCAINE 2% INJ 100 MG/5 ML SDV (FOR ANES.) As Ordered ONE (07:24)
[2019-06-18] MEDS ORDERED: PROPOFOL 200 MG/20 ML VIAL As Ordered ONE ×2 (07:24→08:24)
[2019-06-18] MEDS ORDERED: fentaNYL 100 MCG/2 ML INJECTION (J3010) As Ordered ONE (07:27)
[2019-06-18] MEDS ORDERED: MIDAZOLAM INJ 2 MG/2 ML VIAL (J2250) As Ordered ONE (07:28)
[2019-06-18] MEDS: HumaLOG INSULIN (NovoLOG) PER UNIT SC SCH ×4 (07:30→20:35)
[2019-06-18] MEDS ORDERED: LIDOCAINE 1% SDV INJ 30 ML VIAL As Ordered ONE (07:38)
[2019-06-18] MEDS ORDERED: BUPIVACAINE HCL 0.5% 30 ML VIAL As Ordered ONE (07:38)
[2019-06-18] MEDS: CREON-12 CAPSULE PO SCH ×2 (08:00→17:10)
[2019-06-18] MEDS: CEFTAROLINE FOSAMIL 600 MG in D5W MINI-BAG PLUS 50 ML IV SCH ×2 (08:00→20:15)
[2019-06-18] MEDS ORDERED: PHENYLephrine HCL 500 MCG/5 ML (100MCG/ML) SYRINGE (J2370) As Ordered ONE (08:31)
[2019-06-18] MEDS: MULTIVITAMINS/MINERALS THERAP 1 TAB PO SCH ×3 (09:00→12:25)
[2019-06-18] MEDS: bisoproloL fumarate 5 MG TAB PO SCH (09:00)
[2019-06-18] MEDS ORDERED: PERCOCET 5MG/325MG TAB PO PRN (09:15)
[2019-06-18] MEDS ORDERED: ONDANSETRON 4MG/2ML VIAL (J2405) IV PRN (09:15)
--- NOTE | 2019-06-18 09:15 | IPNPDOC ---
Subjective Date Seen The patient was seen on 06/18/19. Subjective Chief Complaint/HPI Scheduled for surgical procedure today by Dr. Grubbs General: Denies: ROS Unobtainable, Chills, Night Sweats, Fatigue, Malaise, Normal Appetite, Other Symptoms Constitutional: Denies: Chills, Fever, Malaise, Night Sweats, Weakness, Fatigue, Weight Loss, Lethargy, Other Skin: Denies: Rash, Lesions, Jaundice, Bruising, Itching, Dry, Breakdown, Nail Changes, Other Pulmonary: Denies: Dyspnea, Cough, Pleuritic Chest Pain, Other Symptoms Cardiovascular: Denies: Chest Pain, Palpitations, Orthopnea, Paroxysmal Noc. Dyspnea, Edema, Lt Headedness, Other Symptoms Gastrointestinal: Denies: Nausea, Vomiting, Abdominal Pain, Diarrhea, Constipation, Melena, Hematochezia, Other Symptoms Musculoskeletal: Denies: Neck Pain, Back Pain, Shoulder Pain, Arm Pain, Hand Pain, Leg Pain, Foot Pain, Joint Pain, Muscle Pain, Spasms, Other Symptoms Neurological: Denies: Weakness, Numbness, Incoordination, Change in speech, Confusion, Seizures, Other Symptoms Objective Physical Examination General Exam: Positive: Alert, Cooperative Eye Exam: Positive: PERRLA, Conjunctiva & lids normal ENT Exam: Positive: Atraumatic, Mucous membr. moist/pink Neck Exam: Positive: Supple Chest Exam: Positive: Normal air movement Heart Exam: Positive: Rate Normal, Normal S1, Normal S2 Abdomen Exam: Positive: Normal bowel sounds, Soft Extremity Exam: Positive: Normal pulses Skin Exam: Positive: Nl turgor and temperature Neuro Exam: Positive: Strength at 5/5 X4 ext, Sensation Intact, Cranial Nerves 3-12 NL Assessment /Plan Problems (1) Cellulitis of right foot Status: Acute Problem Text: Left foot cellulitis/3rd toe necrosis/osteomyelitis Patients left 3rd toe has an area of necrosis with overlying erythema tracking up the dorsal aspect of his foot. Concerning for cellulitis and possible osteomyelitis Patient has been started on ceftroline and will continue same Patient is scheduled for surgical procedure by Dr. Grubbs today Further, as per podiatry (2) DM2 (diabetes mellitus, type 2) Status: Chronic Problem Text: Fingerstick blood sugar every before meals and at bedtime with coverage Continue Levemir 10 units daily at bedtime (3) HTN (hypertension) Status: Chronic Problem Text: Under control Continue lovastatin and zebetta Plan/VTE VTE Prophylaxis Ordered?: Yes VS, I&O, 24H, Fishbone Vital Signs/I&O Vital Signs Date Time Temp Pulse Resp B/P (MAP) Pulse Ox O2 Delivery O2 Flow Rate FiO2 06/18/19 09:05 91 16 112/61 (78) 98 Room Air 06/18/19 09:00 2 06/18/19 08:55 97.0 I&O- Last 24 Hours up to 6 AM 06/18/19 06:00 Intake Total 2630 ml Output Total 1250 ml Balance 1380 ml Laboratory Data 24H LABS Laboratory Tests 2 06/17/19 11:41: Bedside Glucose (Misc Panel) 142H 06/17/19 16:22: Bedside Glucose (Misc Panel) 345H 06/17/19 19:59: Bedside Glucose (Misc Panel) 220H 06/18/19 06:17: Nucleated Red Blood Cells % (auto) 0.0, Anion Gap 7L, Glomerular Filtration Rate 43.0, Calcium Level 8.9 06/18/19 09:07: Bedside Glucose (Misc Panel) 136H CBC/BMP Laboratory Tests 06/18/19 06:17 Microbiology Microbiology 06/16/19 Blood Culture - Preliminary, Resulted No growth after 24 hours . All specim... 06/16/19 Blood Culture - Preliminary, Resulted No growth after 24 hours . All specim... CHRIS ROSENBERG MD Jun 18, 2019 09:15
[2019-06-18] MEDS ORDERED: NORCO, ANEXSIA 5/325MG TABLET (HYDROcodone/ACETAMINOPHEN) PO PRN (10:15)
[2019-06-18 10:30] VITALS: BP 120/63
[2019-06-18 11:00] VITALS: BP 117/63
[2019-06-18 14:00] VITALS: BP 90/58
[2019-06-18] MEDS: GABAPENTIN 300 MG CAP PO SCH (20:15)
[2019-06-18] MEDS: LEVEMIR (INSULIN DETEMIR) 1 UNITS/0.01ML SC SCH (20:16)
--- NOTE | 2019-06-18 20:22 | CR ---
DATE OF CONSULTATION: 06/17/2019 REASON FOR CONSULTATION: toe infection Mr. Jo is well known to me and who presented to the hospital on 06/16/2019 due to worsening left foot infection. He was seen in my office approximately a week ago with worsening of ulceration on the left 4th toe. He had at that time removal of some bone in attempt to prevent need for amputation; however, toe progressed with further dysvascular changes on followup, and he is tentatively scheduled for amputation on June 28. He presented to the hospital due to worsening redness and swelling surrounding this site. PAST MEDICAL HISTORY: Significant for: 1. Diabetes with neuropathy. 2. Chronic nonhealing ulcerations on both feet. 3. Renal cell carcinoma with metastases. PAST SURGICAL HISTORY: 1. Left-sided nephrectomy. 2. Left foot toe amputations. 3. Right foot toe amputations. 4. Bilateral lower extremity angioplasties. ALLERGIES: None. REVIEW OF SYSTEMS: Negative for nausea, vomiting, fever, or chills. Labs are reviewed. White blood cell count is 7.4, ESR 67, CRP is 2.38. Creatinine is 1.44. IMAGING STUDIES: Show no soft tissue emphysema. Lower extremity examination: On the right foot there is an ulceration on the plantar forefoot, granular tissue. No surrounding erythema. On the left foot, the 4th toe has total eschar of the distal third of the toe with some proximal erythema. No purulence or other necrosis noted. ASSESSMENT: A 73-year-old diabetic male with left 4th toe gangrene, right foot ulceration. PLAN: Patient scheduled for amputation of 4th toe tomorrow morning. Continue empiric antibiotics. Wound dressing orders ordered for right foot. AMARIS
[2019-06-18 22:00] VITALS: BP 111/61
[2019-06-19 02:00] VITALS: BP 108/54
[2019-06-19] MEDS: LEVOTHYROXINE 25MCG TABLET (0.025MG) PO SCH (05:15)
[2019-06-19 06:00] VITALS: BP 107/58
[2019-06-19] MEDS: HEPARIN SOD (PORCINE) 5000 UNITS/ML VIAL SQ SCH ×2 (06:18→16:56)
[2019-06-19 06:29] LABS: BASO # 0.1 10^3/uL (0.0-0.2); EOS # 0.5 10^3/uL (0.0-0.5); EOS % 9.9 % (0.0-3.0); HEMATOCRIT 30.2 % (42.0-52.0); HEMOGLOBIN 9.6 g/dl (13.5-17.5); LYMPH # 1.1 10^3/uL (1.5-5.0); MEAN CORPUSCULAR HEMOGLOBIN 29.4 pg (27.0-33.0); MEAN CORPUSCULAR HGB CONC 31.8 g/dl (32.0-36.5); MEAN CORPUSCULAR VOLUME 92.4 fl (80.0-96.0); MONO # 0.4 10^3/uL (0.0-0.8); MONO % 6.7 % (0.0-5.0); NEUTROPHILS # 3.2 10^3/uL (1.5-8.5); PLATELET COUNT, AUTOMATED 128 10^3/uL (150-450); RED BLOOD COUNT 3.27 10^6/uL (4.30-6.10); WHITE BLOOD COUNT 5.2 10^3/uL (4.0-10.0)
[2019-06-19 07:01] LABS: ALBUMIN 2.7 GM/DL (3.2-5.2); BILIRUBIN,TOTAL 0.4 MG/DL (0.2-1.0); CALCIUM LEVEL 8.1 MG/DL (8.8-10.2); CREATININE FOR GFR 1.6 MG/DL (0.70-1.30); GLOMERULAR FILTRATION RATE 45.5 (>42); POTASSIUM SERUM 4.8 MEQ/L (3.5-5.1); TOTAL PROTEIN 6.5 GM/DL (6.4-8.2)
[2019-06-19] MEDS: MULTIVITAMINS/MINERALS THERAP 1 TAB PO SCH (08:23)
[2019-06-19] MEDS: bisoproloL fumarate 5 MG TAB PO SCH (08:23)
[2019-06-19] MEDS: CREON-12 CAPSULE PO SCH ×2 (08:23→16:55)
[2019-06-19] MEDS: CEFTAROLINE FOSAMIL 600 MG in D5W MINI-BAG PLUS 50 ML IV SCH ×2 (08:24→21:03)
[2019-06-19] MEDS: HumaLOG INSULIN (NovoLOG) PER UNIT SC SCH ×4 (08:25→21:00)
[2019-06-19 10:00] VITALS: BP 112/64
--- NOTE | 2019-06-19 10:36 | RO ---
DATE OF SURGERY: 06/18/2019 PREOPERATIVE DIAGNOSIS: Left 4th toe gangrene. POSTOPERATIVE DIAGNOSIS: Left 4th toe gangrene. PROCEDURE: Left 4th toe amputation. SURGEON: David Hyatt DPM ACCESS MANAGER: None ANESTHESIA: Monitored anesthesia care with preoperative injection of 8 mL of 1:1 mixture of 1% lidocaine plain and 0.5% Marcaine plain. ESTIMATED BLOOD LOSS: Minimal. MATERIALS: 3-0 nylon. INJECTABLES: None. COMPLICATIONS: None. SPECIMEN: Left 4th toe. Zeke Jo is a 73-year-old male who was admitted to the hospital 06/16/2019 due to left 4th toe amputation. He had tentatively been scheduled for amputation of the 4th toe in June. However, the toe was noted to be worse and causing cellulitis. Decision was made to bring him to the operating room for more urgent amputation of toe. The patient's side and site were identified and marked in the preoperative holding area. Consent was reviewed and obtained. All risks, complications, and alternatives to the procedure were explained to the patient in detail, and all questions were answered. DESCRIPTION OF PROCEDURE: The patient was brought to the operating room and placed on the operating table in supine position. Monitored anesthesia care was delivered by the anesthesia team. A preoperative injection of 8 mL of 1:1 mixture of 1% lidocaine plain and 0.5% Marcaine plain were injected to the left foot. The left foot was prepped and draped in normal sterile fashion. No tourniquet was used during the procedure. Incision was made around the left 4th toe. The distal portion of the toe was noted to be gangrenous, and there was some trace purulence from the wound. An elliptical incision was carried through with a #15 blade, and the toe was disarticulated at the metatarsophalangeal joint. Extensor and flexor tendons were resected. The site was irrigated with normal saline solution. No further necrotic or purulent tissue was noted in the wound base. The incision was repaired using 3-0 nylon. Sterile dressings were applied. The patient was brought to postanesthesia care unit (PACU) with vital signs stable and neurovascular status intact. He will be readmitted to the floor for continued antibiotics. Will follow.
--- NOTE | 2019-06-19 11:05 | IPNPDOC ---
Subjective Date Seen The patient was seen on 06/19/19. Subjective Chief Complaint/HPI Patient is comfortable in no distress. Offers no new complaints General: Denies: ROS Unobtainable, Chills, Night Sweats, Fatigue, Malaise, Normal Appetite, Other Symptoms Constitutional: Denies: Chills, Fever, Malaise, Night Sweats, Weakness, Fatigue, Weight Loss, Lethargy, Other Pulmonary: Denies: Dyspnea, Cough, Pleuritic Chest Pain, Other Symptoms Cardiovascular: Denies: Chest Pain, Palpitations, Orthopnea, Paroxysmal Noc. Dyspnea, Edema, Lt Headedness, Other Symptoms Gastrointestinal: Denies: Nausea, Vomiting, Abdominal Pain, Diarrhea, Constipation, Melena, Hematochezia, Other Symptoms Musculoskeletal: Denies: Neck Pain, Back Pain, Shoulder Pain, Arm Pain, Hand Pain, Leg Pain, Foot Pain, Joint Pain, Muscle Pain, Spasms, Other Symptoms Neurological: Denies: Weakness, Numbness, Incoordination, Change in speech, Confusion, Seizures, Other Symptoms Objective Physical Examination General Exam: Positive: Alert, Cooperative Chest Exam: Positive: Normal air movement Heart Exam: Positive: Rate Normal, Normal S1, Normal S2 Abdomen Exam: Positive: Normal bowel sounds, Soft Extremity Exam: Positive: Normal pulses Skin Exam: Positive: Nl turgor and temperature Neuro Exam: Positive: Strength at 5/5 X4 ext, Sensation Intact, Cranial Nerves 3-12 NL Assessment /Plan Problems (1) Cellulitis of right foot Status: Acute Problem Text: Left foot cellulitis/3rd toe necrosis/osteomyelitis Patients left 4th toe has an area of necrosis with overlying erythema tracking up the dorsal aspect of his foot. Concerning for cellulitis and possible osteomyelitis Patient has been started on ceftroline and will continue same Patient had a right fourth toe amputation done by Dr. simms The recommendation and dressing as per podiatry Discharge home once patient is cleared by podiatry (2) DM2 (diabetes mellitus, type 2) Status: Chronic Problem Text: Fingerstick blood sugar every before meals and at bedtime with coverage Continue Levemir 10 units daily at bedtime (3) HTN (hypertension) Status: Chronic Problem Text: Under control Continue lovastatin and zebetta Plan/VTE VTE Prophylaxis Ordered?: Yes VS, I&O, 24H, Fishbone Vital Signs/I&O Vital Signs Date Time Temp Pulse Resp B/P (MAP) Pulse Ox O2 Delivery O2 Flow Rate FiO2 06/19/19 10:00 96.7 91 16 112/64 (80) 100 Room Air 06/18/19 09:00 2 I&O- Last 24 Hours up to 6 AM 06/19/19 05:59 Intake Total 1515 ml Output Total 1601 ml Balance -86 ml Laboratory Data 24H LABS Laboratory Tests 2 06/18/19 11:34: Bedside Glucose (Misc Panel) 186H 06/18/19 16:36: Bedside Glucose (Misc Panel) 237H 06/18/19 20:25: Bedside Glucose (Misc Panel) 323H 06/19/19 06:06: Immature Granulocyte % (Auto) 0.4, Neutrophils (%) (Auto) 61.0, Lymphocytes (%) (Auto) 21.0L, Monocytes (%) (Auto) 6.7H, Eosinophils (%) (Auto) 9.9H, Basophils (%) (Auto) 1.0, Neutrophils # (Auto) 3.2, Lymphocytes # (Auto) 1.1L, Monocytes # (Auto) 0.4, Eosinophils # (Auto) 0.5, Basophils # (Auto) 0.1, Nucleated Red Blood Cells % (auto) 0.0, Anion Gap 7L, Glomerular Filtration Rate 45.5, Calcium Level 8.1L, Total Bilirubin 0.4, Aspartate Amino Transf (AST/SGOT) 10, Alanine Aminotransferase (ALT/SGPT) 11L, Alkaline Phosphatase 77, Total Protein 6.5, Albumin 2.7L, Albumin/Globulin Ratio 0.71L CBC/BMP Laboratory Tests 06/19/19 06:06 Microbiology Microbiology 06/16/19 Blood Culture - Preliminary, Resulted No Growth after 48 hours. All Specime... 06/16/19 Blood Culture - Preliminary, Resulted No Growth after 48 hours. All Specime... CHRIS ROSENBERG MD Jun 19, 2019 11:05
[2019-06-19 14:00] VITALS: BP 123/67
[2019-06-19] MEDS: LEVEMIR (INSULIN DETEMIR) 1 UNITS/0.01ML SC SCH (21:03)
[2019-06-19] MEDS: GABAPENTIN 300 MG CAP PO SCH (21:03)
[2019-06-19 22:00] VITALS: BP 125/71
[2019-06-20] MEDS: LEVOTHYROXINE 25MCG TABLET (0.025MG) PO SCH (05:24)
[2019-06-20] MEDS: HEPARIN SOD (PORCINE) 5000 UNITS/ML VIAL SQ SCH (05:24)
[2019-06-20 06:00] VITALS: BP 122/81
[2019-06-20 06:14] LABS: BASO # 0.1 10^3/uL (0.0-0.2); EOS # 0.5 10^3/uL (0.0-0.5); EOS % 7.8 % (0.0-3.0); HEMATOCRIT 31.5 % (42.0-52.0); HEMOGLOBIN 9.8 g/dl (13.5-17.5); LYMPH # 1.3 10^3/uL (1.5-5.0); LYMPH % 21.2 % (24.0-44.0); MEAN CORPUSCULAR HGB CONC 31.1 g/dl (32.0-36.5); MEAN CORPUSCULAR VOLUME 93.2 fl (80.0-96.0); MONO # 0.4 10^3/uL (0.0-0.8); MONO % 6.5 % (0.0-5.0); NEUTROPHILS # 3.9 10^3/uL (1.5-8.5); PLATELET COUNT, AUTOMATED 144 10^3/uL (150-450); RED BLOOD COUNT 3.38 10^6/uL (4.30-6.10); WHITE BLOOD COUNT 6.2 10^3/uL (4.0-10.0)
[2019-06-20 06:46] LABS: ALBUMIN 2.9 GM/DL (3.2-5.2); BILIRUBIN,TOTAL 0.6 MG/DL (0.2-1.0); CALCIUM LEVEL 8.7 MG/DL (8.8-10.2); CREATININE FOR GFR 1.45 MG/DL (0.70-1.30); GLOMERULAR FILTRATION RATE 50.9 (>42); POTASSIUM SERUM 4.8 MEQ/L (3.5-5.1); TOTAL PROTEIN 6.6 GM/DL (6.4-8.2)
[2019-06-20 08:12] VITALS: BP 122/81
[2019-06-20] MEDS: MULTIVITAMINS/MINERALS THERAP 1 TAB PO SCH (08:12)
[2019-06-20] MEDS: CREON-12 CAPSULE PO SCH (08:12)
[2019-06-20] MEDS: bisoproloL fumarate 5 MG TAB PO SCH (08:12)
[2019-06-20] MEDS: CEFTAROLINE FOSAMIL 600 MG in D5W MINI-BAG PLUS 50 ML IV SCH (08:13)
[2019-06-20] MEDS: HumaLOG INSULIN (NovoLOG) PER UNIT SC SCH ×2 (08:13→12:37)
[2019-06-20] MEDS ORDERED: ZYVO1TAB PO (11:01)
--- NOTE | 2019-06-20 11:05 | DS.PDOC ---
Discharge Summary General Date of Admission Jun 16, 2019 at 23:39 Date of Discharge 06/20/2019 Attending Physician: STANISLAW ACEVES MD Discharge Summary PROCEDURES PERFORMED DURING STAY: None. ADMITTING DIAGNOSES: 1. Dry gangrene. DISCHARGE DIAGNOSES: 1. Dry gangrene. COMPLICATIONS/CHIEF COMPLAINT: Diabetic Foot Ulcer,Dm2,Htn,Metastatic Renal Cell. HISTORY OF PRESENT ILLNESS: 73-year-old male with past medical history of diabetes, hypertension, renal cell carcinoma, was admitted for left foot fourth toe dry gangrene with surrounding erythema. Patient was treated with IV a ntibiotics and underwent toe amputation, no complications, doing well. Patient has been reevaluated by podiatry who recommended discharge on Zyvox for 7 more days. Patient is without complaints at this time, clinically hemodynamically stable for discharge. HOSPITAL COURSE: As above. DISCHARGE MEDICATIONS: Please see below. ALLERGIES: Please see below. PHYSICAL EXAMINATION: VITAL SIGNS: Please see below. GENERAL: No distress HEENT: Normocephalic, atraumatic, moist mucous membranes NECK: Supple CARDIOVASCULAR EXAMINATION: S1, S2, no murmurs RESPIRATORY EXAMINATION: Clear to auscultation, no wheezing ABDOMINAL EXAMINATION: Soft, nontender, nondistended, positive bowel sounds EXTREMITIES: Right foot status post amputation of all toes, left foot dressing in place SKIN: No rash NEUROLOGICAL EXAMINATION: Alert and oriented 3, no focal deficits PSYCHIATRIC EXAMINATION: Calm and cooperative LABORATORY DATA: Please see below. PROGNOSIS: Fair ACTIVITY: As tolerated. DIET: Cardiac with consistent carbs DISCHARGE PLAN: Follow-up with podiatry PCP 1-2 weeks DISPOSITION: Home. DISCHARGE INSTRUCTIONS: 1. As above. DISCHARGE CONDITION: Stable. TIME SPENT ON DISCHARGE: Greater than 34 minutes. Vital Signs/I&Os Vital Signs Date Time Temp Pulse Resp B/P (MAP) Pulse Ox O2 Delivery O2 Flow Rate FiO2 06/20/19 08:12 94 122/81 06/20/19 06:00 99.3 18 93 Room Air 06/18/19 09:00 2 I&O- Last 24 Hours up to 6 AM 06/20/19 06:00 Intake Total 1520 ml Output Total 925 ml Balance 595 ml Laboratory Data Labs 24H Laboratory Tests 2 06/19/19 11:43: Bedside Glucose (Misc Panel) 153H 06/19/19 16:40: Bedside Glucose (Misc Panel) 161H 06/19/19 20:15: Bedside Glucose (Misc Panel) 224H 06/20/19 05:58: Immature Granulocyte % (Auto) 0.5, Neutrophils (%) (Auto) 63.0, Lymphocytes (%) (Auto) 21.2L, Monocytes (%) (Auto) 6.5H, Eosinophils (%) (Auto) 7.8H, Basophils (%) (Auto) 1.0, Neutrophils # (Auto) 3.9, Lymphocytes # (Auto) 1.3L, Monocytes # (Auto) 0.4, Eosinophils # (Auto) 0.5, Basophils # (Auto) 0.1, Nucleated Red Blood Cells % (auto) 0.0, Anion Gap 5L, Glomerular Filtration Rate 50.9, Calcium Level 8.7L, Total Bilirubin 0.6, Aspartate Amino Transf (AST/SGOT) 12, Alanine Aminotransferase (ALT/SGPT) 11L, Alkaline Phosphatase 79, Total Protein 6.6, Albumin 2.9L, Albumin/Globulin Ratio 0.78L CBC/BMP Laboratory Tests 06/20/19 05:58 FSBS Laboratory Tests Test 06/19/19 11:43 06/19/19 16:40 06/19/19 20:15 Range/Units Bedside Glucose (Misc Panel) 153 161 224 83-110 MG/DL Microbiology Microbiology 06/16/19 Blood Culture - Preliminary, Resulted No Growth after 72 hours. All specime... 06/16/19 Blood Culture - Preliminary, Resulted No Growth after 72 hours. All specime... Discharge Medications Scheduled Bisoprolol Fumarate (Bisoprolol Fumarate) 10 Mg Tab, 5 MG PO DAILY, (Reported) Gabapentin (Gabapentin) 300 Mg Cap, 300 MG PO QHS, (Reported) Glipizide (Glipizide ER) 10 Mg Tab, 10 MG PO DAILY, (Reported) Insulin Glargine,Hum.rec.anlog (Basaglar Kwikpen U-100) 100 Unit/1 Ml Insuln.pen, 20-24 UNIT SC QHS, (Reported) Insulin Human Lispro (Novolog) 100 U/Ml Inj, 1 DOSE SC AC, (Reported) PER SLIDING SCALE Levothyroxine Sodium (Synthroid) 25 Mcg Tablet, 25 MCG PO DAILY, (Reported) Linezolid (Zyvox) 600 Mg Tablet, 1 TAB PO BID with food Losartan Potassium (Losartan Potassium) 25 Mg Tab, 25 MG PO DAILY, (Reported) Multivitamins (Thera M Plus Tablet) 1 Tab Tab, 1 TAB PO DAILY, (Reported) Nivolumab (Opdivo) 240 Mg/24 Ml Inj, 240 MG IV Q4WKS, (Reported) Pancreatic Enzymes (Creon Dr 12,000 Units Capsule) 1 Ea Capcr, 1 CAP PO BID, (Reported) Allergies Coded Allergies: No Known Allergies (Unverified , 03/23/18) STANISLAW ACEVES MD Jun 20, 2019 11:05
--- NOTE | 2019-06-20 15:21 | IPN ---
DATE: 06/20/2019 The patient is seen and examined. He denies overnight complaints. He states that he is feeling "great." Vitals are examined. Maximum temperature (t-max) 99.3. Laboratories reviewed. White blood cell count is 6.2. Lower extremity examination: Fourth toe amputation site, the incision is well coapted. Erythema has greatly improved. The right foot was inspected as well with some improvement noted to the wound base. ASSESSMENT: 73-year-old male status post left fourth toe amputation. PLAN: The patient is okay for discharge. The patient will be sent home with 7 days of linezolid 600 mg twice a day. He should followup in my office next week.
== END 2019-06-20 13:30 | disposition home or self-care (01) | DRG 256 ==
LOC: M ED 14:52 → M ED INP 23:39 → M MS5PR 06-17 00:50
PROVIDERS: ADMIT Internal Medicine; ATTEND Internal Medicine
PROC: 0Y6W0Z1 Detachment at Left 4th Toe, High, Open Approach (ICD-10-PCS; principal; 2019-06-18 07:30)
DX: E11.52 Type 2 diabetes mellitus with diabetic peripheral angiopathy with gangrene (principal); L03.116 Cellulitis of left lower limb; M86.172 Other acute osteomyelitis, left ankle and foot; E11.621 Type 2 diabetes mellitus with foot ulcer; I10 Essential (primary) hypertension; Z79.4 Long term (current) use of insulin; Z79.899 Other long term (current) drug therapy; L97.529 Non-pressure chronic ulcer of other part of left foot with unspecified severity; L97.519 Non-pressure chronic ulcer of other part of right foot with unspecified severity

== ENCOUNTER → 2019-09-04 | Outpatient (REF) | payer MEDICARE ==
[~2019-09-04] MED LIST changes: +BASA100I SC; -BISO10TA10 PO; +BISO10TA14 PO; +BISO5TAB14 PO; -BISO5TAB9 PO; +LEVO500T3 PO
[2019-09-04 16:41] LABS: MAU/CREAT RATIO 58.5 MCG/MG (0.0-30.0)
== END ==
LOC: M LAB REF 15:34
PROVIDERS: ATTEND Nurse Practitioner Family
DX: E11.65 Type 2 diabetes mellitus with hyperglycemia (principal)

== ENCOUNTER 2019-10-16 22:25 | Inpatient (IN) | payer MEDICARE ==
[~2019-10-16] VITALS: Ht 182.9 cm; Wt 84.1 kg
--- NOTE | 2019-10-16 22:42 | REPVR ---
PROCEDURE INFORMATION: Exam: CT Head Without Contrast Exam date and time: 10/16/2019 10:33 PM Age: 74 years old Clinical indication: Pain; Headache; Additional info: Unable to speak or answer questions started at 2029 TECHNIQUE: Imaging protocol: Computed tomography of the head without contrast. Radiation optimization: All CT scans at this facility use at least one of these dose optimization techniques: automated exposure control; mA and/or kV adjustment per patient size (includes targeted exams where dose is matched to clinical indication); or iterative reconstruction. Other technique: STROKE PROTOCOL was implemented. COMPARISON: No relevant prior studies available. FINDINGS: There are no intra-or extra-axial hemorrhages or fluid collections. There is no mass effect or midline shift. Ventricles are symmetrical and mildly dilated with associated cortical volume loss consistent with generalized atrophy. Chronic ischemic changes in the periventricular deep white matter. Atherosclerotic changes within intracranial arteries. Relatively uniform attenuation of major intracranial arteries. There are no focal parenchymal abnormalities. No calvarial fractures. ASPECTS (Anderson Stroke Program Early CT Score) is 10 IMPRESSION: Generalized atrophy and chronic ischemic changes. No acute intracranial process. No intracranial hemorrhage. If clinical concern for acute infarction, MRI with diffusion weighted sequences or intracranial CTA should be considered. Electronically signed by: Kevin Blakely On 10/16/2019 22:42:01 PM
[2019-10-16] MEDS ORDERED: ACETAMINOPHEN 650 MG SUPP PR ONE (22:45)
[2019-10-16] MEDS ORDERED: NS 1,000 ML IV ONE (22:45)
[2019-10-16 22:57] LABS: HEMATOCRIT 41.7 % (42.0-52.0); HEMOGLOBIN 12.5 g/dl (13.5-17.5); MEAN CORPUSCULAR HEMOGLOBIN 29.6 pg (27.0-33.0); MEAN CORPUSCULAR VOLUME 98.6 fl (80.0-96.0); RED BLOOD COUNT 4.23 10^6/uL (4.30-6.10); WHITE BLOOD COUNT 6.9 10^3/uL (4.0-10.0)
[2019-10-16] MEDS ORDERED: ACETAMINOPHEN *IV* 1,000 MG in IV 1 EA IV ONE (23:00)
[2019-10-16 23:05] LABS: PLATELET COUNT, AUTOMATED 70 10^3/uL (150-450)
[2019-10-16 23:07] LABS: INR 1.25; PROTHROMBIN TIME 15.4 SECONDS (11.8-14.0)
[2019-10-16 23:08] LABS: PARTIAL THROMBOPLASTIN TIME 31.9 SECONDS (25.0-38.4)
[2019-10-16 23:10] LABS: LYMPHOCYTES 5 % (16-44); MONOCYTES 4 % (0-5); NEUTROPHILS 84 % (28-66)
[2019-10-16 23:11] LABS: ANISOCYTOSIS 1+; HYPOCHROMASIA 1+; PLATELET ESTIMATE DECREASED (NORMAL)
[2019-10-16 23:13] LABS: DOHLE BODIES 1+
[2019-10-16] MEDS ORDERED: NS 1,520 ML in IV 1 EA IV ONE (23:15)
[2019-10-16 23:18] LABS: HEMOGLOBIN A1c 10.1 %
[2019-10-16 23:28] LABS: APPEARANCE, URINE HAZY (CLEAR); BACTERIA, URINE AUTO 1+ (NEGATIVE); BILIRUBIN, URINE AUTO NEGATIVE (NEGATIVE); BLOOD, URINE BLOOD 2+ (NEGATIVE); COLOR, URINE YELLOW (YELLOW); GLUCOSE, URINE (UA) AUTO 3+ mg/dL (NEGATIVE); KETONE, URINE AUTO 1+ mg/dL (NEGATIVE); LEUKOCYTE ESTERASE, URINE AUTO NEGATIVE (NEGATIVE); NITRITE, URINE AUTO NEGATIVE (NEGATIVE); PROTEIN, URINE AUTO 1+ mg/dL (NEGATIVE); RBC, URINE AUTO 7 /HPF (0-3); SPECIFIC GRAVITY URINE AUTO 1.025 (1.002-1.035); SQUAMOUS EPITHELIAL CELL UR AU 0 /HPF (0-6); TRANSITIONAL EPITHELIAL AUTO <1 /HPF; UROBILINOGEN, URINE AUTO 0.2 mg/dL (0.0-2.0); WBC, URINE AUTO 1 /HPF (0-3)
[2019-10-16 23:29] LABS: ACETONE/KETONE 41.09 MG/DL (<2.81); ALBUMIN 3.2 GM/DL (3.2-5.2); BILIRUBIN,DIRECT 0.2 MG/DL (0.0-0.2); BILIRUBIN,TOTAL 0.7 MG/DL (0.2-1.0); CALCIUM LEVEL 8.5 MG/DL (8.8-10.2); CK-MB VALUE MASS 2.6 NG/ML (<3.6); CREATININE FOR GFR 2.73 MG/DL (0.70-1.30); GLOMERULAR FILTRATION RATE 24.5 (>42); MAGNESIUM LEVEL 2.9 MG/DL (1.8-2.4); MB/CK RELATIVE INDEX 0.75 (< OR =4); PHOSPHORUS LEVEL 2.7 MG/DL (2.5-4.9); POTASSIUM SERUM 4.8 MEQ/L (3.5-5.1); TROPONIN I 0.02 NG/ML (< 0.10)
[2019-10-16] MEDS ORDERED: HumuLIN R (REGULAR) INSULIN (NovoLIN R) **100U/ML** PER UNIT IV ONE (23:30)
[2019-10-16 23:36] LABS: ABG BASE EXCESS -9.4 (-2.0-2.0); ABG HCO3 15.1 MEQ/L (22.0-26.0); ABG O2 SATURATION 98.6 % (95.0-99.0); ABG PARTIAL PRESSURE CO2 28.3 mmHg (35.0-45.0); ABG PARTIAL PRESSURE O2 133.4 mmHg (75.0-100.0); ABG STANDARD HCO3 16.9 MEQ/L (22.0-26.0); ABG TOTAL CO2 15.9 MEQ/L (23.0-31.0); ABG pH (ARTERIAL) 7.344 UNITS (7.350-7.450)
[2019-10-16] MEDS ORDERED: VANCOMYCIN HCL 1,750 MG in D5W 250 ML IV ONE (23:45)
[2019-10-16] MEDS ORDERED: INSULIN HUMAN REGULAR 100 UNITS in NS 99 ML IV SCH (23:45)
[2019-10-16] MEDS ORDERED: INSULIN IV RATE CHANGE DOCUMENTATION ML/HR XX SCH (23:45)
[2019-10-17] VITALS (18 sets, daily range): BP systolic 99–174; BP diastolic 55–87
[2019-10-17 00:39] LABS: ERYTHROCYTE SEDIMENTATION RATE 63 mm/hr (0-20)
[2019-10-17] MEDS: INSULIN HUMAN REGULAR 100 UNITS in NS 99 ML IV SCH ×3 (00:40→08:14)
[2019-10-17 00:45] LABS: VENOUS BASE EXCESS -9.5 (-2.0-2.0); VENOUS HCO3 18.2 MEQ/L (23.0-27.0); VENOUS O2 SATURATION 56.9 % (60.0-80.0); VENOUS PARTIAL PRESSURE CO2 47.7 mmHg (38.0-50.0); VENOUS PARTIAL PRESSURE O2 34.3 mmHg (30.0-50.0); VENOUS STANDARD HCO3 16.2 MEQ/L; VENOUS TOTAL CO2 19.7 MEQ/L (24.0-28.0)
[2019-10-17] MEDS: KCL 20MEQ in NS 1000ML 1,000 ML IV SCH ×2 (00:45→01:22)
[2019-10-17] MEDS ORDERED: ONDANSETRON 4MG/2ML VIAL IV PRN (00:45)
[2019-10-17] MEDS ORDERED: VANCOMYCIN HCL 750 MG, VIAL MATE ADAPTER 1 EACH in D5W 250 ML IV ONE ×4 (01:00)
[2019-10-17] MEDS ORDERED: PIPERACILLIN/TAZOBACTAM SOD 3.375 GM in D5W MINI-BAG PLUS 50 ML IV SCH (02:00)
[2019-10-17] MEDS ORDERED: METAL LOCK LOOP XX ONE (02:28)
--- NOTE | 2019-10-17 02:33 | IPNPDOC ---
Text Note Date of Service The patient was seen on 10/17/19. NOTE TIME OF SERVICE 125AM Mr. Jo is a 74 yr old w a PMH of renal cancer, DM and hypothyroidism who is admitted for management of HHS likely 2/2 RLE osteomyelitis. 1 HHS 2/2 osteo- HHS/DKA order set 2 Metabolic Encephalopathy - tx hyperglycemia 3 Sepsis 2/2 Osteo - sepsis order set / f/u w 4 NORBERT on CKD - ulytes for FENa and renal US 5.Bicytopenia (2/2 sepsis and chemo ?) - trend CBC and monitor for bleeding, f/u iron studies 6.Transaminitis - trend LFTs 7. Renal Cell CA - obtain records from Oncologist 8. Chemo Induced Rash - obtain records from Oncologist Rest per 's H&P VS,Fishbone, I+O VS, Fishbone, I+O Laboratory Tests 10/16/19 22:44 Vital Signs Date Time Temp Pulse Resp B/P (MAP) Pulse Ox O2 Delivery O2 Flow Rate FiO2 10/17/19 02:00 99.0 108 22 115/64 (81) 97 10/16/19 23:40 Room Air I&O- Last 24 Hours up to 6 AM 10/17/19 05:59 Output Total 100 ml Balance -100 ml DEBORAH SILVEIRA MD Oct 17, 2019 02:33
[2019-10-17 02:35] LABS: CALCIUM LEVEL 7.2 MG/DL (8.8-10.2); CREATININE FOR GFR 2.34 MG/DL (0.70-1.30); GLOMERULAR FILTRATION RATE 29.2 (>42)
[2019-10-17 02:42] LABS: CALCIUM LEVEL 7.2 MG/DL (8.8-10.2); CREATININE FOR GFR 2.39 MG/DL (0.70-1.30); GLOMERULAR FILTRATION RATE 28.5 (>42); PHOSPHORUS LEVEL 1.5 MG/DL (2.5-4.9); POTASSIUM SERUM 3.4 MEQ/L (3.5-5.1)
[2019-10-17] MEDS ORDERED: OPDI240I IV (03:01)
[2019-10-17] MEDS ORDERED: LOSA25TA14 PO (03:01)
[2019-10-17 03:15] LABS: VENOUS BASE EXCESS -7.5 (-2.0-2.0); VENOUS HCO3 18.9 MEQ/L (23.0-27.0); VENOUS O2 SATURATION 98.7 % (60.0-80.0); VENOUS PARTIAL PRESSURE CO2 41.6 mmHg (38.0-50.0); VENOUS PARTIAL PRESSURE O2 139.6 mmHg (30.0-50.0); VENOUS PH 7.275 UNITS (7.330-7.430); VENOUS STANDARD HCO3 18.4 MEQ/L; VENOUS TOTAL CO2 20.2 MEQ/L (24.0-28.0)
--- NOTE | 2019-10-17 03:58 | PHACANCOPD ---
PHARMACY VANCOMYCIN DOSING Pt Demographics Demographics Patient Age:74 , Weight:84.090 , Gender: male Adjusted Body Weight Date: 10/17/19, Adjusted Body Weight: [80] Kg Vancomycin Vancomycin indication: RLE OSTEO(DIABETIC INFECTION) Vancomycin Target Ranges: 15-20 mcg/ml Vancomycin Load Y/N: Yes Load Dose Date Time Vancomycin Load Dose: 1.5GM Date: 10/15 Time: 234 Vancomycin Dose Date: 10/17/19. Current Vancomycin Dose: [1 GM Q24H] Intermittent Dosing?: No Labs Micro Microbiology 10/16/19 Urine Culture, Received Pending 10/16/19 Blood Culture, Received Pending 10/16/19 Blood Culture, Received Pending Creatinine Clearance Date:10/17/19. Creatinine Clearance: [7.3].CALCULATED Assessment and Plan Maintaining Current Dose?: Yes Reason for dose change: No Dose Change Pharmacist Note Pharmacist Note Date: 10/17/19. Pharmacist note:74YOM,HT:72",WT:84. 1(ABW=80)KG,SCR=2.73,CRCL~27.3.Extensive hx of comorbidities, admitted D/T diabetic foot infection(R/O osteo).TX includes Pip/Tazo 3.375 IV [id number] and Pharmacy dosed Vancomycin.Vanco 1.5 gm as loading dose / then will begin 1 gram IV [id number] on 10/16@1500.First trough is scheduled for 10/17@1400(prior to the 3rd dose. Will continue to follow [facility] Oct 17, 2019 03:58
--- NOTE | 2019-10-17 04:01 | HPEPDOC ---
[facility] Medical History & Physical Date of Admission Oct 17, 2019 Date of Service: Oct 17, 2019 History and Physical CHIEF COMPLAINT: Altered mental status and hyperglycemia HISTORY OF PRESENT ILLNESS: This is a 74-year-old male with type 2 diabetes, chronic non-healing ulcers of the right foot as well as multiple amputation of the left toes, renal cell carcinoma with metastases currently chemotherapy presenting with altered mental status and sepsis. The time I exam he was not appropriate answering questions so his provided majority of the history. The is also a poor historian but states the last 3 days the patient has had no altered mental status is that when communicating his noncoherent and he was urinating a lot. She denies him having any fevers, chills, night sweats. She believes he is not taking his medication for the last 24 hours and has noticed decreased by mouth intake in the last couple of days. She does know his last chemotherapy was 10/05(Wednesday) and he normally gets a rash after his chemotherapy. She does not believe he got a rash this time though and his flushed skin that he has on exam today is baseline. The patient was unable to communicate appropriately any complaints today. In the ER, vitals showed febrile (100.7), tachycardic at 136, tachypnea (>20), with normotensive blood pressure. Is not appropriately answering questions. CBC did show normal WBC, glucose of 1035, BUN and creatinine of 71 and 2.73 respectively, ABG pH was 7.344 and lactic acid was 2.830. ED, CT the head was negative as well as chest x-ray. Hospital team was then called for management HHS. PAST MEDICAL HISTORY: 1. 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 Diabetes Mellitus Type 2 3. Diabetic Neuropathy 4. Chronic Nonhealing diabetic ulcers on the right and left foot 5. History of C. difficile HOME MEDICATIONS: Please see below. ALLERGIES: Please see below PAST SURGICAL HISTORY: 1. Angiogram 2. Left sided Nephrectomy 3. Left second toe amputation 4. Left first toe puncture amputation for osteomyelitis 5. Right knee surgery 6. Right foot debridement 7. Right toe amputation 1-5 8. Cataract 9. Left fourth toe amputation for osteomyelitis SOCIAL HISTORY: Lives with: , Tobacco use: Denies. ETOH: Denies,Illicit drug use: Denies, CODE STATUS: DNR/DNI FAMILY HISTORY: Reviewed and noncontributory. Father- history of [place], mother- history of heart disease and diabetes, sister -history of diabetes. REVIEW OF SYSTEMS: 10 point review of system could not be done for the patient was not cooperative during exam and repeated all symptoms when asked. PHYSICAL EXAMINATION: VITAL SIGNS: See below GENERAL: 74 year old flushed male laying up in bed awake alert oriented to person. Not place or time, selectively not answering questions and will repeated words when speaking in complete sentences but no acute respiratory distress HEENT: Atraumatic, normocephalic, pupils equal round reactive at baseline currently constricted, moist mucous membranes trachea is midline CARDIOVASCULAR: S1, S2 regular rate and rhythm. 3 /6 left sternal murmur loudest at the fifth intercostal space no radiation. No carotid bruits noted. No lower extremity edema. RESPIRATORY: Cannot hear posterior lung sounds with patient without move forward. Lateral lung sounds clear to auscultate bilaterally no obvious rhonchi, rales or wheezing ABDOMINAL: Positive bowel sounds in all 4 quadrants, soft nontender, no skin changes noted. EXTREMITIES: Left foot: Toes amputated. No necrosis or skin breakdown noted. Right foot: open wound 3X1cm with depth of 2cm appreciate on the plantar aspect of the foot. No pus or discharge noted slight erythema around the wound. Denies any pain or tenderness. NEUROLOGICAL: Upper extremity muscle strength 4 out of 5. Lower extremity muscle strength would not perform. Awake alert oriented to person. Not place or time, selectively not answering questions and will repeated words when speaking in sh ort sentence LABORATORY DATA: See below. MICROBIOLOGY: Please see below. IMAGIN10/16/[address] Generalized atrophy and chronic ischemic changes. No acute intracranial process. No intracranial hemorrhage. If clinical concern for acute infarction, MRI with diffusion weighted sequences or intracranial CTA should be considered. Chest X-ray Official report pending Foot X-ray Official report pending ASSESSMENT & PLAN: This is a 74-year-old male with type 2 diabetes, chronic nonhealing ulcers of the right foot as well as multiple amputation of the left toes, renal cell carcinoma with metastases currently chemotherapy presenting with altered mental status and sepsis. PROBLEMS: 1. Hyperosmolar Hyperglycemic. (PH>7.3, Glucose >600, Anion Gap<12, trace urine ketones), Non-anion metabolic acidosis. possibly due to Poor PO intake and possible osteo on the right foot. Insulin Drip, VBGq2h, bmp Q2-4H, aggressive iv fluids, montior fsbs q1h 2. Metabolic encephalopathy. Possibly secondary to sepsis as well as HHS, CT head negative. Neuro checks every 2 hours, Check ammonia, predict improvement with glucose control. Once off insulin and mentation has improved can take off bedrest and place activity as tolerated and pt/ot consult. 3. Sepsis possibly secondary to right diabetic foot ulcer versus osteomyelitis. s/p Vanc in the ER. Obtain foot x-ray, ESR, CRP and trend. Cover broad-spectrum with vancomycin and Zosyn. Sees Dr. Hyatt outpatient, consider consultation in the a.m to assess if bone biopsy vs MRI of the foot. Blood culture x2. De-escala te 3.Hypertension. hold home medication because NPO status and will monitor for he is currently hypovolemic on exam and will need aggressive IVF fluids due to problem 1. 4.Diabetic Neuropathy -old home gabapentin due to nothing by mouth status 5. Renal Cell Carcinoma with metastases to the liver and pancreas. Under the care [facility] oncology. Hold home pancreatic enzymes while nothing by mouth well restart when advancing diet. 6.Anemia and Thrombocytopenia. No active bleeds. Currently is getting chemotherapy, as is unsure of medication. Possible opdivio, Monitor with daily CBCs while on heparin 7. 3/6 sytolic murmur. states known history of heart murmur. Because 3/6 on exam, obtaining TTE 8. Chemotherapy induced rash, will review records but I believe hes on opdivo, and does believe he does get a rash s/p chemo. Will monitor, he appears flushed on exam but no papular or pustules noted on exam. DVT PROPHYLAXIS: Heparin BID monitor platelets DISPOSITION: Admits to ICU for HHS management expect >2 midnights. Vital Signs Vital Signs Date Time Temp Pulse Resp B/P (MAP) Pulse Ox O2 Delivery O2 Flow Rate FiO2 10/17/19 03:00 99.6 109 18 120/55 (76) 99 Room Air Laboratory Data Labs 24H Laboratory Tests 2 10/16/19 22:44: Neutrophils (%) (Auto) , Nucleated Red Blood Cells % (auto) 0.0, Neutrophils 84H, Band Neutrophils 7, Lymphocytes (Manual) 5L, Monocytes (Manual) 4, Hypochromasia 1+, Anisocytosis 1+, Dohle Bodies 1+, Platelet Estimate DECREASED, Immature Platelet Fraction 8.1, Erythrocyte Sedimentation Rate 63H, Prothrombin Time 15.4H, Prothromb Time International Ratio 1.25, Activated Partial Thrombop last Time 31.9, Anion Gap 13, Glomerular Filtration Rate 24.5L, Estimated Mean Plasma Glucose 243H, Hemoglobin A1c 10.1, Osmolality 368H, Calcium Level 8.5L, Phosphorus Level 2.7, Magnesium Level 2.9H, Total Bilirubin 0.7, Direct Bilirubin 0.2, Aspartate Amino Transf (AST/SGOT) 38H, Alanine Aminotransferase (ALT/SGPT) 62, Alkaline Phosphatase 125H, Total Creatine Kinase 345H, Creatine Kinase MB 2.6, Creatine Kinase MB Relative Index 0.75, Troponin I 0.02, C- Reactive Protein, Quantitative 26.00H, Total Protein 7.0, Albumin 3.2, Albumin/Globulin Ratio 0.84L, Amylase Level 7L, Lipase 35L, B-Hydroxybutyrate 41.09H 10/16/19 22:46: POC Glucose (Misc Panel) > 700*H, POC Sodium (Misc Panel) 133L, POC Potassium (Misc Panel) 4.8, POC Chloride (Misc Panel) 99, POC Total CO2 (Misc Panel) 20.0L, POC Blood Urea Nitrogen (Misc Panel 60H, POC Ionized Calcium (Misc Panel) 4.6, POC Creatinine (Misc Panel) 2.5H, POC Hematocrit (Misc Panel) 41.0 10/16/19 22:51: POC Lactate (Misc Panel) 2.83*H 10/16/19 22:53: Blood Gas Bicarbonate Standard 16.9L, Arterial Blood pH 7.344L, Arterial Blood Partial Pressure CO2 28.3L, Arterial Blood Partial Pressure O2 133.4H, Arterial Blood Total CO2 15.9L, Arterial Blood HCO3 15.1L, Arterial Blood Base Excess - 9.4L, Arterial Blood Oxygen Saturation 98.6 10/16/19 23:05: Urine Color YELLOW, Urine Appearance HAZY, Urine pH 5.0, Urine Specific [place] 1.025, Urine Protein 1+H, Urine Glucose (Auto)(UA) 3+H, Urine Ketones (Auto) 1+H, Urine Blood 2+H, Urine Nitrite NEGATIVE, Urine Bilirubin NEGATIVE, Urine Urobilinogen 0.2, Urine Leukocyte Esterase (Auto) NEGATIVE, Urine WBC (Auto) 1, Urine RBC (Auto) 7H, Urine Hyaline Casts (Auto) 0, Urine Bacteria (Auto) 1+H, Urine Squamous Epithelial Cells 0, Urine Transitional Epithelial Cells <1, Urine Sperm (Auto) 10/16/19 23:44: Coronavirus (COVID-19)(PCR) NEGATIVE 10/17/19 00:14: POC Glucose (Misc Panel) > 700*H, POC Sodium (Misc Panel) 140, POC Potassium (Misc Panel) 3.5, POC Chloride (Misc Panel) 107, POC Total CO2 (Misc Panel) 19.0L, POC Blood Urea Nitrogen (Misc Panel 62H, POC Ionized Calcium (Misc Panel) 4.5, POC Creatinine (Misc Panel) 2.0H, POC Hematocrit (Misc Panel) 29.0L 10/17/19 00:31: Blood Gas Bicarbonate Standard 16.2, Venous Blood pH 7.200L, Venous Blood Partial Pressure CO2 47.7, Venous Blood Partial Pressure O2 34.3, Venous Blood Total Carbon Dioxide 19.7L, Venous Blood HCO3 18.2L, Venous Blood Oxygen Saturation 56.9L, Venous Blood Base Excess -9.5L, Anion Gap 11, Glomerular Filtration Rate 28.5L, Calcium Level 7.2#L, Phosphorus Level 1.5#L, Ammonia < 10 10/17/19 01:45: Lactic Acid Level 2.7*H 10/17/19 02:30: Anion Gap 11, Glomerular Filtration Rate 29.2L, Calcium Level 7.2L 10/17/19 02:59: Bedside Glucose (Misc Panel) 588*H 10/17/19 03:04: Blood Gas Bicarbonate Standard 18.4, Venous Blood pH 7.275L, Venous Blood Partial Pressure CO2 41.6, Venous Blood Partial Pressure O2 139.6H, Venous Blood Total Carbon Dioxide 20.2L, Venous Blood HCO3 18.9L, Venous Blood Oxygen Saturation 98.7H, Venous Blood Base Excess -7.5L CBC/BMP Laboratory Tests 10/16/19 22:44 10/17/19 00:31 10/17/19 02:30 Microbiology Microbiology 10/16/19 Urine Culture, Received Pending 10/16/19 Blood Culture, Received Pending 10/16/19 Blood Culture, Received Pending Home Medications Scheduled Bisoprolol Fumarate (Bisoprolol Fumarate) 10 Mg Tab, 5 MG PO DAILY Gabapentin (Gabapentin) 300 Mg Cap, 300 MG PO QHS Glipizide (Glipizide ER) 10 Mg Tab, 10 MG PO DAILY Insulin Glargine,Hum.rec.anlog (Basaglar Kwikpen U-100) 100 Unit/1 Ml Insuln.pen, 50 UNIT SC QHS Insulin Human Lispro (Novolog) 100 U/Ml Inj, 1 DOSE SC AC PER SLIDING SCALE Levothyroxine Sodium (Synthroid) 25 Mcg Tablet, 25 MCG PO DAILY Losartan Potassium (Losartan Potassium) 25 Mg Tablet, 25 MG PO DAILY Multivitamins (Thera M Plus Tablet) 1 Tab Tab, 1 TAB PO DAILY Nivolumab (Opdivo) 240 Mg/24 Ml Vial, 240 MG IV Q4WKS LAST INFUSION ON 10/06/19 Pancreatic Enzymes (Creon Dr 12,000 Units Capsule) 1 Ea Capcr, 2 CAP PO AC BEFORE MEALS AND SNACKS Allergies Coded Allergies: No Known Allergies (Unverified , 03/23/18) GME ATTESTATION GME ATTESTATION My faculty preceptor for this patient encounter was physically present during the encounter and was fully available. All aspects of the patient interview, examination, medical decision making process, and medical care plan development were reviewed and approved by the faculty preceptor. The faculty preceptor is aware and concurs with the plan as stated in the body of this note and will attest to such by his/her cosignature. ATTENDING NOTE I reviewed and 's H&P and agree with the findings as documented. Pls see my progress dated 10/17/19 for additional details. SOWMYA BERNARD DO Oct 17, 2019 04:01 DEBORAH SILVEIRA MD October 20, 2019 06:12
--- NOTE | 2019-10-17 04:20 | REP ---
Clinical: Diabetes with swelling and pain. Technique: AP, lateral, bilateral oblique views of the right foot. Findings: Evidence for prior amputation at the level of the metatarsal bases. Overlying soft tissue swelling and vascular calcifications are identified. No obvious significant periosteal reaction is appreciated. Focal area of subcutaneous emphysema underlying the first/second metatarsal bases consistent with ulcer. Impression: Evidence for prior amputation. Swelling and subcutaneous emphysema consistent with cellulitis and ulcer. Electronically Signed by Solo Garcia MD 10/17/2019 04:11 A
--- NOTE | 2019-10-17 04:22 | REP ---
Clinical: Sepsis. Shock . Comparison: 01/14/2018 . Findings: The mediastinum and cardiac silhouette are stable and within normal limits for portable technique. [id number] again identified with tip in the SVC/right atrium. The lung ravi demonstrate increased vascular and interstitial markings which may be on the basis of technical factors although mild interstitial edema cannot be excluded. No discrete focal consolidation or definite effusion. No pneumothorax. Skeletal structures are intact. Impression: Cannot exclude interstitial edema. No focal consolidation or definite effusion. Electronically Signed by Solo Garcia MD 10/17/2019 04:14 A
[2019-10-17 04:25] LABS: VENOUS BASE EXCESS -5.9 (-2.0-2.0); VENOUS HCO3 19.6 MEQ/L (23.0-27.0); VENOUS O2 SATURATION 98.9 % (60.0-80.0); VENOUS PARTIAL PRESSURE O2 144.2 mmHg (30.0-50.0); VENOUS STANDARD HCO3 19.6 MEQ/L; VENOUS TOTAL CO2 20.8 MEQ/L (24.0-28.0)
[2019-10-17] MEDS: ACETAMINOPHEN TAB 650MG DOSE (2X325MG) PO PRN ×2 (06:05→12:46)
[2019-10-17 06:18] LABS: VENOUS BASE EXCESS -8.2 (-2.0-2.0); VENOUS HCO3 19.9 MEQ/L (23.0-27.0); VENOUS O2 SATURATION 69.3 % (60.0-80.0); VENOUS PARTIAL PRESSURE CO2 51.5 mmHg (38.0-50.0); VENOUS PARTIAL PRESSURE O2 41.6 mmHg (30.0-50.0); VENOUS PH 7.205 UNITS (7.330-7.430); VENOUS STANDARD HCO3 17.4 MEQ/L; VENOUS TOTAL CO2 21.5 MEQ/L (24.0-28.0)
[2019-10-17] MEDS: INSULIN IV RATE CHANGE DOCUMENTATION ML/HR XX SCH ×6 (06:20→11:00)
[2019-10-17] MEDS ORDERED: ACETAMINOPHEN *IV* 1,000 MG in IV 1 EA IV ONE (06:30)
[2019-10-17] MEDS ORDERED: METOPROLOL 5 MG/5 ML VIAL IV STA (06:33)
[2019-10-17 07:15] LABS: C REACTIVE PROTEIN QUANTITATIV 25.6 MG/DL (0.00-0.30); CALCIUM LEVEL 8.3 MG/DL (8.8-10.2); CREATININE FOR GFR 2.14 MG/DL (0.70-1.30); GLOMERULAR FILTRATION RATE 32.4 (>42); MAGNESIUM LEVEL 2.9 MG/DL (1.8-2.4); POTASSIUM SERUM 3.7 MEQ/L (3.5-5.1)
[2019-10-17] MEDS ORDERED: KCL 20MEQ IN D5/0.45NS 1000ML 1,000 ML IV SCH (07:15)
[2019-10-17 07:24] LABS: ERYTHROCYTE SEDIMENTATION RATE 65 mm/hr (0-20)
[2019-10-17 07:45] LABS: HEMATOCRIT 39.5 % (42.0-52.0); HEMOGLOBIN 12.5 g/dl (13.5-17.5); MEAN CORPUSCULAR HEMOGLOBIN 29.3 pg (27.0-33.0); MEAN CORPUSCULAR HGB CONC 31.6 g/dl (32.0-36.5); MEAN CORPUSCULAR VOLUME 92.5 fl (80.0-96.0); RED BLOOD COUNT 4.27 10^6/uL (4.30-6.10); WHITE BLOOD COUNT 7.7 10^3/uL (4.0-10.0)
[2019-10-17 07:47] LABS: PLATELET COUNT, AUTOMATED 73 10^3/uL (150-450)
[2019-10-17] MEDS ORDERED: KCL 20MEQ in NS 1000ML 1,000 ML IV SCH (08:00)
[2019-10-17] MEDS: MEROPENEM INJ 1 GM in IV 1 EA IV SCH ×2 (08:10→20:00)
[2019-10-17] MEDS: HEPARIN SOD (PORCINE) 5000UNITS/ML VIAL (J1644 PER 1000UNITS) SC SCH ×2 (08:11→21:01)
[2019-10-17] MEDS ORDERED: INSULIN HUMAN REGULAR 100 UNITS in NS 99 ML IV SCH (08:18)
[2019-10-17 09:16] LABS: ABG HCO3 18.9 MEQ/L (22.0-26.0); ABG O2 SATURATION 97.8 % (95.0-99.0); ABG PARTIAL PRESSURE CO2 34.7 mmHg (35.0-45.0); ABG PARTIAL PRESSURE O2 106.8 mmHg (75.0-100.0); ABG STANDARD HCO3 19.5 MEQ/L (22.0-26.0); ABG TOTAL CO2 19.9 MEQ/L (23.0-31.0); ABG pH (ARTERIAL) 7.353 UNITS (7.350-7.450)
[2019-10-17] MEDS ORDERED: POTASSIUM PHOSPHATE INJ 30 MMOL in D5W 500 ML IV ONE (10:00)
[2019-10-17 10:34] LABS: CALCIUM LEVEL 7.4 MG/DL (8.8-10.2); CREATININE FOR GFR 2.06 MG/DL (0.70-1.30); GLOMERULAR FILTRATION RATE 33.9 (>42); POTASSIUM SERUM 4.2 MEQ/L (3.5-5.1)
--- NOTE | 2019-10-17 10:35 | IPNPDOC ---
Text Note Date of Service The patient was seen on 10/17/19. NOTE SUBJECTIVE: Patient is a 74-year-old male admitted early this morning with altered mental status and found to be in a hyperosmolar hyperglycemic state likely secondary to sepsis from presumed osteomyelitis of his right foot. He is alert, oriented, answering questions appropriately now and states that since last he began having fever, chills, frequent urination, and diminished appetite. He apparently tried to reach out to an outpatient office, but was met with no response and so he waited, hoping his symptoms would self resolve. He states his became concerned when he was not getting better and brought him into the emergency department. Currently he is feeling well without any acute complaints however he continues to be febrile in spite of multiple Tylenol administrations and cooling packs. OBJECTIVE: PHYSICAL EXAM: Vitals: (see below) General: No acute distress, sitting up comfortably in bed. HEENT: Normocephalic, atraumatic. EOMI. No scleral icterus. Dry mucous membranes. No pharyngeal erythema or uvular deviation. Neck: No JVD, lymphadenopathy, or thyromegaly. Cardiac: Tachycardic rate, regular rhythm, Normal S1 and S2, systolic murmur, no gallops, rubs. Pulm: Clear to auscultation b/l. Symmetric thorax. No wheezing, crackles, rhonchi Abd: Bowel Sounds present. Abdomen is soft, non-tender, non-distended. No guarding, rebound tenderness, or rigidity. No hepatosplenomegaly. No masses or eccymosis. Ext: No edema or cyanosis. Left foot with 3 toes amputated, no necrosis/skin breakdown. Right foot wrapped currently, but per admitting providers note shows 3x1cm open wound with depth of 2 cm on distal aspect of plantar surface without pus/discharge, mild erythema circumferentially. Vascular: Capillary refill=3 seconds. Neuro: No focal neuro deficits. AOx3. LABORATORY DATA, MICROBIOLOGY: Please see below. IMAGING STUDIES: 10/16/2019 chest x-ray: Cannot exclude interstitial edema. No focal consolidation or definite effusion. Excellent 10/17/2019 right foot x-ray: Evidence for prior amputation. Swelling and subcutaneous emphysema consistent with cellulitis and ulcer. ASSESSMENT AND PLAN: #.Hyperosmolar hyperglycemic State possibly 2/2 foot wound - Mentation significantly improved s/p IVF, insulin. D/C neuro checks, ABG showing normal pH, continue fsbs q1H, awaiting repeat osmolarity to transition to SQ insulin over 2-4 hours while on insulin drip. Switching IVF to D5W 1/2NS as K is appropriate currently. Will continue IVF until patient's volume status returns to baseline. #. Sepsis secondary to foot wound - Foot XR showing subcutaneous emphysema and ulceration. Patient is on Vanc/merropenem renally dosed in light of kidney injury. Continue with IVF, repeat lactic acid 3.2, trending down. - Preliminary blood culture showing gram positive cocci in clusters, patient is already on appropriate abx. - Dr. Hyatt with podiatry consulted, recommendations appreciated. #. Fever -IV Tylenol Q6H for 24 hours ordered as this seems to more readily resolve his rigors which cause him to become tachycardic to the 160s, gave one time dose of toradol #. Tachycardia -Seems to be tied to patient's overall sepsis and clinical dehydration. Will hold off on further IV Lopressor unless patient becomes symptomatic, continue with IVF hydration as patient is still volume down following 4-5 liters of fluid. #. Metabolic encephalopathy -Resolved. #. Acute on chronic renal failure -Baseline Cr=1.6, likely secondary to dehydration from poor PO intake over the last 5 days. Will continue w/ IVF. Hold nephrotoxic agents. #. Renal Cell Carcinoma w/ mets to liver and pancreas. - Seen by Dr. Ocampo at [facility]. #. Skin cancer - Has been taking immunomodulator for past year through [facility]. #. Diabetic Neuropathy - Hold home gabapentin #. Hypertension - Holding home meds for now, will resume as needed if his blood pressure rises #. Systolic murmur -Echo pending #. Iron deficiency Anemia -Will start patient on PO iron. #. Thrombocytopenia. -Continue to monitor, hold heparin for plt count<50K DVT prophylaxis: heparin DISPOSITION: pending clinical improvement Attending attestation: I evaluated and examined the patient in person; I discussed the care with Resident in detail and agree with the plan above. VS,Fishbone, I+O VS, Fishbone, I+O Laboratory Tests 10/16/19 22:44 10/17/19 00:31 10/17/19 02:30 10/17/19 06:11 10/17/19 06:12 10/17/19 09:58 Vital Signs Date Time Temp Pulse Resp B/P (MAP) Pulse Ox O2 Delivery O2 Flow Rate FiO2 10/17/19 09:00 100.4 10/17/19 07:44 104 22 99/58 (72) 99 Room Air I&O- Last 24 Hours up to 6 AM 10/17/19 05:59 Intake Total 0 ml Output Total 800 ml Balance -800 ml GME ATTESTATION GME ATTESTATION My faculty preceptor for this patient encounter was physically present during the encounter and was fully available. All aspects of the patient interview, examination, medical decision making process, and medical care plan development were reviewed and approved by the faculty preceptor. The faculty preceptor is aware and concurs with the plan as stated in the body of this note and will attest to such by his/her cosignature. SENDY LUNA DO Oct 17, 2019 10:35 STANISLAW ACEVES MD October 24, 2019 19:00
[2019-10-17] MEDS ORDERED: D5W/0.45% SODIUM CHLORIDE 1,000 ML IV SCH (10:45)
[2019-10-17] MEDS ORDERED: LEVEMIR (INSULIN DETEMIR) 1 UNITS/0.01ML SC ONE (12:00)
[2019-10-17] MEDS ORDERED: KETOROLAC 30 MG/ML 1ML VIAL IV ONE (14:00)
[2019-10-17] MEDS ORDERED: NS 1,000 ML IV ONE ×2 (14:00→14:30)
[2019-10-17] MEDS ORDERED: GLUCAGON INJ 1MG VIAL SC PRN (14:30)
[2019-10-17] MEDS ORDERED: DEXTROSE 50% 50 ML SYRINGE IV PRN (14:30)
[2019-10-17] MEDS ORDERED: GLUCOSE 4GM CHEW TABLET PO PRN (14:30)
[2019-10-17 14:53] LABS: CALCIUM LEVEL 7.4 MG/DL (8.8-10.2); CREATININE FOR GFR 1.88 MG/DL (0.70-1.30); GLOMERULAR FILTRATION RATE 37.6 (>42); POTASSIUM SERUM 4.4 MEQ/L (3.5-5.1)
[2019-10-17] MEDS ORDERED: VANCOMYCIN HCL 1,000 MG, VIAL MATE ADAPTER 1 EACH in D5W 250 ML IV SCH (15:00)
[2019-10-17] MEDS ORDERED: ACETAMINOPHEN *IV* 1,000 MG IV SCH ×2 (15:00)
[2019-10-17] MEDS: HumaLOG INSULIN (NovoLOG) PER UNIT SC SCH ×2 (17:24→20:55)
[2019-10-17] MEDS: LR 1,000 ML IV SCH ×2 (17:25→21:21)
[2019-10-17] MEDS: ACETAMINOPHEN *IV* 1,000 MG IV SCH ×4 (17:27→23:28)
[2019-10-17 18:10] LABS: CALCIUM LEVEL 7.5 MG/DL (8.8-10.2); CREATININE FOR GFR 1.77 MG/DL (0.70-1.30); GLOMERULAR FILTRATION RATE 40.3 (>42); POTASSIUM SERUM 4.4 MEQ/L (3.5-5.1)
--- NOTE | 2019-10-17 21:27 | REPVR ---
PROCEDURE INFORMATION: Exam: MR Right Lower Extremity Other Than Joint Without Contrast; Foot Exam date and time: 10/17/2019 9:02 PM Age: 74 years old Clinical indication: Cellulitis; Right; Patient HX: RT foot ulcer, PT has had all toes removed, ulcer is in ball of foot. Unable to give PT contrast at this time, only 1 kidney remaining, gfr too low; Additional info: Eval for osteomyelitis metatarsals TECHNIQUE: Imaging protocol: MR of the Right lower extremity without contrast. Exam focused on the foot. COMPARISON: MRI FOOT WITHOUT CONTRAST RIGHT 03/05/2018 4:31 PM FINDINGS: Patient has undergone prior transmetatarsal amputation. Plantar ulceration is seen at the level of the residual great toe metatarsal base. No underlying fluid collection suggestive of a drainable abscess. Edema signal is present in the intrinsic muscles and soft tissues of the plantar foot. No replacement of normal fat signal within the residual proximal great toe metatarsal, or the metatarsal bases of the remaining rays and no abnormal marrow signal in the midfoot bones or hindfoot. IMPRESSION: No evidence of osteomyelitis or soft tissue abscess. Transmetatarsal amputation, with soft tissue ulceration over the medial plantar foot with underlying cellulitis or nonspecific soft tissue edema present Electronically signed by: Shree Ayon On 10/17/2019 21:27:33 PM
--- NOTE | 2019-10-17 22:30 | ECHO ---
DATE OF PROCEDURE: 10/17/2019 REFERRING PHYSICIAN: Dr. Ann Foy INDICATION: Cardiac murmur unspecified. HEIGHT: 183 cm WEIGHT: 85 kg 2D MEASUREMENTS: Aortic annulus: 2.2 cm Left atrium: 4.0 cm Ventricular septum: 1.20 cm Posterior wall: 1.20 cm Left ventricle diastole: 4.6 cm Inferior vena cava: 2.0 cm (more than 50% respiratory variation). DOPPLER MEASUREMENTS: No aortic stenosis. No aortic regurgitation. Aortic valve velocity: 151 cm/s LVOT velocity: 85.8 cm/s LVOT VTI: 16.4 cm Mild mitral regurgitation. No mitral stenosis. Mitral E velocity: 130 cm/s Mitral A velocity: 153 cm/s Mild tricuspid regurgitation. Estimated right ventricle systolic pressure: 42-47 mmHg assuming a right atrial pressure of 5-10 mmHg. Trace pulmonic regurgitation. pulmonary acceleration time: 77 ms MITRAL ANNULAR TISSUE DOPPLER: E prime septal: 6.1 cm/s E prime lateral: 9.4 cm/s DESCRIPTION: Rhythm was sinus tachycardia. This was a moderately technically difficult echocardiogram. No pericardial effusion. This was a 2D, M-mode, color flow Doppler and pulse wave Doppler examination and included mitral annular tissue Doppler. CONCLUSIONS: 1. Severe focal thickening and focal calcific deposits of a 3-cusp aortic valve. No aortic stenosis. No aortic regurgitation. 2. Left ventricle wall thickness is at the upper limits of normal. Hyperdynamic left ventricular (LV) systolic function. Left ventricular ejection fraction (LVEF) 70% by visual estimate. No regional wall motion abnormalities of the left ventricle. Grade 1 LV diastolic dysfunction (impaired relaxation filling pattern). 3. Mild dilatation of the aortic root at the level of the sinus of Valsalva (3.9 cm). 4. Severe mitral annular calcification. No mitral stenosis. Mild mitral regurgitation. 5. Suggestive of moderate elevation of estimated right ventricle systolic pressure. Normal right ventricle size with hyperdynamic right ventricle (RV) systolic function. Suggestive of normal central venous pressure (5-10 mmHg).
[2019-10-17] MEDS ORDERED: bisoproloL fumarate 5 MG TAB PO ONE (23:45)
[2019-10-18] VITALS (9 sets, daily range): BP systolic 101–132; BP diastolic 56–76
--- NOTE | 2019-10-18 00:32 | CR ---
DATE OF CONSULTATION: 10/17/2019 REASON FOR CONSULTATION: Right foot infection. Zeke Jo is a 74-year-old gentleman who is well known to me who was admitted to the hospital with altered mental status. He has longstanding ulceration on his right foot, which appears to be the source of his infection and fevers. He is under treatment for renal cell carcinoma with metastasis, and he has had recent chemotherapy on 10/06/2019. He had not followed up with me in several weeks secondary to concerns with COVID-19. On last discussion, his wound had been stable. PAST MEDICAL HISTORY: Significant for renal cell carcinoma, diabetes with neuropathy, chronic ulcerations both feet, history of Clostridium difficile. ALLERGIES: No known drug allergies. SOCIAL HISTORY: Denies alcohol. Denies tobacco use. FAMILY HISTORY: Noncontributory. REVIEW OF SYSTEMS: Positive for fever and chills. VITALS: Are reviewed. Maximum temperature (Tmax) is 102.8. Most recent was 99.5. LABS: Are reviewed. White blood cell count is 7.7. ESR is 65. CRP 25.6. Blood cultures are pending. A foot x-ray shows signs of subcutaneous emphysema consistent with the ulceration and previous amputations of the metatarsals. LOWER EXTREMITY EXAMINATION: Right foot inspected. There is an ulceration on the plantar forefoot. There is some mild erythema. No purulence and no significant necrotic tissue. No fluctuance with the wound. ASSESSMENT: 74-year-old diabetic male with right foot cellulitis, possible osteomyelitis. PLAN: We will order MRI to further evaluate the metatarsals. We will plan for operative biopsy and bone resection tomorrow. He should be nothing by mouth at midnight. Continue empiric antibiotics. Will follow.
[2019-10-18] MEDS: LR 1,000 ML IV SCH ×3 (01:21→17:28)
--- NOTE | 2019-10-18 01:39 | REPVR ---
PROCEDURE INFORMATION: Exam: US Retroperitoneal Limited, Kidneys Exam date and time: 10/18/2019 1:28 AM Age: 74 years old Clinical indication: Abnormal findings; Abnormal lab test; Abnormal kidney function lab tests; Prior surgery; Surgery date: 6+ months; Surgery type: Lt nephrectomy; Additional info: Oc TECHNIQUE: Imaging protocol: Real-time ultrasound of the retroperitoneum with image documentation. Examination was focused on the kidneys. COMPARISON: RENAL US 03/05/2018 6:17 PM FINDINGS: Right kidney measures 11.4 cm in length. Left kidney is surgically absent. Renal parenchymal echotexture and cortical thickness are normal. No solid renal mass, cyst or hydronephrosis. No shadowing, echogenic foci suggestive of stones. Bladder is decompressed and not well seen. IMPRESSION: Normal appearance of the right kidney in a patient who has undergone a prior left nephrectomy. Electronically signed by: Shree Ayon On 10/18/2019 01:38:58 AM
[2019-10-18] MEDS ORDERED: traMADol 50 MG TAB PO ONE (03:15)
[2019-10-18 03:21] LABS: CREATININE,RANDOM URINE 59.9 MG/DL
[2019-10-18] MEDS ORDERED: traMADol 50 MG TAB As Ordered ONE (03:23)
[2019-10-18] MEDS: ACETAMINOPHEN *IV* 1,000 MG IV SCH ×4 (05:32→11:51)
[2019-10-18 06:24] LABS: HEMATOCRIT 31.2 % (42.0-52.0); MEAN CORPUSCULAR HEMOGLOBIN 29.3 pg (27.0-33.0); MEAN CORPUSCULAR HGB CONC 31.7 g/dl (32.0-36.5); MEAN CORPUSCULAR VOLUME 92.3 fl (80.0-96.0); RED BLOOD COUNT 3.38 10^6/uL (4.30-6.10); WHITE BLOOD COUNT 5.5 10^3/uL (4.0-10.0)
[2019-10-18 06:42] LABS: C REACTIVE PROTEIN QUANTITATIV 18.5 MG/DL (0.00-0.30); MAGNESIUM LEVEL 2.2 MG/DL (1.8-2.4)
[2019-10-18 07:12] LABS: HEMOGLOBIN 9.9 g/dl (13.5-17.5); PLATELET COUNT, AUTOMATED 42 10^3/uL (150-450)
[2019-10-18 07:41] LABS: ERYTHROCYTE SEDIMENTATION RATE 58 mm/hr (0-20)
[2019-10-18] MEDS: MEROPENEM INJ 1 GM in IV 1 EA IV SCH ×2 (07:45→20:37)
[2019-10-18] MEDS: HumaLOG INSULIN (NovoLOG) PER UNIT SC SCH ×4 (07:46→20:38)
[2019-10-18 08:08] LABS: ALBUMIN 1.9 GM/DL (3.2-5.2); BILIRUBIN,TOTAL 0.5 MG/DL (0.2-1.0); CALCIUM LEVEL 7.2 MG/DL (8.8-10.2); CREATININE FOR GFR 1.54 MG/DL (0.70-1.30); GLOMERULAR FILTRATION RATE 47.4 (>42); POTASSIUM SERUM 4.1 MEQ/L (3.5-5.1); TOTAL PROTEIN 5.4 GM/DL (6.4-8.2)
[2019-10-18] MEDS ORDERED: dexameTHASONE 4 MG/ML 1ML VIAL (J1100 PER 1MG) As Ordered ONE (08:18)
[2019-10-18] MEDS ORDERED: propofoL 200 MG/20 ML VIAL As Ordered ONE (08:18)
[2019-10-18] MEDS ORDERED: fentaNYL 100 MCG/2 ML INJECTION (J3010) As Ordered ONE (08:18)
[2019-10-18] MEDS ORDERED: ONDANSETRON 4MG/2ML VIAL As Ordered ONE (08:18)
[2019-10-18] MEDS ORDERED: LIDOCAINE 2% 100MG/5ML SDV (FOR ANES.) As Ordered ONE (08:18)
[2019-10-18] MEDS ORDERED: BUPIVACAINE HCL 0.5% 30 ML VIAL As Ordered ONE (08:52)
[2019-10-18] MEDS ORDERED: LIDOCAINE 1% SDV 30ML VIAL As Ordered ONE (08:52)
[2019-10-18] MEDS ORDERED: bisoproloL fumarate 5 MG TAB PO SCH (09:00)
[2019-10-18 09:22] LABS: VANCOMYCIN RANDOM 15.7 UG/ML
--- NOTE | 2019-10-18 09:22 | ECGEPIP ---
[facility] Test Date: 2019-10-17 Pat Name: LEXY SCHMITT Department: Room: [place] [address] Gender: Male [employer] Driver: DEVYN : 1945 Requested By: SENDY LUNA Order Number: [id number] Reading MD: Ravindra Smith Measurements Intervals Holt Rate: 145 P: 56 OH: 142 QRS: 5 QRSD: 90 T: 55 QT: 262 QTc: 408 Interpretive Statements Sinus tachycardia versus atrial flutter, with 2:1 atrial to ventricular conduction Incomplete right bundle branch block Nonspecific T-wave abnormalities Compared to prior tracing of 10/16/2019, heart rate is significantly faster Electronically Signed on 10-18-2019 9:21:51 EDT by Ravindra Smith
[2019-10-18] MEDS ORDERED: LR 1,000 ML IV SCH (10:45)
[2019-10-18] MEDS ORDERED: METOCLOPRAMIDE INJ 10MG/2ML VIAL (J2765 PER 1) IV PRN (10:45)
[2019-10-18] MEDS ORDERED: fentaNYL 100 MCG/2 ML INJECTION (J3010) IV PRN (10:45)
[2019-10-18] MEDS ORDERED: ONDANSETRON 4MG/2ML VIAL IV PRN (10:45)
[2019-10-18] MEDS ORDERED: PERCOCET 5MG/325MG TAB PO PRN (10:45)
[2019-10-18] MEDS: VANCOMYCIN HCL 1,000 MG, VIAL MATE ADAPTER 1 EACH in D5W 250 ML IV SCH (11:52)
--- NOTE | 2019-10-18 12:44 | IPNPDOC ---
Text Note Date of Service The patient was seen on 10/18/19. NOTE SUBJECTIVE: Patient is a 74-year-old male admitted with altered mental status, found to be in a hyperosmolar hyperglycemic state likely secondary to sepsis from presumed osteomyelitis of his right foot vs port. He had an episode of rigors with associated sinus tach yesterday and today he reports he is doing well. He denies any fever, chills, chest pain, difficulty breathing, abdominal pain, nausea, or vomiting. He is scheduled to go to the OR with Dr. Hyatt sometime today. OBJECTIVE: PHYSICAL EXAM: Vitals: (see below) General: No acute distress, sitting up comfortably in bed. HEENT: Normocephalic, atraumatic. EOMI. No scleral icterus. Dry mucous membranes. No pharyngeal erythema or uvular deviation. Neck: No JVD, lymphadenopathy, or thyromegaly. Cardiac: RRR, Normal S1 and S2, no murmurs on auscultation, no gallops, rubs. Pulm: Clear to auscultation b/l. Symmetric thorax. No wheezing, crackles, rhonchi Abd: Bowel Sounds present. Abdomen is soft, non-tender, non-distended. No guarding, rebound tenderness, or rigidity. No hepatosplenomegaly. No masses or e ccymosis. Ext: No edema or cyanosis. Left foot with 3 toes amputated, no necrosis/skin breakdown. Right foot wrapped currently, but per admitting providers note shows 3x1cm open wound with depth of 2 cm on distal aspect of plantar surface without pus/discharge, mild erythema circumferentially. Vascular: Capillary refill<2 seconds. Neuro: No focal neuro deficits. AOx3. LABORATORY DATA, MICROBIOLOGY: Please see below. IMAGING STUDIES: 10/16/2019 chest x-ray: Cannot exclude interstitial edema. No focal consolidation or definite effusion. Excellent 10/17/2019 right foot x-ray: Evidence for prior amputation. Swelling and subcutaneous emphysema consistent with cellulitis and ulcer. 10/17/2019 Right foot MRI: No evidence of osteomyelitis or soft tissue abscess. Transmetatarsal amputation, with soft tissue ulceration over the medial plantar foot with underlying cellulitis or nonspecific soft tissue edema present ASSESSMENT AND PLAN: #. Staph aureus bacteremia secondary to foot wound vs indwelling port - OR today for possible debridement per Dr. Hyatt. - Continue empiric abx coverage with Vanc, merropenem. Afebrile since 1500 on 10/17/2019. Repeat blood cultures daily. DANIELITO ordered out of concern for infective endocarditis (meets 2 major, 2 minor criteria on modified KING) - General surgery consulted for removal of port, Dr. Potts to see patient. - Cardiology consulted for DANIELITO. - Plan to consult ID following results of DANIELITO. - Dr. Hyatt with podiatry consulted, recommendations appreciated. #. Acute on chronic renal failure -Baseline Cr=1.6, FeNa showing pre-renal etiology. Creatinine continues to improve w/ IVF. Will continue w/ IVF. Hold nephrotoxic agents. #. Systolic murmur -Echo showing LVEF of 70%, grade 1 LV diastolic dysfunction. Moderately elevated Right ventricle systolic pressure. #. Iron deficiency Anemia -Will start patient on PO iron. #. Thrombocytopenia. -Holding heparin #. T2DM -Sliding scale insulin #. Hyperosmolar hyperglycemic State - Resolved #. Tachycardia -Resolved s/p fluid resuscitation #. Metabolic encephalopathy -Resolved. #. Renal Cell Carcinoma w/ mets to liver and pancreas. - Seen by Dr. Ocampo at [facility]. #. Skin cancer - Has been taking immunomodulator for past year through [facility]. #. Diabetic Neuropathy - Hold home gabapentin #. Hypertension - Holding home meds for now, will resume as needed if his blood pressure rises DVT prophylaxis: holding heparin, continue teds, seqs DISPOSITION: pending clinical improvement Attending attestation: I evaluated and examined the patient in person; I discussed the care with Resident in detail and agree with the plan above. VS,Fishbone, I+O VS, Fishbone, I+O Laboratory Tests 10/17/19 14:18 10/17/19 17:34 10/18/19 06:02 Vital Signs Date Time Temp Pulse Resp B/P (MAP) Pulse Ox O2 Delivery O2 Flow Rate FiO2 10/18/19 10:53 98.1 89 14 114/59 (77) 97 Nasal Cannula 2 I&O- Last 24 Hours up to 6 AM 10/18/19 06:00 Intake Total 6175 ml Output Total 1970 ml Balance 4205 ml GME ATTESTATION GME ATTESTATION My faculty preceptor for this patient encounter was physically present during the encounter and was fully available. All aspects of the patient interview, examination, medical decision making process, and medical care plan development were reviewed and approved by the faculty preceptor. The faculty preceptor is aware and concurs with the plan as stated in the body of this note and will attest to such by his/her cosignature. SENDY LUNA DO Oct 18, 2019 12:44 STANISLAW ACEVES MD October 24, 2019 19:09
[2019-10-18] MEDS: FERROUS GLUCONATE 324 MG TAB PO SCH (15:11)
--- NOTE | 2019-10-18 16:32 | ECGEPIP ---
[facility] - ED Test Date: 2019-10-16 Pat Name: LEXY SCHMITT Department: Room: [place] [address] Gender: Male [employer] Inspector: DANG : 1945 Requested By: RAMÍREZ GRIFFIN Order Number: [id number] Reading MD: Maria Kapadia Measurements Intervals Kevin Rate: 118 P: 55 NH: 168 QRS: -9 QRSD: 94 T: 39 QT: 312 QTc: 438 Interpretive Statements SINUS TACHYCARDIA POSSIBLE RIGHT VENTRICULAR CONDUCTION DELAY ABNORMAL RHYTHM ECG NSTTW abnormalities DECREASED RATE 01/14/18 Electronically Signed on 10-18-2019 16:32:06 EDT by Maria Kapadia
[2019-10-19 02:00] VITALS: BP 134/82
[2019-10-19] MEDS: VANCOMYCIN HCL 1,000 MG, VIAL MATE ADAPTER 1 EACH in D5W 250 ML IV SCH ×2 (04:10→22:16)
[2019-10-19 06:00] VITALS: BP 137/76
[2019-10-19 06:59] LABS: HEMATOCRIT 27.1 % (42.0-52.0); HEMOGLOBIN 8.8 g/dl (13.5-17.5); MEAN CORPUSCULAR HEMOGLOBIN 29.8 pg (27.0-33.0); MEAN CORPUSCULAR HGB CONC 32.5 g/dl (32.0-36.5); MEAN CORPUSCULAR VOLUME 91.9 fl (80.0-96.0); RED BLOOD COUNT 2.95 10^6/uL (4.30-6.10); WHITE BLOOD COUNT 6.8 10^3/uL (4.0-10.0)
[2019-10-19 07:02] LABS: PLATELET COUNT, AUTOMATED 51 10^3/uL (150-450)
[2019-10-19 07:26] LABS: C REACTIVE PROTEIN QUANTITATIV 16.6 MG/DL (0.00-0.30); MAGNESIUM LEVEL 2.2 MG/DL (1.8-2.4)
[2019-10-19 07:50] LABS: ERYTHROCYTE SEDIMENTATION RATE 68 mm/hr (0-20)
[2019-10-19] MEDS ORDERED: ACETAMINOPHEN TAB 650MG DOSE (2X325MG) PO PRN (08:15)
[2019-10-19] MEDS: FERROUS GLUCONATE 324 MG TAB PO SCH (08:31)
[2019-10-19] MEDS: HumaLOG INSULIN (NovoLOG) PER UNIT SC SCH ×4 (08:31→21:00)
[2019-10-19] MEDS: MEROPENEM INJ 1 GM in IV 1 EA IV SCH (08:32)
--- NOTE | 2019-10-19 08:34 | IPN ---
DATE: 10/19/2019 I was asked by Dr. Thomas to perform transesophageal echocardiogram on Mr. Jo. He is a very pleasant 74-year-old man who has a history of metastatic renal cell carcinoma and presented with Staph aureus bacteremia. The origin of the bacteria at this point is uncertain. There are several potential sources that include osteomyelitis of his right foot, but also he has a chronic indwelling catheter. But because Staph aureus is involved, there is suspicion for endocarditis. Transthoracic echocardiogram did not reveal any evidence for vegetations, but obviously the sensitivity is not good and consequently transesophageal echocardiogram was requested I met with this patient. I had a discussion about the nature of the procedure, its potential complications and implications of the findings. He did sign appropriate consent. I also examined the patient. The pertinent findings are that he has full dentures, his airway is at least class II. I do appreciate a holosystolic murmur best heard at the apex and at left sternal border, about 2/6 intensity. Lungs are relatively clear, even though air movement is fair. There is a bandage over his foot. Neurologically, he is completely intact. On laboratories, his CBC reveals hemoglobin 8.8, hematocrit 27, and platelet count 51,000, which is slightly up from yesterday. Basic metabolic panel reveals sodium 140, potassium 4.1, BUN 45, creatinine 1.5 and glucose 230. He tested negative for COVID infection. His blood culture has been growing Staph aureus with repeated sets. The original culture is from October 15 and he has two out of two positive for methicillin-resistant Staphylococcus aureus (MRSA), the second one from , which is just 2 days ago and preliminary reading again shows that there are gram-positive cocci in clusters likely indicating persistent bacteremia. The cultures from the so far preliminary are negative in 24 hours. The procedure will be tentatively performed for later today depending on my office and the OR schedule. The patient is being kept nothing by mouth (n.p.o.) after breakfast. [facility]
[2019-10-19 08:43] LABS: CALCIUM LEVEL 7.3 MG/DL (8.8-10.2); CREATININE FOR GFR 1.43 MG/DL (0.70-1.30); GLOMERULAR FILTRATION RATE 51.6 (>42)
[2019-10-19] MEDS ORDERED: LIDOCAINE W/EPINEPHRINE 1% 20ML VIAL SC ONE (09:00)
[2019-10-19] MEDS ORDERED: LEVEMIR (INSULIN DETEMIR) 1 UNITS/0.01ML SC ONE (09:15)
[2019-10-19] MEDS ORDERED: HumaLOG INSULIN (NovoLOG) PER UNIT SC ONE (10:15)
--- NOTE | 2019-10-19 10:17 | IPNPDOC ---
Text Note Date of Service The patient was seen on 10/19/19. NOTE SUBJECTIVE: Patient is a 74-year-old male admitted with altered mental status, found to be in a hyperosmolar hyperglycemic state likely secondary to sepsis from presumed osteomyelitis of his right foot vs port. Patient reports he is doing well. He denies any fever, chills, chest pain, difficulty breathing, abdominal pain, nausea, or vomiting. His finger sticks this morning were elevated. OBJECTIVE: PHYSICAL EXAM: Vitals: (see below) General: No acute distress, sitting up comfortably in bed. HEENT: Normocephalic, atraumatic. EOMI. No scleral icterus. Dry mucous membra arabella. No pharyngeal erythema or uvular deviation. Neck: No JVD, lymphadenopathy, or thyromegaly. Cardiac: RRR, Normal S1 and S2, no murmurs on auscultation, no gallops, rubs. Pulm: Clear to auscultation b/l. Symmetric thorax. No wheezing, crackles, rhonchi Abd: Bowel Sounds present. Abdomen is soft, non-tender, non-distended. No guarding, rebound tenderness, or rigidity. No hepatosplenomegaly. No masses or eccymosis. Ext: No edema or cyanosis. Left foot with 3 toes amputated, no necrosis/skin breakdown. Right foot wrapped with bandages. Vascular: Capillary refill<2 seconds. Neuro: No focal neuro deficits. AOx3. LABORATORY DATA, MICROBIOLOGY: Please see below. IMAGING STUDIES: 10/16/2019 chest x-ray: Cannot exclude interstitial edema. No focal consolidation or definite effusion. Excellent 10/17/2019 right foot x-ray: Evidence for prior amputation. Swelling and subcutaneous emphysema consistent with cellulitis and ulcer. 10/17/2019 Right foot MRI: No evidence of osteomyelitis or soft tissue abscess. Transmetatarsal amputation, with soft tissue ulceration over the medial plantar foot with underlying cellulitis or nonspecific soft tissue edema present ASSESSMENT AND PLAN: #. Staph aureus bacteremia secondary to foot wound vs indwelling port - Post-op day 1 from trans-metatarsal surgery. - Continue empiric abx coverage with Vanc, merropenem, initial cultures showing MRSA, will titrate down as appropriate and once cultures from foot wound are returned. Has continued to be afebrile. Repeat blood cultures daily. - DANIELITO ordered out of concern for infective endocarditis (meets 2 major, 2 minor criteria on modified KING) - Cardiology consulted for DANIELITO, recommendations appreciated. - General surgery consulted for removal of port, Dr. Potts to see patient. - ID consulted for MRSA, recommendations appreciated. - Dr. Hyatt with podiatry consulted, recommendations appreciated. #. Acute on chronic renal failure -Creatinine likely back to baseline now. Resolved. #. Systolic murmur -Echo showing LVEF of 70%, grade 1 LV diastolic dysfunction. Moderately elevated Right ventricle systolic pressure. #. Iron deficiency Anemia -Will start patient on PO iron. - Likely also result of recent surgery, will check occult blood as well. #. Thrombocytopenia. -Improving, continue holding heparin #. T2DM -Sliding scale insulin - Starting levemir 10 units QHS #. Hyperosmolar hyperglycemic State - Resolved #. Tachycardia -Resolved s/p fluid resuscitation #. Metabolic encephalopathy -Resolved. #. Renal Cell Carcinoma w/ mets to liver and pancreas. - Seen by Dr. Ocampo at [facility]. #. Skin cancer - Has been taking immunomodulator for past year through [facility]. #. Diabetic Neuropathy - Hold home gabapentin #. Hypertension - Holding home meds for now, will resume as needed if his blood pressure rises DVT prophylaxis: holding heparin, continue teds, seqs DISPOSITION: pending clinical improvement Attending attestation: I evaluated and examined the patient in person; I discussed the care with Resident in detail and agree with the plan above. VS,Fishbone, I+O VS, Fishbone, I+O Laboratory Tests 10/19/19 06:31 Vital Signs Date Time Temp Pulse Resp B/P (MAP) Pulse Ox O2 Delivery O2 Flow Rate FiO2 10/19/19 06:00 99.0 112 18 137/76 (96) 98 Room Air 10/18/19 22:00 2.0 I&O- Last 24 Hours up to 6 AM 10/19/19 06:00 Intake Total 3885 ml Output Total 3275 ml Balance 610 ml GME ATTESTATION GME ATTESTATION My faculty preceptor for this patient encounter was physically present during the encounter and was fully available. All aspects of the patient interview, examination, medical decision making process, and medical care plan development were reviewed and approved by the faculty preceptor. The faculty preceptor is aware and concurs with the plan as stated in the body of this note and will attest to such by his/her cosignature. SENDY LUNA DO Oct 19, 2019 10:17 STANISLAW ACEVES MD October 24, 2019 19:20
--- NOTE | 2019-10-19 13:44 | RO ---
DATE OF PROCEDURE: 10/18/2019 PREOPERATIVE DIAGNOSIS: Right foot diabetic ulceration with bone infection. POSTOPERATIVE DIAGNOSIS: Right foot diabetic ulceration with bone infection. PROCEDURE: Right foot bone excision metatarsals one and two with excisional wound debridement. SURGEON: David Hyatt DPM CURATOR OF EDUCATION: None. ANESTHESIA: Monitored anesthesia care. Preoperative injection of 17 mL of 1:1 mixture of 1% lidocaine and 1/2% Marcaine plain. ESTIMATED BLOOD LOSS: Minimal. MATERIALS: #3-0 nylon. INJECTABLES: None. COMPLICATIONS: None. CONDITION: Stable. INDICATIONS: Zeke Jo is a 74-year-old male who was admitted to [facility] with right foot infection. He has long standing ulceration with a wound with positive prep to bone. Decision made to bring him to the operating room for excision of the bone responsible for the wound and infection. The patient site and side were identified and marked in the preholding area. Consent was reviewed and obtained. All risks, complications and alternatives to the procedure were explained to the patient in detail and all questions were answered. DESCRIPTION OF PROCEDURE: The patient was brought to the operating room and placed on the operating room table in supine position. Monitored anesthesia care was provided by the anesthesia team. Preoperative injection of 17 mL of 1:1 mixture of 1% lidocaine plain and 0.50% Marcaine plain were injected to the right foot. The right foot was prepped and draped in normal sterile fashion. A tourniquet was applied to the right ankle and inflated at 250 mmHg. The wound was inspected. There was noted to be a sinus tracking to both the first and second metatarsal bones. There was some trace purulence underneath this wound. A #15 blade was used to open the non viable tissue and swab cultures were taken aerobic and anaerobic of the fluid. Debridement was performed using #15 blade and rongeur including subcutaneous tissue and tendon. Following this, a dorsal incision was made over the first interspace and carried through with #15 blade. Dissection was carried to the first metatarsal as identified. Overlying soft tissue attachments were released using #15 blade. Using a sagittal saw, the first metatarsal bone was resected leaving a small portion of the remaining metatarsal base. Following this, the second metatarsal bone was released of soft tissue attachments and resected with sagittal saw. These were both sent for pathology. The site was then irrigated with normal saline. Some further nonviable tissue was removed until no necrotic tissue or purulence was noted. Following this, the dorsal incision was closed using #3-0 nylon. Sterile dressings were applied. The tourniquet was deflated. The patient was brought to the postanesthesia care unit (PACU) with vital signs stable and neurovascular status intact. He will be readmitted for continued antibiotics and monitoring. Will follow him inpatient.
[2019-10-19 14:00] VITALS: BP 139/76
[2019-10-19] MEDS ORDERED: LIDOCAINE 2% 100MG/5ML SDV (FOR ANES.) As Ordered ONE (16:22)
[2019-10-19] MEDS ORDERED: fentaNYL 100 MCG/2 ML INJECTION (J3010) As Ordered ONE (16:22)
[2019-10-19] MEDS ORDERED: propofoL 200 MG/20 ML VIAL As Ordered ONE (16:22)
[2019-10-19] MEDS ORDERED: CETACAINE SPRAY 5GM As Ordered ONE (17:16)
[2019-10-19] MEDS ORDERED: LIDOCAINE VISCOUS 2% SOLN 15ML UDC As Ordered ONE (17:17)
[2019-10-19] MEDS ORDERED: MIDAZOLAM INJ 2MG/2ML VIAL (J2250 PER 1MG) As Ordered ONE (17:19)
[2019-10-19] MEDS ORDERED: PHENYLephrine HCL 500 MCG/5 ML (100MCG/ML) SYRINGE (J2370) As Ordered ONE (17:43)
[2019-10-19] MEDS ORDERED: ONDANSETRON 4MG/2ML VIAL IV PRN (18:15)
[2019-10-19] MEDS ORDERED: fentaNYL 100 MCG/2 ML INJECTION (J3010) IV PRN (18:15)
[2019-10-19] MEDS ORDERED: LR 1,000 ML IV SCH ×2 (18:15→18:30)
--- NOTE | 2019-10-19 19:01 | T-ECHO ---
DATE OF PROCEDURE: 10/19/2019 REFERRING PHYSICIAN: Dick Thomas DO INDICATION: Methicillin-resistant Staphylococcus aureus (MRSA) bacteremia. ANESTHESIOLOGY: Dr. Leighann Holly BRIEF HISTORY: Mr. Jo is a 74-year-old man who unfortunately has a multitude of medical problems that besides others include history of renal cell carcinoma with metastases to liver and pancreas and lung. He has been on chronic on Opdivo therapy. He also has osteomyelitis in his feet. He presented to hospital with symptoms of infection, and was found to have MRSA bacteremia. Consequently, transesophageal echocardiogram was requested in order to rule out bacterial endocarditis. Procedure was performed in operating room. The appropriate consent was obtained on the morning of the procedure. The patient presented in fasting condition. I again examined him briefly prior to the procedure itself and explained the nature and potential risks and complications. DESCRIPTION OF PROCEDURE: After appropriate time-out was taken, patient's posterior throat was anesthetized using viscous lidocaine and Cetacaine spray, bite block was applied, and he was positioned in left lateral decubitus position. After appropriate level of sedation was administered by anesthesiology, I introduced a multiplane transesophageal (TE) probe to the esophagus without difficulty. I never entered the stomach. After appropriate images were obtained, the probe was withdrawn. There were no immediate complications, and the patient tolerated the procedure well. He was mildly tachycardic throughout with heart rate between 100 and 120 beats per minute, which did not differ from his condition prior to the procedure. FINDINGS: Left ventricle has normal systolic function, I estimate ejection fraction (EF) around 65-70%. No obvious wall motion abnormalities are seen. Right ventricle also appears to be normal size and systolic function. Both atria appear grossly normal. Aortic valve has three cusps. It has minimal thread- like echodensities attached to its edges consistent with excrescences of Lambl. By color Doppler imaging, there is no significant stenosis or insufficiency. Tricuspid valve was also well seen. It is free of vegetations and has normal mobility. By color Doppler imaging, there is approximately mild or [id number] tricuspid insufficiency. Calculated pulmonary artery pressure is in the low 30s corresponding to mild pulmonary hypertension. Pulmonic valve was relatively poorly seen, and I cannot comment much on its structure. Mitral valve, unfortunately, exhibits mobile echodensity attached to posterior mitral leaflet consistent with vegetation. There is approximately moderate mitral insufficiency by color Doppler imaging. Left atrial appendage is free of thrombi. There is normal flow in left-sided pulmonary veins. Atrial septum is intact based on color Doppler imaging. I was not able to image right-sided pulmonary veins. I also did not enter the stomach to obtain transgastric view due to concerns about the patient's thrombocytopenia and metastatic spread to the pancreas and liver. His thoracic aorta exhibits mild atherosclerosis but no thrombi or mobile material. CONCLUSIONS: 1. Preserved left ventricular (LV) systolic function. 2. Mobile echodensity attached to posterior mitral leaflet consistent with vegetation with resulting approximately moderate mitral insufficiency. 3. Minimal probably thrombotic thread-like echodensities attached to aortic valve with no stenosis or insufficiency. 4. Mild to moderate tricuspid insufficiency. 5. Intact atrial septum. 6. Left atrial appendage free of thrombi. 7. Normal flow in left-sided pulmonary veins. 8. Minimal thoracic atherosclerosis. COMMENT: Results of the study were communicated to Dr. Thomas and also to the patient. Further management remains as per his primary team. Unfortunately, in the setting of his multiple comorbidities, endocarditis portends a poor prognosis. MTDD
[2019-10-19] MEDS ORDERED: guaiFENesin SYRUP 200 MG/10 ML UDC PO PRN (20:30)
[2019-10-19] MEDS ORDERED: FUROSEMIDE 20MG/2ML VIAL (J1940) IV ONE (21:00)
[2019-10-19] MEDS ORDERED: LEVEMIR (INSULIN DETEMIR) 1 UNITS/0.01ML SC SCH ×2 (21:00)
[2019-10-19 22:00] VITALS: BP 140/89
--- NOTE | 2019-10-20 00:32 | REP ---
Clinical: Shortness of breath. Comparison: 10/16/2019. Findings: Subtle area of infiltrate in the right mid lung zone is appreciated. No effusion. No pneumothorax. Mediastinum and cardiac silhouette normal. Skeletal structures intact. Impression: Subtle opacity in the right mid lung zone. Follow-up to resolution recommended. Electronically Signed by Solo Garcia MD 10/20/2019 12:23 A
[2019-10-20] MEDS ORDERED: KETOROLAC 30 MG/ML 1ML VIAL IV ONE (00:45)
[2019-10-20] MEDS: LEVALBUTEROL 1.25 MG/0.5 ML CONCENTRATE NEB INH PRN (00:46)
[2019-10-20 06:00] VITALS: BP 142/87
--- NOTE | 2019-10-20 06:47 | IPN ---
DATE: 10/19/2019 The patient is sitting at bedside. Denies overnight complaints. States he has no pain in his foot. Vitals are reviewed. T-max 99. Labs are reviewed. White blood cell count is 6.8, ESR is 68. His creatinine today is 1.43. Glucose this morning was 418. Operative cultures are all pending as well as operative pathology. The foot is examined. Dorsal incision is intact. Plantar wound with fairly granular base without any further necrotic tissue. ASSESSMENT: 74-year-old male with presumptive osteomyelitis and sepsis, status post bone excision. PLAN: Continue empiric antibiotics. He does have blood cultures with methicillin-resistant Staphylococcus aureus (MRSA). Start daily dressing changes, Hydrofera BLUE to plantar wound, change daily. Will follow.
[2019-10-20 06:53] LABS: HEMATOCRIT 28.1 % (42.0-52.0); MEAN CORPUSCULAR HEMOGLOBIN 29.2 pg (27.0-33.0); MEAN CORPUSCULAR VOLUME 91.2 fl (80.0-96.0); RED BLOOD COUNT 3.08 10^6/uL (4.30-6.10); WHITE BLOOD COUNT 7.5 10^3/uL (4.0-10.0)
[2019-10-20 06:55] LABS: PLATELET COUNT, AUTOMATED 78 10^3/uL (150-450)
[2019-10-20 07:25] LABS: C REACTIVE PROTEIN QUANTITATIV 13.1 MG/DL (0.00-0.30); CALCIUM LEVEL 7.3 MG/DL (8.8-10.2); CREATININE FOR GFR 1.38 MG/DL (0.70-1.30); GLOMERULAR FILTRATION RATE 53.8 (>42); MAGNESIUM LEVEL 2.2 MG/DL (1.8-2.4); POTASSIUM SERUM 4.3 MEQ/L (3.5-5.1)
[2019-10-20] MEDS: HumaLOG INSULIN (NovoLOG) PER UNIT SC SCH ×4 (07:30→22:07)
[2019-10-20 07:48] LABS: ERYTHROCYTE SEDIMENTATION RATE 73 mm/hr (0-20)
[2019-10-20] MEDS ORDERED: LEVEMIR (INSULIN DETEMIR) 1 UNITS/0.01ML SC SCH (09:00)
[2019-10-20] MEDS: FERROUS GLUCONATE 324 MG TAB PO SCH (09:55)
[2019-10-20] MEDS: HEPARIN SOD (PORCINE) 5000UNITS/ML VIAL (J1644 PER 1000UNITS) SQ SCH ×3 (09:55→22:07)
[2019-10-20] MEDS ORDERED: LR 1,000 ML IV SCH (10:00)
[2019-10-20] MEDS ORDERED: LR 1,000 ML IV ONE (10:00)
[2019-10-20] MEDS ORDERED: VARIBAR NECTAR 40% w/v 240ML SUSP BTL As Ordered ONE ×2 (11:10→11:12)
[2019-10-20] MEDS ORDERED: VARIBAR PUDDING 40% w/v 230ML TUBE As Ordered ONE (11:10)
[2019-10-20] MEDS ORDERED: E-Z-PAQUE 96% w/w SUSP 176GM BTL As Ordered ONE (11:11)
--- NOTE | 2019-10-20 12:18 | REP ---
CHEST X-RAY: Three views. HISTORY: Fever. Comparison chest x-ray: October 19, 2019. FINDINGS: There is plate-like atelectasis at the left base and in the right perihilar region unchanged from the comparison radiograph. No new infiltrate is appreciated. Heart is not enlarged. No acute bony abnormality. IMPRESSION: Right perihilar and left base plate-like atelectasis. Electronically Signed by Cornelius Henning MD 10/20/2019 12:57 P
--- NOTE | 2019-10-20 13:09 | CR ---
DATE OF CONSULTATION: 10/19/2019 HISTORY OF PRESENT ILLNESS: Zeke Jo is a 74-year-old male who presented to the emergency department due to about a weeks history of intermittent fevers and chills along with frequent urination and decreased appetite. He has a chronic non healing diabetic ulcer on his right foot which has been operated on previously by Dr. Hyatt and has been treated by Dr. Whelan. He states the wound overall had not been worsening in size, there had been no increased swelling, warmth or discharge, and he had been continuing with his regular wound care. On presentation, he also had an altered mental status and was diagnosed with hyperosmolar hyperglycemic state. He had a foot x-ray which showed subcutaneous emphysema and ulceration concerning for osteomyelitis. He also grew blood cultures positive for methicillin-resistant Staphylococcus aureus (MRSA). Dr. Hyatt was consulted and performed a bone resection. Fragments from the right first metatarsal and right second metatarsal were sent for pathology and revealed acute osteomyelitis. He has been on vancomycin and meropenem, this is day #3. The patient also has a history of renal cell carcinoma with metastasis to the liver and lung and has been on chemotherapy since 2016. He has an Vzzrjb-S-Frjh in place, which he states has been in place since starting chemotherapy in 2016. His last chemotherapy was on 10/06/2019 with OPDIVO. He follows with [facility]. REVIEW OF SYSTEMS: Ten point review of systems was negative other than mentioned in history of present illness (HPI). PAST MEDICAL HISTORY: Renal cell carcinoma with metastasis to the liver and lung. Type 2 diabetes mellitus. Diabetic neuropathy. Chronic non healing ulcer of the right foot. History of Clostridium difficile infection. PAST SURGICAL HISTORY: Left sided nephrectomy. Multiple left sided toe amputations. Right toe amputation of digits 1 through 5. Right foot debridement. Right knee surgery. Cataracts, bilateral. Lower extremity angiography. SOCIAL HISTORY: Never smoker. No alcohol use. Denies IV drug use. Lives at home with his and one dog. FAMILY MEDICAL HISTORY: Father with coronary artery disease. Mother with history of heart disease and diabetes mellitus. Sister with diabetes mellitus. HOME MEDICATIONS: - bisoprolol 5 mg daily - gabapentin 300 mg at night - glipizide ER 10 mg daily - Basaglar 50 units at bedtime - NovoLog per sliding scale with meals - levothyroxine 25 mcg daily - losartan 25 mg daily - OPDIVO every 4 weeks infusion - pancreatic enzymes before meals ALLERGIES: No known allergies. PHYSICAL EXAMINATION: Vital Signs: Temperature 98.6, heart rate 117, respiratory rate 18, blood pressure 139/76, oxygen saturation 97% on room air. General: The patient is alert, lying comfortably in bed, in no acute distress. HEENT: Normocephalic, atraumatic. Sclerae anicteric. Conjunctivae clear. Neck: Supple. No lymphadenopathy. Lungs: Clear to auscultation bilaterally. No wheezing, rhonchi or rales. Heart: Tachycardic, regular rhythm. Normal S1 and S2. 3/6 holosystolic murmur over the left lower sternal border. No gallops or rubs. Abdomen: Soft. Nontender. Nondistended. Bowel sounds present. No hepatosplenomegaly or masses appreciated. Extremities: Difficult to palpate dorsalis and posterior tibial pulses bilaterally. No edema or cyanosis. Left foot with three well healed toe amputations. Right foot with an ulceration on the plantar surface which is bleeding slightly, but appears clean without any purulent discharge. There is mild surrounding erythema, without warmth or swelling. No necrotic tissue noted. There are sutures over the dorsal surface of the distal mid foot. All five toes have been amputated. Neurologic: Alert and oriented. No focal deficits appreciated. Psychiatric: Normal mood and affect. LABORATORY DATA: White blood cell count 6.8, hemoglobin 8.8, hematocrit 27.1, platelet count 51. ESR 68. Sodium 139, potassium 5.0, chloride 109, bicarbonate 23, BUN 47, creatinine 1.43, glucose 418. CRP 16.6. Vancomycin level 15.7. MRSA PCR positive. COVID-19 negative. Microbiology: A few blood cultures drawn 10/16/2019 positive for MRSA. Urine culture 10/16/2019 positive for Staphylococcus aureus 1000 CFU/mL. Two blood cultures drawn 10/17/2019 positive for staphylococcus aureus, sensitivities pending. One blood culture 10/18/2019 drawn from port negative at 24 hours. Right foot wound culture 10/18/2019 shows many gram positive cocci in pairs and clusters on gram stain, further results pending. Two blood cultures drawn 10/19/2019 pending. Catheter tip culture 10/19/2019 pending. IMAGING: Foot x-ray of the right foot shows evidence of prior amputation, swelling and subcutaneous emphysema consistent with cellulitis and ulcer. Foot MRI negative for osteomyelitis or soft tissue abscess. IMPRESSION/ PLAN : 1. MRSA bacteremia most likely infusaport. One possible source is his right foot wound, cultures currently growing what looks like Staphylococcus species. His [id number]-[id number] is another possible source, this was removed today, 10/19/2019, and cultures are currently pending. We have discontinued the meropenem as his wound culture is growing what looks like Staphylococcus aureus and will be covered with the vancomycin alone. Transesophageal echocardiogram (DANIELITO) is planned for today to rule out endocarditis. If this is negative, his followup cultures are negative, and he remains afebrile, this would be an uncomplicated Staphylococcus aureus infection requiring two weeks of antibiotic therapy. However, if he does not meet that criteria, he may need a longer duration of therapy. He will likely need a midline or peripherally inserted central catheter (PICC) placement to continue vancomycin infusions at home after discharge. 2. Chronic non healing right foot ulceration. The wound looks clean. Wound culture grew Staphylococcus species which is covered by vancomycin. Antibiotics may be adjusted based on full culture and sensitivities. Continue with daily dressing changes and followup with Dr. Whelan after discharge. AMARIS
[2019-10-20 14:00] VITALS: BP 148/86
[2019-10-20] MEDS: VANCOMYCIN HCL 1,000 MG, VIAL MATE ADAPTER 1 EACH in D5W 250 ML IV SCH (15:45)
--- NOTE | 2019-10-20 15:49 | REP ---
Examination Requested: Cookie Swallow Reason For Exam: Cough The procedure was performed by COLIN Diaz, under the direct supervision of Dr. Gomes. The procedure was performed with Arlen Bae from speech pathology present. 5 ml aliquots of thin, pudding, mixed fruit within nectar base, soft food, and nectar consistency barium was administered. Penetration was visualized with thin consistency barium. The detailed report of this examination will be provided by speech pathology. 2.4 minutes of fluoroscopy time was utilized for this procedure. Reviewed by COLIN Carranza 10/20/2019 01:15 P Electronically Signed by Tonio Gomes MD 10/20/2019 03:40 P
--- NOTE | 2019-10-20 20:09 | IPNPDOC ---
Text Note Date of Service The patient was seen on 10/20/19. NOTE SUBJECTIVE: Patient is a 74-year-old male admitted with altered mental status, found to be in a hyperosmolar hyperglycemic state likely secondary to sepsis from presumed osteomyelitis of his right foot vs port. Patient had coughing fits overnight with concern for aspiration pneumonia as well as a fever treated with x1 dose of toradol. He is feeling ok this morning but is being kept NPO until speech eval is performed. He denies any complaints at this time including fever, chills, chest pain, difficulty breathing, abdominal pain, nausea, or vomiting. OBJECTIVE: PHYSICAL EXAM: Vitals: (see below) General: No acute distress, sitting up comfortably in bed. HEENT: Normocephalic, atraumatic. EOMI. No scleral icterus. Dry mucous membranes. No pharyngeal erythema or uvular deviation. Neck: No JVD, lymphadenopathy, or thyromegaly. Cardiac: RRR, Normal S1 and S2, no murmurs on auscultation, no gallops, rubs. Pulm: Clear to auscultation b/l. Symmetric thorax. No wheezing, crackles, rhonchi Abd: Bowel Sounds present. Abdomen is soft, non-tender, non-distended. Ext: No edema or cyanosis. Left foot with 3 toes amputated, no necrosis/skin breakdown. Right foot wrapped with bandages. Vascular: Capillary refill<2 seconds. Neuro: No focal neuro deficits. AOx3. LABORATORY DATA, MICROBIOLOGY: Please see below. ASSESSMENT AND PLAN: #. 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 indwelling port - Post-op day 2 from trans-metatarsal surgery. DANIELITO done yesterday showing po - Continue empiric abx coverage with Vanc. Merrem DC'd by ID. Patient febrilex1 overnight, continuing to repeat blood cultures daily. CRP downtrending. - DANIELITO performed showing posterior mitral valve vegetations - Port removed by Dr. Potts - ID consulted for MRSA, recommendations appreciated. - Dr. Hyatt with podiatry consulted, recommendations appreciated. #. Tachycardia -Patient put out 2 liters yesterday likely because of his elevated glucose levels, will give LRx2 or when NPO diet DC'd, suspect this is due to dehydration from fluid loss. #. Swallowing difficulties -Diet altered per speech recommendations. #. Acute on chronic renal failure -Creatinine likely back to baseline now. Resolved. #. Systolic murmur -Echo showing LVEF of 70%, grade 1 LV diastolic dysfunction. Moderately elevated Right ventricle systolic pressure. #. Iron deficiency Anemia -Hgb stable, continue PO iron #. Thrombocytopenia. -Improving, hold heparin for plt<50k #. T2DM -Sliding scale insulin - Levemir 20qhs, 15qam based on lispro needs. #. Renal Cell Carcinoma w/ mets to liver and pancreas. - Seen by Dr. Ocampo at [facility] oncology. #. Skin cancer - Has been taking immunomodulator for past year through [facility] oncology. #. Diabetic Neuropathy - Hold home gabapentin #. Hypertension - Holding home meds for now, will resume as needed if his blood pressure rises DVT prophylaxis: heparin, teds, seqs DISPOSITION: pending clinical improvement Attending attestation: I evaluated and examined the patient in person; I discussed the care with Resident in detail and agree with the plan above. VS,Fishbone, I+O VS, Fishbone, I+O Laboratory Tests 10/20/19 06:35 Vital Signs Date Time Temp Pulse Resp B/P (MAP) Pulse Ox O2 Delivery O2 Flow Rate FiO2 10/20/19 14:00 98.4 130 24 148/86 (106) 96 10/19/19 22:00 Room Air 10/19/19 21:00 1.0 I&O- Last 24 Hours up to 6 AM 10/20/19 06:00 Intake Total 1040 ml Output Total 2980 ml Balance -1940 ml GME ATTESTATION GME ATTESTATION My faculty preceptor for this patient encounter was physically present during the encounter and was fully available. All aspects of the patient interview, examination, medical decision making process, and medical care plan development were reviewed and approved by the faculty preceptor. The faculty preceptor is aware and concurs with the plan as stated in the body of this note and will attest to such by his/her cosignature. SENDY LUNA DO October 20, 2019 20:09 STANISLAW ACEVES MD October 24, 2019 19:28
[2019-10-20] MEDS ORDERED: LR 500 ML IV ONE (20:15)
[2019-10-20 22:00] VITALS: BP 156/96
[2019-10-20] MEDS: LEVEMIR (INSULIN DETEMIR) 1 UNITS/0.01ML SC SCH (22:07)
[2019-10-20] MEDS: ACETAMINOPHEN 500 MG TAB PO PRN (23:55)
[2019-10-21] MEDS: HEPARIN SOD (PORCINE) 5000UNITS/ML VIAL (J1644 PER 1000UNITS) SQ SCH ×3 (05:56→21:40)
[2019-10-21 06:00] VITALS: BP 155/91
[2019-10-21 06:53] LABS: HEMATOCRIT 27.9 % (42.0-52.0); HEMOGLOBIN 8.8 g/dl (13.5-17.5); MEAN CORPUSCULAR HEMOGLOBIN 28.9 pg (27.0-33.0); MEAN CORPUSCULAR HGB CONC 31.5 g/dl (32.0-36.5); MEAN CORPUSCULAR VOLUME 91.5 fl (80.0-96.0); PLATELET COUNT, AUTOMATED 109 10^3/uL (150-450); RED BLOOD COUNT 3.05 10^6/uL (4.30-6.10); WHITE BLOOD COUNT 8.6 10^3/uL (4.0-10.0)
[2019-10-21 07:09] LABS: BLOOD UREA NITROGEN 34 MG/DL (7-18); CALCIUM LEVEL 7.4 MG/DL (8.8-10.2); CARBON DIOXIDE LEVEL 28 MEQ/L (21-32); CHLORIDE LEVEL 112 MEQ/L (98-107); CPK CREATINE PHOSPHOKINASE 41 U/L (39-308); CREATININE FOR GFR 1.16 MG/DL (0.70-1.30); GLOMERULAR FILTRATION RATE > 60.0 (>42); GLUCOSE, FASTING 111 MG/DL (70-100); MAGNESIUM LEVEL 2.3 MG/DL (1.8-2.4); POTASSIUM SERUM 3.5 MEQ/L (3.5-5.1); SODIUM LEVEL 147 MEQ/L (136-145)
[2019-10-21 07:39] LABS: ERYTHROCYTE SEDIMENTATION RATE 108 mm/hr (0-20)
[2019-10-21] MEDS: FERROUS GLUCONATE 324 MG TAB PO SCH (08:15)
[2019-10-21] MEDS: HumaLOG INSULIN (NovoLOG) PER UNIT SC SCH ×4 (08:16→21:00)
[2019-10-21] MEDS: LACTOBACILLUS ACIDOPHILUS CAP (BACID) PO SCH (08:16)
[2019-10-21] MEDS: LEVEMIR (INSULIN DETEMIR) 1 UNITS/0.01ML SC SCH ×2 (08:16→21:40)
[2019-10-21] MEDS: ACETAMINOPHEN 500 MG TAB PO PRN ×2 (09:47→20:04)
[2019-10-21] MEDS: VANCOMYCIN HCL 1,000 MG, VIAL MATE ADAPTER 1 EACH in D5W 250 ML IV SCH (09:49)
[2019-10-21] MEDS ORDERED: LR 1,000 ML IV ONE (11:15)
[2019-10-21 14:00] VITALS: BP 128/71
--- NOTE | 2019-10-21 14:08 | IPNPDOC ---
Text Note Date of Service The patient was seen on 10/21/19. NOTE SUBJECTIVE: Patient is a 74-year-old male admitted with altered mental status, found to be in a hyperosmolar hyperglycemic state and sepsis from infectious endocarditis. No acute events overnight, patient's diet was modified to prevent possible aspiration. He is feeling thirsty this morning but otherwise has no complaints. He denies any complaints at this time including fever, chills, chest pain, difficulty breathing, abdominal pain, nausea, or vomiting. I have spoke to both his Kathleen and his sister in law [phone] who have been updated as to his situation. I was aprized of his baseline as their was some concern expressed as to his behavior earlier in the week. I explained I had not personally seen that behavior and that I had not picked up on any abno rmalities during my conversations with him but would be sure to monitor his mental status. OBJECTIVE: PHYSICAL EXAM: Vitals: (see below) General: No acute distress, sitting up comfortably in bed. HEENT: Normocephalic, atraumatic. EOMI. No scleral icterus. Dry mucous membranes. No pharyngeal erythema or uvular deviation. Neck: No JVD, lymphadenopathy, or thyromegaly. Cardiac: RRR, Normal S1 and S2, no murmurs on auscultation, no gallops, rubs. Pulm: Clear to auscultation b/l. Symmetric thorax. No wheezing, crackles, rhonchi Abd: Bowel Sounds present. Abdomen is soft, non-tender, non-distended. Ext: No edema or cyanosis. Left foot with 3 toes amputated, no necrosis/skin breakdown. Right foot wrapped with bandages. Vascular: Capillary refill<2 seconds. Neuro: No focal neuro deficits. AOx3. LABORATORY DATA, MICROBIOLOGY: Please see below. ASSESSMENT AND PLAN: #. Infectious endocarditis from Staph aureus / foot wound vs. indwelling port - S/p trans-metatarsal surgery on 10/17. DANIELITO on 10/18 showing mitral vegetations, - Continue Vanc. Merrem DC'd by ID. Patient febrilex1 2 nights ago, continuing to repeat blood cultures daily. CRP downtrending. PICC line order placed. - DANIELITO performed showing posterior mitral valve vegetations - Port removed by Dr. Potts - ID consulted for MRSA, recommendations appreciated. - Dr. Hyatt with podiatry consulted, recommendations appreciated. #. Tachycardia I continue to suspect this is from dehydration, will give LR bolusx1 and wendy ssess, may need additional fluids. #. Swallowing difficulties -Diet altered per speech recommendations. #. Acute on chronic renal failure -Creatinine likely back to baseline now. Resolved. #. Systolic murmur -Echo showing LVEF of 70%, grade 1 LV diastolic dysfunction. Moderately elevated Right ventricle systolic pressure. #. Iron deficiency Anemia -Hgb stable, continue PO iron #. Thrombocytopenia. -Improving, hold heparin for plt<50k #. T2DM -Sliding scale insulin - Levemir 20qhs, 15qam based on lispro needs. #. Renal Cell Carcinoma w/ mets to liver and pancreas. - Seen by Dr. Ocampo at [facility] oncology. #. Skin cancer - Has been taking immunomodulator for past year through [facility]. #. Diabetic Neuropathy - Hold home gabapentin #. Hypertension - Holding home meds for now, will resume as needed if his blood pressure rises DVT prophylaxis: heparin, teds, seqs DISPOSITION: pending clinical improvement Attending attestation: I evaluated and examined the patient in person; I discussed the care with Resident in detail and agree with the plan above. VS,Fishbone, I+O VS, Fishbone, I+O Laboratory Tests 10/21/19 06:11 Vital Signs Date Time Temp Pulse Resp B/P (MAP) Pulse Ox O2 Delivery O2 Flow Rate FiO2 10/21/19 06:00 98.3 120 17 155/91 (112) 95 Room Air 10/19/19 21:00 1.0 I&O- Last 24 Hours up to 6 AM 10/21/19 06:00 Intake Total 3625 ml Output Total 1605 ml Balance 2020 ml GME ATTESTATION GME ATTESTATION My faculty preceptor for this patient encounter was physically present during the encounter and was fully available. All aspects of the patient interview, examination, medical decision making process, and medical care plan development were reviewed and approved by the faculty preceptor. The faculty preceptor is aware and concurs with the plan as stated in the body of this note and will attest to such by his/her cosignature. SENDY LUNA DO October 21, 2019 14:08 STANISLAW ACEVES MD October 24, 2019 18:36
[2019-10-21 22:00] VITALS: BP 151/90
[2019-10-22] MEDS: VANCOMYCIN HCL 1,000 MG, VIAL MATE ADAPTER 1 EACH in D5W 250 ML IV SCH ×2 (04:37→21:58)
[2019-10-22] MEDS: ACETAMINOPHEN 500 MG TAB PO PRN ×2 (05:01→16:04)
[2019-10-22] MEDS: HEPARIN SOD (PORCINE) 5000UNITS/ML VIAL (J1644 PER 1000UNITS) SQ SCH ×3 (05:01→21:57)
[2019-10-22 06:00] VITALS: BP 153/88
[2019-10-22 06:43] LABS: HEMATOCRIT 24.9 % (42.0-52.0); HEMOGLOBIN 7.8 g/dl (13.5-17.5); MEAN CORPUSCULAR HEMOGLOBIN 29.1 pg (27.0-33.0); MEAN CORPUSCULAR HGB CONC 31.3 g/dl (32.0-36.5); MEAN CORPUSCULAR VOLUME 92.9 fl (80.0-96.0); PLATELET COUNT, AUTOMATED 125 10^3/uL (150-450); RED BLOOD COUNT 2.68 10^6/uL (4.30-6.10); WHITE BLOOD COUNT 8.3 10^3/uL (4.0-10.0)
[2019-10-22 07:02] LABS: BLOOD UREA NITROGEN 22 MG/DL (7-18); CALCIUM LEVEL 7.3 MG/DL (8.8-10.2); CARBON DIOXIDE LEVEL 30 MEQ/L (21-32); CHLORIDE LEVEL 110 MEQ/L (98-107); CREATININE FOR GFR 1.11 MG/DL (0.70-1.30); GLOMERULAR FILTRATION RATE > 60.0 (>42); GLUCOSE, FASTING 136 MG/DL (70-100); MAGNESIUM LEVEL 2.2 MG/DL (1.8-2.4); POTASSIUM SERUM 3.3 MEQ/L (3.5-5.1); SODIUM LEVEL 147 MEQ/L (136-145)
[2019-10-22 07:53] LABS: ERYTHROCYTE SEDIMENTATION RATE 126 mm/hr (0-20)
[2019-10-22] MEDS: LEVEMIR (INSULIN DETEMIR) 1 UNITS/0.01ML SC SCH ×2 (09:04→21:57)
[2019-10-22] MEDS: FERROUS GLUCONATE 324 MG TAB PO SCH (09:04)
[2019-10-22] MEDS: LACTOBACILLUS ACIDOPHILUS CAP (BACID) PO SCH (09:04)
[2019-10-22] MEDS: HumaLOG INSULIN (NovoLOG) PER UNIT SC SCH ×4 (09:05→21:00)
[2019-10-22] MEDS: POTASSIUM CHLORIDE 10 MEQ SR TABLET PO SCH ×2 (10:14→12:49)
--- NOTE | 2019-10-22 10:20 | IPN ---
DATE: 10/20/2019 He denies any fever or chills. No nausea, vomiting, or diarrhea. He has a mild cough and is still tachycardiac. Temperature is 98.4, pulse 130, respirations 24, blood pressure 148/86, oxygen saturation 96% on room air. General appearance: Sick looking gentleman in no acute distress. Heart: Normal S1, S2, tachycardiac with a holosystolic ejection murmur at the apex. Lungs: Are diminished at both bases. No wheezes or rhonchi. Abdomen: Soft, nontender. No hepatosplenomegaly. Extremities: No clubbing, cyanosis, or edema. Right Infusaport site that was removed, sutures are in place. No redness or purulence. Right foot had metatarsal amputation of the proximal metatarsal bone. There is an ulcer overlying the mid foot, which has clean granulation tissue. There is no surrounding erythema or purulence. The incision is on the dorsal aspect of the foot measuring about 3 cm with no redness or purulence. Chest x-ray, PA and lateral, was obtained, which showed a right perihilar and left base platelike atelectasis. No new infiltrate noted, and heart is not enlarged. Transesophageal echocardiogram done by Dr. Lutz yesterday, on 10/19/2019, shows a mobile echodensity of the mitral valve leaflet, consistent with a vegetation with moderate mitral insufficiency, mild to moderate tricuspid insufficiency, and preserved left ventricular systolic function. Blood cultures on 10/16/2019, two sets were positive for MRSA. Urine culture is positive for MRSA. On 10/17/2019, two sets are again positive for MRSA. Right foot culture on 10/18/2019 was positive for MRSA. Blood cultures: No growth on 10/18/2019 and 10/19/2019. Catheter tip culture was positive for MRSA. Blood cultures from 10/20/2019 are pending. His first negative blood cultures were on 10/19/2019. IMPRESSION: 1. 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 Most likely source of infection was Infusaport that has been removed. 2. Chronic osteomyelitis of the right foot, status post excision of 1st and 2nd metatarsal with culture positive for methicillin-resistant Staphylococcus aureus as well. 3. History of metastatic renal cell carcinoma (CA), on Opdivo every 4 weeks. Patient's chemotherapy currently on hold. PLAN: Continue with intravenous (IV) vancomycin. Patient will need a peripherally inserted central catheter (PICC) line inserted for his 6 weeks of IV antibiotic therapy. Vancomycin minimum inhibitory concentration (MYNOR) is 1. Will discuss with social work whether we can get prior authorization for daptomycin instead of vancomycin, which would be easier to infuse and especially with a higher MYNOR of 1 and less need for monitoring. Continue for the time being IV vancomycin. Discussed switch to IV daptomycin upon discharge. PICC line insertion on Wednesday. Patient understands the need for IV antibiotics at home for a total of 6 weeks with end of therapy anticipated to be 11/30/2019. Patient needs to followup at the infectious disease office in 2 weeks after discharge. Labs upon discharge will include complete blood count (CBC), comprehensive metabolic panel (CMP), creatine phosphokinase (CPK), erythrocyte sedimentation rate (ESR), and C-reactive protein (CRP) weekly. Consult [facility] ([facility]) for home IV antibiotics.
[2019-10-22] MEDS ORDERED: LR 1,000 ML IV ONE (10:45)
[2019-10-22] MEDS: LEVALBUTEROL 1.25 MG/0.5 ML CONCENTRATE NEB INH PRN (11:18)
[2019-10-22 14:00] VITALS: BP 153/90
--- NOTE | 2019-10-22 17:07 | IPNPDOC ---
Date Seen The patient was seen on 10/22/19. Progress Note SUBJECTIVE: 74-year-old male was admitted for [facility], subsequent found to have MRSA bacteremia, now with confirmed endocarditis of the mitral valve. Patient has had significant clinical improvement throughout hospitalization, no acute events overnight, comfortable in bed, continues to have mild dyspnea, otherwise without complaints. He denies any chest pain, nausea, vomiting, coughing, diarrhea, c onstipation or abdominal pain. 10 point review of system is negative except for above PHYSICAL EXAMINATION: VITAL SIGNS: Please see below. GENERAL: No distress HEENT: Normocephalic, atraumatic, moist mucous membranes NECK: Supple CARDIOVASCULAR EXAMINATION: S1, S2, tachycardic RESPIRATORY EXAMINATION: Scattered rhonchi in the bases, no wheezing ABDOMINAL EXAMINATION: Soft, nontender, nondistended, positive bowel sounds EXTREMITIES: Range of motion intact, right foot with dressing in place SKIN: No rash NEUROLOGICAL EXAMINATION: Alert and oriented 3, no focal deficits PSYCHIATRIC EXAMINATION: Calm and cooperative LABORATORY DATA, IMAGING STUDIES, MICROBIOLOGY: Please see below. ASSESSMENT AND PLAN: 74-year-old male with multiple medical comorbidities, was admitted for [facility], subsequently found to have MRSA bacteremia/endocarditis, also with chronic osteomyelitis of right foot. PROBLEMS: 1. Endocarditis of mitral valve: Cultures grew MRSA, continue vancomycin, for the past 2 days, 1/2 cultures is growing gram-positive cocci, questionable contamination versus persistence of infection, repeat blood cultures today, ID following. Plan for switching vancomycin to daptomycin at the time of discharge. 2. Tachycardia: Initially thought to be from hypovolemia which she had a significant amount of due to HHS and persistent fevers, has been substantially hydrated, but remains tachycardic with moderate to high volume of urine output. We'll continue to hydrate as needed, no clinical signs of volume overload at this time. 3. Chronic osteomyelitis of right foot: Status post resection of first and second metatarsal by podiatry, cultures grew MRSA, antibiotics as above. 4. Diabetes mellitus: Continue Levemir along with sliding scale insulin coverage with meals and at bedtime. DVT prophylaxis: Heparin subcutaneous GI prophylaxis: Not needed VS, I&O, 24H, Fishbone Vital Signs/I&O Vital Signs Date Time Temp Pulse Resp B/P (MAP) Pulse Ox O2 Delivery O2 Flow Rate FiO2 10/22/19 14:00 98.1 134 17 153/90 (111) 96 Room Air 10/19/19 21:00 1.0 I&O- Last 24 Hours up to 6 AM 10/22/19 06:00 Intake Total 1950 ml Output Total 1575 ml Balance 375 ml Laboratory Data 24H LABS Laboratory Tests 2 10/21/19 21:35: Bedside Glucose (Misc Panel) 172H 10/22/19 06:04: Nucleated Red Blood Cells % (auto) 0.0, Erythrocyte Sedimentation Rate 126H, Anion Gap 7L, Glomerular Filtration Rate > 60.0, Calcium Level 7.3L, Magnesium Level 2.2, C-Reactive Protein, Quantitative 11.80H 10/22/19 11:35: Bedside Glucose (Misc Panel) 232H 10/22/19 16:44: Bedside Glucose (Misc Panel) 194H CBC/BMP Laboratory Tests 10/22/19 06:04 Microbiology Microbiology 10/21/19 Blood Culture - Preliminary, Resulted 10/21/19 Blood Culture - Preliminary, Resulted No growth after 24 hours . All specim... 10/20/19 Blood Culture - Preliminary, Resulted Staphylococcus Aureus 10/20/19 Blood Culture - Preliminary, Resulted No Growth after 48 hours. All Specime... 10/19/19 Catheter Tip Culture - Final, Complete Staph.aureus Methicillin Resis 10/19/19 Blood Culture - Preliminary, Resulted No Growth after 72 hours. All specime... 10/19/19 Blood Culture - Preliminary, Resulted No Growth after 72 hours. All specime... 10/18/19 Gram Stain - Final, Complete 10/18/19 Wound Culture - Final, Complete Staph.aureus Methicillin Resis 10/18/19 Anaerobic Culture - Final, Complete 10/18/19 Blood Culture - Preliminary, Resulted No Growth after 72 hours. All specime... 10/17/19 Blood Culture - Final, Complete Staph.aureus Methicillin Resis 10/17/19 Blood Culture - Final, Complete Staph.aureus Methicillin Resis 10/16/19 Urine Culture - Final, Complete Staph.aureus Methicillin Resis 10/16/19 Blood Culture - Final, Complete Staph.aureus Methicillin Resis 10/16/19 Blood Culture - Final, Complete Staph.aureus Methicillin Resis STANISLAW ACEVES MD October 22, 2019 17:07
[2019-10-22 22:00] VITALS: BP 158/93
[2019-10-22] MEDS: RAMELTEON 8 MG TAB (ROZEREM) PO SCH (23:10)
[2019-10-23 06:00] VITALS: BP 154/92
[2019-10-23 06:30] LABS: HEMOGLOBIN 7.5 g/dl (13.5-17.5); MEAN CORPUSCULAR HEMOGLOBIN 28.8 pg (27.0-33.0); MEAN CORPUSCULAR HGB CONC 31.3 g/dl (32.0-36.5); MEAN CORPUSCULAR VOLUME 92.3 fl (80.0-96.0); PLATELET COUNT, AUTOMATED 146 10^3/uL (150-450); WHITE BLOOD COUNT 9.6 10^3/uL (4.0-10.0)
[2019-10-23 06:51] LABS: BLOOD UREA NITROGEN 18 MG/DL (7-18); CALCIUM LEVEL 7.5 MG/DL (8.8-10.2); CARBON DIOXIDE LEVEL 30 MEQ/L (21-32); CHLORIDE LEVEL 110 MEQ/L (98-107); CREATININE FOR GFR 1.11 MG/DL (0.70-1.30); GLOMERULAR FILTRATION RATE > 60.0 (>42); GLUCOSE, FASTING 94 MG/DL (70-100); POTASSIUM SERUM 3.6 MEQ/L (3.5-5.1); SODIUM LEVEL 144 MEQ/L (136-145)
[2019-10-23] MEDS: HumaLOG INSULIN (NovoLOG) PER UNIT SC SCH ×4 (07:14→20:27)
[2019-10-23 07:28] LABS: ERYTHROCYTE SEDIMENTATION RATE 127 mm/hr (0-20)
[2019-10-23] MEDS: ACETAMINOPHEN 500 MG TAB PO PRN ×2 (09:49→23:00)
[2019-10-23] MEDS: LACTOBACILLUS ACIDOPHILUS CAP (BACID) PO SCH (09:50)
[2019-10-23] MEDS: FERROUS GLUCONATE 324 MG TAB PO SCH (09:50)
[2019-10-23] MEDS: LEVEMIR (INSULIN DETEMIR) 1 UNITS/0.01ML SC SCH ×2 (09:50→21:00)
[2019-10-23] MEDS ORDERED: LIDOCAINE 1% MDV 20ML VIAL As Ordered ONE (10:25)
[2019-10-23] MEDS: DAPTOmycin 850 MG in NS 50 ML IV SCH (11:21)
[2019-10-23] MEDS: SODIUM CHLORIDE 0.9% INJ 10 ML SYR IV PRN ×3 (12:13→22:53)
--- NOTE | 2019-10-23 13:45 | IPNPDOC ---
Text Note Date of Service The patient was seen on 10/23/19. NOTE SUBJECTIVE: Patient is a 74-year-old male admitted with altered mental status, found to be in a hyperosmolar hyperglycemic state and sepsis from MRSA bacteremia and infectious endocarditis. He states he is feeling well today. He is having some mid back pain, he states it is sore due to lying in bed. He denies chest pain, palpitations, shortness of breath. He has had swelling in his left hand from an infiltrated IV. He states this does not hurt and has improved somewhat. OBJECTIVE: PHYSICAL EXAM: Vitals: (see below) General: No acute distress, sitting up comfortably in bed. HEENT: Normocephalic, atraumatic. EOMI. No scleral icterus. Dry mucous membranes. No pharyngeal erythema or uvular deviation. Neck: No JVD or lymphadenopathy Cardiac: RRR, Normal S1 and S2, 3/6 holosystolic murmur over the left lower sternal border. No gallops or rubs. Pulm: Clear to auscultation b/l. Symmetric thorax. No wheezing, crackles, rhonchi Abd: Bowel Sounds present. Abdomen is soft, non-tender, non-distended. Ext: 1+ pitting edema of the left hand, no tenderness or erythema. Left foot with 3 toes amputated, no necrosis/skin breakdown. Right foot wrapped with bandages. Vascular: Capillary refill<2 seconds. Neuro: No focal neuro deficits. AOx3. LABORATORY DATA, MICROBIOLOGY: Please see below. ASSESSMENT AND PLAN: #. 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 indwelling port - S/p trans-metatarsal surgery on 10/17. DANIELITO on 10/18 showing mitral vegetations, - Switched to daptomycin today by ID (previously on vancomycin), PICC line placed for outpatient IV abx - continuing to repeat blood cultures daily until negative. - DANIELITO performed showing posterior mitral valve vegetations - Infusaport removed by Dr. Potts - ID consulted for MRSA, recommendations appreciated. - Dr. Hyatt with podiatry consulted, recommendations appreciated. #. Tachycardia - could be due to persistent bacteremia vs dehydration vs holding home beta shamika. restarted beta shamika today #. Swallowing difficulties -Diet altered per speech recommendations. #. Acute on chronic renal failure -Creatinine likely back to baseline now. Resolved. #. Systolic murmur -Echo showing LVEF of 70%, grade 1 LV diastolic dysfunction. Moderately elevated Right ventricle systolic pressure. #. Iron deficiency Anemia -Hgb trending down, likely diuresis due to IV fluids, no concern for bleeding at this time, continue PO iron #. Thrombocytopenia. -Improving, hold heparin for plt<50k #. T2DM -Sliding scale insulin - Levemir 20qhs, 15qam based on lispro needs. #. Renal Cell Carcinoma w/ mets to liver and pancreas. - Seen by Dr. Ocampo at [facility] oncology. #. Skin cancer - Has been taking immunomodulator for past year through [facility] onc[facility]. #. Diabetic Neuropathy - Hold home gabapentin #. Hypertension - Restart home bisoprolol today due to tachycardia and elevated blood pressure DVT prophylaxis: heparin DISPOSITION: pending negative blood cultures Attending attestation: I evaluated and examined the patient in person; I discussed the care with Reside nt in detail and agree with the plan above. VS,Fishbone, I+O VS, Fishbone, I+O Laboratory Tests 10/23/19 06:09 Vital Signs Date Time Temp Pulse Resp B/P (MAP) Pulse Ox O2 Delivery O2 Flow Rate FiO2 10/23/19 10:44 125 18 98 Room Air 10/23/19 10:21 98.6 10/23/19 06:00 154/92 (112) 10/19/19 21:00 1.0 I&O- Last 24 Hours up to 6 AM 10/23/19 06:00 Intake Total 2130 ml Output Total 1750 ml Balance 380 ml JULIAN KOTHARI D.O. October 23, 2019 13:45 STANISLAW ACEVES MD October 24, 2019 19:49
[2019-10-23 14:00] VITALS: BP 147/88
[2019-10-23] MEDS: CEFTAROLINE FOSAMIL 600 MG in D5W MINI-BAG PLUS 50 ML IV SCH ×2 (14:12→21:29)
[2019-10-23] MEDS: bisoproloL fumarate 5 MG TAB PO SCH (14:12)
[2019-10-23] MEDS ORDERED: ISOVUE-370 76% 100ML VIAL As Ordered ONE (14:58)
--- NOTE | 2019-10-23 15:58 | REP ---
CT ABDOMEN/PELVIS WITH ORAL AND IV CONTRAST: TECHNIQUE: Axial contrast enhanced images from the lung bases to the pubic symphysis using 100 mL Isovue-370 intravenous contrast material with multiplanar reformations. In the visualized lung bases, there are patchy areas of atelectasis or infiltrate. There are subcentimeter nodular opacities in both lung bases, which could be inflammatory or infectious or could be metastatic. Followup is suggested. In the posterior segment of the right lobe of the liver, there is a ring-enhancing lesion measuring 1.8 cm in diameter. This is nonspecific. I suspect a second similar lesion more centrally toward the confluence of the hepatic veins on image #27, measuring about 1.6 cm in diameter. Spleen, adrenals, and pancreas appear unremarkable. Patient has had a prior left nephrectomy. The right kidney demonstrates mild compensatory hypertrophy with a small cyst in the upper pole and lower pole. There is no right hydronephrosis. There is atherosclerotic calcification of the abdominal aorta without aneurysm. No adenopathy, free air, or free fluid is seen. There may be diffuse thickening of the duodenum, possibly representing an inflammatory process. Diffuse sigmoid diverticulosis is noted without evidence of acute diverticulitis. There is no pelvic mass. Urinary bladder is mildly distended and contains a small amount of air, likely from recent instrumentation. There are mild degenerative changes of the spine. IMPRESSION: Mild scattered patchy areas of atelectasis or infiltrate in each visualized lung base. There are also several subcentimeter nodular opacities in both lung bases. These could be inflammatory/infectious versus metastatic. Two rim-enhancing lesions in the liver are of uncertain significance. These measure 1.8 and 1.6 cm in diameter. Again, these could be inflammatory/infectious versus benign nodules versus metastatic. Gallbladder is collapsed. Status post left nephrectomy. Possible diffuse thickening and inflammation of the duodenum. No free air, free fluid, or abscess. Sigmoid diverticulosis without acute diverticulitis. Small amount of air in the urinary bladder, likely related to recent instrumentation. Electronically Signed by Tonio Gomes MD 10/23/2019 04:04 P
--- NOTE | 2019-10-23 16:13 | REP ---
Procedure: PICC line insertion with Norm The procedure was performed under the direct supervision of Dr. Gomes. The risks and benefits of the procedure were explained to the patient and informed consent was obtained. The right basilic vein was localized using ultrasound guidance. The skin was prepped and draped in a sterile fashion. 2% lidocaine was used as a local anesthetic. Using ultrasound guidance the basilic vein was cannulated and a 0.018 guidewire was inserted and advanced to the SVC using fluoroscopic guidance. The needle was removed and a 4.5 British dilator and peel-away sheath was inserted over the guide wire. A 4.5 British single lumen catheter was cut to length of 44 cm. The dilator was removed and the catheter was inserted over the guide wire with the tip ending in the SVC. The peel-away sheath was removed and the catheter was flushed with heparinized saline as per Hospital protocol. The catheter was affixed to the skin and a sterile dressing was applied. The patient tolerated the procedure well and there were no immediate complications. 0.1 minutes of fluoro time was utilized for this procedure. Electronically Signed by COLIN Neal 10/23/2019 03:20 P Electronically Signed by Tonio Gomes MD 10/23/2019 04:05 P
[2019-10-23] MEDS: SODIUM CHLORIDE 0.9% INJ 10 ML SYR IV SCH (18:11)
[2019-10-23] MEDS: HEPARIN SOD (PORCINE) 5000UNITS/ML VIAL (J1644 PER 1000UNITS) SQ SCH (21:28)
[2019-10-23] MEDS: RAMELTEON 8 MG TAB (ROZEREM) PO SCH (21:29)
[2019-10-23 22:00] VITALS: BP 148/81
[2019-10-23] MEDS ORDERED: LEVEMIR (INSULIN DETEMIR) 1 UNITS/0.01ML SC ONE (22:00)
[2019-10-24] VITALS (15 sets, daily range): BP systolic 124–144; BP diastolic 68–78
[2019-10-24 06:26] LABS: HEMATOCRIT 22.6 % (42.0-52.0); HEMOGLOBIN 7.1 g/dl (13.5-17.5); MEAN CORPUSCULAR HEMOGLOBIN 29.1 pg (27.0-33.0); MEAN CORPUSCULAR HGB CONC 31.4 g/dl (32.0-36.5); MEAN CORPUSCULAR VOLUME 92.6 fl (80.0-96.0); PLATELET COUNT, AUTOMATED 165 10^3/uL (150-450); RED BLOOD COUNT 2.44 10^6/uL (4.30-6.10); WHITE BLOOD COUNT 7.9 10^3/uL (4.0-10.0)
[2019-10-24] MEDS: HEPARIN SOD (PORCINE) 5000UNITS/ML VIAL (J1644 PER 1000UNITS) SQ SCH ×3 (06:28→21:10)
[2019-10-24] MEDS: CEFTAROLINE FOSAMIL 600 MG in D5W MINI-BAG PLUS 50 ML IV SCH ×3 (06:28→23:13)
[2019-10-24 06:42] LABS: BLOOD UREA NITROGEN 20 MG/DL (7-18); CALCIUM LEVEL 7.7 MG/DL (8.8-10.2); CARBON DIOXIDE LEVEL 31 MEQ/L (21-32); CHLORIDE LEVEL 109 MEQ/L (98-107); CREATININE FOR GFR 1.24 MG/DL (0.70-1.30); GLOMERULAR FILTRATION RATE > 60.0 (>42); GLUCOSE, FASTING 76 MG/DL (70-100); POTASSIUM SERUM 3.6 MEQ/L (3.5-5.1); SODIUM LEVEL 144 MEQ/L (136-145)
[2019-10-24] MEDS: HumaLOG INSULIN (NovoLOG) PER UNIT SC SCH ×4 (07:30→21:00)
[2019-10-24] MEDS: SODIUM CHLORIDE 0.9% INJ 10 ML SYR IV SCH ×2 (08:06→17:59)
[2019-10-24 08:14] LABS: ALBUMIN 1.6 GM/DL (3.2-5.2); ALT/SGPT 32 U/L (12-78); BILIRUBIN,DIRECT 0.1 MG/DL (0.0-0.2); BILIRUBIN,TOTAL 0.5 MG/DL (0.2-1.0)
[2019-10-24] MEDS: FERROUS GLUCONATE 324 MG TAB PO SCH (09:17)
[2019-10-24] MEDS: LACTOBACILLUS ACIDOPHILUS CAP (BACID) PO SCH (09:18)
[2019-10-24] MEDS: bisoproloL fumarate 5 MG TAB PO SCH (09:18)
[2019-10-24] MEDS: DAPTOmycin 850 MG in NS 50 ML IV SCH (10:52)
[2019-10-24] MEDS: ACETAMINOPHEN 500 MG TAB PO PRN ×2 (10:52→23:34)
[2019-10-24] MEDS: SODIUM CHLORIDE 0.9% INJ 10 ML SYR IV PRN (10:53)
--- NOTE | 2019-10-24 11:39 | IPNPDOC ---
Text Note Date of Service The patient was seen on 10/24/19. NOTE SUBJECTIVE: Patient is a 74-year-old male admitted with altered mental status, found to be in a hyperosmolar hyperglycemic state and sepsis from MRSA bacteremia and infectious endocarditis. He states he is feeling well today, his back pain is improved. He denies chest pain, palpitations, shortness of breath. He has had swelling in his left hand from an infiltrated IV. He states this does not hurt and has continued to improved daily with warm compress. OBJECTIVE: PHYSICAL EXAM: Vitals: see below General: No acute distress, sitting up comfortably in bed. HEENT: Normocephalic, atraumatic. EOMI. No scleral icterus. Dry mucous membranes. No pharyngeal erythema or uvular deviation. Neck: No JVD or lymphadenopathy Cardiac: RRR, Normal S1 and S2, 3/6 holosystolic murmur over the left lower sternal border. No gallops or rubs. Pulm: Clear to auscultation b/l. Symmetric thorax. No wheezing, crackles, rhonchi Abd: Bowel Sounds present. Abdomen is soft, non-tender, non-distended. Ext: 1+ pitting edema of the left hand, no tenderness or erythema. Left foot with 3 toes amputated, no necrosis/skin breakdown. Right foot wrapped with bandages. Vascular: Capillary refill<2 seconds. Neuro: No focal neuro deficits. AOx3. LABORATORY DATA, MICROBIOLOGY: Please see below. ASSESSMENT AND PLAN: #. 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 indwe lling port - S/p trans-metatarsal surgery on 10/17. DANIELITO on 10/18 showing mitral vegetations, - Switched to daptomycin and ceftaroline by ID (previously on vancomycin), PICC line placed for outpatient IV abx - continuing to repeat blood cultures daily until negative. - DANIELITO performed showing posterior mitral valve vegetations - Infusaport removed by Dr. Potts - ID consulted for MRSA bacteremia, recommendations appreciated. - Dr. Hyatt with podiatry consulted, recommendations appreciated. #. Tachycardia - could be due to persistent bacteremia vs dehydration vs holding home beta shamika - some improvement with restarting home beta shamika. continue to monitor #. Swallowing difficulties - Diet adjusted per speech therapy recommendations. #. Acute on chronic renal failure - resolved, creatinine stable at baseline. #. Anemia - history of iron deficiency anemia, continue PO iron, recheck iron level - Hgb trending down daily, no longer on IV fluids, asymptomatic. check stool occult blood. may be due to acute endocarditis - consider PRBC transfusion #. Thrombocytopenia. -Improved, monitor CBC daily #. T2DM - Sliding scale insulin - Levemir on hold due to hypoglycemia this morning #. Renal Cell Carcinoma w/ mets to liver and pancreas. - Seen by Dr. Ocampo at [facility]. #. Skin cancer - Has been taking immunomodulator for past year through [facility]. #. Diabetic Neuropathy - Hold home gabapentin #. Hypertension - continue home bisoprolol DVT prophylaxis: heparin DISPOSITION: pending negative blood cultures Attending attestation: I evaluated and examined the patient in person; I discussed the care with Resident in detail and agree with the plan above. VS,Fishbone, I+O VS, Fishbone, I+O Laboratory Tests 10/24/19 05:57 Vital Signs Date Time Temp Pulse Resp B/P (MAP) Pulse Ox O2 Delivery O2 Flow Rate FiO2 10/24/19 11:03 144/78 (100) 10/24/19 09:18 104 10/24/19 06:00 97.8 18 97 Room Air 10/19/19 21:00 1.0 I&O- Last 24 Hours up to 6 AM 10/24/19 06:00 Intake Total 967 ml Output Total 1635 ml Balance -668 ml JULIAN KOTHARI D.O. October 24, 2019 11:39 STANISLAW ACEVES MD October 24, 2019 20:02
[2019-10-24 12:25] LABS: IRON (FE) 19 UG/DL (65-175)
[2019-10-24] MEDS ORDERED: CREON-12 CAPSULE PO PRN (13:15)
[2019-10-24] MEDS: CREON-12 CAPSULE PO SCH (17:25)
[2019-10-24] MEDS: METOCLOPRAMIDE 5 MG TAB PO SCH ×2 (17:25→21:09)
[2019-10-24] MEDS: RAMELTEON 8 MG TAB (ROZEREM) PO SCH (21:09)
[2019-10-24] MEDS: LEVEMIR (INSULIN DETEMIR) 1 UNITS/0.01ML SC SCH (21:10)
[2019-10-25 00:05] VITALS: BP 123/67
[2019-10-25 00:25] LABS: HEMATOCRIT 30.1 % (42.0-52.0)
[2019-10-25 00:29] LABS: HEMOGLOBIN 9.7 g/dl (13.5-17.5)
[2019-10-25] MEDS: SODIUM CHLORIDE 0.9% INJ 10 ML SYR IV SCH ×2 (05:31→17:20)
[2019-10-25] MEDS: HEPARIN SOD (PORCINE) 5000UNITS/ML VIAL (J1644 PER 1000UNITS) SQ SCH ×3 (05:31→21:35)
[2019-10-25] MEDS: CEFTAROLINE FOSAMIL 600 MG in D5W MINI-BAG PLUS 50 ML IV SCH ×3 (05:31→21:35)
[2019-10-25 06:00] VITALS: BP 125/67
[2019-10-25 06:55] LABS: MEAN CORPUSCULAR HEMOGLOBIN 28.8 pg (27.0-33.0); MEAN CORPUSCULAR HGB CONC 32.1 g/dl (32.0-36.5); MEAN CORPUSCULAR VOLUME 89.5 fl (80.0-96.0); PLATELET COUNT, AUTOMATED 171 10^3/uL (150-450); RED BLOOD COUNT 3.13 10^6/uL (4.30-6.10); WHITE BLOOD COUNT 8.7 10^3/uL (4.0-10.0)
[2019-10-25 07:13] LABS: CALCIUM LEVEL 7.6 MG/DL (8.8-10.2); CREATININE FOR GFR 1.34 MG/DL (0.70-1.30); GLOMERULAR FILTRATION RATE 55.6 (>42); POTASSIUM SERUM 3.7 MEQ/L (3.5-5.1)
--- NOTE | 2019-10-25 07:36 | IPN ---
DATE OF SERVICE: 10/23/2019 SUBJECTIVE: The patient says he is feeling well today. The patient does say that he has been experiencing some left sided flank pain and back pain since his admission into the hospital. Other than that, he is feeling well. The patient did have a blood culture that grew Staphylococcus aureus, that was drawn on 10/21/2019. The patient's blood cultures that were drawn on 10/22/2019 are still pending. Other than that, the patient feels well and does not have any complaints today. The patient has been afebrile since 10/17/2019. The patient denies any chest pain or difficulty breathing. The patient also denies any abdominal pain. PHYSICAL EXAMINATION: Vital Signs: Temperature 98.2, pulse 129, respiratory rate 18, blood pressure 147/88, pulse oximetry 94% on room air. General: The patient is an alert and oriented male patient who was laying down in the bed when I walked into the room. The patient did not appear to be in any acute distress. Heart: Normal S1, S2. The patient had a tachycardiac rate with a holosystolic ejection murmur at the apex. Lungs: Diminished at both bases with no wheezes or rhonchi. Abdomen: Soft and nontender. Extremities: No clubbing, cyanosis or edema. Right [id number] was removed and sutures are in place. There is no redness or purulence around the wound. Right foot has a metatarsal amputation of the proximal metatarsal bone. There is an ulcer overlying the mid foot with clean granulation tissue. There is no surrounding erythema or purulence. There is an ulcer on the dorsal aspect of the foot measuring 3 cm with no redness or purulence. Transesophageal echocardiogram done by Dr. Lutz on 10/19/2019 shows a mobile echodensity of the mitral valve leaflet consistent with a vegetation with moderate mitral insufficiency, mild to moderate tricuspid insufficiency, and preserved left ventricular systolic function. Blood cultures have been positive for methicillin-resistant Staphylococcus aureus (MRSA) on 10/16/2019, 10/17/2019, 10/18/2019, 10/19/2019, 10/20/2019 and 10/21/2019. Blood cultures from 10/22/2019 are pending. IMPRESSION: 1. 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 The most likely source of infection was the [id number], which has been removed. The patient has been changed to IV Ceftaroline 600 mg every 8 hours and IV Daptomycin 850 mg every 24 hours. 2. Chronic osteomyelitis of the right foot, status post excision of the first and second metatarsals with culture positive for MRSA. 3. History of metastatic renal cell carcinoma, on OPDIVO every 4 weeks. The patient's chemotherapy is currently on hold. PLAN: The plan is to change the patient from IV vancomycin to IV Daptomycin and Ceftaroline. The patient has had a peripherally inserted central catheter (PICC) line placed earlier today. We will need to discuss with the social media executive to get prior authorization for Daptomycin and Ceftaroline. If the patient's blood cultures are continually positive, the patient will be considered a treatment failure and patient may have to undergo cardiac surgery. We will await for the culture results for the blood cultures from 10/22/2019. Due to the patient's back and flank pain, a CT of the abdomen and pelvis with IV contrast was ordered to rule out any possible abscess in the abdomen. When the patient is discharged, the patient will followup and need IV antibiotics for a total of 6 weeks. The patient will followup with infectious disease two weeks after discharge. Labs upon discharge will include CBC, CMP, CPK, ESR and CRP weekly. [facility]
[2019-10-25 08:01] LABS: C REACTIVE PROTEIN QUANTITATIV 11.8 MG/DL (0.00-0.30)
[2019-10-25] MEDS: METOCLOPRAMIDE 5 MG TAB PO SCH ×4 (08:50→21:35)
[2019-10-25] MEDS: LACTOBACILLUS ACIDOPHILUS CAP (BACID) PO SCH (08:50)
[2019-10-25] MEDS: FERROUS GLUCONATE 324 MG TAB PO SCH (08:50)
[2019-10-25] MEDS: CREON-12 CAPSULE PO SCH ×3 (08:50→17:20)
[2019-10-25] MEDS: HumaLOG INSULIN (NovoLOG) PER UNIT SC SCH ×4 (08:51→21:00)
[2019-10-25] MEDS: LEVEMIR (INSULIN DETEMIR) 1 UNITS/0.01ML SC SCH ×2 (08:51→22:17)
[2019-10-25] MEDS: bisoproloL fumarate 5 MG TAB PO SCH (10:08)
[2019-10-25] MEDS: DAPTOmycin 850 MG in NS 50 ML IV SCH (11:06)
[2019-10-25] MEDS: SODIUM CHLORIDE 0.9% INJ 10 ML SYR IV PRN ×3 (11:39→23:01)
--- NOTE | 2019-10-25 11:51 | IPNPDOC ---
Text Note Date of Service The patient was seen on 10/25/19. NOTE SUBJECTIVE: Patient is a 74-year-old male admitted with altered mental status, found to be in a hyperosmolar hyperglycemic state and sepsis from MRSA bacteremia and infectious endocarditis. He states he is feeling ok today. He denies chest pain, palpitations, shortness of breath. He continues to have some loose stools, no nausea or vomiting. He was restarted on his pancreatic enzymes when eating. He does have some mild abdominal pain. His left hand swelling continues to improve. OBJECTIVE: PHYSICAL EXAM: Vitals: see below General: No acute distress, sitting up comfortably in bed. HEENT: Normocephalic, atraumatic. EOMI. No scleral icterus. Dry mucous membranes. No pharyngeal erythema or uvular deviation. Neck: No JVD or lymphadenopathy Cardiac: RRR, Normal S1 and S2, 3/6 holosystolic murmur over the left lower sternal border. No gallops or rubs. Pulm: Clear to auscultation b/l. Symmetric thorax. No wheezing, crackles, rhonchi Abd: Bowel Sounds present. Abdomen is soft, non-tender, non-distended. Ext: 1+ pitting edema of the left hand, no tenderness or erythema. Left foot with 3 toes amputated, no necrosis/skin breakdown. Right foot wrapped with bandages. Vascular: Capillary refill<2 seconds. Neuro: No focal neuro deficits. AOx3. LABORATORY DATA, MICROBIOLOGY: Please see below. ASSESSMENT AND PLAN: #. 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 indwelling port - S/p trans-metatarsal surgery on 10/17. DANIELITO on 10/18 showing mitral vegetations. - Initially started on vancomycin, switched to daptomycin and ceftaroline by ID (previously on vancomycin), PICC line placed for outpatient IV abx - continuing to repeat blood cultures daily until negative. - DANIELITO performed showing posterior mitral valve vegetations - Infusaport removed by Dr. Potts - ID consulted for MRSA bacteremia, recommendations appreciated. - Dr. Hyatt with podiatry consulted, recommendations appreciated. #. Tachycardia - could be due to persistent bacteremia vs dehydration vs holding home beta shamika - improvement with restarting home beta shamika. continue to monitor #. Swallowing difficulties - Diet adjusted per speech therapy recommendations. #. Acute on chronic renal failure - initially resolved, slight rise in Cr today likely due to PRBC transfusions yesterday. #. Anemia - history of anemia of chronic disease, continue PO iron - stool occult positive, will need outpatient colonoscopy after discharge - s/p 2 units PRBCs, Hg improved to 9.0 this morning, continue to monitor daily and transfuse as indicated #. Thrombocytopenia. -Improved, monitor CBC daily #. T2DM - Sliding scale insulin achs - continue levemir 15 units am and 20 units hs dosing #. Renal Cell Carcinoma w/ mets to liver and pancreas. - Seen by Dr. Ocampo at [facility]. #. Skin cancer - Has been taking immunomodulator for past year through [facility]. #. Diabetic Neuropathy - Hold home gabapentin #. Hypertension - continue home bisoprolol DVT prophylaxis: sc heparin GI prophylaxis: not currently indicated DISPOSITION: pending negative blood cultures, PICC in place for home IV abx Attending attestation: I evaluated and examined the patient in person; I discussed the care with Resident in detail and agree with the plan above. VS,Pawanbone, I+O VS, Fishbone, I+O Laboratory Tests 10/25/19 00:01 10/25/19 05:50 Vital Signs Date Time Temp Pulse Resp B/P (MAP) Pulse Ox O2 Delivery O2 Flow Rate FiO2 10/25/19 10:08 90 126/66 10/25/19 06:00 98.1 18 Room Air 10/25/19 00:05 97 10/19/19 21:00 1.0 I&O- Last 24 Hours up to 6 AM 10/25/19 05:59 Intake Total 1597 ml Output Total 1375 ml Balance 222 ml JULIAN KOTHARI D.O. October 25, 2019 11:51 STANISLAW ACEVES MD October 27, 2019 16:12
--- NOTE | 2019-10-25 12:17 | IPN ---
DATE OF SERVICE: 10/24/2019 SUBJECTIVE: The patient says he still feels ill, but is feeling better than he was yesterday. He denies any fevers or chills. He says he just feels very tired and weak. However, he does feel slightly better than he did the day before. PHYSICAL EXAMINATION: Vitals: Temperature 98.1, pulse 92, respiratory rate 18, blood pressure 140/74, pulse oximetry 96% on room air. General: Alert and oriented male patient who was laying in bed. The patient appears mildly ill, but does not appear to be in any acute distress. HEENT: Normocephalic, atraumatic. Anicteric sclerae. Neck: Supple. No lymphadenopathy. Cardiovascular: Regular rate and rhythm with a 2/4 systolic murmur heard loudest over the fifth intercostal space at the midclavicular line. Respiratory: Clear to auscultation bilaterally. Abdomen: Soft. Nontender. Extremities: Nontender to palpation with no edema present. There is an ulcer overlying the mid foot with clean granulation tissue and no surrounding erythema or purulence on the left foot. The right foot has a metatarsal amputation. LABORATORIES: CBC today shows a white blood cell count of 7.9, hemoglobin 7.1, hematocrit 22.6, platelet count 165. Chemistry shows sodium 144, potassium 3.6, chloride 109, carbon dioxide 31, BUN 20, creatinine 1.24, glucose 76, calcium 7.7, iron 19, bilirubin 0.5, AST 28, ALT 32, alkaline phosphatase 119, total protein 6, albumin 1.6. C-reactive protein 13. Microbiology: Blood cultures from 10/22/2019 are negative for any growth after 24 hours. ASSESSMENT AND PLAN: The patient is a 74-year-old male who presented with methicillin-resistant Staphylococcus aureus (MRSA) bacteremia which was found to be causing endocarditis of the mitral valve. 1. 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 The most likely source of the infection was the Fydypv-V-Xhab which has been removed at this time. The patient was able to clear the infection with vancomycin, but has been switched to a combination of daptomycin and ceftaroline. According to nursing, the patient's daptomycin would be of a large financial burden to the patient if we were to discharge him home on that. For the time being, will keep him on ceftaroline and daptomycin with plans of switching him to vancomycin when he is ready for discharge. The patient will need 6 weeks of antibiotic therapy, starting since the first day of the negative culture which was 10/22/2019, which would be 12/03/2019. 2. Chronic osteomyelitis of the right foot status post excision of the first and second metatarsal with culture positive MRSA. This is stable and does not appear to be infected at this time. 3. History of metastatic renal carcinoma. On OPDIVO every 4 weeks. The patient's chemotherapy is currently on hold. We will try to obtain records.
[2019-10-25 14:00] VITALS: BP 126/65
--- NOTE | 2019-10-25 17:07 | IPN ---
DATE OF SERVICE: 10/25/2019 Patient seen and examined. States he is feeling so-so. States no problems with his foot. Vital signs are reviewed. He has remained afebrile. Labs are reviewed. White blood cell count is 8.7. Most recent ESR was 127. Most recent CRP is 11.8. Lower extremity examination: Dorsal sutures are coapted. There is no erythema surrounding incision or plantar wound. There is no necrotic tissue in the plantar wound. ASSESSMENT: A 74-year-old male with osteomyelitis, status post bone resection and incision and drainage. PLAN: Continue current dressing change. Antibiotics as directed by infectious disease. Continue partial weightbearing. Once discharged he should have followup with me in 1 week.
[2019-10-25] MEDS: ACETAMINOPHEN 500 MG TAB PO PRN (17:20)
[2019-10-25] MEDS: RAMELTEON 8 MG TAB (ROZEREM) PO SCH (21:35)
[2019-10-25 22:00] VITALS: BP 136/69
[2019-10-26] MEDS: ACETAMINOPHEN 500 MG TAB PO PRN ×3 (00:08→21:32)
[2019-10-26] MEDS: CEFTAROLINE FOSAMIL 600 MG in D5W MINI-BAG PLUS 50 ML IV SCH ×2 (05:08→13:06)
[2019-10-26] MEDS: HEPARIN SOD (PORCINE) 5000UNITS/ML VIAL (J1644 PER 1000UNITS) SQ SCH ×3 (05:09→21:31)
[2019-10-26] MEDS: SODIUM CHLORIDE 0.9% INJ 10 ML SYR IV SCH ×2 (05:09→16:57)
[2019-10-26 06:00] VITALS: BP 156/64
[2019-10-26 06:25] LABS: HEMATOCRIT 27.2 % (42.0-52.0); HEMOGLOBIN 8.6 g/dl (13.5-17.5); MEAN CORPUSCULAR HEMOGLOBIN 28.6 pg (27.0-33.0); MEAN CORPUSCULAR HGB CONC 31.6 g/dl (32.0-36.5); MEAN CORPUSCULAR VOLUME 90.4 fl (80.0-96.0); PLATELET COUNT, AUTOMATED 167 10^3/uL (150-450); RED BLOOD COUNT 3.01 10^6/uL (4.30-6.10); WHITE BLOOD COUNT 7.4 10^3/uL (4.0-10.0)
[2019-10-26 06:52] LABS: C REACTIVE PROTEIN QUANTITATIV 9.57 MG/DL (0.00-0.30); CALCIUM LEVEL 7.6 MG/DL (8.8-10.2); CREATININE FOR GFR 1.42 MG/DL (0.70-1.30); POTASSIUM SERUM 3.7 MEQ/L (3.5-5.1)
[2019-10-26] MEDS: HumaLOG INSULIN (NovoLOG) PER UNIT SC SCH ×4 (07:30→21:00)
[2019-10-26] MEDS: METOCLOPRAMIDE 5 MG TAB PO SCH ×4 (08:03→21:32)
[2019-10-26] MEDS: FERROUS GLUCONATE 324 MG TAB PO SCH (08:03)
[2019-10-26] MEDS: CREON-12 CAPSULE PO SCH ×2 (08:03→17:40)
[2019-10-26] MEDS: LACTOBACILLUS ACIDOPHILUS CAP (BACID) PO SCH (08:03)
[2019-10-26] MEDS: LEVEMIR (INSULIN DETEMIR) 1 UNITS/0.01ML SC SCH ×2 (08:03→21:00)
[2019-10-26] MEDS: bisoproloL fumarate 5 MG TAB PO SCH (09:39)
[2019-10-26] MEDS: LR 1,000 ML IV SCH (10:21)
[2019-10-26] MEDS: DAPTOmycin 850 MG in NS 50 ML IV SCH (10:22)
--- NOTE | 2019-10-26 10:30 | IPNPDOC ---
Text Note Date of Service The patient was seen on 10/26/19. NOTE SUBJECTIVE: Patient is a 74-year-old male admitted with altered mental status, found to be in a hyperosmolar hyperglycemic state and sepsis from MRSA bacteremia and infectious endocarditis. He states he is feeling well today. He continues to have diarrhea which is not improving with the pancreatic enzymes. No abdominal pain today. No fevers/chills. OBJECTIVE: PHYSICAL EXAM: Vitals: see below General: No acute distress, sitting up comfortably in bed. HEENT: Normocephalic, atraumatic. EOMI. No scleral icterus. Dry mucous membranes. No pharyngeal erythema or uvular deviation. Neck: No JVD or lymphadenopathy Cardiac: RRR, Normal S1 and S2, 3/6 holosystolic murmur over the left lower sternal border. No gallops or rubs. Pulm: Clear to auscultation b/l. Symmetric thorax. No wheezing, crackles, rhonchi Abd: Bowel Sounds present. Abdomen is soft, non-tender, non-distended. Ext: 1+ pitting edema of the left hand, no tenderness or erythema. Left foot with 3 toes amputated, no necrosis/skin breakdown. Right foot wrapped with bandages. Vascular: Capillary refill<2 seconds. Neuro: No focal neuro deficits. AOx3. LABORATORY DATA, MICROBIOLOGY: Please see below. ASSESSMENT AND PLAN: #. 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 indwelling port - S/p trans-metatarsal surgery on 10/17. DANIELITO on 10/18 showing mitral vegetations - blood cultures x2 from 10/21 continue to be negative so far. - DANIELITO performed showing posterior mitral valve vegetations - Infusaport removed by Dr. Potts - ID consulted for MRSA bacteremia, recommendations appreciated. - Initially started on vancomycin, switched to daptomycin and ceftaroline by ID (previously on vancomycin), PICC line placed for outpatient IV abx - He cannot afford the daptomycin outpatient, Dr. Armstrong will decide on abx for discharge - Dr. Hyatt with podiatry consulted, recommendations appreciated. f/u 1 week after discharge #. Diarrhea - restarted home pancreatic enzymes, but symptoms continue - check c. diff. may also be side effect from abx. he is already on probiotics #. Tachycardia - could be due to persistent bacteremia vs dehydration vs holding home beta shamika - resolved with restarting home beta shamika. continue to monitor #. Swallowing difficulties - Diet adjusted per speech therapy recommendations. #. Acute on chronic renal failure - initially resolved, has been trending up after starting daptomycin and ceftaroline - he may be returning to his baseline level after dropping lower with IV hydration, continue to monitor daily. #. Anemia - history of anemia of chronic disease, low iron level, continue PO iron - stool occult positive, will need outpatient colonoscopy after discharge - s/p 2 units PRBCs. continue to monitor daily and transfuse as indicated #. Thrombocytopenia. -Improved, monitor CBC daily #. T2DM - Sliding scale insulin achs - continue levemir 15 units am and 20 units hs dosing #. Renal Cell Carcinoma w/ mets to liver and pancreas. - Seen by Dr. Ocampo at [facility]. #. Skin cancer - Has been taking immunomodulator for past year through [facility]. #. Diabetic Neuropathy - Hold home gabapentin #. Hypertension - continue home bisoprolol DVT prophylaxis: sc heparin GI prophylaxis: not currently indicated DISPOSITION: pending negative blood cultures, PICC in place for home IV abx, may need rehab Attending attestation: I evaluated and examined the patient in person; I discussed the care with Resident in detail and agree with the plan above. VS,Fishbone, I+O VS, Fishbone, I+O Laboratory Tests 10/26/19 05:56 Vital Signs Date Time Temp Pulse Resp B/P (MAP) Pulse Ox O2 Delivery O2 Flow Rate FiO2 10/26/19 09:39 86 138/74 10/26/19 06:00 97.2 20 96 10/25/19 14:00 Room Air I&O- Last 24 Hours up to 6 AM 10/26/19 06:00 Intake Total 1117 ml Output Total 800 ml Balance 317 ml JULIAN KOTHARI D.O. October 26, 2019 10:30 STANISLAW ACEVES MD October 27, 2019 16:16
[2019-10-26 14:00] VITALS: BP 150/60
[2019-10-26] MEDS: RAMELTEON 8 MG TAB (ROZEREM) PO SCH (21:32)
[2019-10-26 22:00] VITALS: BP 132/59
[2019-10-27] MEDS: LR 1,000 ML IV SCH ×2 (02:22→14:48)
[2019-10-27 04:46] LABS: CLOSTRIDIUM DIFFICILE PCR NEGATIVE (NEGATIVE)
[2019-10-27 06:00] VITALS: BP 154/76
[2019-10-27] MEDS: SODIUM CHLORIDE 0.9% INJ 10 ML SYR IV SCH ×2 (06:00→17:51)
[2019-10-27 06:04] LABS: HEMOGLOBIN 9.4 g/dl (13.5-17.5); MEAN CORPUSCULAR HGB CONC 32.4 g/dl (32.0-36.5); MEAN CORPUSCULAR VOLUME 89.5 fl (80.0-96.0); PLATELET COUNT, AUTOMATED 182 10^3/uL (150-450); RED BLOOD COUNT 3.24 10^6/uL (4.30-6.10); WHITE BLOOD COUNT 7.8 10^3/uL (4.0-10.0)
--- NOTE | 2019-10-27 06:32 | IPN ---
DATE: 10/26/2019 Mr. Jo seems to be doing better. He still does not want to work with physical therapy because he feels weak and short of breath. He has had no fever or chills. No nausea, vomiting. Diarrhea has resolved. Temperature is 97.3, pulse 80, respirations 18, blood pressure 150/60, oxygen saturation 97% on room air. Heart: Normal S1, S2 with a holosystolic murmur 2/6, unchanged. Lungs: Are diminished at the bases but clear. No wheezes, rales, or rhonchi. Abdomen: Soft, nontender. No hepatosplenomegaly. Extremities: +1 pitting edema of the left hand and the right foot. No edema of the left foot with three toes amputated. Right foot was not examined today as the dressing had just been done. IMPRESSION: 1. Infectious endocarditis of the mitral valve with methicillin-resistant Staphylococcus aureus (MRSA). Currently on intravenous (IV) daptomycin and ceftaroline day #4. Patient's first blood culture was negative on 10/22/2019, and he will need to be treated with 6 weeks of IV antibiotics from 10/22/2019; end of therapy would be 12/03/2019. Blood cultures had become sterile before he was switched to daptomycin and ceftaroline and due to financial burden, patient will not be able to go home on those drugs and he will be switched back to vancomycin once ready for discharge. 2. Shortness of breath, probably combination of anemia, infection. Should monitor for congestive heart failure. 3. Acute kidney injury. Creatinine has increased from 1.1 to 1.4. Will need to monitor. Will start discontinuing possible culprits, including ceftaroline. LABS: White count is 7.4, hemoglobin 8.6, hematocrit 27.2, platelets 167, ESR 127. Sodium 143, potassium 3.7, chloride 110, bicarbonate 25, BUN 23, creatinine 1.42, glucose 90, calcium 7.6. CRP 9.57, down from 26. PLAN: Discontinue IV ceftaroline and switch to IV vancomycin on Wednesday, prior to patient being discharged to adjust his dose for home IV antibiotics to end on 12/03/2019 MTDD
[2019-10-27 06:34] LABS: C REACTIVE PROTEIN QUANTITATIV 10.2 MG/DL (0.00-0.30); CREATININE FOR GFR 1.43 MG/DL (0.70-1.30); GLOMERULAR FILTRATION RATE 51.6 (>42)
[2019-10-27] MEDS: HEPARIN SOD (PORCINE) 5000UNITS/ML VIAL (J1644 PER 1000UNITS) SQ SCH ×3 (06:47→21:09)
[2019-10-27 07:10] LABS: ERYTHROCYTE SEDIMENTATION RATE 126 mm/hr (0-20)
[2019-10-27] MEDS ORDERED: LOPERAMIDE 2 MG CAPLET PO PRN (08:00)
[2019-10-27] MEDS: METOCLOPRAMIDE 5 MG TAB PO SCH ×2 (09:18→12:15)
[2019-10-27] MEDS: LEVEMIR (INSULIN DETEMIR) 1 UNITS/0.01ML SC SCH ×2 (09:18→20:33)
[2019-10-27] MEDS: HumaLOG INSULIN (NovoLOG) PER UNIT SC SCH ×4 (09:18→20:33)
[2019-10-27] MEDS: LACTOBACILLUS ACIDOPHILUS CAP (BACID) PO SCH (09:18)
[2019-10-27] MEDS: FERROUS GLUCONATE 324 MG TAB PO SCH (09:19)
[2019-10-27] MEDS: CREON-12 CAPSULE PO SCH ×2 (09:19→17:51)
[2019-10-27] MEDS: bisoproloL fumarate 5 MG TAB PO SCH (09:22)
[2019-10-27] MEDS: DAPTOmycin 850 MG in NS 50 ML IV SCH (10:32)
--- NOTE | 2019-10-27 11:02 | IPNPDOC ---
Text Note Date of Service The patient was seen on 10/27/19. NOTE SUBJECTIVE: Patient is a 74-year-old male admitted with altered mental status, found to be in a hyperosmolar hyperglycemic state and sepsis from MRSA bacteremia and infectious endocarditis. He states he is feeling some improvement today. He states he has a hard time working with PT but feels he is doing better. He continues to have diarrhea, no nausea, vomiting, or abdominal pain. OBJECTIVE: PHYSICAL EXAM: Vitals: see below General: No acute distress, sitting up comfortably in bed. HEENT: Normocephalic, atraumatic. No scleral icterus. Dry mucous membranes. No pharyngeal erythema or uvular deviation. Neck: No JVD or lymphadenopathy Cardiac: RRR, Normal S1 and S2, 3/6 holosystolic murmur over the left lower sternal border. No gallops or rubs. Pulm: Clear to auscultation b/l. Symmetric thorax. No wheezing, crackles, rhonchi Abd: Bowel Sounds present. Abdomen is soft, non-tender, non-distended. Ext: 1+ pitting edema of the left hand, no tenderness or erythema. Left foot with 3 toes amputated, no necrosis/skin breakdown. Right foot wrapped with bandages. Vascular: Capillary refill<2 seconds. Neuro: No focal neuro deficits. AOx3. LABORATORY DATA, MICROBIOLOGY: Please see below. ASSESSMENT AND PLAN: #. 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 indwelling port - S/p trans-metatarsal surgery on 10/17. DANIELITO on 10/18 showing mitral vegetations - blood cultures x2 from 10/21 continue to be negative so far. - DANIELITO performed showing posterior mitral valve vegetations - Infusaport removed by Dr. Potts - ID consulted for MRSA bacteremia, recommendations appreciated. - Initially started on vancomycin, switched to daptomycin by ID, PICC line placed for outpatient IV abx - He cannot afford the daptomycin outpatient, will switch back to vancomycin prior to discharge, per Dr. Armstrong - Dr. Hyatt with podiatry consulted, recommendations appreciated. f/u 1 week after discharge #. Diarrhea - restarted home pancreatic enzymes, but symptoms continue - c. diff negative. he is on probiotic. Imodium as needed. - continue gentle IV fluid hydration until his diarrhea resolves to prevent dehydration #. Tachycardia - could be due to persistent bacteremia vs dehydration vs holding home beta shamika - resolved with restarting home beta shamika. continue to monitor #. Swallowing difficulties - Diet adjusted per speech therapy recommendations. #. Acute on chronic renal failure - initially resolved, has been trending up after starting daptomycin and ceftaroline - he may be returning to his baseline level after dropping lower with IV hydration, continue to monitor daily. #. Anemia - history of anemia of chronic disease, low iron level, continue PO iron - stool occult positive, will need outpatient colonoscopy after discharge - s/p 2 units PRBCs. continue to monitor daily and transfuse as indicated #. Thrombocytopenia. -Improved, monitor CBC daily #. T2DM - Sliding scale insulin achs - continue levemir 15 units am and 20 units hs dosing #. Renal Cell Carcinoma w/ mets to liver and pancreas. - Seen by Dr. Ocampo at [facility]. #. Skin cancer - Has been taking immunomodulator for past year through [facility]. #. Diabetic Neuropathy - Hold home gabapentin #. Hypertension - continue home bisoprolol DVT prophylaxis: sc heparin GI prophylaxis: not currently indicated DISPOSITION: likely d/c early next week, PICC in place for home IV abx Attending attestation: I evaluated and examined the patient in person; I discussed the care with Resident in detail and agree with the plan above. VS,Pawanbone, I+O VS, Pawanbone, I+O Laboratory Tests 10/27/19 05:46 Vital Signs Date Time Temp Pulse Resp B/P (MAP) Pulse Ox O2 Delivery O2 Flow Rate FiO2 10/27/19 09:22 94 139/78 10/27/19 06:00 97.8 18 95 10/26/19 14:00 Room Air I&O- Last 24 Hours up to 6 AM 10/27/19 05:59 Intake Total 2903 ml Output Total 975 ml Balance 1928 ml JULIAN KOTHARI D.O. October 27, 2019 11:02 STANISLAW ACEVES MD October 27, 2019 16:29
--- NOTE | 2019-10-27 13:21 | PHACANCOPD ---
PHARMACY VANCOMYCIN DOSING Pt Demographics Demographics Patient Age:74 , Weight:84.090 , Gender: male Adjusted Body Weight Date: 10/17/19, Adjusted Body Weight: [80] Kg Vancomycin Vancomycin indication: RLE OSTEO(DIABETIC INFECTION) Vancomycin Target Ranges: 15-20 mcg/ml Vancomycin Load Y/N: Yes Load Dose Date Time Vancomycin Load Dose: 1.5GM Date: 10/15 Time: 2344 Vancomycin Dose Date: 10/17/19. Current Vancomycin Dose: [1 GM Q24H] Intermittent Dosing?: No Labs Micro Microbiology 10/24/19 Stool Occult Blood (MYNOR) - Final, Complete 10/24/19 Blood Culture - Preliminary, Resulted No Growth after 72 hours. All specime... 10/22/19 Blood Culture - Preliminary, Resulted No Growth after 72 hours. All specime... 10/22/19 Blood Culture - Preliminary, Resulted No Growth after 72 hours. All specime... 10/21/19 Blood Culture - Final, Complete Staph.aureus Methicillin Resis 10/21/19 Blood Culture - Final, Complete NO GROWTH AFTER 5 DAYS 10/20/19 Blood Culture - Final, Complete Staph.aureus Methicillin Resis 10/20/19 Blood Culture - Final, Complete NO GROWTH AFTER 5 DAYS 10/19/19 Catheter Tip Culture - Final, Complete Staph.aureus Methicillin Resis 10/19/19 Blood Culture - Final, Complete NO GROWTH AFTER 5 DAYS 10/19/19 Blood Culture - Final, Complete NO GROWTH AFTER 5 DAYS 10/18/19 Gram Stain - Final, Complete 10/18/19 Wound Culture - Final, Complete Staph.aureus Methicillin Resis 10/18/19 Anaerobic Culture - Final, Complete 10/18/19 Blood Culture - Final, Complete NO GROWTH AFTER 5 DAYS 10/17/19 Blood Culture - Final, Complete Staph.aureus Methicillin Resis 10/17/19 Blood Culture - Final, Complete Staph.aureus Methicillin Resis Creatinine Clearance Date:10/17/19. Creatinine Clearance: [7.3].CALCULATED Assessment and Plan Maintaining Current Dose?: No Reason for dose change: Other Pharmacist Note Pharmacist Note Date: 10/27/19. Vancomycin consult placed to restart patient on vancomycin. Patient originally planned to be discharged on daptomycin however patient is unable to afford. Dr. Armstrong asked us to convert patient to vancomycin q24h dosing for discharge. Giving patient 1G LD IV vancomycin tonight at 2100 (received daptomycin @1030) followed by a 1250mg q24h IV vancomycin to start tomorrow at 0800. Trough scheduled for 10/29 @0700 in order to determine if dose needs to be adjusted before patient discharged. I will continue to monitor this patient and adjust dose as needed. Date: 10/17/19. Pharmacist note:74YOM,HT:72",WT:84.1(ABW=80)KG,SCR=2.73,CRCL~27.3.Extensive hx of comorbidities, admitted D/T diabetic foot infection(R/O osteo).TX includes Pip/Tazo 3.375 IV [id number] and Pharmacy dosed Vancomycin.Vanco 1.5 gm as loading dose / then will begin 1 gram IV [id number] on 10/16@1500.First trough is scheduled for 10/17@1400(prior to the 3rd dose. Will continue to follow [facility] October 27, 2019 13:20
[2019-10-27 14:00] VITALS: BP 150/70
[2019-10-27] MEDS ORDERED: VANCOMYCIN HCL 1,000 MG, VIAL MATE ADAPTER 1 EACH in D5W 250 ML IV ONE (21:00)
[2019-10-27] MEDS: RAMELTEON 8 MG TAB (ROZEREM) PO SCH (21:03)
[2019-10-27 22:00] VITALS: BP 142/76
[2019-10-27] MEDS: ACETAMINOPHEN 500 MG TAB PO PRN (23:31)
--- NOTE | 2019-10-27 23:36 | IPN ---
DATE: 10/27/2019 SUBJECTIVE: The patient is a 74-year-old male who presented to the hospital on 10/17/2019 with sepsis, which was found to be methicillin-resistant Staphylococcus aureus (MRSA) bacteremia secondary to an infected port which has caused mitral valve endocarditis. Patient is doing better today. He did say that he had multiple episodes of diarrhea last night. Patient did have a negative test for Clostridium (C) difficile colitis, and patient's ceftaroline had been discontinued. Patient says this morning he is feeling better and feels like he is emptied out. Patient is still feeling weak and has been trying to work with physical therapy, but it is still going very slowly. Patient says he does feel stronger and will attempt to work with physical therapy later on today. The patient does not have any other acute complaints today. PHYSICAL EXAM: Vital Signs: Temperature 97.8, pulse 94, respiratory rate 18, blood pressure 139/78, pulse oximetry 95% on room air. General: Patient is an alert and oriented male patient who was sitting in the hospital bed when I walked into the room. The patient did not appear to be in any acute distress. HEENT: Normocephalic, atraumatic with anicteric sclerae. Patient had moist mucous membranes. Cardiovascular: Regular rate and rhythm with a holosystolic murmur heard loudest at the apex, grade 2/6. Lungs: Clear to auscultation bilaterally. Abdomen: Soft, nontender with no organomegaly. Extremities: Patient's amputation of the digits on his right foot are healing well. There is an open wound that is about 3-4 mm of depth, shows healthy granulation tissue upon exam. LABORATORY: CBC: White blood cells 7.8, hemoglobin 9.4, hematocrit 29.0, platelets 182. ESR 126. Sodium 140, potassium 4.0, chloride 109, carbon dioxide 24, BUN 22, creatinine 1.43, fasting glucose 158, calcium 8.0, C-reactive protein 10.2, NT-pro-BNP 1828. IMAGING: No new imaging has been performed. MICROBIOLOGY: Patient's blood cultures drawn on 10/22/2019 are negative after 72 hours. Patient's blood culture on 10/24/2019 was also negative times 72 hours. ASSESSMENT AND PLAN: Patient is a 74-year-old male who presented with MRSA bacteremia, who was found to have mitral valve endocarditis on transesophageal echocardiogram (DANIELITO). 1. 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 Patient's first negative blood culture was on 10/22/2019, and he will need to be treated for 6 weeks of IV antibiotics from 10/22/2019, which would be an end of therapy date of 12/03/2019. Because the patient had diarrhea, his ceftaroline has been discontinued and patient only received daptomycin today, 10/27/2019. Because of financial constraints, the patient will be switched back to vancomycin so he can be discharged on this dose. We have spoken with the pharmacy, who recommended doing a loading dose this evening of 1000 mg to be given at 2100 hours. The patient will then start with 1250 mg IV daily starting tomorrow morning. Once the patient is discharged, he will continue on 1250 mg of IV vancomycin with weekly CBC, basic metabolic profile, CRP, ESR and vancomycin trough weekly. Patient will followup with infectious disease upon discharge. We have also spoken to the patient's oncologist, Dr. Jorge Ocampo, who will be holding chemotherapy for the patient's metastatic renal cell carcinoma until after therapy is completed on 12/03/2019. 2. Shortness of breath, which is probably a combination of anemia/infection. We should monitor the patient for congestive heart failure. 3. Acute kidney injury. Creatinine has increased to 1.4 and is stable at this time. Ceftaroline has been discontinued. PLAN: Plan to switch antibiotics as above and pharmacy is following along for vancomycin dosing at this time.
[2019-10-28] MEDS: SODIUM CHLORIDE 0.9% INJ 10 ML SYR IV SCH ×2 (05:07→18:17)
[2019-10-28] MEDS: HEPARIN SOD (PORCINE) 5000UNITS/ML VIAL (J1644 PER 1000UNITS) SQ SCH ×3 (05:27→20:53)
[2019-10-28 06:00] VITALS: BP 139/71
[2019-10-28 06:44] LABS: HEMATOCRIT 26.2 % (42.0-52.0); HEMOGLOBIN 8.3 g/dl (13.5-17.5); MEAN CORPUSCULAR HEMOGLOBIN 29.3 pg (27.0-33.0); MEAN CORPUSCULAR HGB CONC 31.7 g/dl (32.0-36.5); MEAN CORPUSCULAR VOLUME 92.6 fl (80.0-96.0); PLATELET COUNT, AUTOMATED 158 10^3/uL (150-450); RED BLOOD COUNT 2.83 10^6/uL (4.30-6.10)
[2019-10-28 07:12] LABS: CALCIUM LEVEL 7.7 MG/DL (8.8-10.2); CREATININE FOR GFR 1.42 MG/DL (0.70-1.30); POTASSIUM SERUM 3.9 MEQ/L (3.5-5.1)
[2019-10-28] MEDS: LR 1,000 ML IV SCH (08:10)
[2019-10-28] MEDS: LACTOBACILLUS ACIDOPHILUS CAP (BACID) PO SCH (08:38)
[2019-10-28] MEDS: CREON-12 CAPSULE PO SCH ×2 (08:39→18:16)
[2019-10-28] MEDS: VANCOMYCIN HCL 750 MG, VIAL MATE ADAPTER 1 EACH in D5W 250 ML IV SCH (08:40)
[2019-10-28] MEDS: FERROUS GLUCONATE 324 MG TAB PO SCH (08:40)
[2019-10-28] MEDS: bisoproloL fumarate 5 MG TAB PO SCH (08:40)
[2019-10-28] MEDS: HumaLOG INSULIN (NovoLOG) PER UNIT SC SCH ×4 (08:41→20:52)
[2019-10-28] MEDS: LEVEMIR (INSULIN DETEMIR) 1 UNITS/0.01ML SC SCH ×2 (08:41→20:53)
[2019-10-28] MEDS ORDERED: VANCOMYCIN HCL 1,500 MG, VIAL MATE ADAPTER 1 EACH in D5W 250 ML IV ONE (09:00)
[2019-10-28] MEDS: VANCOMYCIN HCL 500 MG in D5W MINI-BAG PLUS 100 ML IV SCH (10:16)
--- NOTE | 2019-10-28 10:19 | IPNPDOC ---
Text Note Date of Service The patient was seen on 10/28/19. NOTE SUBJECTIVE: Patient is a 74-year-old male admitted with altered mental status, found to be in a hyperosmolar hyperglycemic state and sepsis from MRSA bacteremia and infectious endocarditis. He states he is feeling well today. He no longer is having diarrhea, although he did have some gas with the Imodium. No abdominal pain or nausea/vomiting. No fevers/chills, chest pain, shortness of breath. States he cleared PT yesterday to be able to go home instead of rehab. OBJECTIVE: PHYSICAL EXAM: Vitals: see below General: No acute distress, sitting up comfortably in bed. HEENT: Normocephalic, atraumatic. No scleral icterus. Dry mucous membranes. No pharyngeal erythema or uvular deviation. Neck: No JVD or lymphadenopathy Cardiac: RRR, Normal S1 and S2, 3/6 holosystolic murmur over the left lower sternal border. No gallops or rubs. Pulm: Clear to auscultation b/l. Symmetric thorax. No wheezing, crackles, rhonchi Abd: Bowel Sounds present. Abdomen is soft, non-tender, non-distended. Ext: 1+ pitting edema of the left hand, no tenderness or erythema. Left foot with 3 toes amputated, no necrosis/skin breakdown. Right foot wrapped with bandages. Vascular: Capillary refill<2 seconds. Neuro: No focal neuro deficits. AOx3. LABORATORY DATA, MICROBIOLOGY: Please see below. ASSESSMENT AND PLAN: #. 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 indwelling port - S/p trans-metatarsal surgery on 10/17. DANIELITO on 10/18 showing mitral vegetations - Infusaport removed by Dr. Potts - Dr. Hyatt with podiatry consulted, recommendations appreciated. f/u 1 week after discharge - blood cultures x2 from 10/21 negative after 5 days, so he will need at least 6 weeks of abx starting form 10/21 - ID consulted for MRSA bacteremia, recommendations appreciated. - Initially started on vancomycin, switched to daptomycin and ceftaroline, now back to vancomycin due to cost of outpt dapto - PICC line placed for outpatient IV abx, end date 12/03/2019 with follo up with Dr. Armstrong #. Diarrhea - restarted home pancreatic enzymes, but symptoms continue - c. diff negative. he is on probiotic. Imodium as needed. #. Tachycardia - could be due to persistent bacteremia vs dehydration vs holding home beta shamika - resolved with restarting home beta shamika. continue to monitor #. Swallowing difficulties - Diet adjusted per speech therapy recommendations. #. Acute on chronic renal failure - initially resolved, has been trending up after starting daptomycin and ceftaroline - he may be returning to his baseline level after dropping lower with IV hydration, continue to monitor daily. #. Anemia - history of anemia of chronic disease, low iron level, continue PO iron - stool occult positive, will need outpatient colonoscopy after discharge - s/p 2 units PRBCs. continue to monitor daily and transfuse as indicated #. Thrombocytopenia. -Improved, monitor CBC daily #. T2DM - Sliding scale insulin achs - continue levemir 15 units am and 20 units hs dosing #. Renal Cell Carcinoma w/ mets to liver and pancreas. - Seen by Dr. Ocampo at [facility]. #. Skin cancer - Has been taking immunomodulator for past year through [facility]. #. Diabetic Neuropathy - Hold home gabapentin #. Hypertension - continue home bisoprolol DVT prophylaxis: sc heparin GI prophylaxis: not currently indicated DISPOSITION: likely d/c home early next week, PICC in place for home IV abx VS,Fishbone, I+O VS, Fishbone, I+O Laboratory Tests 10/28/19 06:16 Vital Signs Date Time Temp Pulse Resp B/P (MAP) Pulse Ox O2 Delivery O2 Flow Rate FiO2 10/28/19 08:40 88 136/70 10/28/19 06:00 97.1 18 97 Room Air I&O- Last 24 Hours up to 6 AM 10/28/19 06:00 Intake Total 2380 ml Output Total 1445 ml Balance 935 ml JULIAN KOTHARI D.O. October 28, 2019 10:19
[2019-10-28] MEDS: SODIUM CHLORIDE 0.9% INJ 10 ML SYR IV PRN (11:58)
[2019-10-28 14:00] VITALS: BP 127/69
[2019-10-28] MEDS: ACETAMINOPHEN 500 MG TAB PO PRN ×2 (15:47→23:57)
[2019-10-28] MEDS: RAMELTEON 8 MG TAB (ROZEREM) PO SCH (20:53)
[2019-10-28 22:00] VITALS: BP 150/82
[2019-10-29] MEDS: HEPARIN SOD (PORCINE) 5000UNITS/ML VIAL (J1644 PER 1000UNITS) SQ SCH ×3 (05:40→20:24)
[2019-10-29] MEDS: SODIUM CHLORIDE 0.9% INJ 10 ML SYR IV SCH ×2 (05:40→18:07)
[2019-10-29 06:00] VITALS: BP 158/64
[2019-10-29 06:58] LABS: HEMATOCRIT 25.6 % (42.0-52.0); HEMOGLOBIN 8.1 g/dl (13.5-17.5); MEAN CORPUSCULAR HEMOGLOBIN 28.7 pg (27.0-33.0); MEAN CORPUSCULAR HGB CONC 31.6 g/dl (32.0-36.5); MEAN CORPUSCULAR VOLUME 90.8 fl (80.0-96.0); PLATELET COUNT, AUTOMATED 158 10^3/uL (150-450); RED BLOOD COUNT 2.82 10^6/uL (4.30-6.10); WHITE BLOOD COUNT 6.3 10^3/uL (4.0-10.0)
[2019-10-29 07:21] LABS: CALCIUM LEVEL 7.6 MG/DL (8.8-10.2); CREATININE FOR GFR 1.51 MG/DL (0.70-1.30); GLOMERULAR FILTRATION RATE 48.5 (>42); POTASSIUM SERUM 3.5 MEQ/L (3.5-5.1)
[2019-10-29] MEDS: HumaLOG INSULIN (NovoLOG) PER UNIT SC SCH ×4 (07:30→20:23)
[2019-10-29] MEDS: LACTOBACILLUS ACIDOPHILUS CAP (BACID) PO SCH (08:37)
[2019-10-29] MEDS: bisoproloL fumarate 5 MG TAB PO SCH (08:37)
[2019-10-29] MEDS: CREON-12 CAPSULE PO SCH ×2 (08:37→18:06)
[2019-10-29] MEDS: FERROUS GLUCONATE 324 MG TAB PO SCH (08:38)
[2019-10-29] MEDS: VANCOMYCIN HCL 500 MG in D5W MINI-BAG PLUS 100 ML IV SCH (08:38)
[2019-10-29] MEDS: VANCOMYCIN HCL 750 MG, VIAL MATE ADAPTER 1 EACH in D5W 250 ML IV SCH (08:38)
[2019-10-29] MEDS ORDERED: MOM 30ML SUSPENSION UDC PO PRN (09:00)
[2019-10-29] MEDS ORDERED: VANCOMYCIN HCL 1,250 MG, VIAL MATE ADAPTER 1 EACH in D5W 250 ML IV SCH (09:00)
[2019-10-29] MEDS: SODIUM CHLORIDE 0.9% INJ 10 ML SYR IV PRN (11:14)
[2019-10-29] MEDS ORDERED: ANALGESIC BALM CRM 120 GM TOP PRN (13:00)
[2019-10-29 14:00] VITALS: BP 149/83
[2019-10-29] MEDS: ACETAMINOPHEN 500 MG TAB PO PRN (18:06)
--- NOTE | 2019-10-29 19:09 | IPNPDOC ---
Date Seen The patient was seen on 10/29/19. Progress Note SUBJECTIVE: 74-year-old male was admitted for [facility], subsequent found to have MRSA bacteremia, now with confirmed endocarditis of the mitral valve. Patient has been restarted on vancomycin, with good clinical response, comfortable, without complaints at this time. Patient's diarrhea has resolved, in fact, now has constipation. Patient denies any chest pain, shortness of breath, nausea or vomiting. 10 point review of system is negative except for above PHYSICAL EXAMINATION: VITAL SIGNS: Please see below. GENERAL: No distress HEENT: Normocephalic, atraumatic, moist mucous membranes NECK: Supple CARDIOVASCULAR EXAMINATION: S1, S2, tachycardic RESPIRATORY EXAMINATION: Scattered rhonchi in the bases, no wheezing ABDOMINAL EXAMINATION: Soft, nontender, nondistended, positive bowel sounds EXTREMITIES: Range of motion intact, right foot with dressing in place SKIN: No rash NEUROLOGICAL EXAMINATION: Alert and oriented 3, no focal deficits PSYCHIATRIC EXAMINATION: Calm and cooperative LABORATORY DATA, IMAGING STUDIES, MICROBIOLOGY: Please see below. ASSESSMENT AND PLAN: 74-year-old male with multiple medical comorbidities, was admitted for [facility], subsequently found to have MRSA bacteremia/endocarditis, also with chronic osteomyelitis of right foot. PROBLEMS: 1. Endocarditis of mitral valve: Cultures grew MRSA, continue vancomycin, plan for discharge tomorrow when outpatient infusion arrangements have been completed, ID following. 2. Chronic osteomyelitis of right foot: Status post resection of first and second metatarsal by podiatry, cultures grew MRSA, antibiotics as above. 3. Diabetes mellitus: Continue Levemir along with sliding scale insulin coverage with meals and at bedtime. DVT prophylaxis: Heparin subcutaneous GI prophylaxis: Not needed VS, I&O, 24H, Luis Alfredo Vital Signs/I&O Vital Signs Date Time Temp Pulse Resp B/P (MAP) Pulse Ox O2 Delivery O2 Flow Rate FiO2 10/29/19 14:00 97.6 98 17 149/83 (105) 95 Room Air I&O- Last 24 Hours up to 6 AM 10/29/19 06:00 Intake Total 1545 ml Output Total 1575 ml Balance -30 ml Laboratory Data 24H LABS Laboratory Tests 2 10/28/19 20:39: Bedside Glucose (Misc Panel) 166H 10/29/19 06:45: Nucleated Red Blood Cells % (auto) 0.0, Anion Gap 6L, Glomerular Filtration Rate 48.5, Calcium Level 7.6L, Vancomycin Level Trough 15.6 10/29/19 11:29: Bedside Glucose (Misc Panel) 199H 10/29/19 16:49: Bedside Glucose (Misc Panel) 199H CBC/BMP Laboratory Tests 10/29/19 06:45 Microbiology Microbiology 10/24/19 Stool Occult Blood (MYNOR) - Final, Complete 10/24/19 Blood Culture - Final, Complete NO GROWTH AFTER 5 DAYS 10/22/19 Blood Culture - Final, Complete NO GROWTH AFTER 5 DAYS 10/22/19 Blood Culture - Final, Complete NO GROWTH AFTER 5 DAYS 10/21/19 Blood Culture - Final, Complete Staph.aureus Methicillin Resis 10/21/19 Blood Culture - Final, Complete NO GROWTH AFTER 5 DAYS 10/20/19 Blood Culture - Final, Complete Staph.aureus Methicillin Resis 10/20/19 Blood Culture - Final, Complete NO GROWTH AFTER 5 DAYS 10/19/19 Catheter Tip Culture - Final, Complete Staph.aureus Methicillin Resis 10/19/19 Blood Culture - Final, Complete NO GROWTH AFTER 5 DAYS 10/19/19 Blood Culture - Final, Complete NO GROWTH AFTER 5 DAYS STANISLAW ACEVES MD October 29, 2019 19:09
[2019-10-29] MEDS: RAMELTEON 8 MG TAB (ROZEREM) PO SCH (20:24)
[2019-10-29] MEDS ORDERED: LEVEMIR (INSULIN DETEMIR) 1 UNITS/0.01ML SC SCH (21:00)
[2019-10-29 22:00] VITALS: BP 148/71
[2019-10-30] MEDS: ACETAMINOPHEN 500 MG TAB PO PRN (00:18)
[2019-10-30] MEDS: SODIUM CHLORIDE 0.9% INJ 10 ML SYR IV SCH (05:28)
[2019-10-30] MEDS: HEPARIN SOD (PORCINE) 5000UNITS/ML VIAL (J1644 PER 1000UNITS) SQ SCH (05:28)
[2019-10-30 06:00] VITALS: BP 139/75
[2019-10-30 06:45] LABS: HEMATOCRIT 25.1 % (42.0-52.0); MEAN CORPUSCULAR HGB CONC 31.9 g/dl (32.0-36.5); MEAN CORPUSCULAR VOLUME 90.9 fl (80.0-96.0); PLATELET COUNT, AUTOMATED 153 10^3/uL (150-450); RED BLOOD COUNT 2.76 10^6/uL (4.30-6.10); WHITE BLOOD COUNT 5.3 10^3/uL (4.0-10.0)
[2019-10-30 07:10] LABS: CALCIUM LEVEL 7.6 MG/DL (8.8-10.2); CREATININE FOR GFR 1.32 MG/DL (0.70-1.30); GLOMERULAR FILTRATION RATE 56.6 (>42); POTASSIUM SERUM 3.9 MEQ/L (3.5-5.1)
[2019-10-30] MEDS: HumaLOG INSULIN (NovoLOG) PER UNIT SC SCH ×2 (07:30→12:21)
[2019-10-30] MEDS: LACTOBACILLUS ACIDOPHILUS CAP (BACID) PO SCH (08:07)
[2019-10-30] MEDS: VANCOMYCIN HCL 750 MG, VIAL MATE ADAPTER 1 EACH in D5W 250 ML IV SCH (08:07)
[2019-10-30] MEDS: FERROUS GLUCONATE 324 MG TAB PO SCH (08:08)
[2019-10-30] MEDS: CREON-12 CAPSULE PO SCH (08:15)
[2019-10-30 08:16] VITALS: BP 136/79
[2019-10-30] MEDS: bisoproloL fumarate 5 MG TAB PO SCH (08:16)
[2019-10-30] MEDS: VANCOMYCIN HCL 500 MG in D5W MINI-BAG PLUS 100 ML IV SCH (09:25)
[2019-10-30] MEDS ORDERED: ANTI2TAB16 PO (11:04)
[2019-10-30] MEDS ORDERED: FERR32TA PO (11:04)
[2019-10-30] MEDS ORDERED: RISATAB3 PO (11:04)
[2019-10-30] MEDS ORDERED: BASA100I SC (11:04)
--- NOTE | 2019-10-30 13:39 | DS.PDOC ---
Discharge Summary General Date of Admission Oct 17, 2019 at 00:20 Date of Discharge October 30, 2019 Attending Physician: STANISLAW ACEVES MD Discharge Summary PROCEDURES PERFORMED DURING STAY: None. ADMITTING DIAGNOSES: 1. Hyperosmolar hyperglycemia. 2. Metabolic encephalopathy 3. Sepsis secondary to right diabetic foot ulcer, versus osteomyelitis. 4. Hypertension. 5. Diabetic neuropathy. 6. Renal cell carcinoma with metastases to liver and pancreas. 7. Anemia and thrombocytopenia. 8. Chemotherapy induced rash DISCHARGE DIAGNOSES: 1. 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 Metabolic encephalopathy secondary to sepsis 3. Chronic osteomyelitis of the right foot 4. Hypertension. 5. Diabetes mellitus with neuropathy. 6. Renal cell carcinoma with metastases to liver and pancreas. 7. Anemia and thrombocytopenia. COMPLICATIONS/CHIEF COMPLAINT: Sepsis. 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 The time I exam he was not appropriate answering questions so his provided majority of the history. The is also a poor historian but states the last 3 days the patient has had no altered mental status is that when communicating his noncoherent and he was urinating a lot. She denies him having any fevers, chills, night sweats. She believes he is not taking his medication for the last 24 hours and has noticed decreased by mouth intake in the last couple of days. She does know his last chemotherapy was 10/05(Wednesday) and he normally gets a rash after his chemotherapy. She does not believe he got a rash this time though and his flushed skin that he has on exam today is baseline. The patient was unable to communicate appropriately any complaints today. In the ER, vitals showed febrile (100.7), tachycardic at 136, tachypnea (>20), with normotensive blood pressure. Is not appropriately answering questions. CBC did show normal WBC, glucose of 1035, BUN and creatinine of 71 and 2.73 respectively, ABG pH was 7.344 and lactic acid was 2.830. ED, CT the head was negative as well as chest x-ray. Hospital team was then called for management HHS. HOSPITAL COURSE: Patient was admitted to the hospital and started on IV fluids and insulin drip for hyperosmolar hyperglycemia state, which subsequently resolved. . He was empirically started on IV vancomycin and meropenem due to concern for osteomyelitis. He continued to have fevers and tachycardia. Dr. Jennifer Jennings was consulted for osteomyelitis and performed a transmetatarsal surgery. Blood cultures were positive for MRSA, vancomycin was continued and meropenem was discontinued. His [id number] was removed by Dr. Potts. DANIELITO revealed vegetations concerning for endocarditis. Infectious disease was consulted. The initial plan was to switch the patient to daptomycin and soft. Her lean for 6 weeks of antibiotic coverage. Due to financial concerns, the patient was swit ched back to vancomycin and will continue this for a total of 6 weeks from the date of the first set of negative blood cultures. A PICC line was placed. He will follow-up with Dr. Armstrong concerning his outpatient IV antibiotics and resolution of his endocarditis. He will follow-up with Dr. Hyatt concerning his right foot which has been operated on. During admission he developed diarrhea, Clostridium difficile testing was negative and the patient's symptoms improved with treatment with Imodium. He was also started on iron supplementation due to continued anemia. He had a positive stool occult and will need an outpatient colonoscopy when he is more medically stable. DISCHARGE MEDICATIONS: Please see below. ALLERGIES: Please see below. PHYSICAL EXAMINATION ON DISCHARGE: VITAL SIGNS: Please see below. General: No acute distress, sitting up comfortably in bed. HEENT: Normocephalic, atraumatic. No scleral icterus. Dry mucous membranes. No pharyngeal erythema or uvular deviation. Neck: No JVD or lymphadenopathy Cardiac: RRR, Normal S1 and S2, 3/6 holosystolic murmur over the left lower s ternal border. No gallops or rubs. Pulm: Clear to auscultation b/l. Symmetric thorax. No wheezing, crackles, rhonchi Abd: Bowel Sounds present. Abdomen is soft, non-tender, non-distended. Ext: 1+ pitting edema of the left hand, no tenderness or erythema. Left foot with 3 toes amputated, no necrosis/skin breakdown. Right foot wrapped with bandages. Vascular: Capillary refill<2 seconds. Neuro: No focal neuro deficits. AOx3. LABORATORY DATA: Please see below. PROGNOSIS: Fair to poor ACTIVITY: As tolerated. DIET: Consistent carbohydrate DISPOSITION: Home with services DISCHARGE INSTRUCTIONS: 1. Follow-up with your PCP in 7-10 days. Follow up with Dr. Armstrong in 1 week. 2. Please take all your medications as listed. Please continue with IV vancomycin infusions. 3. If your symptoms return or your condition worsens, please call your PCP or return to the ED for further evaluation. ITEMS TO FOLLOWUP ON ON OUTPATIENT: 1. Acute endocarditis - f/u Dr. Armstrong 2. Trans metatarsal surgery - f/u Dr. Hyatt 3. Anemia - needs outpatient colonoscopy for positive stool occult, f/u PCP DISCHARGE CONDITION: Stable. TIME SPENT ON DISCHARGE: Greater than 35 minutes. Vital Signs/I&Os Vital Signs Date Time Temp Pulse Resp B/P (MAP) Pulse Ox O2 Delivery O2 Flow Rate FiO2 10/30/19 08:16 102 136/79 10/30/19 06:00 97.4 18 96 Room Air I&O- Last 24 Hours up to 6 AM 10/30/19 06:00 Intake Total 1535 ml Output Total 2700 ml Balance -1165 ml Laboratory Data Labs 24H Laboratory Tests 2 10/29/19 16:49: Bedside Glucose (Misc Panel) 199H 10/29/19 20:10: Bedside Glucose (Misc Panel) 260H 10/30/19 06:20: Nucleated Red Blood Cells % (auto) 0.0, Anion Gap 6L, Glomerular Filtration Rate 56.6, Calcium Level 7.6L 10/30/19 11:28: Bedside Glucose (Misc Panel) 165H CBC/BMP Laboratory Tests 10/30/19 06:20 FSBS Laboratory Tests Test 10/29/19 16:49 10/29/19 20:10 10/30/19 11:28 Range/Units Bedside Glucose (Misc Panel) 199 260 165 83-110 MG/DL Microbiology Microbiology 10/24/19 Stool Occult Blood (MYNOR) - Final, Complete 10/24/19 Blood Culture - Final, Complete NO GROWTH AFTER 5 DAYS 10/22/19 Blood Culture - Final, Complete NO GROWTH AFTER 5 DAYS 10/22/19 Blood Culture - Final, Complete NO GROWTH AFTER 5 DAYS 10/21/19 Blood Culture - Final, Complete Staph.aureus Methicillin Resis 10/21/19 Blood Culture - Final, Complete NO GROWTH AFTER 5 DAYS 10/20/19 Blood Culture - Final, Complete Staph.aureus Methicillin Resis 10/20/19 Blood Culture - Final, Complete NO GROWTH AFTER 5 DAYS Discharge Medications Scheduled Bisoprolol Fumarate (Bisoprolol Fumarate) 10 Mg Tab, 5 MG PO DAILY, (Reported) Ferrous Gluconate (Ferrous Gluconate) 324 Mg Tablet, 324 MG PO DAILY Gabapentin (Gabapentin) 300 Mg Cap, 300 MG PO QHS, (Reported) Glipizide (Glipizide ER) 10 Mg Tab, 10 MG PO DAILY, (Reported) Insulin Glargine,Hum.rec.anlog (Basaglar Kwikpen U-100) 100 Unit/1 Ml Insuln.pen, 30 UNIT SC QHS Insulin Human Lispro (Novolog) 100 U/Ml Inj, 1 DOSE SC AC, (Reported) PER SLIDING SCALE L.acidoph/L.bulg/B.bif/S.therm (Shanna-Bid Caplet) 1 Each Tablet, 2 EA PO DAILY@0800 Levothyroxine Sodium (Synthroid) 25 Mcg Tablet, 25 MCG PO DAILY, (Reported) Losartan Potassium (Losartan Potassium) 25 Mg Tablet, 25 MG PO DAILY, (Reported) Multivitamins (Thera M Plus Tablet) 1 Tab Tab, 1 TAB PO DAILY, (Reported) Nivolumab (Opdivo) 240 Mg/24 Ml Vial, 240 MG IV Q4WKS, (Reported) LAST INFUSION ON 10/06/19 Pancreatic Enzymes (Creon Dr 12,000 Units Capsule) 1 Ea Capcr, 2 CAP PO AC, (Reported) BEFORE MEALS AND SNACKS Scheduled PRN Loperamide HCl (Anti-Diarrheal) 2 Mg Tablet, 4 MG PO Q6HP PRN for DIARRHEA Allergies Coded Allergies: No Known Allergies (Unverified , 03/23/18) JULIAN KOTHARI D.O. October 30, 2019 13:39
== END 2019-10-30 14:05 | disposition home health service (06) | DRG 255 ==
LOC: M ED 22:25 → EEVIPCON 10-17 00:20 → M ED INP 10-17 00:20 → ENRESERV 10-17 01:47 → M RR INP 10-17 02:54 → M MSPAV 10-18 14:11
PROVIDERS: ADMIT Internal Medicine; ATTEND Internal Medicine
PROC: 0LBV0ZX Excision of Right Foot Tendon, Open Approach, Diagnostic (ICD-10-PCS; 2019-10-18)
PROC: 0Y6R0Z3 Detachment at Right 2nd Toe, Low, Open Approach (ICD-10-PCS; 2019-10-18)
PROC: 0Y6P0Z3 Detachment at Right 1st Toe, Low, Open Approach (ICD-10-PCS; principal; 2019-10-18 09:35)
PROC: B246YZZ Ultrasonography of Right and Left Heart using Other Contrast (ICD-10-PCS; 2019-10-19)
PROC: 02HV33Z Insertion of Infusion Device into Superior Vena Cava, Percutaneous Approach (ICD-10-PCS; 2019-10-23)
PROC: 30233N1 Transfusion of Nonautologous Red Blood Cells into Peripheral Vein, Percutaneous Approach (ICD-10-PCS; 2019-10-24)
DX: T82.7XXA Infection and inflammatory reaction due to other cardiac and vascular devices, implants and grafts, initial encounter (principal); G93.41 Metabolic encephalopathy; A41.02 Sepsis due to Methicillin resistant Staphylococcus aureus; E11.00 Type 2 diabetes mellitus with hyperosmolarity without nonketotic hyperglycemic-hyperosmolar coma (NKHHC); I33.0 Acute and subacute infective endocarditis; C78.7 Secondary malignant neoplasm of liver and intrahepatic bile duct; C78.89 Secondary malignant neoplasm of other digestive organs; L97.518 Non-pressure chronic ulcer of other part of right foot with other specified severity; N17.9 Acute kidney failure, unspecified; M86.671 Other chronic osteomyelitis, right ankle and foot; Z66 Do not resuscitate; E11.69 Type 2 diabetes mellitus with other specified complication; E11.621 Type 2 diabetes mellitus with foot ulcer; L97.529 Non-pressure chronic ulcer of other part of left foot with unspecified severity; E11.40 Type 2 diabetes mellitus with diabetic neuropathy, unspecified; T45.1X5A Adverse effect of antineoplastic and immunosuppressive drugs, initial encounter; L27.0 Generalized skin eruption due to drugs and medicaments taken internally; D69.6 Thrombocytopenia, unspecified; D50.9 Iron deficiency anemia, unspecified; R19.7 Diarrhea, unspecified; Z89.421 Acquired absence of other right toe(s); Z90.5 Acquired absence of kidney; Z89.422 Acquired absence of other left toe(s); Z98.49 Cataract extraction status, unspecified eye; Z85.528 Personal history of other malignant neoplasm of kidney; Z85.828 Personal history of other malignant neoplasm of skin; Y83.1 Surgical operation with implant of artificial internal device as the cause of abnormal reaction of the patient, or of later complication, without mention of misadventure at the time of the procedure

== ENCOUNTER 2019-11-07 17:44 | Inpatient (IN) | payer MEDICARE ==
[~2019-11-07] VITALS: Ht 182.9 cm; Wt 82.1 kg
[~2019-11-07 17:44] MED LIST changes: -UNIS25TA3 PO
[2019-11-07 18:50] VITALS: BP 132/75
[2019-11-07] MEDS ORDERED: FERR32TA PO (19:07)
[2019-11-07] MEDS ORDERED: UNIS25TA3 PO (19:07)
[2019-11-07] MEDS ORDERED: BASA100I SC (19:07)
[2019-11-07] MEDS ORDERED: MAALOX 30 ML SUSP *UDC PO PRN (20:00)
[2019-11-07] MEDS ORDERED: MOM 30ML SUSPENSION UDC PO PRN (20:00)
[2019-11-07] MEDS ORDERED: DEXTROSE 50% 50 ML SYRINGE IV PRN (20:15)
[2019-11-07] MEDS ORDERED: GLUCOSE 4GM CHEW TABLET PO PRN (20:15)
[2019-11-07] MEDS ORDERED: GLUCAGON INJ 1MG VIAL SC PRN (20:15)
[2019-11-07 20:56] LABS: PERCENT SATURATION 11.1 % (19.7-50.0)
[2019-11-07] MEDS: HEPARIN SOD (PORCINE) 5000UNITS/ML VIAL (J1644 PER 1000UNITS) SC SCH (21:38)
[2019-11-07] MEDS: DOCUSATE SODIUM 100 MG CAP PO SCH (21:38)
[2019-11-07] MEDS: HumaLOG INSULIN (NovoLOG) PER UNIT SC SCH (21:39)
[2019-11-07 21:54] VITALS: BP 148/98
--- NOTE | 2019-11-07 21:58 | HPEPDOC ---
[facility] Medical History & Physical Date of Admission November 07, 2019 Date of Service: November 07, 2019 Primary Care Physician: Boyd Villalta MD Attending Physician: Gill Lora MD History and Physical CHIEF COMPLAINT: anemia on outpatient lab work HISTORY OF PRESENT ILLNESS: Zeke Jo is a 74-year-old male who presented as a direct admission from Dr. Armstrong's office after outpatient blood work showed a hemoglobin of 6.3. The patient was recently admitted to the hospital for hyperosmolar hyperglycemic state and was found to have osteomyelitis in his right foot and infective endocarditis with MRSA bacteremia. He was discharged on IV vancomycin to complete a course from the first negative blood cultures. He states he has had ongoing chills and fatigue since his prior hospitalization and these have not worsened or improved. He denies any additional new symptoms. He has not noticed any blood in his stool or urine and denies hemoptysis. He states his stools have been dark, which she has noticed since starting iron supplementa tion. During his last admission, he was noted to be anemic and did receive 2 units of blood. He was started on oral iron supplementation at that time. A stool occult was also found to be positive and he was instructed to follow-up with the bolt sawyer for workup of GI bleed. He did not appear to have acute GI bleeding during his prior hospitalization. PAST MEDICAL HISTORY: 1. Renal cell carcinoma with metastasis to the liver and lung. 2. Type 2 diabetes mellitus. 3. Diabetic neuropathy. 4. Chronic non healing ulcer of the right foot. 5. History of Clostridium difficile infection. 6. MRSA endocarditis, currently on IV vancomycin until 12/03/2019 PAST SURGICAL HISTORY: 1. Left sided nephrectomy. 2. Multiple left sided toe amputations. 3. Right toe amputation of digits 1 through 5. 4. Right foot debridement. 5. Right knee surgery. 6. Cataracts, bilateral. 7. Lower extremity angiography. SOCIAL HISTORY: Never smoker. No alcohol use. Denies IV drug use. Lives at home with his and one dog. FAMILY HISTORY: Father with coronary artery disease. Mother with history of heart disease and diabetes mellitus. Sister with diabetes mellitus. ALLERGIES: Please see below. REVIEW OF SYSTEMS: CONSTITUTIONAL: Endorses chills and fatigue. Denies fevers, night sweats, unexpected change in weight. HEENT: Denies change in vision, change in hearing. CARDIOVASCULAR: Denies chest pain, palpitations, shortness of breath, lightheadedness. RESPIRATORY: Denies dyspnea, cough, wheezing. GASTROINTESTINAL: Denies nausea, vomiting, abdominal pain, diarrhea, constipation, blood in stool. GENITOURINARY: Denies dysuria, urinary frequency, urinary urgency. SKIN: Denies rash, lesions. MUSCULOSKELETAL: Denies joint pain or muscle aches. NEUROLOGICAL: Denies headache, dizziness, weakness. PSYCHIATRIC: Denies change in mood. HOME MEDICATIONS: Please see below. PHYSICAL EXAMINATION: VITAL SIGNS: see below GENERAL: Alert, comfortable, in no acute distress HEENT: Normocephalic, atraumatic, PERRLA, EOMI, sclera anicteric, moist mucous membranes NECK: Supple, trachea midline, no lymphadenopathy, no JVD CARDIOVASCULAR: Tachycardic with regular rhythm, normal S1 and S2. No rubs or gallops. 3/6 holosystolic murmur over the left lower sternal border. RESPIRATORY: Clear to auscultation bilaterally with equal air entry bilaterally. No wheezing, rhonchi, or rales. ABDOMEN: Soft, nontender, nondistended, bowel sounds present EXTREMITIES: Left foot with 3 toes amputated, no necrosis/skin breakdown. Right foot with all 5 toes amputated. SKIN: No rash or skin breakdown noted. Ulceration on the plantar surface of the right foot, appears clean without erythema or warmth. Healing surgical scar present on the dorsal surface of the right foot. NEUROLOGIC: Alert and oriented 3 to person, place and time. No focal deficits appreciated PSYCHIATRIC: Mood and affect appropriate LABORATORY DATA: See below. MICROBIOLOGY: Please see below. ASSESSMENT: 74-year-old male with ongoing fatigue and chills related to infective endocarditis presents as a direct admission from the clinic due to a drop in hemoglobin. PLAN: 1. Acute on chronic anemia secondary to infective endocarditis versus iron deficiency versus GI bleeding. - H/H on outpatient labs was 6.3/20.3, ordered 2 units PRBCs for transfusion, recheck CBC after transfusions - has been on oral iron supplement, repeat iron studies prior to transfusion, hx of anemia of chronic disease - stool occult ordered, positive on prior admission. will need GI follow up for colonoscopy - may be related to infectious endocarditis, treatment as below 2. MRSA infective endocarditis. - continue IV vancomycin per Dr. Armstrong until 12/03/2019 - PICC in place for outpatient IV antibiotics when discharged - CRP and ESR remain elevated on outpatient labs. 3. Diabetes mellitus. - SSI while inpatient, consistent carb diet. 4. Tachycardia. - monitor on telemetry. continue home bisoprolol - he does have a history of tachycardia - may be related to symptomatic anemia 5. Chronic kidney disease. - Cr appears to be at baseline on outpatient labs, monitor daily 6. 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 Ocampo at [facility]. - previously on opdivo, currently being held due to infective endocarditis - continue pancreatic enzymes with meals 7. Right foot wound - wound care daily, follows with Dr. Hyatt DVT prophylaxis: Subcutaneous heparin. GI prophylaxis: not currently indicated Disposition: Admitted to medical surgical unit for blood transfusions Vital Signs Vital Signs Date Time Temp Pulse Resp B/P (MAP) Pulse Ox O2 Delivery O2 Flow Rate FiO2 11/07/19 18:50 99.2 125 20 132/75 (94) 98 Room Air Laboratory Data Labs 24H Laboratory Tests 2 11/07/19 20:10: Iron Level 25L, Total Iron Binding Capacity 226L, Transferrin % Saturation 11.1L, Ferritin 340 11/07/19 21:21: Bedside Glucose (Misc Panel) 277H Home Medications Scheduled Bisoprolol Fumarate (Bisoprolol Fumarate) 10 Mg Tab, 5 MG PO DAILY Ferrous Gluconate (Ferrous Gluconate) 324 Mg Tablet, 324 MG PO DAILY Glipizide (Glipizide ER) 10 Mg Tab, 10 MG PO DAILY Insulin Glargine,Hum.rec.anlog (Basaglar Kwikpen U-100) 100 Unit/1 Ml Insuln.pen, 1 DOSE SC QHS PT USES 25-30 UNITS Insulin Human Lispro (Novolog) 100 U/Ml Inj, 1 DOSE SC AC PER SLIDING SCALE Losartan Potassium (Losartan Potassium) 25 Mg Tablet, 25 MG PO DAILY Nivolumab (Opdivo) 240 Mg/24 Ml Vial, 240 MG IV Q4WKS LAST INFUSION ON 10/06/19 Pancreatic Enzymes (Rowena Bynum 12,000 Units Capsule) 1 Ea Capcr, 1 CAP PO BIDWM Scheduled PRN Doxylamine Succinate (Unisom Sleep Aid) 25 Mg Tablet, 25 MG PO QHS PRN for SLEEP Allergies Coded Allergies: No Known Allergies (Unverified , 03/23/18) GME ATTESTATION GME ATTESTATION My faculty preceptor for this patient encounter was physically present during the encounter and was fully available. All aspects of the patient interview, examination, medical decision making process, and medical care plan development were reviewed and approved by the faculty preceptor. The faculty preceptor is aware and concurs with the plan as stated in the body of this note and will attest to such by his/her cosignature. ATTENDING NOTE HISTORY OF PRESENT ILLNESS: 74 y/o M with PMH of mitral valve endocarditis on Vancomycin (stop date 12/03/19, follows with Dr. Armstrong o/p), renal cell carcinoma with metastases to liver and pancreas undergoing chemotherapy, DM type II, chronic ulcer of right foot s/p transmetatarsal amputation (10/19/2019), hx of c. diff.. Patient was seen by infectious disease today who notified us of outpatient labs and wish to admit. H/H was low at 6.3/20.3, on 10/30/2019 Hgb was 8.0. He had anemia and thrombocytopenia on last hospital admission (10/17/2019-10/30/2019) , hx of chemotherapy with last dose in 09/2019; however, had + occult blood at that time. He admits to having increased diarrhea at that time, it was suggested to f/u with outpatient colonoscopy but did not. Last colonoscopy was 1 years ago and found to be unremarkable according to patient. Patient denies any acute bleeding. Patient admits to palpitations occasionally, increased shortness of breath, fatigue, requiring transfusions in the past. PHYSICAL EXAMINATION: CONSTITUTIONAL: Slightly short of breath with conversation otherwise resting comfortably, AAO x 3 EYES: PERRLA, EOM intact HENT, MOUTH: Normocephalic, atraumatic, moist mucous membranes NECK: SUPPLE, no JVD, no lymphadenopathy, no carotid bruit CV: Tachycardic, Regular rhythm, S1S2 normal, systolic murmur appreciated. No rubs/gallops RESPIRATORY: Clear to auscultation bilaterally, no rales/rhonchi/wheezes GI: BS positive in 4 quadrants, soft, nontender, nondistended, no rebound or guarding, no organomegaly : Deferred MUSCULOSKELETAL: S/p right foot transmetarsal amputation, wound appears clean, well healing. No foul smell or drainage. Normal ROM of all extremities. No cyanosis, clubbing, swelling, joint deformity, extremity edema INTEGUMENTARY: Intact, no rashes, no lesions, no erythema NEUROLOGIC: Cranial Nerves II-XII are intact, no focal deficits PSYCHIATRIC: Mood and affect are normal ASSESSMENT: 74 y/o M admitted under inpatient status for symptomatic anemia requiring transfusion. PLAN: 1. Symptomatic anemia. Cannot r/o slow GI bleed. Hx of chemotherapy, last dose 09/2019 but has been held since last admission. Currently no signs of acute bleeding. Previous admission occult blood +, will repeat again today. H/H 6.3. 2 units PRBC ordered, f/u post transfusion CBC after second unit. F/u TIBC, ferritin, total iron, daily labs. Telemetry. 2. Infective endocarditis, mitral valve. C/w IV Vancomycin, followed by ID as outpatient. 3. CKD Stage III. Cr 1.5, near baseline. F/u daily labs. 4. Sinus tachycardia. Baseline tachycardia at times but likely worsened by anemia. No concerns for sepsis at this time. Has been on IV abx, afebrile, normal WBC. C/w home BB with holding parameters and treatment for anemia above. 5. 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 Under [facility]. Recommend to f/u after discharge. 6. Diabetic neuropathy. C/w home meds. 8. Right foot ulcer s/p transmetarsal amputation. Follows with podiatry as outpatient. C/w wound care while admitted. 9. HTN. Stable. 10. DM type II, uncontrolled. HbA1c on 10/16/19 10.1. C/w ISS, insulin glargine, AC/HS blood sugar checks, consistent carb diet. 11. DVT px. Heparin SC. DISPOSITION: I saw patient and agree with the findings by the resident physician as documented along with what is mentioned above. To be followed up by AM team. JULIAN KOTHARI D.O. November 07, 2019 21:58 Gill Lora MD November 07, 2019 23:23
[2019-11-07 22:00] VITALS: BP 150/90
[2019-11-07 22:14] VITALS: BP 127/83
[2019-11-07 23:00] VITALS: BP 140/91
[2019-11-07] MEDS: ACETAMINOPHEN TAB 650MG DOSE (2X325MG) PO PRN (23:44)
[2019-11-07] MEDS: LEVEMIR (INSULIN DETEMIR) 1 UNITS/0.01ML SC SCH (23:52)
[2019-11-08] VITALS (15 sets, daily range): BP systolic 120–159; BP diastolic 68–100
[2019-11-08] MEDS: HEPARIN SOD (PORCINE) 5000UNITS/ML VIAL (J1644 PER 1000UNITS) SC SCH ×3 (06:20→22:14)
[2019-11-08] MEDS: SODIUM CHLORIDE 0.9% INJ 10 ML SYR IV SCH ×2 (06:21→18:11)
[2019-11-08 06:23] LABS: HEMATOCRIT 22.2 % (42.0-52.0); HEMOGLOBIN 7.3 g/dl (13.5-17.5); MEAN CORPUSCULAR HEMOGLOBIN 29.4 pg (27.0-33.0); MEAN CORPUSCULAR HGB CONC 32.9 g/dl (32.0-36.5); MEAN CORPUSCULAR VOLUME 89.5 fl (80.0-96.0); PLATELET COUNT, AUTOMATED 190 10^3/uL (150-450); RED BLOOD COUNT 2.48 10^6/uL (4.30-6.10); WHITE BLOOD COUNT 5.5 10^3/uL (4.0-10.0)
[2019-11-08 06:32] LABS: INR 1.21
[2019-11-08 07:06] LABS: CALCIUM LEVEL 7.9 MG/DL (8.8-10.2); CREATININE FOR GFR 1.42 MG/DL (0.70-1.30); MAGNESIUM LEVEL 2.1 MG/DL (1.8-2.4); POTASSIUM SERUM 4.2 MEQ/L (3.5-5.1)
[2019-11-08] MEDS: LOSARTAN 25 MG TAB PO SCH (08:12)
[2019-11-08] MEDS: bisoproloL fumarate 5 MG TAB PO SCH (08:12)
[2019-11-08] MEDS: DOCUSATE SODIUM 100 MG CAP PO SCH ×3 (08:13→20:57)
[2019-11-08] MEDS: HumaLOG INSULIN (NovoLOG) PER UNIT SC SCH ×4 (08:13→20:44)
[2019-11-08] MEDS: CREON-12 CAPSULE PO SCH ×2 (08:13→17:39)
[2019-11-08] MEDS ORDERED: FERROUS GLUCONATE 324 MG TAB PO SCH (09:00)
[2019-11-08] MEDS: VANCOMYCIN HCL 1,000 MG, VIAL MATE ADAPTER 1 EACH in D5W 250 ML IV SCH (11:46)
[2019-11-08 12:41] LABS: BASO % 0.6 % (0.0-1.0); EOS # 0.2 10^3/uL (0.0-0.5); EOS % 3.1 % (0.0-3.0); HEMATOCRIT 24.7 % (42.0-52.0); HEMOGLOBIN 7.9 g/dl (13.5-17.5); LYMPH % 15.5 % (24.0-44.0); MEAN CORPUSCULAR HEMOGLOBIN 28.8 pg (27.0-33.0); MEAN CORPUSCULAR VOLUME 90.1 fl (80.0-96.0); MONO # 0.5 10^3/uL (0.0-0.8); MONO % 7.8 % (0.0-5.0); NEUTROPHILS # 4.4 10^3/uL (1.5-8.5); NEUTROPHILS % 71.5 % (36.0-66.0); PLATELET COUNT, AUTOMATED 218 10^3/uL (150-450); RED BLOOD COUNT 2.74 10^6/uL (4.30-6.10); WHITE BLOOD COUNT 6.2 10^3/uL (4.0-10.0)
[2019-11-08] MEDS: SODIUM CHLORIDE 0.9% INJ 10 ML SYR IV PRN (13:06)
--- NOTE | 2019-11-08 13:38 | IPNPDOC ---
Text Note Date of Service The patient was seen on 11/08/19. NOTE Subjective: Patient is a 74-year-old male with a PMHx of Renal Cell CA (w/ metastasis to liver and lung), DM2, Diabetic neuropathy, Hx of C. diff, Chronic non-healing R foot ulcer (s/p partial amputation) and Recent diagnosis of MRSA Endocarditis (on IV Vanco until 12/03/2019) who presented to [facility] as a direct admission for abnormal lab work. Patient was recently in the hospital and was found to have Endocardtiis 2/2 MRSA bacteremia 2/2 osteomyelitis. ID was consulted and he was discharged with Vancomycin IV to be continued until 12/03/2019. Patient did receive 2 units of PRBC during the prior admission and was given iron supplementation on discharge. Patient followed up with Dr. Armstrong as an outpatient and was found to be anemic. He was admitted directly for a Hg of 6.8 and received 2 units of PRBC. Patient was seen and examined at the bedside. Currently he reports feeling significantly better. He denies any CP, SOB or palpitaitons now. Denies any N/V, abdominal pain, C/D or urinary discomfort. He denies any blood in his stool or urine. Objective: Vitals (See below) General: Lying in bed, no acute distress, comfortable, AAOx3 HEENT: NC, AT CVS: +S1S2 Lungs: Fair air entry b/l, no appreciable wheezing / rhonchi / rales Abdomen: Soft, ND, NT Extremities: Trace edema at R leg, - Calf tenderness Assessment and plan: Acute on chronic anemia - possibly 2/2 iron deficiency, possibly 2/2 infective endocarditis, - Clinically patient feels better, he notes that his fatigue / weakness have resolved - Again there are no episodes of acute blood loss noted - Still remains tachycardic - Baseline Hg in the past has been ~9; - Hg has improved appropriately after 2 units of PRBC - Will provide an additional 2 units of PRBC to bring Hg back to baseline - Patient will likely require GI follow up as an outpatient MRSA infective endocarditis. - continue IV vancomycin per Dr. Armstrong until 12/03/2019 - PICC in place for outpatient IV antibiotics - CRP and ESR remain elevated on outpatient labs. DM2 - c/w ISS Tachycardia - possibly 2/2 anemia - Denies any SOB / CP or palpitations - Will continue with home medications - c/w transfusions (see above) CKD3 - Cr appears to be at baseline - Will continue to follow Renal cell carcinoma with metastasis to lungs and pancreas and skin cancers - Seen by Dr. Ocampo at [facility]. - previously on opdivo, currently being held due to infective endocarditis - Will c/w pancreatic enzymes with meals Right foot wound - Will c/w wound care daily - Patient follows with Dr. Hyatt as an outpatient DVT prophylaxis - c/w Heparin Disposition: - Will transfuse 2 additional units of PRBC - Anticipate DC tomorrow VS,Fishbone, I+O VS, Fishbone, I+O Laboratory Tests 11/08/19 06:07 11/08/19 12:26 Vital Signs Date Time Temp Pulse Resp B/P (MAP) Pulse Ox O2 Delivery O2 Flow Rate FiO2 11/08/19 08:12 116 123/70 11/08/19 06:00 98.3 16 97 Room Air I&O- Last 24 Hours up to 6 AM 11/08/19 06:00 Intake Total 1400 ml Output Total 525 ml Balance 875 ml MARIELA MAO MD November 08, 2019 13:38
[2019-11-08] MEDS: ACETAMINOPHEN TAB 650MG DOSE (2X325MG) PO PRN (20:43)
[2019-11-08] MEDS: FERROUS GLUCONATE 324 MG TAB PO SCH (20:43)
[2019-11-08] MEDS: LEVEMIR (INSULIN DETEMIR) 1 UNITS/0.01ML SC SCH (20:43)
[2019-11-09] MEDS: ACETAMINOPHEN TAB 650MG DOSE (2X325MG) PO PRN (05:00)
[2019-11-09] MEDS: HEPARIN SOD (PORCINE) 5000UNITS/ML VIAL (J1644 PER 1000UNITS) SC SCH (05:44)
[2019-11-09] MEDS: SODIUM CHLORIDE 0.9% INJ 10 ML SYR IV SCH (05:44)
[2019-11-09 06:00] VITALS: BP 120/80
[2019-11-09] MEDS: HumaLOG INSULIN (NovoLOG) PER UNIT SC SCH ×2 (07:30→12:06)
[2019-11-09 07:58] LABS: BASO # 0.1 10^3/uL (0.0-0.2); BASO % 0.8 % (0.0-1.0); EOS # 0.3 10^3/uL (0.0-0.5); EOS % 4.3 % (0.0-3.0); HEMATOCRIT 30.2 % (42.0-52.0); LYMPH % 15.8 % (24.0-44.0); MEAN CORPUSCULAR HGB CONC 33.4 g/dl (32.0-36.5); MEAN CORPUSCULAR VOLUME 89.6 fl (80.0-96.0); MONO # 0.5 10^3/uL (0.0-0.8); MONO % 8.2 % (0.0-5.0); NEUTROPHILS # 4.4 10^3/uL (1.5-8.5); NEUTROPHILS % 69.3 % (36.0-66.0); PLATELET COUNT, AUTOMATED 221 10^3/uL (150-450); RED BLOOD COUNT 3.37 10^6/uL (4.30-6.10); WHITE BLOOD COUNT 6.3 10^3/uL (4.0-10.0)
[2019-11-09 08:03] LABS: HEMOGLOBIN 10.1 g/dl (13.5-17.5)
[2019-11-09 08:20] LABS: CREATININE FOR GFR 1.42 MG/DL (0.70-1.30); MAGNESIUM LEVEL 1.9 MG/DL (1.8-2.4); POTASSIUM SERUM 4.2 MEQ/L (3.5-5.1)
[2019-11-09] MEDS ORDERED: FERR32TA PO (08:50)
[2019-11-09] MEDS: DOCUSATE SODIUM 100 MG CAP PO SCH (09:00)
[2019-11-09 09:34] VITALS: BP 138/62
[2019-11-09] MEDS: FERROUS GLUCONATE 324 MG TAB PO SCH (09:34)
[2019-11-09] MEDS: LOSARTAN 25 MG TAB PO SCH (09:34)
[2019-11-09] MEDS: CREON-12 CAPSULE PO SCH (09:34)
[2019-11-09] MEDS: bisoproloL fumarate 5 MG TAB PO SCH (09:34)
--- NOTE | 2019-11-09 10:33 | DS.PDOC ---
Discharge Summary General Date of Admission November 07, 2019 at 18:31 Date of Discharge 11/09/2019 Discharge Summary PROCEDURES PERFORMED DURING STAY: [None]. ADMITTING DIAGNOSES / DISCHARGE DIAGNOSES: Acute on chronic anemia - possibly 2/2 iron deficiency, possibly 2/2 infective endocarditis, MRSA infective endocarditis. 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 HISTORY OF PRESENT ILLNESS: Patient is a 74-year-old male with a PMHx of Renal Cell CA (w/ metastasis to liver and lung), DM2, Diabetic neuropathy, Hx of C. diff, Chronic non-healing R foot ulcer (s/p partial amputation) and Recent diagnosis of MRSA Endocarditis (on IV Vanco until 12/03/2019) who presented to [facility] as a direct admission for abnormal lab work. Patient was recently in the hospital and was found to have Endocardtiis 2/2 MRSA bacteremia 2/2 osteomyelitis. ID was consulted and he was discharged with Vancomycin IV to be continued until 12/03/2019. Patient did receive 2 units of PRBC during the prior admission and was given iron supplementation on discharge. Patient followed up with Dr. Armstrong as an outpatient and was found to be anemic. He was admitted directly for a Hg of 6.8 and received 2 units of PRBC. HOSPITAL COURSE: Acute on chronic anemia - possibly 2/2 iron deficiency, possibly 2/2 infective endocarditis, - Reports significant improvement in breathing / - Again there are no episodes of acute blood loss noted - Tachycardia has improved - Baseline Hg in the past has been ~9; - s/p 4 units of PRBC; Hg has improved appropriately - Advised patient to follow up with gastroenterology as an outpatient MRSA infective endocarditis. - continue IV vancomycin per Dr. Armstrong until 12/03/2019 - PICC in place for outpatient IV antibiotics - CRP and ESR remain elevated on outpatient labs. DM2 - c/w ISS Tachycardia - possibly 2/2 anemia - Has had some improvement since admission - Review of medical records shows persistent tachycardia from prior history - Denies any SOB / CP or palpitations - c/w beta blockers from outpatient setting - c/w transfusions (see above) CKD3 - Cr appears to be at baseline - Cr has remained stable Renal cell carcinoma with metastasis to lungs and pancreas and skin cancers - Previously on opdivo, currently being held due to infective endocarditis; will have outpatient follow up with Dr. Ocampo at [facility]. - c/w pancreatic enzymes with meals Right foot wound - Will c/w wound care daily - Patient follows with Dr. Hyatt as an outpatient DVT prophylaxis - c/w Heparin DISCHARGE MEDICATIONS: Please see below. ALLERGIES: Please see below. PHYSICAL EXAMINATION ON DISCHARGE: Vitals (See below) General: Lying in bed, no acute distress, comfortable, AAOx3 HEENT: NC, AT CVS: +S1S2 Lungs: Fair air entry b/l, there does no appear to be any rhonchi / crackles / wheezing Abdomen: Soft, non-distended, non-tender Extremities: R leg with trace swelling, L leg without any edema, - Calf tenderness LABORATORY DATA: Please see below. ACTIVITY: [As tolerated]. DISCHARGE PLAN: Patient has been advised to follow-up with primary care provider, Dr. Novoa and gastroenterology within the next 7 days He's been advised to remain compliant with medications Advised to return to the ER if he experiences any problems DISPOSITION: Home with services DISCHARGE CONDITION: [Stable]. TIME SPENT ON DISCHARGE: 35 minutes Vital Signs/I&Os Vital Signs Date Time Temp Pulse Resp B/P (MAP) Pulse Ox O2 Delivery O2 Flow Rate FiO2 11/09/19 09:34 108 138/62 11/09/19 06:00 98.7 17 97 Room Air I&O- Last 24 Hours up to 6 AM 11/09/19 06:00 Intake Total 2700 ml Output Total 2205 ml Balance 495 ml Laboratory Data Labs 24H Laboratory Tests 2 11/08/19 11:27: Bedside Glucose (Misc Panel) 84 11/08/19 12:26: Immature Granulocyte % (Auto) 1.5, Neutrophils (%) (Auto) 71.5H, Lymphocytes (%) (Auto) 15.5L, Monocytes (%) (Auto) 7.8H, Eosinophils (%) (Auto) 3.1H, Basophils (%) (Auto) 0.6, Neutrophils # (Auto) 4.4, Lymphocytes # (Auto) 1.0L, Monocytes # (Auto) 0.5, Eosinophils # (Auto) 0.2, Basophils # (Auto) 0.0, Nucleated Red Blood Cells % (auto) 0.0 11/08/19 16:37: Bedside Glucose (Misc Panel) 322H 11/08/19 20:44: Bedside Glucose (Misc Panel) 184H 11/09/19 05:04: Bedside Glucose (Misc Panel) 113H 11/09/19 07:40: Immature Granulocyte % (Auto) 1.6, Neutrophils (%) (Auto) 69.3H, Lymphocytes (%) (Auto) 15.8L, Monocytes (%) (Auto) 8.2H, Eosinophils (%) (Auto) 4.3H, Basophils (%) (Auto) 0.8, Neutrophils # (Auto) 4.4, Lymphocytes # (Auto) 1.0L, Monocytes # (Auto) 0.5, Eosinophils # (Auto) 0.3, Basophils # (Auto) 0.1, Nucleated Red B lood Cells % (auto) 0.0, Anion Gap 7L, Glomerular Filtration Rate 52.0, Calcium Level 8.0L, Magnesium Level 1.9 CBC/BMP Laboratory Tests 11/08/19 12:26 11/09/19 07:40 FSBS Laboratory Tests Test 11/08/19 11:27 11/08/19 16:37 11/08/19 20:44 11/09/19 05:04 Range/Units Bedside Glucose (Misc Panel) 84 322 184 113 83-110 MG/DL Microbiology Microbiology 11/08/19 Stool Occult Blood (MYNOR) - Final, Complete Discharge Medications Scheduled Bisoprolol Fumarate (Bisoprolol Fumarate) 10 Mg Tab, 5 MG PO DAILY, (Reported) Ferrous Gluconate (Ferrous Gluconate) 324 Mg Tablet, 324 MG PO BID Glipizide (Glipizide ER) 10 Mg Tab, 10 MG PO DAILY, (Reported) Insulin Glargine,Hum.rec.anlog (Basaglar Kwikpen U-100) 100 Unit/1 Ml Insuln.pen, 1 DOSE SC QHS, (Reported) PT USES 25-30 UNITS Insulin Human Lispro (Novolog) 100 U/Ml Inj, 1 DOSE SC AC, (Reported) PER SLIDING SCALE Losartan Potassium (Losartan Potassium) 25 Mg Tablet, 25 MG PO DAILY, (Reported) Nivolumab (Opdivo) 240 Mg/24 Ml Vial, 240 MG IV Q4WKS, (Reported) LAST INFUSION ON 10/06/19 Pancreatic Enzymes (Creon Dr 12,000 Units Capsule) 1 Ea Capcr, 1 CAP PO BIDWM, (Reported) Scheduled PRN Doxylamine Succinate (Unisom Sleep Aid) 25 Mg Tablet, 25 MG PO QHS PRN for SLEE P, (Reported) Allergies Coded Allergies: No Known Allergies (Unverified , 03/23/18) MARIELA MAO MD November 09, 2019 10:33
[2019-11-09] MEDS: VANCOMYCIN HCL 1,000 MG, VIAL MATE ADAPTER 1 EACH in D5W 250 ML IV SCH (12:06)
[2019-11-09] MEDS: SODIUM CHLORIDE 0.9% INJ 10 ML SYR IV PRN (13:34)
== END 2019-11-09 14:09 | disposition home health service (06) | DRG 811 ==
LOC: M MSPAV 18:31
PROVIDERS: ADMIT Internal Medicine; ATTEND Internal Medicine
PROC: 30233N1 Transfusion of Nonautologous Red Blood Cells into Peripheral Vein, Percutaneous Approach (ICD-10-PCS; principal; 2019-11-07)
DX: D50.9 Iron deficiency anemia, unspecified (principal); I33.0 Acute and subacute infective endocarditis; C78.7 Secondary malignant neoplasm of liver and intrahepatic bile duct; C78.89 Secondary malignant neoplasm of other digestive organs; C78.00 Secondary malignant neoplasm of unspecified lung; E11.40 Type 2 diabetes mellitus with diabetic neuropathy, unspecified; E11.621 Type 2 diabetes mellitus with foot ulcer; L97.519 Non-pressure chronic ulcer of other part of right foot with unspecified severity; R00.0 Tachycardia, unspecified; I12.9 Hypertensive chronic kidney disease with stage 1 through stage 4 chronic kidney disease, or unspecified chronic kidney disease; E11.65 Type 2 diabetes mellitus with hyperglycemia; B95.62 Methicillin resistant Staphylococcus aureus infection as the cause of diseases classified elsewhere; E11.22 Type 2 diabetes mellitus with diabetic chronic kidney disease; N18.3 Chronic kidney disease, stage 3 (moderate); Z90.5 Acquired absence of kidney; Z89.421 Acquired absence of other right toe(s); Z89.422 Acquired absence of other left toe(s); Z98.41 Cataract extraction status, right eye; Z98.42 Cataract extraction status, left eye; Z79.4 Long term (current) use of insulin; Z79.899 Other long term (current) drug therapy; Z85.828 Personal history of other malignant neoplasm of skin

== ENCOUNTER → 2019-11-07 | Outpatient (REF) | payer MEDICARE ==
[~2019-11-07] MED LIST changes: +ANTI2TAB16 PO; +FERR32TA PO; +UNIS25TA3 PO
[2019-11-07 15:47] LABS: BASO % 0.5 % (0.0-1.0); EOS # 0.1 10^3/uL (0.0-0.5); EOS % 1.8 % (0.0-3.0); LYMPH % 16.4 % (24.0-44.0); MEAN CORPUSCULAR HEMOGLOBIN 28.9 pg (27.0-33.0); MEAN CORPUSCULAR VOLUME 93.1 fl (80.0-96.0); MONO # 0.4 10^3/uL (0.0-0.8); MONO % 6.7 % (0.0-5.0); NEUTROPHILS # 4.5 10^3/uL (1.5-8.5); NEUTROPHILS % 74.1 % (36.0-66.0); PLATELET COUNT, AUTOMATED 247 10^3/uL (150-450); RED BLOOD COUNT 2.18 10^6/uL (4.30-6.10); WHITE BLOOD COUNT 6.1 10^3/uL (4.0-10.0)
[2019-11-07 15:52] LABS: HEMATOCRIT 20.3 % (42.0-52.0); HEMOGLOBIN 6.3 g/dl (13.5-17.5)
[2019-11-07 16:09] LABS: ALBUMIN 2.3 GM/DL (3.2-5.2); BILIRUBIN,TOTAL 0.4 MG/DL (0.2-1.0); C REACTIVE PROTEIN QUANTITATIV 8.68 MG/DL (0.00-0.30); CALCIUM LEVEL 8.5 MG/DL (8.8-10.2); CREATININE FOR GFR 1.51 MG/DL (0.70-1.30); ERYTHROCYTE SEDIMENTATION RATE 126 mm/hr (0-20); GLOMERULAR FILTRATION RATE 48.5 (>42); POTASSIUM SERUM 4.9 MEQ/L (3.5-5.1); TOTAL PROTEIN 6.8 GM/DL (6.4-8.2); VANCOMYCIN LEVEL PEAK 29.8 UG/ML (18.0-40.0)
== END ==
LOC: M SFHCPLAZ 13:03
PROVIDERS: ATTEND Internal Medicine Infectious Disease
DX: I05.8 Other rheumatic mitral valve diseases (principal)

== ENCOUNTER 2019-11-13 19:14 | Inpatient (IN) | payer MEDICARE ==
[~2019-11-13] VITALS: Ht 182.9 cm; Wt 77.0 kg
[~2019-11-13 19:14] MED LIST changes: +UNIS25TA3 PO
[2019-11-13] MEDS ORDERED: NS 1,000 ML IV ONE (19:30)
[2019-11-13] MEDS ORDERED: VANC-7 IV (19:38)
[2019-11-13 20:31] LABS: VENOUS BASE EXCESS -3.2 (-2.0-2.0); VENOUS HCO3 23.5 MEQ/L (23.0-27.0); VENOUS O2 SATURATION 63.3 % (60.0-80.0); VENOUS PARTIAL PRESSURE CO2 50.9 mmHg (38.0-50.0); VENOUS PARTIAL PRESSURE O2 38.3 mmHg (30.0-50.0); VENOUS PH 7.282 UNITS (7.330-7.430); VENOUS STANDARD HCO3 21.4 MEQ/L; VENOUS TOTAL CO2 25.1 MEQ/L (24.0-28.0)
[2019-11-13 20:40] LABS: BASO % 0.3 % (0.0-1.0); EOS # 0.1 10^3/uL (0.0-0.5); EOS % 0.5 % (0.0-3.0); HEMATOCRIT 21.9 % (42.0-52.0); LYMPH # 1.2 10^3/uL (1.5-5.0); LYMPH % 7.9 % (24.0-44.0); MEAN CORPUSCULAR HEMOGLOBIN 29.5 pg (27.0-33.0); MEAN CORPUSCULAR HGB CONC 31.5 g/dl (32.0-36.5); MEAN CORPUSCULAR VOLUME 93.6 fl (80.0-96.0); MONO # 0.9 10^3/uL (0.0-0.8); NEUTROPHILS # 12.2 10^3/uL (1.5-8.5); NEUTROPHILS % 83.5 % (36.0-66.0); PLATELET COUNT, AUTOMATED 302 10^3/uL (150-450); RED BLOOD COUNT 2.34 10^6/uL (4.30-6.10); WHITE BLOOD COUNT 14.6 10^3/uL (4.0-10.0)
[2019-11-13 20:46] LABS: HEMOGLOBIN 6.9 g/dl (13.5-17.5)
[2019-11-13 20:55] LABS: INR 1.26; PROTHROMBIN TIME 15.5 SECONDS (11.8-14.0)
[2019-11-13 20:56] LABS: PARTIAL THROMBOPLASTIN TIME 31.5 SECONDS (25.0-38.4)
[2019-11-13] MEDS ORDERED: PANTOPRAZOLE 40MG VIAL (C9113 PER 1) IV SCH (21:00)
[2019-11-13] MEDS ORDERED: HumaLOG INSULIN (NovoLOG) PER UNIT SC SCH (21:00)
[2019-11-13 21:12] LABS: ACETONE/KETONE 4.36 MG/DL (<2.81); ALT/SGPT 30 U/L (12-78); BILIRUBIN,DIRECT 0.1 MG/DL (0.0-0.2); BILIRUBIN,TOTAL 0.4 MG/DL (0.2-1.0); BLOOD UREA NITROGEN 39 MG/DL (7-18); CALCIUM LEVEL 7.8 MG/DL (8.8-10.2); CARBON DIOXIDE LEVEL 25 MEQ/L (21-32); CHLORIDE LEVEL 103 MEQ/L (98-107); CK-MB VALUE MASS 2.3 NG/ML (<3.6); CPK CREATINE PHOSPHOKINASE 43 U/L (39-308); CREATININE FOR GFR 2.05 MG/DL (0.70-1.30); FREE T4 1.18 NG/DL (0.76-1.46); GLOMERULAR FILTRATION RATE 34.1 (>42); GLUCOSE, FASTING 431 MG/DL (70-100); LIPASE 28 U/L (73-393); MB/CK RELATIVE INDEX 5.35 (< OR =4); NT-PRO BNP 5336 PG/ML (<125); PHOSPHORUS LEVEL 3.7 MG/DL (2.5-4.9); POTASSIUM SERUM 5.2 MEQ/L (3.5-5.1); SODIUM LEVEL 135 MEQ/L (136-145); TOTAL PROTEIN 6.2 GM/DL (6.4-8.2); TROPONIN I < 0.02 NG/ML (< 0.10)
[2019-11-13] MEDS ORDERED: ACET-683 PO (21:31)
[2019-11-13] MEDS ORDERED: GLUCOSE 4GM CHEW TABLET PO PRN (22:00)
[2019-11-13] MEDS ORDERED: GLUCAGON INJ 1MG VIAL SC PRN (22:00)
[2019-11-13] MEDS ORDERED: DEXTROSE 50% 50 ML SYRINGE IV PRN (22:00)
--- NOTE | 2019-11-13 22:08 | HPEPDOC ---
[facility] Medical History & Physical Date of Admission November 13, 2019 Date of Service: November 13, 2019 Primary Care Physician: Boyd Villalta MD Attending Physician: Gill Lora MD History and Physical CHIEF COMPLAINT: blood in stool, weakness HISTORY OF PRESENT ILLNESS: Zeke Jo is a 74-year-old male who presented to the emergency room today, weakness, fatigue, and diarrhea with blood in his stool. He states his fatigue has been ongoing since his hospitalization a few weeks ago where he was diagnosed with acute endocarditis. He has had episodes of weakness and today his weakness worsens. He states that he was feeling lightheaded and felt like he could not support himself, so he had to lower himself down to the ground. He did not have any injuries. He also notes that he had been constipated recently and straining to pass stool. He states that this afternoon he had loose and watery diarrhea with bright red blood in it. He cannot quantify the amount of blood, but states it seems like a lot. He also endorses some left upper quadrant abdominal pain which is achy in nature. He states this is bothering him the past day. He denies having any bloody or black stools prior to this episode. During his previous 2 admissions, he had been found to be anemic and required blood transfusions. On both admissions, stool occult was positive for blood. During those admissions, he was not thought to be acutely bleeding and was suggested to follow up outpatient for further workup including upper/lower endoscopy. He states he did have a colonoscopy about 2 years ago where he had a stool transplant for C. difficile infection. He denies any other issues noted on his colonoscopy. He denies any history of GI bleeding in the past that he is aware of, prior to his recent admissions when he was told his stool was positive for blood. PAST MEDICAL HISTORY: 1. Renal cell carcinoma with metastasis to the liver and lung. 2. Type 2 diabetes mellitus. 3. Diabetic neuropathy. 4. Chronic non healing ulcer of the right foot. 5. History of Clostridium difficile infection. 6. MRSA endocarditis, currently on IV vancomycin until 12/03/2019 7. Chronic anemia PAST SURGICAL HISTORY: 1. Left sided nephrectomy. 2. Multiple left sided toe amputations. 3. Right toe amputation of digits 1 through 5. 4. Right foot debridement. 5. Right knee surgery. 6. Cataracts, bilateral. 7. Lower extremity angiography. SOCIAL HISTORY: Never smoker. No alcohol use. Denies IV drug use. Lives at home with his and one dog. FAMILY HISTORY: Father with coronary artery disease. Mother with history of heart disease and diabetes mellitus. Sister with diabetes mellitus. ALLERGIES: Please see below. REVIEW OF SYSTEMS: CONSTITUTIONAL: Endorses chills and fatigue. Denies fevers, night sweats, une xpected change in weight. HEENT: Denies change in vision, change in hearing. CARDIOVASCULAR: Endorses lightheadedness. Denies chest pain, palpitations. RESPIRATORY: Denies dyspnea, cough, wheezing. GASTROINTESTINAL: Positive per HPI. Denies nausea, vomiting. GENITOURINARY: Denies dysuria, urinary frequency, urinary urgency. SKIN: Denies rash, lesions. MUSCULOSKELETAL: Denies joint pain or muscle aches. NEUROLOGICAL: Endorses weakness. Denies headache, dizziness. PSYCHIATRIC: Denies change in mood. HOME MEDICATIONS: Please see below. PHYSICAL EXAMINATION: VITAL SIGNS: see below GENERAL: Alert, comfortable, in no acute distress HEENT: Normocephalic, atraumatic, PERRLA, EOMI, sclera anicteric, moist mucous membranes NECK: Supple, trachea midline, no lymphadenopathy, no JVD CARDIOVASCULAR: Tachycardic with regular rhythm, normal S1 and S2. No rubs or gallops. 3/6 holosystolic murmur over the left lower sternal border. RESPIRATORY: Clear to auscultation bilaterally with equal air entry bilaterally. No wheezing, rhonchi, or rales. ABDOMEN: Soft, nondistended, bowel sounds present, mildly tender to palpation in the LUQ EXTREMITIES: Left foot with 3 toes amputated. Right foot with all 5 toes amputated. SKIN: No rash or skin breakdown noted. Ulceration on the plantar surface of the right foot, appears clean without erythema or warmth. Healing surgical scar present on the dorsal surface of the right foot. NEUROLOGIC: Alert and oriented 3 to person, place and time. No focal deficits appreciated PSYCHIATRIC: Mood and affect appropriate LABORATORY DATA: See below. MICROBIOLOGY: Please see below. ASSESSMENT: 74-year-old male presents with episode of bloody diarrhea, admitted for acute symptomatic anemia secondary to GI bleed PLAN: 1. Acute anemia secondary to GI bleed - Currently receiving 2 units PRBCs ordered in the ED, recheck CBC every 4 hours after transfusions - IV PPI twice a day. Nothing by mouth with IV fluids for maintenance. - Elevated lactic acid level - Two large bore IV present - GI consulted, Dr. Ortiz to see patient tomorrow, appreciate input and rec ommendations 2. MRSA infective endocarditis. - continue IV vancomycin per Dr. Armstrong until 12/03/2019 - PICC in place for outpatient IV antibiotics when discharged 3. Diabetes mellitus. - SSI while inpatient, hold home medications. Hypoglycemia protocol. 4. Tachycardia likely 2/2 to GI bleed, baseline sinus tachycardia - tele, treatment under problem #1 5. NORBERT on CKD - Cr appears to be above baseline, likely related to dehydration with GI bleed - IV fluids, monitor BMP daily 6. 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 Ocampo at [facility]. - previously on opdivo, currently being held due to infective endocarditis - continue pancreatic enzymes with meals when taking PO 7. Right foot wound s/p transmetarsal amputation - wound care daily, follows with Dr. Hyatt outpatient DVT prophylaxis: teds/scds. GI prophylaxis: IV protonix BID Disposition: Admit to PCU for transfusions, GI consult Vital Signs Vital Signs Date Time Temp Pulse Resp B/P (MAP) Pulse Ox O2 Delivery O2 Flow Rate FiO2 11/13/19 21:48 99.6 119 20 104/58 (73) 100 11/13/19 21:00 Room Air Laboratory Data Labs 24H Laboratory Tests 2 11/13/19 19:50: Immature Granulocyte % (Auto) 1.8, Neutrophils (%) (Auto) 83.5H, Lymphocytes (%) (Auto) 7.9L, Monocytes (%) (Auto) 6.0H, Eosinophils (%) (Auto) 0.5, Basophils (%) (Auto) 0.3, Neutrophils # (Auto) 12.2H, Lymphocytes # (Auto) 1.2L, Monocytes # (Auto) 0.9H, Eosinophils # (Auto) 0.1, Basophils # (Auto) 0.0, Nucleated Red Blood Cells % (auto) 0.0, Prothrombin Time 15.5H, Prothromb Time International Ratio 1.26, Activated Partial Thromboplast Time 31.5, Blood Gas Bicarbonate Standard 21.4, Venous Blood pH 7.282L, Venous Blood Partial Pressure CO2 50.9H, Venous Blood Partial Pressure O2 38.3, Venous Blood Total Carbon Dioxide 25.1, Venous Blood HCO3 23.5, Venous Blood Oxygen Saturation 63.3, Venous Blood Base Excess -3.2L, Anion Gap 7L, Glomerular Filtration Rate 34.1L, Lactic Acid Level 3.4*H, Calcium Level 7.8L, Phosphorus Level 3.7, Magnesium Level 2.0, Total Bilirubin 0.4, Direct Bilirubin 0.1, Aspartate Amino Transf (AST/SGOT) 22, Alanine Aminotransferase (ALT/SGPT) 30, Alkaline Phosphatase 148H, Total Creatine Kinase 43, Creatine Kinase MB 2.3, Creatine Kinase MB Relative Index 5.35H, Troponin I < 0.02, WZ-Lcr-R-Type Natriuretic Peptide 5336H, Total Protein 6.2L, Albumin 2.0L, Albumin/Globulin Ratio 0.5, Lipase 28L, Thyroid Stimulating Hormone (TSH) 3.410, Free Thyroxine 1.18, B-Hydroxybutyrate 4.36H CBC/BMP Laboratory Tests 11/13/19 19:50 Home Medications Scheduled Bisoprolol Fumarate (Bisoprolol Fumarate) 10 Mg Tab, 5 MG PO DAILY Glipizide (Glipizide ER) 10 Mg Tab, 10 MG PO DAILY Insulin Glargine,Hum.rec.anlog (Basaglar Kwikpen U-100) 100 Unit/1 Ml Insuln.pen, 1 DOSE SC QHS PT USES 25-30 UNITS Insulin Human Lispro (Novolog) 100 U/Ml Inj, 1 DOSE SC AC PER SLIDING SCALE Losartan Potassium (Losartan Potassium) 25 Mg Tablet, 25 MG PO DAILY Nivolumab (Opdivo) 240 Mg/24 Ml Vial, 240 MG IV Q4WKS LAST INFUSION ON 10/06/19 Pancreatic Enzymes (Creon Dr 12,000 Units Capsule) 1 Ea Capcr, 1 CAP PO BIDWM Vancomycin HCl (Vancomycin HCl) 1 Gm Vial, 1 GM IV DAILY Scheduled PRN Acetaminophen (Acetaminophen) 500 Mg Tablet, 500 MG PO Q6H PRN for PAIN Doxylamine Succinate (Unisom Sleep Aid) 25 Mg Tablet, 25 MG PO QHS PRN for SLEEP Allergies Coded Allergies: No Known Allergies (Unverified , 03/23/18) GME ATTESTATION GME ATTESTATION My faculty preceptor for this patient encounter was physically present during the encounter and was fully available. All aspects of the patient interview, ex amination, medical decision making process, and medical care plan development were reviewed and approved by the faculty preceptor. The faculty preceptor is aware and concurs with the plan as stated in the body of this note and will attest to such by his/her cosignature. ATTENDING NOTE I agree with full HPI, PMH, PSurgHx, PFamilyHx, SocialHx, Plan above. 74 y/o M with PMH of renal cell carcinoma with mets to lung, DM type II, diabetic neuropathy, chronic non-healing ulcer of right foot, hx of c. difficile, MRSA endocarditis on IV vancomycin who presented to [facility] ER after having multiple bloody bowel movements at home. In ER, HR 110s, BP stable. Admitted for further workup/treatment of GI bleed. Upon arrival to PCU, large bloody bowel movement occurred; BP dropped to 70s systolic. Pt transferred to ICU, massive transfusion protocol initiated. Central line placed. S/p 7 units PRBC, platelets, FFP. GI was at bedside earlier and now that he is more hemodynamically stable, likely scope this AM . Consults: GI and ICU. PHYSICAL EXAMINATION: CONSTITUTIONAL: resting in bed, AAO x 3 EYES: PERRLA, EOM intact HENT, MOUTH: Normocephalic, atraumatic, moist mucous membranes NECK: SUPPLE, no JVD, no lymphadenopathy, no carotid bruit, right side internal jugular vein. CV: Regular rate and rhythm, S1S2 normal, no murmurs/rubs/gallops RESPIRATORY: Clear to auscultation bilaterally, no rales/rhonchi/wheezes GI: tenderness to palpation of diffuse abdomen, hyperactive BS positive in 4 quadrants, soft, nondistended, no rebound or guarding, no organomegaly : Deferred MUSCULOSKELETAL: right upper ext midline, Normal ROM. No cyanosis, clubbing, swelling, joint deformity, extremity edema INTEGUMENTARY: Intact, no rashes, no lesions, no erythema NEUROLOGIC: Cranial Nerves II-XII are intact, no focal deficits PSYCHIATRIC: Mood and affect are normal LABORATORY DATA: Please see below IMAGING: CXR: A right-sided PICC line remains in place. A right-sided internal jugular central venous catheter is seen with its tip terminating in the expected location of the SVC. There are skin folds projecting over the chest bilaterally. No evidence of pneumothorax is seen. There is plate-like atelectasis in the right base. The lungs are somewhat under aerated bilaterally unchanged. No new infiltrate. ASSESSMENT: 74 y/o M admitting with GI bleed, hemorrhagic shock Diagnoses: 1. Acute GI bleed 2. Stage III hemorrhagic shock s/p massive transfusion 3. MRSA endocarditis on IV vancomycin 4. Renal cell carcinoma with metastasis to lung 5. DM type II. 6. diabetic neuropathy 7. Hx of c. diff. JULIAN KOTHARI D.O. November 13, 2019 22:08 Gill Lora MD November 14, 2019 09:25
[2019-11-13] MEDS ORDERED: NS 1,000 ML IV SCH (23:15)
[2019-11-14] VITALS (38 sets, daily range): BP systolic 72–146; BP diastolic 43–81
[2019-11-14 01:03] LABS: HEMATOCRIT 21.6 % (42.0-52.0); MEAN CORPUSCULAR HEMOGLOBIN 29.2 pg (27.0-33.0); MEAN CORPUSCULAR HGB CONC 31.9 g/dl (32.0-36.5); MEAN CORPUSCULAR VOLUME 91.5 fl (80.0-96.0); RED BLOOD COUNT 2.36 10^6/uL (4.30-6.10); WHITE BLOOD COUNT 9.5 10^3/uL (4.0-10.0)
[2019-11-14] MEDS ORDERED: HumaLOG INSULIN (NovoLOG) PER UNIT SC ONE (01:15)
[2019-11-14 01:19] LABS: HEMOGLOBIN 6.9 g/dl (13.5-17.5); PLATELET COUNT, AUTOMATED 188 10^3/uL (150-450)
[2019-11-14] MEDS ORDERED: NS 500 ML IV ONE (04:00)
--- NOTE | 2019-11-14 04:17 | PHACANCOPD ---
PHARMACY VANCOMYCIN DOSING Pt Demographics Demographics Patient Age:74 , Weight:80.000 , Gender: male Adjusted Body Weight Date: 11/14/19, Adjusted Body Weight: [80] Kg(ACTUAL WT) Vancomycin Vancomycin indication: MRSA ENDOCARDITIS Vancomycin Target Ranges: 15-20 mcg/ml Vancomycin Load Y/N: No Load Dose Date Time Vancomycin Load Dose: Date: Time: Vancomycin Dose Date: 11/14/19. Current Vancomycin Dose: [1GM q24h] Intermittent Dosing?: No Labs Creatinine Clearance Date:11/14/19. Creatinine Clearance: [36.3].CALCULATED Assessment and Plan Maintaining Current Dose?: Yes Reason for dose change: No Dose Change Pharmacist Note Pharmacist Note Date: 11/14/19. Pharmacist note:[id number] ADMITTED for treatment of MRSA endocarditis.SCR;2.05,CRCL=36.3,ht:72",wt:80kg.Patient had been receiving home antibiotic TX w/ Vancomycin 1 gram Q24h.Will continue this regimen pending the trough level scheduled for this morning@0900. [facility] November 14, 2019 04:17
[2019-11-14 04:50] LABS: MEAN CORPUSCULAR HEMOGLOBIN 29.1 pg (27.0-33.0); MEAN CORPUSCULAR HGB CONC 32.2 g/dl (32.0-36.5); MEAN CORPUSCULAR VOLUME 90.3 fl (80.0-96.0); PLATELET COUNT, AUTOMATED 225 10^3/uL (150-450); RED BLOOD COUNT 1.96 10^6/uL (4.30-6.10); WHITE BLOOD COUNT 9.6 10^3/uL (4.0-10.0)
[2019-11-14 04:58] LABS: HEMATOCRIT 17.7 % (42.0-52.0); HEMOGLOBIN 5.7 g/dl (13.5-17.5)
[2019-11-14] MEDS ORDERED: NS 1,000 ML IV ONE (05:15)
[2019-11-14 05:19] LABS: CALCIUM LEVEL 6.6 MG/DL (8.8-10.2); CREATININE FOR GFR 2.1 MG/DL (0.70-1.30); GLOMERULAR FILTRATION RATE 33.1 (>42); MAGNESIUM LEVEL 1.7 MG/DL (1.8-2.4); POTASSIUM SERUM 4.8 MEQ/L (3.5-5.1)
[2019-11-14] MEDS: PANTOPRAZOLE SODIUM 40 MG in D5W 50 ML IV SCH ×4 (05:53→20:23)
[2019-11-14] MEDS ORDERED: OCTREOTIDE ACETATE 1,200 MCG in NS 238.8 ML IV SCH (06:00)
[2019-11-14] MEDS ORDERED: propofoL 200 MG/20 ML VIAL As Ordered ONE (07:13)
[2019-11-14] MEDS ORDERED: fentaNYL 100 MCG/2 ML INJECTION (J3010) As Ordered ONE (07:13)
[2019-11-14] MEDS ORDERED: LIDOCAINE 2% 100MG/5ML SDV (FOR ANES.) As Ordered ONE ×2 (07:17→07:18)
[2019-11-14] MEDS ORDERED: HumaLOG INSULIN (NovoLOG) PER UNIT SC SCH (07:30)
[2019-11-14 07:35] LABS: HEMATOCRIT 32.8 % (42.0-52.0); MEAN CORPUSCULAR HEMOGLOBIN 29.9 pg (27.0-33.0); MEAN CORPUSCULAR HGB CONC 33.2 g/dl (32.0-36.5); MEAN CORPUSCULAR VOLUME 89.9 fl (80.0-96.0); PLATELET COUNT, AUTOMATED 179 10^3/uL (150-450); RED BLOOD COUNT 3.65 10^6/uL (4.30-6.10); WHITE BLOOD COUNT 14.3 10^3/uL (4.0-10.0)
[2019-11-14 07:40] LABS: HEMOGLOBIN 10.9 g/dl (13.5-17.5)
[2019-11-14] MEDS: HumaLOG INSULIN (NovoLOG) PER UNIT SC SCH ×4 (07:40→17:03)
--- NOTE | 2019-11-14 07:48 | REP ---
Portable chest x-ray: Single view. History: Line placement. Comparison study: November 13, 2019. Findings: A right-sided PICC line remains in place. A right-sided internal jugular central venous catheter is seen with its tip terminating in the expected location of the SVC. There are skin folds projecting over the chest bilaterally. No evidence of pneumothorax is seen. There is plate-like atelectasis in the right base. The lungs are somewhat under aerated bilaterally unchanged. No new infiltrate. Impression: Right IJ line appears to be in good position. No complications seen. Electronically Signed by Cornelius Henning MD 11/14/2019 07:40 A
[2019-11-14] MEDS ORDERED: ETOMIDATE INJ 20MG/10ML VIAL As Ordered ONE (08:00)
[2019-11-14] MEDS ORDERED: CREON-12 CAPSULE PO SCH (08:00)
--- NOTE | 2019-11-14 08:00 | ECGEPIP ---
[facility] - ED Test Date: 2019-11-13 Pat Name: LEXY SCHMITT Department: Room: - Gender: Male [employer] Operator: ARIEL : 1945 Requested By: MAGDALENA Dawson Order Number: [id number] Reading MD: William Bearden Measurements Intervals [place] Rate: 122 P: 54 DC: 159 QRS: -8 QRSD: 73 T: 14 QT: 310 QTc: 443 Interpretive Statements SINUS TACHYCARDIA INCOMPLETE RIGHT BUNDLE BRANCH BLOCK SIMILAR TO 10/17/19 Electronically Signed on 11-14-2019 8:00:09 EDT by William Bearden
--- NOTE | 2019-11-14 08:02 | REP ---
PORTABLE CHEST X-RAY: Single view. HISTORY: Chest pain. Comparison chest x-ray October 20, 2019. FINDINGS: The lungs are hypoventilated as before. There is bibasilar plate-like atelectasis. There is slight blunting of the left lateral pleural angle. A right sided PICC line is seen in place terminating in the expected location of the superior vena cava. No new infiltrate is seen. It is not enlarged. IMPRESSION: Bibasilar plate-like atelectasis. Slight blunting of the left lateral pleural angle. Right-sided PICC line. Electronically Signed by Cornelius Henning MD 11/14/2019 10:57 A
[2019-11-14] MEDS ORDERED: ePHEDrine SULFATE 25 MG/5 ML(5MG/ML) SYRINGE As Ordered ONE (08:16)
[2019-11-14] MEDS ORDERED: SUCCINYLCHOLINE 100 MG/5 ML SYRINGE (J0330) As Ordered ONE (08:16)
[2019-11-14] MEDS ORDERED: PHENYLephrine HCL 500 MCG/5 ML (100MCG/ML) SYRINGE (J2370) As Ordered ONE (08:16)
[2019-11-14] MEDS ORDERED: SUGAMMADEX SODIUM 500 MG/5 ML VIAL (BRIDION) As Ordered ONE (08:20)
[2019-11-14] MEDS ORDERED: dexameTHASONE 4 MG/ML 1ML VIAL (J1100 PER 1MG) As Ordered ONE (08:20)
[2019-11-14] MEDS ORDERED: ONDANSETRON 4MG/2ML VIAL As Ordered ONE (08:20)
[2019-11-14] MEDS ORDERED: ROCURONIUM BROMIDE 50 MG/5 ML VIAL As Ordered ONE (08:25)
--- NOTE | 2019-11-14 08:36 | ROOR ---
Patient Name: Zeke Jo Procedure Date: 11/14/2019 7:08 AM Date of : 1945 Age: 74 Gender: Male Note Status: Finalized Procedure: Upper GI endoscopy Indications: Acute post hemorrhagic anemia Providers: Imtiaz ORTIZ MD Referring MD: 2. Inpatient 2. Inpatient Requesting Provider: Medicines: Monitored Anesthesia Care Complications: No immediate complications. Procedure: Pre-Anesthesia Assessment: - The heart rate, respiratory rate, oxygen saturations, blood pressure, adequacy of pulmonary ventilation, and response to care were monitored throughout the procedure. The Endoscope was introduced through the mouth, and advanced to the third part of duodenum. The upper GI endoscopy was performed with difficulty due to excessive bleeding. Successful completion of the procedure was aided by lavage. The patient tolerated the procedure well. Findings: The examined esophagus was normal. Clotted blood was found in the entire examined stomach obscuring visualisation, but no major overt lesions seen. No gross lesions were noted in the entire examined stomach. Two non-obstructing oozing cratered duodenal ulcers with pigmented material were found in the duodenal bulb. The largest lesion was 20 mm in largest dimension. There is no evidence of perforation. To stop active bleeding, one hemostatic clip was successfully placed. There was no bleeding at the end of the procedure. Impression: - Normal esophagus. - Clotted blood in the entire stomach obscuring visualisation of the stomach. - Deeply cratered scarred duodenal ulcers with adherent clot in the first portion of the duodenum. This was removed revealing pigmented material and slow ooze of blood from margin of one ulcer. There is no evidence of perforation. Clip was placed for hemostasis. - No specimens collected. Recommendation: - Use a proton pump inhibitor IV/PO BID. - Observe patient's clinical course. - Repeat upper endoscopy PRN for retreatment. Imtiaz Ortiz MD Imtiaz ORTIZ MD 11/14/2019 8:35:47 AM Electronically signed by Imtiaz ORTIZ MD Number of Addenda: 0 Note Initiated On: 11/14/2019 7:08 AM Estimated Blood Loss: Estimated blood loss: none.
--- NOTE | 2019-11-14 08:53 | CR ---
DATE OF CONSULTATION: 11/14/2019 Inpatient request from physician hospitalist service. REASON FOR CONSULTATION: Rectal bleeding. HISTORY OF PRESENT ILLNESS: Mr. Zeke Jo is a 74-year-old gentleman who has presented twice before to [facility] with anemia and fatigue. He has a recent history of bacterial endocarditis. He has received some blood transfusions. He presents to the hospital complaining of fatigue and weakness and was found to have a hemoglobin of 6. He at some point had a small amount of rectal bleeding consisting of some bright red blood and some loose stools. However, he was admitted without any significant abdominal pain or rectal bleeding at this time. He was monitored during his hospitalization. He suddenly started passing bright red blood and black stools per rectum. He became hypotensive and was transferred from the progressive care unit (PCU) to the intensive care unit (ICU), where mass transfusion was performed. He is status post 4 units of packed red blood cells (RBCs) with improvement in his hemodynamic status. Consult was placed to evaluate and treat. 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 SURGICAL HISTORY: Left nephrectomy, left-sided toe amputations, right foot debridement. SOCIAL HISTORY: Negative for tobacco. Negative for alcohol. FAMILY HISTORY: Is negative for colorectal carcinoma, inflammatory bowel disease. ALLERGIES TO MEDICATIONS: Are no known drug allergies.. Vital signs: Temperature 97.3, respiratory rate 18, blood pressure 78/47 with a repeat of 122/74. General: He is awake, alert, and oriented times three, in no acute distress, nontoxic in appearance. Head, eyes, ears, nose, and throat: Are grossly without abnormality. No oral thrush. Neck is supple. No lymphadenopathy. Chest is coarse, distant breath sounds. No rhonchi or crackles. Abdomen is soft, nontender. Good bowel sounds. No masses are appreciated. Extremities: Negative for edema. Rectal examination reveals black maroon. LABORATORY DATA: Hemoglobin 6.9, 6.9, 5.7, BUN 54, creatinine 2.1. PT/INR 1.26. Platelet count is 225. IMPRESSION: 1. Acute posthemorrhagic anemia. 2. Melanotic dark red black stools. 3. Hemodynamic instability. RECOMMENDATIONS: Stabilize hemodynamics with additional packed RBCs, possible need for pressors. Endoscopy planned after the patient stabilized. If stabilization cannot be achieved over the next 1-2 hours, would recommend a packed RBC scan to evaluate/localize gastrointestinal (GI) bleeding from upper versus lower.
[2019-11-14] MEDS ORDERED: NS 1,000 ML IV SCH (09:00)
[2019-11-14] MEDS ORDERED: LOSARTAN 25 MG TAB PO SCH (09:00)
[2019-11-14] MEDS ORDERED: ONDANSETRON 4MG/2ML VIAL IV PRN (09:00)
[2019-11-14] MEDS ORDERED: VANCOMYCIN 1000MG/20ML VIAL IV SCH (09:00)
[2019-11-14] MEDS ORDERED: bisoproloL fumarate 5 MG TAB PO SCH (09:00)
[2019-11-14 09:24] LABS: HEMATOCRIT 30.8 % (42.0-52.0); HEMOGLOBIN 10.2 g/dl (13.5-17.5); MEAN CORPUSCULAR HEMOGLOBIN 29.7 pg (27.0-33.0); MEAN CORPUSCULAR HGB CONC 33.1 g/dl (32.0-36.5); MEAN CORPUSCULAR VOLUME 89.8 fl (80.0-96.0); PLATELET COUNT, AUTOMATED 173 10^3/uL (150-450); RED BLOOD COUNT 3.43 10^6/uL (4.30-6.10); WHITE BLOOD COUNT 12.2 10^3/uL (4.0-10.0)
--- NOTE | 2019-11-14 09:39 | ROOPDOC ---
[facility] Report Of Operation Report of Operation DATE OF PROCEDURE: 11/14/19, 06:25 PREPROCEDURE DIAGNOSES: GI bleed, hemorrhagic shock POSTPROCEDURE DIAGNOSES: GI bleed, hemorrhagic shock PROCEDURE: Right internal jugular central line placement PHYSICIAN: Gill Lora MD ESTIMATED BLOOD LOSS: Approximately 5 mL. COMPLICATIONS: None PROCEDURE NOTE: The patient was placed in Trendelenburg position. Anesthesia was obtained with local infiltration of 8 mL 1% lidocaine. Hand hygiene was performed prior to procedure. Chlorhexidine used to prep the skin and dried for 2 minutes prior to skin puncture. Traffic was limited during the procedure. Full barrier precaution was utilized. Ultrasound guidance was used and the right internal jugular vein was cannulated. A triple-lumen catheter was placed using the Seldinger technique. All lines were flushed and true nonpulsatile dark venous blood appropriately. The line was secured with sutures. A dressing was placed over the site. The patient tolerated the procedure well. A post-line XR was reviewed demonstrating the tip of the catheter in the SVC. Gill Lora MD November 14, 2019 09:39
[2019-11-14] MEDS: VANCOMYCIN HCL 1,000 MG, VIAL MATE ADAPTER 1 EACH in D5W 250 ML IV SCH (10:00)
[2019-11-14 15:54] LABS: IONIZED CALCIUM 4.3 MG/DL (4.5-5.3)
[2019-11-14 16:03] LABS: HEMATOCRIT 28.7 % (42.0-52.0); HEMOGLOBIN 9.7 g/dl (13.5-17.5); MEAN CORPUSCULAR HEMOGLOBIN 29.5 pg (27.0-33.0); MEAN CORPUSCULAR HGB CONC 33.8 g/dl (32.0-36.5); MEAN CORPUSCULAR VOLUME 87.2 fl (80.0-96.0); PLATELET COUNT, AUTOMATED 163 10^3/uL (150-450); RED BLOOD COUNT 3.29 10^6/uL (4.30-6.10); WHITE BLOOD COUNT 10.2 10^3/uL (4.0-10.0)
[2019-11-14 16:15] LABS: INR 1.13; PROTHROMBIN TIME 14.2 SECONDS (11.8-14.0)
[2019-11-14 16:23] LABS: ALBUMIN 2.1 GM/DL (3.2-5.2); BILIRUBIN,TOTAL 0.7 MG/DL (0.2-1.0); CALCIUM LEVEL 7.1 MG/DL (8.8-10.2); CREATININE FOR GFR 1.78 MG/DL (0.70-1.30); GLOMERULAR FILTRATION RATE 40.1 (>42); POTASSIUM SERUM 5.2 MEQ/L (3.5-5.1)
--- NOTE | 2019-11-14 17:09 | CR ---
DATE OF CONSULTATION: 11/14/2019 CHIEF COMPLAINT: Acute gastrointestinal (GI) bleed. HISTORY OF PRESENT ILLNESS: Mr. 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 The patient has had ongoing fatigue since his hospitalization a few weeks ago. At that time he was found to have symptomatic anemia requiring packed red blood cells (PRBC) transfusions about 4 units during that admission. He did also have a stool occult blood, which was positive and he was instructed to follow up as an outpatient with GI for evaluation including upper and lower endoscopy. The patient did not have the GI appointment yet, and at home, he had noticed episodes of worsening weakness and lightheadedness. He also stated the day of his admission that he had loose watery diarrhea with bright red blood in it for which he stated felt like a large quantity. He also had some pain in the epigastric and left upper quadrant region, which had been ongoing for the past day. Initially upon admission to the emergency department (ED), the patient was noted to be anemic. He was being transfused 2 units of PRBC, as well as being started on IV Protonix. The patient was initially normotensive, however, did have tachycardia. He was initially being monitored in the progressive care unit (PCU); however, overnight the patient started having large amounts of melena with more blood stool mixed in and became hypotensive. He was pale and diaphoretic, and he was transferred to the intensive care unit (ICU) where he had ongoing large volume of melena and more bright red blood. He had a massive transfusion protocol ordered, and he was transfused an additional 5 units of PRBC for a total this morning of 7 units of PRBCs. He also received 1 unit of platelets as well. The patient had a triple-lumen right IJ placed by the hospitalist. His blood pressure had improved with the transfusion, although he did continue to have some tachycardia. The patient symptomatically reported improvement in terms of the lightheadedness and dizziness, and he appeared more awake and alert. The patient was brought emergently to the operating room (OR) for an endoscopy by GI for his acute GI bleed. As the patient did not receive any fresh frozen plasma (FFP), I ordered 4 units of FFP to be given in the OR. PAST MEDICAL HISTORY: Renal cell carcinoma with metastatic disease to the liver and the lung, on Opdivo. Diabetes, diabetic neuropathy, chronic nonhealing ulcer of the right foot. History of previous Clostridium difficile (C diff) with a history of stool transplant. Methicillin-resistant Staphylococcus aureus (MRSA) endocarditis, on IV vancomycin until 12/03/2019. Chronic iron deficiency anemia. PAST SURGICAL HISTORY: Left-sided nephrectomy. Previous left-sided toe amputations. Right toe amputation. Right foot debridement. Right knee surgery. Cataract surgery bilaterally. Lower extremity angiography. SOCIAL HISTORY: Denies history of tobacco use. No alcohol use or IV drug use. FAMILY HISTORY: Father has a history of coronary artery disease. Mother history of heart disease and diabetes. Sister with diabetes. HOME MEDICATIONS: - bisoprolol - glipizide - insulin - losartan - Opdivo - pancreatic enzymes - vancomycin 1 gram IV daily - Tylenol as needed - Unisom as needed ALLERGIES: No known drug allergies. PHYSICAL EXAM: Temperature 97.3, pulse 112, respirations 18, blood pressure was 78/47 with repeat blood pressure of 126/66, oxygen saturation (O2 sat) 98% on 2 liters nasal cannula. General: The patient is an elderly male, is lying in bed, appears more comfortable now with improved color and no significant respiratory distress. HEENT is normocephalic, atraumatic. Pupils are reactive to light bilaterally. Mucous membranes are moist with some mild conjunctival pallor. Neck is supple. Trachea is midline. There is no palpable cervical adenopathy. Cardiovascular: Tachycardiac, regular rate and rhythm. Normal S1, S2 with a holosystolic murmur at the left apex and sternal border. Lungs: There are diminished breath sounds at the bases bilaterally with mild crackles. No significant wheezing or rhonchi. Abdomen is soft, obese and mild epigastric and left upper quadrant tenderness. Lower extremities: There is a bandage and dressing placed around the right foot. There is no significant lower extremity edema noted. LABS: WBC is 9.0, hemoglobin was 5.7, platelets are 225. Chemistry: Sodium is 142, potassium 4.8, chloride is 110, bicarb is 23, BUN 54, creatinine is 2.10, glucose of 361. Lactic acid trending down from 3.4 to 1.0, calcium is 6.6. Beta hydroxybutyrate was 4.36 VBG; pH was 7.282, pCO2 of 50.9, pO2 of 38. IMAGING STUDIES: Chest x-ray showed poor lung volumes. There is bibasilar atelectasis with slight blunting of the left lateral pleural angle. There is a right-sided midline in place with the tip in the superior vena cava (SVC). ASSESSMENT/PLAN: Mr. Jo is a 74-year-old male with a history of metastatic renal cell carcinoma, diabetes, a history of chronic nonhealing ulcer of the right foot, MRSA endocarditis - on IV vancomycin, who presented with complaints of fatigue and weakness and was found to have symptomatic anemia secondary to an acute gastrointestinal (GI) bleed. The patient initially on arrival to the ED was hemodynamically stable. He, however, overnight started having large volume of melena with more bright red blood mixed in and became hypotensive. The patient had a massive transfusion protocol called on him overnight, and he has received so far a total of 7 units of PRBC, 1 unit of platelets and 4 units of FFP. The patient had gone to the OR earlier this morning emergently for an endoscopy, which was found to have deeply cratered scattered duodenal ulcers with adherent clot. The patient had clips placed around the margins of one of the deep ulcers. Acute GI bleed secondary to ulcers. - Continue with IV Protonix. No evidence of esophageal varices. Can likely discontinue the octreotide drip. - Continue monitoring hemoglobin and hematocrit and transfuse as needed for hemoglobin less than 7 or for evidence of active and ongoing symptomatic bleeding. - The patient has an 18-gauge IV in the arm as well as a midline on the right and a right IJ triple lumen. - Continue to follow up GI recommendations. Acute kidney injury (NORBERT) on chronic kidney disease (CKD) with a history of renal cell carcinoma and mets. - Continue to monitor his creatinine as well as urine output with a Le catheter. - Will renally dose medications. - The patient has received aggressive IV fluid hydration as well as volume repletion with PRBCs, FFP and platelets. Would hold off on maintenance fluids for now and continue to monitor his volume status and urine output. - The patient does have diabetes and was hyperglycemic. Will continue with sliding scale insulin coverage. He did have some elevated beta hydroxybutyrate so would need to monitor closely for signs of diabetic ketoacidosis (DKA). His acidosis did improve. Acute hypoxemic respiratory failure. - Continue with nasal cannula oxygen supplementation and titrate to maintain O2 sat above 90%. The patient does have evidence on chest x-ray of poor lung volumes on inspiration, as well as atelectasis, likely contributing to his hypoxemia. Would also monitor closely for pulmonary edema and fluid overload. - Can continue with Opdivo for his history of metastatic renal cell carcinoma. Deep vein thrombosis (DVT) prophylaxis. Thromboembolism deterrents (TEDs) and sequential compression devices (SCDs). CODE STATUS: Patient who is DO NOT RESUSCITATE/DO NOT INTUBATE (DNR/DNI), which was reversed for the endoscopy. Total critical care time spent not including procedures: Approximately 1 hour and 15 minutes. MTDD
--- NOTE | 2019-11-14 18:24 | IPNPDOC ---
Text Note Date of Service The patient was seen on 11/14/19. NOTE Subjective: -Finally met him this evening after having been taken for endoscopy early this morning. -Doing ok this afternoon. Objective: VITAL SIGNS: see below GENERAL: Alert, comfortable, in no acute distress HEENT: Normocephalic, atraumatic, PERRLA, EOMI, sclera anicteric, moist mucous membranes NECK: Supple, trachea midline, no lymphadenopathy, no JVD CARDIOVASCULAR: RRR, 3/6 holosystolic murmur over the left lower sternal border. RESPIRATORY: Clear to auscultation bilaterally with equal air entry bilaterally. No wheezing, rhonchi, or rales, with nasal canula in place ABDOMEN: Soft, bowel sounds present, NTND EXTREMITIES: Left foot with 3 toes amputated. Right foot with all 5 toes amputated. WWP otherwise SKIN: No rash or skin breakdown noted. Ulceration on the plantar surface of the right foot,clean without surrounding erythema. Healing surgical scar present on the dorsal surface of the right foot. NEUROLOGIC: Alert and oriented 3 to person, place and time. No focal deficits Labs: reviewed Assessment: 74-year-old M with a history of metastatic renal cell carcinoma, diabetes, a history of chronic nonhealing ulcer of the right foot, MRSA endocarditis on IV vancomycin, who presented with complaints of fatigue and weakness and was found to have symptomatic anemia secondary to an acute UGIB that worsened overnight with associated hypotension requiring massive transfusion protocol for which he received a total of 7 units of PRBC, 1 unit of platelets and 4 units of FFP and had emergent endoscopy that found deeply cratered scattered duodenal ulcers with adherent clot to which he had clips placed around the margins of one of the deep ulcers. 1. Acute anemia secondary to GI bleed: found to have cratered scattered duodenal ulcers with adherent clot - s/p 7 units PRBCs , 1 pool of platelets and 4 units of FFP when he had massive melena/hematochezia overnight with associated hypotension - IV PPI BID - has two large bore IV present - -s/p endoscopy this AM with Dr. Ortiz, found to have deeply cratered scattered duodenal ulcers with adherent clot. The patient had clips placed around the margins of one of the deep ulcers. 2. MRSA infective endocarditis. - continue IV vancomycin per Dr. Armstrong until 12/03/2019 - PICC in place for outpatient IV antibiotics when discharged 3. Diabetes mellitus. - SSI while inpatient, hold home medications. Hypoglycemia protocol. 4. NORBERT on CKD - Secondary to dehydration and GI bleed - s/p massive transfusion protocol and fluids -monitor BMP 6. 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 Ocampo at [facility]. - previously on opdivo, currently being held due to infective endocarditis - continue pancreatic enzymes with meals when taking PO 7. Right foot wound s/p transmetarsal amputation - wound care daily, follows with Dr. Hyatt outpatient 8. Hypoxemic respiratory failure: likely 2/2 atelectasis, without evidence of infection at this time. Will monitor for overload after receiving massive blood products and fluids at risk for pulm edema DVT prophylaxis: teds/scds. GI prophylaxis: IV protonix BID Diet: now on clears Disposition: ICU, with GI consult VS,Fishbone, I+O VS, Fishbone, I+O Laboratory Tests 11/13/19 19:50 11/14/19 00:49 11/14/19 04:39 11/14/19 07:18 11/14/19 09:06 11/14/19 15:34 Vital Signs Date Time Temp Pulse Resp B/P (MAP) Pulse Ox O2 Delivery O2 Flow Rate FiO2 11/14/19 18:00 104 18 141/69 (93) 96 Nasal Cannula 2.0 11/14/19 16:00 99.2 I&O- Last 24 Hours up to 6 AM 11/14/19 06:00 Intake Total 3300 ml Output Total 420 ml Balance 2880 ml ASCENCION REYES MD November 14, 2019 18:24
[2019-11-14 20:39] LABS: HEMATOCRIT 26.6 % (42.0-52.0); MEAN CORPUSCULAR HEMOGLOBIN 29.5 pg (27.0-33.0); MEAN CORPUSCULAR HGB CONC 33.8 g/dl (32.0-36.5); MEAN CORPUSCULAR VOLUME 87.2 fl (80.0-96.0); PLATELET COUNT, AUTOMATED 147 10^3/uL (150-450); RED BLOOD COUNT 3.05 10^6/uL (4.30-6.10); WHITE BLOOD COUNT 9.4 10^3/uL (4.0-10.0)
[2019-11-15] VITALS (8 sets, daily range): BP systolic 122–165; BP diastolic 68–94
[2019-11-15] MEDS: HumaLOG INSULIN (NovoLOG) PER UNIT SC SCH ×4 (00:11→17:57)
[2019-11-15] MEDS: PANTOPRAZOLE SODIUM 40 MG in D5W 50 ML IV SCH ×2 (01:45→06:51)
[2019-11-15 04:36] LABS: HEMATOCRIT 25.7 % (42.0-52.0); HEMOGLOBIN 8.8 g/dl (13.5-17.5); MEAN CORPUSCULAR HEMOGLOBIN 30.2 pg (27.0-33.0); MEAN CORPUSCULAR HGB CONC 34.2 g/dl (32.0-36.5); MEAN CORPUSCULAR VOLUME 88.3 fl (80.0-96.0); PLATELET COUNT, AUTOMATED 163 10^3/uL (150-450); RED BLOOD COUNT 2.91 10^6/uL (4.30-6.10); WHITE BLOOD COUNT 9.2 10^3/uL (4.0-10.0)
[2019-11-15 04:37] LABS: IONIZED CALCIUM 4.6 MG/DL (4.5-5.3)
[2019-11-15 04:45] LABS: INR 1.23; PROTHROMBIN TIME 15.2 SECONDS (11.8-14.0)
[2019-11-15 04:57] LABS: CALCIUM LEVEL 7.4 MG/DL (8.8-10.2); CREATININE FOR GFR 1.58 MG/DL (0.70-1.30); MAGNESIUM LEVEL 1.9 MG/DL (1.8-2.4); POTASSIUM SERUM 4.5 MEQ/L (3.5-5.1)
[2019-11-15] MEDS: bisoproloL fumarate 5 MG TAB PO SCH (08:29)
[2019-11-15] MEDS: ACETAMINOPHEN TAB 650MG DOSE (2X325MG) PO PRN ×3 (10:06→21:26)
[2019-11-15] MEDS: VANCOMYCIN HCL 1,000 MG, VIAL MATE ADAPTER 1 EACH in D5W 250 ML IV SCH (10:06)
--- NOTE | 2019-11-15 13:56 | IPNPDOC ---
Text Note Date of Service The patient was seen on 11/15/19. NOTE Subjective: -had some melena overnight without karthikeyan hematochezia, x 2 episodes -Otherwise feels well this AM without complaints. Tolerating clears Objective: VITAL SIGNS: see below GENERAL: Alert, comfortable, in no acute distress HEENT: Normocephalic, atraumatic, PERRLA, EOMI, sclera anicteric, moist mucous membranes NECK: Supple, trachea midline, no lymphadenopathy, no JVD CARDIOVASCULAR: RRR, 3/6 holosystolic murmur over the left lower sternal border. RESPIRATORY: CTAB ABDOMEN: Normoactive bowel sounds, soft, NTND EXTREMITIES: Left foot with 3 toes amputated. Right foot with all 5 toes amputated. WWP otherwise SKIN: No rash or skin breakdown noted. Ulceration on the plantar surface of the right foot,clean without surrounding erythema. Healing surgical scar present on the dorsal surface of the right foot. NEUROLOGIC: Alert and oriented 3 to person, place and time. No focal deficits Labs: reviewed Hgb 8.8, WBC 9.2, platelets 163, Cr 1.58 Assessment: 74-year-old M with a history of metastatic renal cell carcinoma, diabetes, a history of chronic nonhealing ulcer of the right foot, MRSA endocarditis on IV vancomycin, who presented with complaints of fatigue and weakness and was found to have symptomatic anemia secondary to an acute UGIB that worsened overnight with associated hypotension requiring massive transfusion protocol for which he received a total of 7 units of PRBC, 2 unit of platelets and 4 units of FFP and had emergent endoscopy that found deeply cratered scattered duodenal ulcers with adherent clot to which he had clips placed around the margins of one of the deep ulcers. 1. Acute anemia secondary to GI bleed: found to have cratered scattered duodenal ulcers with adherent clot - s/p 7 units PRBCs , 2 pool of platelets and 4 units of FFP when he had massive melena/hematochezia overnight with associated hypotension - continue IV PPI BID - has two large bore IV present - s/p endoscopy11/[address] Ortiz, found to have deeply cratered scattered duodenal ulcers with adherent clot. The patient had clips placed around the margins of one of the deep ulcers. - H/H appears to be stable with slight downtrend, will check q6h today, then if stable, can go to daily tomorrow 2. MRSA infective endocarditis. - continue IV vancomycin per Dr. Armstrong until 12/03/2019 - PICC in place for outpatient IV antibiotics when discharged 3. Diabetes mellitus. - SSI while inpatient, hold home medications. Hypoglycemia protocol. 4. NORBERT on CKD: improved - Secondary to dehydration and GI bleed - s/p massive transfusion protocol and fluids - monitor BMP 6. 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 Ocampo at [facility]. - previously on nivolumab currently being held due to infective endocarditis - continue pancreatic enzymes with meals when taking PO 7. Right foot wound s/p transmetarsal amputation - wound care daily, follows with Dr. Hyatt outpatient 8. Hypoxemic respiratory failure: likely 2/2 atelectasis, without evidence of infection at this time. Will monitor for overload after receiving massive blood products and fluids at risk for pulm edema -doing well DVT prophylaxis: teds/scds. GI prophylaxis: IV protonix BID Diet: now on clears, considering advancing diet, will discuss with Dr. Morse Disposition: Will downgrade to PCU, with GI onboard, and PT/OT VS,Fishbone, I+O VS, Fishbone, I+O Laboratory Tests 11/14/19 09:06 11/14/19 15:34 11/14/19 20:30 11/15/19 04:10 Vital Signs Date Time Temp Pulse Resp B/P (MAP) Pulse Ox O2 Delivery O2 Flow Rate FiO2 11/15/19 04:00 98.0 105 18 122/74 (90) 98 Nasal Cannula 2.0 I&O- Last 24 Hours up to 6 AM 11/15/19 06:00 Intake Total 5336 ml Output Total 2250 ml Balance 3086 ml ASCENCION REYES MD November 15, 2019 08:30
[2019-11-15] MEDS: PANTOPRAZOLE 40MG VIAL (C9113 PER 1) IV SCH (21:25)
[2019-11-16] VITALS (20 sets, daily range): BP systolic 80–162; BP diastolic 44–84
[2019-11-16] MEDS: HumaLOG INSULIN (NovoLOG) PER UNIT SC SCH ×5 (00:33→23:29)
[2019-11-16] MEDS: ACETAMINOPHEN TAB 650MG DOSE (2X325MG) PO PRN ×3 (04:19→21:06)
[2019-11-16 04:38] LABS: HEMOGLOBIN 9.2 g/dl (13.5-17.5); MEAN CORPUSCULAR HEMOGLOBIN 29.4 pg (27.0-33.0); MEAN CORPUSCULAR HGB CONC 32.9 g/dl (32.0-36.5); MEAN CORPUSCULAR VOLUME 89.5 fl (80.0-96.0); PLATELET COUNT, AUTOMATED 169 10^3/uL (150-450); RED BLOOD COUNT 3.13 10^6/uL (4.30-6.10); WHITE BLOOD COUNT 9.9 10^3/uL (4.0-10.0)
[2019-11-16 04:48] LABS: INR 1.08; PROTHROMBIN TIME 13.7 SECONDS (11.8-14.0)
[2019-11-16 05:02] LABS: CALCIUM LEVEL 7.8 MG/DL (8.8-10.2); CREATININE FOR GFR 1.34 MG/DL (0.70-1.30); GLOMERULAR FILTRATION RATE 55.6 (>42)
[2019-11-16] MEDS: bisoproloL fumarate 5 MG TAB PO SCH (08:55)
[2019-11-16] MEDS: PANTOPRAZOLE 40MG VIAL (C9113 PER 1) IV SCH ×2 (08:55→20:54)
[2019-11-16] MEDS: VANCOMYCIN HCL 1,000 MG, VIAL MATE ADAPTER 1 EACH in D5W 250 ML IV SCH (10:12)
[2019-11-16] MEDS ORDERED: NS 1,000 ML IV ONE (12:45)
[2019-11-16 13:13] LABS: HEMATOCRIT 20.9 % (42.0-52.0); HEMOGLOBIN 6.7 g/dl (13.5-17.5)
[2019-11-16] MEDS ORDERED: fentaNYL 100 MCG/2 ML INJECTION (J3010) As Ordered ONE ×2 (13:56→14:43)
[2019-11-16] MEDS ORDERED: MIDAZOLAM INJ 2MG/2ML VIAL (J2250 PER 1MG) As Ordered ONE ×2 (13:56→14:43)
[2019-11-16] MEDS ORDERED: diphenhydrAMINE 50MG/ML VIAL (J1200) As Ordered ONE (13:56)
[2019-11-16] MEDS ORDERED: ISOVUE-300 61% 50ML VIAL As Ordered ONE ×3 (13:57→14:40)
[2019-11-16] MEDS ORDERED: LIDOCAINE 1% MDV 20ML VIAL As Ordered ONE (14:14)
[2019-11-16] MEDS ORDERED: SUCCINYLCHOLINE 100 MG/5 ML SYRINGE (J0330) As Ordered ONE ×2 (14:42→15:50)
[2019-11-16] MEDS ORDERED: propofoL 200 MG/20 ML VIAL As Ordered ONE ×2 (14:42→15:50)
[2019-11-16] MEDS ORDERED: ROCURONIUM BROMIDE 50 MG/5 ML VIAL As Ordered ONE ×2 (14:42→15:50)
[2019-11-16] MEDS ORDERED: LIDOCAINE 2% 100MG/5ML SDV (FOR ANES.) As Ordered ONE ×2 (14:42→15:50)
--- NOTE | 2019-11-16 15:18 | IPNPDOC ---
Text Note Date of Service The patient was seen on 11/16/19. NOTE Subjective: -[place] well this AM without complaints, had regular breakfast of scrambled eggs. -At 1225 was contacted by nursing for witnessed large episode of painless hematochezia --> then had a total of 6 episodes within minutes with associated dizziness and hypotension --> activated massive transfusion protocol--> had Cortis placed at R femoral by Dr. Kyle and received thus far a total of 7u pRBC, 2 FFP, 1 platelet --> spoke with Dr. Morse who recommended IR embolizati on --> currently in IR with Dr. Ames Objective: VITAL SIGNS: see below GENERAL: Alert, comfortable, in no acute distress HEENT: Normocephalic, atraumatic, PERRLA, EOMI, sclera anicteric, moist mucous membranes NECK: Supple, trachea midline, no lymphadenopathy, no JVD CARDIOVASCULAR: RRR, 3/6 holosystolic murmur over the left lower sternal border. RESPIRATORY: CTAB ABDOMEN: Normoactive bowel sounds, soft, NTND, karthikeyan blood with clots at rectum EXTREMITIES: Left foot with 3 toes amputated. Right foot with all 5 toes amputated. WWP otherwise SKIN: No rash or skin breakdown noted. Ulceration on the plantar surface of the right foot,clean without surrounding erythema. Healing surgical scar present on the dorsal surface of the right foot. NEUROLOGIC: Alert and oriented 3 to person, place and time. 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, who presented with complaints of fatigue and weakness and was found to have symptomatic anemia secondary to an acute UGIB that worsened overnight with associated hypotension requiring massive transfusion protocol for which he received a total of 7 units of PRBC, 2 unit of platelets and 4 units of FFP and had emergent endoscopy that found deeply cratered scattered duodenal ulcers with adherent clot to which he had clips placed around the margins of one of the deep ulcers, and was stable for transiently stable but this AM had another massive bleeding episode with associated hemorrhagic shock requiring thus far 7u pRBCs, 2 FFP, 1 platelet and in IR for embolization. 1. Acute anemia secondary to GI bleed: found to have cratered scattered duodenal ulcers with adherent clot - s/p total 14 units PRBCs , 3 pool of platelets and 6 units of FFP - IV PPI BID - has cortis, TLC and some peripheral IVs - s/p endoscopy11/[address] Ortiz, found to have deeply cratered scattered duodenal ulcers with adherent clot and had clips placed around the margins of one of the deep ulcers. Then more bleeding this morning currently in IR for embolization - H/H at 1800h - q6h CBCs - NPO 2. MRSA infective endocarditis. - continue IV vancomycin per Dr. Armstrong until 12/03/2019 - PICC in place for outpatient IV antibiotics when discharged 3. Diabetes mellitus. - SSI while inpatient, hold home oral antihyperglycemic medications. Hypoglycemia protocol. 4. NORBERT on CKD: improved - Secondary to dehydration and GI bleed - s/p massive transfusion protocol and fluids twice now - monitor BMP 6. 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 Ocamop at [facility]. - previously on nivolumab currently being held due to infective endocarditis - continue pancreatic enzymes with meals when taking PO 7. Right foot wound s/p transmetarsal amputation - wound care daily, follows with Dr. Hyatt outpatient 8. Hypoxemic respiratory failure: likely 2/2 atelectasis, without evidence of infection at this time. Will monitor for overload after receiving massive blood products and fluids at risk for pulm edema -doing well DVT prophylaxis: teds/scds GI prophylaxis: Switched IV protonix BID to PO BID Diet: advanced to consistent carb this AM after stable H/H for 24h Disposition: Transfer to ICU after embolization [facility], I+O [facility] I+O Laboratory Tests 11/16/19 04:20 11/16/19 04:25 Vital Signs Date Time Temp Pulse Resp B/P (MAP) Pulse Ox O2 Delivery O2 Flow Rate FiO2 11/16/19 08:55 107 162/84 11/16/19 08:00 98.6 18 95 Room Air 11/15/19 04:00 2.0 I&O- Last 24 Hours up to 6 AM 11/16/19 06:00 Intake Total 2520 ml Output Total 3100 ml Balance -580 ml ASCENCION REYES MD November 16, 2019 09:04
--- NOTE | 2019-11-16 15:47 | RO ---
DATE OF PROCEDURE: 11/16/2019 FEMORAL CENTRAL LINE PROCEDURE NOTE: INDICATION: Rapid transfusion of blood products. PREPROCEDURE DIAGNOSIS: Hemorrhagic shock, acute gastrointestinal (GI) bleed. POSTPROCEDURE DIAGNOSIS: Hemorrhagic shock, acute gastrointestinal bleed. ATTENDING PHYSICIAN: Dr. Kyle CONSENT: The procedure was performed emergently and consent was implied due to the emergent nature of the procedure. There was verbal consent obtained from the patient prior to procedure. PROCEDURE SUMMARY: A central line insertion practice form was completed by independent observer. A full sterile technique was maintained prior to the procedure including a surgical cap, mask and protective eyewear, sterile gown and sterile gloves throughout procedure. A time-out was performed. The right inguinal region was prepped using chlorhexidine scrub and draped in sterile fashion using a full drape and a sterile probe cover employed. The right femoral vein was identified using ultrasound. Anesthesia was achieved over vein using 1% lidocaine. Using real time-out of plane ultrasound guidance, the introducer needle was inserted into the right femoral vein. Venous blood was withdrawn. The syringe was removed and a guidewire was advanced into the introducer needle. The introducer needle was removed over the guidewire and then a small incision was made at skin surface with a scalpel. A Cordis central line with dilator in place was exchanged over the wire. The Cordis sheath was placed into the right femoral vein and the dilator and wire was removed. The Cordis was sutured in place. A sterile chlorhexidine impregnated dressing was placed over the catheter at the insertion site. The patient tolerated the procedure without any hemodynamic compromise. At time of procedure completion, all ports were aspirated and flushed properly. Estimated blood loss is 2 mL.
--- NOTE | 2019-11-16 15:52 | POST-OPPD ---
Postoperative Procedure Note Date Of Procedure: November 16, 2019 Time Of Procedure: 15:50 PREOPERATIVE DIAGNOSIS: duodenal ulcer bleeding. refractory to endoscopic therapy. POSTOPERATIVE DIAGNOSIS: same FINDINGS: active extravasation from GDA and branches of inferior pancreaticoduodenal arcade. PROCEDURE: super selective embolization for bleeding ulcer. SURGEON: ronel ANESTHESIA: local ESTIMATED BLOOD LOSS: < 5 ml COMPLICATIONS: none POSTOPERATIVE CONDITION: stable PAUL PICKETT MD November 16, 2019 15:52
[2019-11-16 17:25] LABS: HEMATOCRIT 25.4 % (42.0-52.0); HEMOGLOBIN 8.6 g/dl (13.5-17.5); MEAN CORPUSCULAR HGB CONC 33.9 g/dl (32.0-36.5); MEAN CORPUSCULAR VOLUME 88.5 fl (80.0-96.0); PLATELET COUNT, AUTOMATED 118 10^3/uL (150-450); RED BLOOD COUNT 2.87 10^6/uL (4.30-6.10); WHITE BLOOD COUNT 12.8 10^3/uL (4.0-10.0)
[2019-11-16 18:17] LABS: BLOOD UREA NITROGEN 26 MG/DL (7-18); CALCIUM LEVEL 5.9 MG/DL (8.8-10.2); CARBON DIOXIDE LEVEL 25 MEQ/L (21-32); CHLORIDE LEVEL 113 MEQ/L (98-107); CREATININE FOR GFR 1.23 MG/DL (0.70-1.30); GLOMERULAR FILTRATION RATE > 60.0 (>42); GLUCOSE, FASTING 304 MG/DL (70-100); POTASSIUM SERUM 4.4 MEQ/L (3.5-5.1); SODIUM LEVEL 145 MEQ/L (136-145)
[2019-11-16] MEDS ORDERED: CALCIUM GLUCONATE 1,000 MG in D5W MINI-BAG PLUS 100 ML IV ONE (18:30)
[2019-11-16] MEDS ORDERED: PANTOPRAZOLE 40MG TAB (PROTONIX) PO SCH (21:00)
[2019-11-16] MEDS ORDERED: PANTOPRAZOLE 40MG VIAL (C9113 PER 1) IV SCH (21:00)
[2019-11-16 23:34] LABS: HEMATOCRIT 23.1 % (42.0-52.0); MEAN CORPUSCULAR HGB CONC 34.6 g/dl (32.0-36.5); MEAN CORPUSCULAR VOLUME 86.5 fl (80.0-96.0); PLATELET COUNT, AUTOMATED 128 10^3/uL (150-450); RED BLOOD COUNT 2.67 10^6/uL (4.30-6.10); WHITE BLOOD COUNT 9.9 10^3/uL (4.0-10.0)
[2019-11-17] VITALS (44 sets, daily range): BP systolic 62–181; BP diastolic 44–89
[2019-11-17 00:46] LABS: ALBUMIN 1.6 GM/DL (3.2-5.2); BLOOD UREA NITROGEN 24 MG/DL (7-18); CALCIUM LEVEL 6.6 MG/DL (8.8-10.2); CARBON DIOXIDE LEVEL 25 mmol/L (20-29); CHLORIDE LEVEL 114 MEQ/L (98-107); GLOMERULAR FILTRATION RATE > 60.0 (>42); GLUCOSE, FASTING 204 MG/DL (70-100); POTASSIUM SERUM 4.1 MEQ/L (3.5-5.1); SODIUM LEVEL 144 MEQ/L (136-145)
[2019-11-17] MEDS: ACETAMINOPHEN TAB 650MG DOSE (2X325MG) PO PRN ×3 (01:53→21:33)
[2019-11-17 05:19] LABS: HEMATOCRIT 21.9 % (42.0-52.0); HEMOGLOBIN 7.6 g/dl (13.5-17.5); MEAN CORPUSCULAR HEMOGLOBIN 30.2 pg (27.0-33.0); MEAN CORPUSCULAR HGB CONC 34.7 g/dl (32.0-36.5); MEAN CORPUSCULAR VOLUME 86.9 fl (80.0-96.0); PLATELET COUNT, AUTOMATED 113 10^3/uL (150-450); RED BLOOD COUNT 2.52 10^6/uL (4.30-6.10); WHITE BLOOD COUNT 9.5 10^3/uL (4.0-10.0)
[2019-11-17 05:33] LABS: INR 1.3; PROTHROMBIN TIME 15.9 SECONDS (11.8-14.0)
[2019-11-17 05:44] LABS: BLOOD UREA NITROGEN 22 MG/DL (7-18); CALCIUM LEVEL 6.9 MG/DL (8.8-10.2); CARBON DIOXIDE LEVEL 25 MEQ/L (21-32); CHLORIDE LEVEL 113 MEQ/L (98-107); CREATININE FOR GFR 1.24 MG/DL (0.70-1.30); GLOMERULAR FILTRATION RATE > 60.0 (>42); GLUCOSE, FASTING 116 MG/DL (70-100); POTASSIUM SERUM 3.9 MEQ/L (3.5-5.1); SODIUM LEVEL 143 MEQ/L (136-145)
[2019-11-17] MEDS: HumaLOG INSULIN (NovoLOG) PER UNIT SC SCH ×4 (06:28→23:41)
[2019-11-17] MEDS ORDERED: CALCIUM GLUCONATE 1,000 MG in D5W MINI-BAG PLUS 100 ML IV ONE (09:00)
[2019-11-17 09:53] LABS: HEMOGLOBIN 8.6 g/dl (13.5-17.5); MEAN CORPUSCULAR HEMOGLOBIN 29.9 pg (27.0-33.0); MEAN CORPUSCULAR HGB CONC 34.4 g/dl (32.0-36.5); MEAN CORPUSCULAR VOLUME 86.8 fl (80.0-96.0); PLATELET COUNT, AUTOMATED 140 10^3/uL (150-450); RED BLOOD COUNT 2.88 10^6/uL (4.30-6.10); WHITE BLOOD COUNT 12.4 10^3/uL (4.0-10.0)
[2019-11-17] MEDS: VANCOMYCIN HCL 1,000 MG, VIAL MATE ADAPTER 1 EACH in D5W 250 ML IV SCH (09:54)
[2019-11-17] MEDS: bisoproloL fumarate 5 MG TAB PO SCH (09:54)
[2019-11-17] MEDS: PANTOPRAZOLE 40MG VIAL (C9113 PER 1) IV SCH ×2 (09:54→20:20)
[2019-11-17] MEDS ORDERED: METOPROLOL 5 MG/5 ML VIAL IV STA (10:45)
[2019-11-17] MEDS: PIPERACILLIN/TAZOBACTAM SOD 3.375 GM in D5W MINI-BAG PLUS 50 ML IV SCH ×3 (11:14→23:31)
[2019-11-17] MEDS ORDERED: NS 1,000 ML IV ONE ×2 (12:00→16:00)
--- NOTE | 2019-11-17 12:51 | IPNPDOC ---
Text Note Date of Service The patient was seen on 11/17/19. NOTE Subjective: -Rigors, sinus tachycardia to 190s and eventually a fever this morning without any pain complaints --> linda BCx, gave tylenol, zosyn and metop 5 IV for persistent tachycardia --> rigors stopped and he defervesced, HR improved to 110s and BP consequently declined to SBP 80s --> giving 1L NS bolus -Otherwise had mild karthikeyan hematochezia x 1 this morning -last H/H was stable to 8.6 Objective: VITAL SIGNS: see below GENERAL: Alert, now comfortable HEENT: Normocephalic, atraumatic, PERRLA, EOMI, sclera anicteric, moist mucous membranes NECK: Supple, trachea midline, no lymphadenopathy, no JVD CARDIOVASCULAR: RRR, 3/6 holosystolic murmur over the left lower sternal border. RESPIRATORY: CTAB ABDOMEN: Normoactive bowel sounds, soft, NTND EXTREMITIES: Left foot with 3 toes amputated. Right foot with all 5 toes amputated. WWP otherwise SKIN: No rash or skin breakdown noted. Ulceration on the plantar surface of the right foot,clean without surrounding erythema. Healing surgical scar present on the dorsal surface of the right foot. NEUROLOGIC: Alert and oriented 3 to person, place and time. No focal deficits Labs: reviewed. 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, who presented with complaints of fatigue and weakness and was found to have symptomatic anemia secondary to an acute UGIB that worsened overnight with associated hypotension requiring massive transfusion protocol and had emergent endoscopy that found deeply cratered scattered duodenal ulcers with adherent clot to which he had clips placed around the margins of one of the deep ulcers, and was transiently stable but had more massive bleeding 24h later with associated hemorrhagic shock requiring thus far 14u pRBCs, 6 FFP, 3 platelet and now s/p embolization with course now c/b severe sepsis with fever, tachycardia and new leukocytosis with hypotension. Severe sepsis: fever, tachycardia and new leukocytosis recent instrumentation and 3 central lines (PICC for vanc that he was admitted with, IJ TLC placed on day of admission and femoral cortis placed 11/16 for rapid transfusions. -Remove PICC, will keep TLC and cortis for now -BCx -Added zosyn to the vanc that he is on for MRSA endocarditis Acute anemia secondary to GI bleed: found to have cratered scattered duodenal ulcers with adherent clot - s/p total 14 units PRBCs , 3 pool of platelets and 6 units of FFP - IV PPI BID - has cortis, TLC - s/p endoscopy 11/[address] Ortiz, found to have deeply cratered scattered duodenal ulcers with adherent clot and had clips placed around the margins of one of the deep ulcers. Then more bleeding on 11/15 s/p IR embolization. - q6h CBCs - on clears 2. MRSA infective endocarditis. - continue IV vancomycin per Dr. Armstrong until 12/03/2019 3. Diabetes mellitus. - SSI while inpatient, hold home oral antihyperglycemic medications. Hypoglycemia protocol. 4. NORBERT on CKD: improved - Secondary to dehydration and GI bleed - s/p massive transfusion protocol x 2 and fluids - monitor BMP 6. 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. - previously on nivolumab currently being held due to infective endocarditis - continue pancreatic enzymes with meals when taking PO 7. Right foot wound s/p transmetarsal amputation - wound care daily, follows with Dr. Hyatt outpatient 8. Hypoxemic respiratory failure: likely 2/2 atelectasis, without evidence of infection at this time. Resolved. Will monitor for overload after receiving massive blood products and fluids at risk for pulm edema -doing well DVT prophylaxis: teds/scds GI prophylaxis: IV protonix BID Diet: clears Disposition: ICU VS,Fishbone, I+O VS, Fishbone, I+O Laboratory Tests 11/16/19 12:57 11/16/19 17:14 11/16/19 23:15 11/17/19 04:59 11/17/19 09:44 Vital Signs Date Time Temp Pulse Resp B/P (MAP) Pulse Ox O2 Delivery O2 Flow Rate FiO2 11/17/19 10:53 153 147/82 11/17/19 04:00 20 97 Room Air 11/17/19 02:00 1.0 5/28/20 20:00 98.0 I&O- Last 24 Hours up to 6 AM 11/17/19 06:00 Intake Total 5891 ml Output Total 900 ml Balance 4991 ml ASCENCION REYES MD November 17, 2019 12:51
[2019-11-17] MEDS: LACTOBACILLUS ACIDOPHILUS CAP (BACID) PO SCH (15:09)
[2019-11-17 15:45] LABS: MEAN CORPUSCULAR HEMOGLOBIN 29.9 pg (27.0-33.0); MEAN CORPUSCULAR HGB CONC 33.9 g/dl (32.0-36.5); MEAN CORPUSCULAR VOLUME 88.3 fl (80.0-96.0); RED BLOOD COUNT 2.14 10^6/uL (4.30-6.10); WHITE BLOOD COUNT 16.1 10^3/uL (4.0-10.0)
[2019-11-17 15:49] LABS: HEMATOCRIT 18.9 % (42.0-52.0); HEMOGLOBIN 6.4 g/dl (13.5-17.5)
[2019-11-17 15:51] LABS: PLATELET COUNT, AUTOMATED 89 10^3/uL (150-450)
--- NOTE | 2019-11-17 16:10 | REP ---
CHEST, SINGLE VIEW: Single view of the chest is performed and compared to a prior study of 11/14/2019. There is mild bibasilar atelectasis/infiltrate. The heart and mediastinum are unchanged. Right central venous catheter is seen with the tip in the superior vena cava. IMPRESSION: Mild bibasilar atelectasis/infiltrate. Electronically Signed by Tonio Gomes MD 11/17/2019 10:24 P
[2019-11-17 20:40] LABS: HEMOGLOBIN 8.3 g/dl (13.5-17.5); MEAN CORPUSCULAR HEMOGLOBIN 30.2 pg (27.0-33.0); MEAN CORPUSCULAR HGB CONC 34.6 g/dl (32.0-36.5); MEAN CORPUSCULAR VOLUME 87.3 fl (80.0-96.0); PLATELET COUNT, AUTOMATED 101 10^3/uL (150-450); RED BLOOD COUNT 2.75 10^6/uL (4.30-6.10); WHITE BLOOD COUNT 15.8 10^3/uL (4.0-10.0)
[2019-11-18] VITALS (22 sets, daily range): BP systolic 95–161; BP diastolic 52–89
[2019-11-18] MEDS ORDERED: CEFEPIME HCL 2 GM in D5W MINI-BAG PLUS 50 ML IV SCH (02:00)
[2019-11-18] MEDS: ACETAMINOPHEN TAB 650MG DOSE (2X325MG) PO PRN ×3 (02:38→21:08)
[2019-11-18] MEDS: RAMELTEON 8 MG TAB (ROZEREM) PO PRN ×2 (04:44→21:08)
[2019-11-18] MEDS: PIPERACILLIN/TAZOBACTAM SOD 3.375 GM in D5W MINI-BAG PLUS 50 ML IV SCH ×4 (04:44→23:39)
[2019-11-18 04:47] LABS: HEMATOCRIT 22.8 % (42.0-52.0); HEMOGLOBIN 7.8 g/dl (13.5-17.5); MEAN CORPUSCULAR HEMOGLOBIN 29.8 pg (27.0-33.0); MEAN CORPUSCULAR HGB CONC 34.2 g/dl (32.0-36.5); PLATELET COUNT, AUTOMATED 90 10^3/uL (150-450); RED BLOOD COUNT 2.62 10^6/uL (4.30-6.10); WHITE BLOOD COUNT 9.8 10^3/uL (4.0-10.0)
[2019-11-18 04:57] LABS: INR 1.28; PROTHROMBIN TIME 15.7 SECONDS (11.8-14.0)
[2019-11-18 05:12] LABS: CALCIUM LEVEL 6.9 MG/DL (8.8-10.2); CREATININE FOR GFR 1.39 MG/DL (0.70-1.30); GLOMERULAR FILTRATION RATE 53.3 (>42); POTASSIUM SERUM 3.8 MEQ/L (3.5-5.1)
[2019-11-18] MEDS: HumaLOG INSULIN (NovoLOG) PER UNIT SC SCH ×4 (06:33→23:42)
[2019-11-18] MEDS: bisoproloL fumarate 5 MG TAB PO SCH (09:28)
[2019-11-18] MEDS: PANTOPRAZOLE 40MG VIAL (C9113 PER 1) IV SCH ×2 (09:28→21:07)
[2019-11-18] MEDS: VANCOMYCIN HCL 1,000 MG, VIAL MATE ADAPTER 1 EACH in D5W 250 ML IV SCH (09:28)
[2019-11-18] MEDS: LACTOBACILLUS ACIDOPHILUS CAP (BACID) PO SCH (09:29)
--- NOTE | 2019-11-18 11:01 | IPNPDOC ---
Text Note Date of Service The patient was seen on 11/18/19. NOTE Subjective: -No issues overnight -Feels better this morning -Was started on cefepime overnight? while on vanc and piptazo -BCx growing GNRs Objective: VITAL SIGNS: see below GENERAL: Alert, now comfortable HEENT: NCAT, PERRLA, EOMI, sclera anicteric, MMM NECK: Supple, trachea midline, no lymphadenopathy, no JVD CARDIOVASCULAR: RRR, 3/6 holosystolic murmur over the left lower sternal border. RESPIRATORY: CTAB ABDOMEN: Normoactive bowel sounds, soft, NTND EXTREMITIES: Left foot with 3 toes amputated. Right foot with all 5 toes amputated in bandage. WWP otherwise. 1+ edema bilaterally, hands are also mildly puffy as well. SKIN: No rash or skin breakdown noted. Ulceration on the plantar surface of the right foot,clean without surrounding erythema. Healing surgical scar present on the dorsal surface of the right foot. NEUROLOGIC: Alert and oriented 3 to person, place and time. No focal deficits Labs: reviewed. 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, who presented with complaints of fatigue and weakness and was found to have symptomatic anemia secondary to an acute UGIB that worsened overnight with associated hypotension requiring massive trans fusion protocol and had emergent endoscopy that found deeply cratered scattered duodenal ulcers with adherent clot to which he had clips placed around the margins of one of the deep ulcers, and was transiently stable but had more massive bleeding 24h later with associated hemorrhagic shock requiring thus far 14u pRBCs, 6 FFP, 3 platelet and now s/p embolization with course now c/b severe sepsis now improved after adding zosyn, with BCx growing GNRs. Severe sepsis: fever, tachycardia and new leukocytosis recent instrumentation and 3 central lines (PICC for vanc that he was admitted with, IJ TLC placed on day of admission and femoral cortis placed 11/16 for rapid transfusions. -Will keep TLC and DC cortis this afternoon after f/u H/H after transfusion -BCx growing GNRs, f/u speciation and sensitivities. Draw new BCx for clearance of bacteremia -Continue the zosyn as well as vanc that he is on for MRSA endocarditis Acute anemia secondary to GI bleed: found to have cratered scattered duodenal ulcers with adherent clot - s/p total 14 units PRBCs , 3 pool of platelets and 6 units of FFP. Getting 1u of pRBCs this morning - IV PPI BID - has cortis that we will DC this afternoon if H/H remains stable. Also has TLC - s/p endoscopy 11/[address] Ortiz, found to have deeply cratered scattered duodenal ulcers with adherent clot and had clips placed around the margins of one of the deep ulcers. Then more bleeding on 11/15 s/p IR embolization. - q6h CBCs - on clears, will advance to full tomorrow morning if stable 2. MRSA infective endocarditis. - continue IV vancomycin per Dr. Armstrong until 12/03/2019 3. Diabetes mellitus. - SSI while inpatient, hold home oral antihyperglycemic medications. Hypoglycemia protocol. 4. NORBERT on CKD: improved - Secondary to dehydration and GI bleed - s/p massive transfusion protocol x 2 and fluids - monitor BMP 6. 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 Ocampo at [facility]. - previously on nivolumab currently being held due to infective endocarditis - continue pancreatic enzymes with meals when taking PO 7. Right foot wound s/p transmetarsal amputation - wound care daily, follows with Dr. Hyatt outpatient 8. Hypoxemic respiratory failure: likely 2/2 atelectasis, without evidence of infection at this time. Resolved. Will monitor for overload after receiving massive blood products and fluids at risk for pulm edema -lasix 20 IV for edema DVT prophylaxis: teds/scds GI prophylaxis: IV protonix BID Diet: clears Disposition: ICU VS,Fishbone, I+O VS, Fishbone, I+O Laboratory Tests 11/17/19 15:36 11/17/19 20:19 11/18/19 04:27 Vital Signs Date Time Temp Pulse Resp B/P (MAP) Pulse Ox O2 Delivery O2 Flow Rate FiO2 11/18/19 09:28 105 140/66 11/18/19 08:00 98.7 22 98 Room Air 11/17/19 18:08 98 11/17/19 02:00 1.0 I&O- Last 24 Hours up to 6 AM 11/18/19 06:00 Intake Total 4540 ml Output Total 1025 ml Balance 3515 ml ASCENCION REYES MD November 18, 2019 11:01
[2019-11-18 11:40] LABS: HEMATOCRIT 24.7 % (42.0-52.0); HEMOGLOBIN 8.2 g/dl (13.5-17.5); MEAN CORPUSCULAR HEMOGLOBIN 29.2 pg (27.0-33.0); MEAN CORPUSCULAR HGB CONC 33.2 g/dl (32.0-36.5); MEAN CORPUSCULAR VOLUME 87.9 fl (80.0-96.0); RED BLOOD COUNT 2.81 10^6/uL (4.30-6.10); WHITE BLOOD COUNT 7.6 10^3/uL (4.0-10.0)
[2019-11-18 11:41] LABS: PLATELET COUNT, AUTOMATED 83 10^3/uL (150-450)
[2019-11-18] MEDS ORDERED: CALCIUM GLUCONATE 1,000 MG in D5W MINI-BAG PLUS 100 ML IV ONE (12:00)
[2019-11-18] MEDS ORDERED: FUROSEMIDE 20MG/2ML VIAL (J1940) IV ONE (12:00)
[2019-11-18 17:18] LABS: HEMATOCRIT 31.1 % (42.0-52.0); MEAN CORPUSCULAR HEMOGLOBIN 30.2 pg (27.0-33.0); MEAN CORPUSCULAR HGB CONC 34.7 g/dl (32.0-36.5); MEAN CORPUSCULAR VOLUME 86.9 fl (80.0-96.0); PLATELET COUNT, AUTOMATED 105 10^3/uL (150-450); RED BLOOD COUNT 3.58 10^6/uL (4.30-6.10); WHITE BLOOD COUNT 9.5 10^3/uL (4.0-10.0)
[2019-11-18 17:23] LABS: HEMOGLOBIN 10.8 g/dl (13.5-17.5)
[2019-11-18 22:30] LABS: HEMATOCRIT 26.5 % (42.0-52.0); HEMOGLOBIN 9.1 g/dl (13.5-17.5); MEAN CORPUSCULAR HEMOGLOBIN 29.7 pg (27.0-33.0); MEAN CORPUSCULAR HGB CONC 34.3 g/dl (32.0-36.5); MEAN CORPUSCULAR VOLUME 86.6 fl (80.0-96.0); PLATELET COUNT, AUTOMATED 100 10^3/uL (150-450); RED BLOOD COUNT 3.06 10^6/uL (4.30-6.10); WHITE BLOOD COUNT 7.5 10^3/uL (4.0-10.0)
[2019-11-19] VITALS (9 sets, daily range): BP systolic 108–145; BP diastolic 55–68
[2019-11-19] MEDS: PIPERACILLIN/TAZOBACTAM SOD 3.375 GM in D5W MINI-BAG PLUS 50 ML IV SCH ×2 (04:14→12:03)
[2019-11-19 05:57] LABS: HEMATOCRIT 27.6 % (42.0-52.0); HEMOGLOBIN 9.4 g/dl (13.5-17.5); MEAN CORPUSCULAR HEMOGLOBIN 29.9 pg (27.0-33.0); MEAN CORPUSCULAR HGB CONC 34.1 g/dl (32.0-36.5); MEAN CORPUSCULAR VOLUME 87.9 fl (80.0-96.0); PLATELET COUNT, AUTOMATED 106 10^3/uL (150-450); RED BLOOD COUNT 3.14 10^6/uL (4.30-6.10); WHITE BLOOD COUNT 7.2 10^3/uL (4.0-10.0)
[2019-11-19 06:06] LABS: INR 1.2; PROTHROMBIN TIME 14.9 SECONDS (11.8-14.0)
[2019-11-19 06:12] LABS: CALCIUM LEVEL 7.2 MG/DL (8.8-10.2); CREATININE FOR GFR 1.62 MG/DL (0.70-1.30); GLOMERULAR FILTRATION RATE 44.7 (>42); POTASSIUM SERUM 3.3 MEQ/L (3.5-5.1)
[2019-11-19] MEDS: HumaLOG INSULIN (NovoLOG) PER UNIT SC SCH ×4 (06:43→20:30)
[2019-11-19] MEDS: PANTOPRAZOLE 40MG VIAL (C9113 PER 1) IV SCH ×2 (07:58→20:29)
[2019-11-19] MEDS: LACTOBACILLUS ACIDOPHILUS CAP (BACID) PO SCH (07:58)
[2019-11-19] MEDS: bisoproloL fumarate 5 MG TAB PO SCH (07:59)
[2019-11-19] MEDS: ACETAMINOPHEN TAB 650MG DOSE (2X325MG) PO PRN ×3 (08:00→23:10)
[2019-11-19] MEDS: VANCOMYCIN HCL 1,000 MG, VIAL MATE ADAPTER 1 EACH in D5W 250 ML IV SCH (10:40)
--- NOTE | 2019-11-19 14:41 | IPNPDOC ---
Text Note Date of Service The patient was seen on 11/19/19. NOTE Subjective: -No issues overnight -Mr. Jo feels much better today -BCx growing Klebs -tolerating full liquid diet and asking for a regular diet Objective: VITAL SIGNS: see below GENERAL: Alert, now comfortable HEENT: NCAT, PERRLA, EOMI, sclera anicteric, MMM NECK: Supple, trachea midline, no lymphadenopathy, no JVD CARDIOVASCULAR: RRR, 3/6 holosystolic murmur over the left lower sternal border. RESPIRATORY: CTAB ABDOMEN: Normoactive bowel sounds, soft, NTND EXTREMITIES: Left foot with 3 toes amputated. Right foot with all 5 toes amputated in bandage. WWP otherwise. No noted peripheral edema today SKIN: No rash or skin breakdown noted. Ulceration on the plantar surface of the right foot,clean without surrounding erythema. Healing surgical scar present on the dorsal surface of the right foot. NEUROLOGIC: Alert and oriented 3 to person, place and time. No focal deficits Labs: reviewed. 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, who presented with complaints of fatigue and weakness and was found to have symptomatic anemia secondary to an acute UGIB that worsened overnight with associated hypotension requiring massive transfusion protocol and had emergent endoscopy that found deeply cratered scattered duodenal ulcers with adherent clot to which he had clips placed around the margins of one of the deep ulcers, and was transiently stable but had more massive bleeding 24h later with associated hemorrhagic shock requiring thus far 14u pRBCs, 6 FFP, 3 platelet and now s/p embolization with course now c/b severe sepsis now improved after adding zosyn, with BCx growing GNRs. Severe sepsis: fever, tachycardia and new leukocytosis in the setting of recent instrumentation and 3 central lines (PICC for vanc that he was admitted with, IJ TLC placed on day of admission and femoral cortis placed 11/16 for rapid transfusions.) -DC'd cortis and PICC on 11/17, kept TLC -11/16 BCx grew Klebs/ 11/17 BCx NGTD, will switch to ceftriaxone -Continue vanc that he is on for MRSA endocarditis Acute anemia secondary to GI bleed: found to have cratered scattered duodenal ulcers with adherent clot - s/p total 15 units PRBCs , 3 pool of platelets and 6 units of FFP. - IV PPI BID - s/p endoscopy 11/[address] Ortiz, found to have deeply cratered scattered duodenal ulcers with adherent clot and had clips placed around the margins of one of the deep ulcers. Then more bleeding on 11/15 s/p IR embolization. - Daily CBC at this time, unless he starts bleeding - Advance diet to consistent carb 2. MRSA infective endocarditis. - continue IV vancomycin per Dr. Armstrong until 12/03/2019 3. Diabetes mellitus. - SSI while inpatient, hold home oral antihyperglycemic medications. Hypoglycemia protocol. 4. NORBERT on CKD: slight bump after diuretic yesterday. now euvolemic - Secondary to dehydration and GI bleed - s/p massive transfusion protocol x 2 and fluids - monitor BMP 6. 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 Ocampo at [facility]. - previously on nivolumab currently being held due to infective endocarditis - continue pancreatic enzymes with meals when taking PO 7. Right foot wound s/p transmetarsal amputation -Wound care daily, follows with Dr. Hyatt outpatient -remove stitches of healed wound 8. Hypoxemic respiratory failure: likely 2/2 atelectasis, without evidence of in fection at this time. Resolved. Will monitor for overload after receiving massive blood products and fluids at risk for pulm edema -monitor -s/p 20 IV lasix yesterday. Edema resolved. Breathing comfortably on room air DVT prophylaxis: teds/scds GI prophylaxis: IV protonix BID Diet: consistent carb Disposition: PCU VS,Fishbone, I+O VS, Fishbone, I+O Laboratory Tests 11/18/19 17:03 11/18/19 22:16 11/19/19 05:37 Vital Signs Date Time Temp Pulse Resp B/P (MAP) Pulse Ox O2 Delivery O2 Flow Rate FiO2 11/19/19 12:00 97.4 96 16 131/68 (89) 100 Room Air 11/17/19 18:08 98 11/17/19 02:00 1.0 I&O- Last 24 Hours up to 6 AM 11/19/19 06:00 Intake Total 1980 ml Output Total 4675 ml Balance -2695 ml ASCENCION REYES MD November 19, 2019 14:41
[2019-11-19] MEDS: cefTRIAXone SOD 1 GM in D5W MINI-BAG PLUS 50 ML IV SCH (17:44)
[2019-11-19] MEDS: RAMELTEON 8 MG TAB (ROZEREM) PO PRN (20:32)
[2019-11-20] VITALS (7 sets, daily range): BP systolic 133–151; BP diastolic 67–83
[2019-11-20 04:27] LABS: HEMATOCRIT 29.5 % (42.0-52.0); MEAN CORPUSCULAR HEMOGLOBIN 30.1 pg (27.0-33.0); MEAN CORPUSCULAR HGB CONC 33.9 g/dl (32.0-36.5); MEAN CORPUSCULAR VOLUME 88.9 fl (80.0-96.0); PLATELET COUNT, AUTOMATED 108 10^3/uL (150-450); RED BLOOD COUNT 3.32 10^6/uL (4.30-6.10); WHITE BLOOD COUNT 5.1 10^3/uL (4.0-10.0)
[2019-11-20 04:38] LABS: INR 1.13; PROTHROMBIN TIME 14.2 SECONDS (11.8-14.0)
[2019-11-20 04:49] LABS: CALCIUM LEVEL 7.3 MG/DL (8.8-10.2); CREATININE FOR GFR 1.52 MG/DL (0.70-1.30); GLOMERULAR FILTRATION RATE 48.1 (>42); POTASSIUM SERUM 3.4 MEQ/L (3.5-5.1)
[2019-11-20] MEDS: cefTRIAXone SOD 1 GM in D5W MINI-BAG PLUS 50 ML IV SCH ×2 (05:18→17:56)
[2019-11-20] MEDS: ACETAMINOPHEN TAB 650MG DOSE (2X325MG) PO PRN ×4 (05:19→20:14)
[2019-11-20] MEDS: LACTOBACILLUS ACIDOPHILUS CAP (BACID) PO SCH (08:04)
[2019-11-20] MEDS: PANTOPRAZOLE 40MG VIAL (C9113 PER 1) IV SCH ×2 (08:04→20:03)
[2019-11-20] MEDS: bisoproloL fumarate 5 MG TAB PO SCH (08:05)
[2019-11-20] MEDS: HumaLOG INSULIN (NovoLOG) PER UNIT SC SCH ×4 (08:06→20:03)
[2019-11-20] MEDS ORDERED: SODIUM CHLORIDE 0.9% INJ 10 ML SYR IV PRN ×2 (08:45→18:30)
[2019-11-20] MEDS: VANCOMYCIN HCL 1,000 MG, VIAL MATE ADAPTER 1 EACH in D5W 250 ML IV SCH (10:25)
--- NOTE | 2019-11-20 13:15 | REP ---
IR Mesenteric angiogram. IR Selective celiac artery catheterization. IR Celiac arteriogram. IR Superior mesenteric arteriogram. IR Selective superior mesenteric artery catheterization. IR Super selective gastroduodenal artery catheterization. IR Super selective inferior pancreaticoduodenal arcade catheterization. IR Super selective coil embolization. Clinical Information: Gastrointestinal bleeding. Hypotension. Requiring several units blood transfusion. Bleeding duodenal ulcer, refractory to endoscopic clipping. Physician: Dr Bourne.Procedure: The patient was advised of the benefits, risks, and alternatives of the procedure and informed consent was obtained.A time out was performed with verification of the patient's name, MRN, site of procedure, and type of procedure to be performed. The patient was positioned in the supine position on the angiographic table. The site was prepped and draped in the usual sterile fashion.Moderate sedation was not performed. The physician spent 60 minutes of continuous [id number] time with the patient. A office analyst radiograph reveals clip in the right upper quadrant. The right femoral artery was accessed with a micropuncture kit. A [employer] wire was advanced into the aorta. The micropuncture sheath was exchanged over the wire for a a 6-[place] vascular sheath. A SOS catheter was advanced over the wire and used to catheterize the celiac artery. A celiac arteriogram was performed and this demonstrates branching into the splenic and common hepatic artery. Common hepatic artery supplies the gastroduodenal artery. There is active extravasation from the distal gastroduodenal artery into the duodenum. No forward flow into the gastroepiploic artery. A micro catheter and micro wire were advanced through the diagnostic catheter and used under fluoroscopy guidance to sub selectively catheterize the distal gastroduodenal artery. An arteriogram was performed and this demonstrates active extravasation from the distal gastroduodenal artery into the duodenum. No forward filling of the gastroepiploic artery. Several coils were then deployed within the gastroduodenal artery, distal to proximal. A follow-up arteriogram was performed and demonstrates adequate embolization of the gastroduodenal artery. No further active extravasation from the gastroduodenal artery. Normal forward flow in the proper hepatic artery supplying the liver. The diagnostic catheter was then used to catheterize the superior mesenteric artery. A superior mesenteric arteriogram was performed and this demonstrates the branches of the superior mesenteric artery. The branches supplying the inferior pancreaticoduodenal arcade also supply the duodenal bleed and there is active extravasation from this branch. The micro catheter and micro wire were advanced through the diagnostic catheter and under fluoroscopy guidance were used to sub selectively catheterize the inferior pancreaticoduodenal arcade. An arteriogram was performed and this demonstrates active extravasation from the distal tip of this vessel. Several coils were then deployed within the inferior pancreaticoduodenal arcade to embolize this bleed. A follow-up arteriogram was performed and this demonstrates no further active extravasation from the inferior pancreaticoduodenal arcade. The micro catheter was removed. A follow-up superior mesenteric arteriogram was performed through the diagnostic catheter in the SMA. This demonstrates no further active extravasation from the inferior pancreaticoduodenal arcade. Otherwise, preserved proximal and distal SMA branches. The diagnostic catheter was used to catheterize the celiac artery and a follow-up arteriogram was performed. This demonstrates no further active extravasation from the region of the gastroduodenal artery. Normal vascularity within the proximal and distal hepatic and splenic arteries and branches. Catheter and wire were removed, a 6-[place] [employer] device was used to close the right groin arteriotomy and the sheath was removed. Hemostasis achieved and a sterile dressing was applied to the site. Patient tolerated the procedure well, his blood pressure improved and tachycardia responded to the treatment. He was transferred to ICU in stable condition. Complications: None. Estimated blood loss: Less than 5 ml related directly to angiogram and embolization. However, the patient was quite unstable with rapid hematochezia before and during the procedure. Impression: 1. Celiac arteriogram demonstrates active extravasation from the gastroduodenal artery. 2. Superior mesenteric arteriogram demonstrates active extravasation from branches of the inferior pancreaticoduodenal arcade. 3. Successful super selective gastroduodenal artery and inferior pancreaticoduodenal arcade catheterization and embolization. No further active extravasation. Thank you for this referral. Cc Dr. Fabian Electronically Signed by Meg Bourne MD 11/20/2019 01:14 P
[2019-11-20] MEDS ORDERED: POTASSIUM CHLORIDE 10 MEQ SR TABLET PO ONE (13:30)
--- NOTE | 2019-11-20 14:24 | IPNPDOC ---
Text Note Date of Service The patient was seen on 11/20/19. NOTE Subjective: -No issues overnight -Mr. Jo feels good today and is tolerating a regular diet well. he reports that his stool is now brown without blood. Interim events -11/17 BCx remain NGTD Objective: VITAL SIGNS: see below GENERAL: Alert, now comfortable HEENT: NCAT, PERRLA, EOMI, sclera anicteric, MMM NECK: Supple, trachea midline, no lymphadenopathy, no JVD CARDIOVASCULAR: RRR, 3/6 holosystolic murmur over the left lower sternal border. RESPIRATORY: CTAB ABDOMEN: Normoactive bowel sounds, soft, NTND EXTREMITIES: Left foot with 3 toes amputated. Right foot with all 5 toes amputated in bandage. WWP otherwise. No LE edema SKIN: No rash or skin breakdown noted. Ulceration on the plantar surface of the right foot,clean without surrounding erythema. Healing surgical scar present on the dorsal surface of the right foot. NEUROLOGIC: Alert and oriented 3 to person, place and time. No focal deficits Labs: reviewed. 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, who presented with complaints of fatigue and weakness and was found to have symptomatic anemia 2/2 an acute UGIB that worsened overnight with associated hypotension requiring massive transfusion protocol and had emergent endoscopy that found deeply cratered scattered duodenal ulcers with adherent clot to which he had clips placed around the margins of one of the deep ulcers, and was transiently stable but had more massive bleeding 24h later with associated hemorrhagic shock requiring now in total 15u pRBCs, 6 FFP, 3 platelet s/p embolization with course c/b severe sepsis 2/2 Klebs bacteremia now resolved after starting zosyn now switched to ceftriaxone, doing well. Severe sepsis: fever, tachycardia and new leukocytosis in the setting of recent instrumentation and 3 central lines (PICC for vanc that he was admitted with, IJ TLC placed on day of admission and femoral cortis placed 11/16 for rapid transfusions). Now resolved. -DC'd cortis and PICC on 11/17, kept TLC --> plan is for new PICC placement and then removal of TLC -11/16 BCx grew Klebs, 11/17 BCx NGTD, continue ceftriaxone -Continue vanc that he is on for MRSA endocarditis Acute anemia secondary to GI bleed: found to have cratered scattered duodenal ulcers with adherent clot - s/p total 15 units PRBCs , 3 pool of platelets and 6 units of FFP. - IV PPI BID - s/p endoscopy 11/[address] Ortiz, found to have deeply cratered scattered duodenal ulcers with adherent clot and had clips placed around the margins of on e of the deep ulcers. Then more bleeding on 11/15 s/p IR embolization. - Daily CBC at this time, unless he starts bleeding - consistent carb diet 2. MRSA infective endocarditis. - continue IV vancomycin per Dr. Armstrong until 12/03/2019 3. Diabetes mellitus. - SSI while inpatient, hold home oral antihyperglycemic medications. Hypoglycemia protocol. 4. NORBERT on CKD: improving - Secondary to dehydration and GI bleed - s/p massive transfusion protocol x 2 and fluids - monitor BMP 6. 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 Ocampo at [facility]. - previously on nivolumab currently being held due to infective endocarditis - continue pancreatic enzymes with meals when taking PO 7. Right foot wound s/p transmetarsal amputation -Wound care daily, follows with Dr. Hyatt outpatient -removed stitches of healed wound 8. Hypoxemic respiratory failure: likely 2/2 atelectasis, without evidence of infection at this time. Resolved. Will monitor for overload after receiving massive blood products and fluids at risk for pulm edema -monitor Edema resolved after 1 dose of lasix on 11/17. Breathing comfortably on room air DVT prophylaxis: teds/scds GI prophylaxis:IV protonix BID Diet: consistent carb Disposition: PCU VS,Fishbone, I+O VS, Fishbone, I+O Laboratory Tests 11/20/19 04:07 Vital Signs Date Time Temp Pulse Resp B/P (MAP) Pulse Ox O2 Delivery O2 Flow Rate FiO2 11/20/19 12:00 98.0 92 16 135/76 (95) 99 Room Air 11/17/19 18:08 98 11/17/19 02:00 1.0 I&O- Last 24 Hours up to 6 AM 11/20/19 06:00 Intake Total 790 ml Output Total 2130 ml Balance -1340 ml ASCENCION REYES MD Nov 20, 2019 14:24
[2019-11-20] MEDS: SODIUM CHLORIDE 0.9% INJ 10 ML SYR IV SCH ×2 (14:41→20:04)
[2019-11-20] MEDS ORDERED: LIDOCAINE 1% MDV 20ML VIAL As Ordered ONE (15:28)
--- NOTE | 2019-11-20 17:16 | REP ---
Procedure: PICC line insertion with Norm The procedure was performed under the direct supervision of Dr. Gomes. The risks and benefits of the procedure were explained to the patient and informed consent was obtained. The right basilic vein was localized using ultrasound guidance. The skin was prepped and draped in a sterile fashion. 2% lidocaine was used as a local anesthetic. Using ultrasound guidance the basilic vein was cannulated and a 0.018 guidewire was inserted and advanced to the SVC using fluoroscopic guidance. The needle was removed and a 4.5 Citizen [place] dilator and peel-away sheath was inserted over the guide wire. A 4.5 [place] single lumen catheter was cut to length of 41 cm. The dilator was removed and the catheter was inserted over the guide wire with the tip ending in the SVC. The peel-away sheath was removed and the catheter was flushed with heparinized saline as per Hospital protocol. The catheter was affixed to the skin and a sterile dressing was applied. The patient tolerated the procedure well and there were no immediate complications. 0.1 minutes of fluoro time was utilized for this procedure. Electronically Signed by COLIN Neal 11/20/2019 04:29 P Electronically Signed by Tonio Gomes MD 11/20/2019 05:05 P
[2019-11-20] MEDS: RAMELTEON 8 MG TAB (ROZEREM) PO PRN (20:14)
[2019-11-21] VITALS: BP 138/64
[2019-11-21] MEDS: ACETAMINOPHEN TAB 650MG DOSE (2X325MG) PO PRN ×3 (02:05→12:39)
[2019-11-21 04:00] VITALS: BP 152/80
[2019-11-21] MEDS: cefTRIAXone SOD 1 GM in D5W MINI-BAG PLUS 50 ML IV SCH (05:58)
[2019-11-21] MEDS: SODIUM CHLORIDE 0.9% INJ 10 ML SYR IV SCH ×2 (05:58→14:47)
[2019-11-21] MEDS ORDERED: SODIUM CHLORIDE 0.9% INJ 10 ML SYR IV SCH (06:00)
[2019-11-21 08:00] VITALS: BP 147/78
[2019-11-21] MEDS: PANTOPRAZOLE 40MG VIAL (C9113 PER 1) IV SCH (08:15)
[2019-11-21] MEDS: LACTOBACILLUS ACIDOPHILUS CAP (BACID) PO SCH (08:15)
[2019-11-21] MEDS: bisoproloL fumarate 5 MG TAB PO SCH (08:17)
[2019-11-21] MEDS: HumaLOG INSULIN (NovoLOG) PER UNIT SC SCH ×3 (08:20→12:36)
[2019-11-21 08:54] LABS: HEMATOCRIT 27.3 % (42.0-52.0); MEAN CORPUSCULAR HEMOGLOBIN 29.6 pg (27.0-33.0); MEAN CORPUSCULAR VOLUME 89.8 fl (80.0-96.0); PLATELET COUNT, AUTOMATED 120 10^3/uL (150-450); RED BLOOD COUNT 3.04 10^6/uL (4.30-6.10); WHITE BLOOD COUNT 5.6 10^3/uL (4.0-10.0)
[2019-11-21] MEDS ORDERED: LEVEMIR (INSULIN DETEMIR) 1 UNITS/0.01ML SC SCH (09:00)
[2019-11-21] MEDS: VANCOMYCIN HCL 1,000 MG, VIAL MATE ADAPTER 1 EACH in D5W 250 ML IV SCH (09:00)
[2019-11-21 09:27] LABS: ALBUMIN 1.8 GM/DL (3.2-5.2); BILIRUBIN,TOTAL 0.4 MG/DL (0.2-1.0); CALCIUM LEVEL 7.4 MG/DL (8.8-10.2); CREATININE FOR GFR 1.35 MG/DL (0.70-1.30); GLOMERULAR FILTRATION RATE 55.2 (>42); POTASSIUM SERUM 3.9 MEQ/L (3.5-5.1); TOTAL PROTEIN 5.1 GM/DL (6.4-8.2)
[2019-11-21 12:00] VITALS: BP 146/81
[2019-11-21] MEDS ORDERED: LEVO250T12 PO ×2 (13:10→13:47)
[2019-11-21] MEDS ORDERED: LevoFLOXacin 500 MG TABLET PO ONE (14:00)
--- NOTE | 2019-11-21 16:28 | DS.PDOC ---
Discharge Summary General Date of Admission November 13, 2019 at 23:26 Date of Discharge 11/21/19 Primary Care Physician: Boyd Villalta MD Attending Physician: Gill Lora MD Discharge Summary HISTORY OF PRESENT ILLNESS: Zeke Jo is a 74-year-old male who presented to the emergency room today, weakness, fatigue, and diarrhea with blood in his stool. He states his fatigue has been ongoing since his hospitalization a few weeks ago where he was diagnosed with acute endocarditis. He has had episodes of weakness and today his weakness worsens. He states that he was feeling lightheaded and felt like he could not support himself, so he had to lower himself down to the ground. He did not have any injuries. He also notes that he had been constipated recently and straining to pass stool. He states that this afternoon he had loose and watery diarrhea with bright red blood in it. He cannot quantify the amount of blood, but states it seems like a lot. He also endorses some left upper quadrant abdominal pain which is achy in nature. He states this is bothering him the past day. He denies having any bloody or black stools prior to this episode. During his previous 2 admissions, he had been found to be anemic and required blood transfusions. On both admissions, stool occult was positive for blood. During those admissions, he was not thought to be acutely bleeding and was suggested to follow up outpatient for further workup including upper/lower endoscopy. He states he did have a colonoscopy about 2 years ago where he had a stool transplant for C. difficile infection. He denies any other issues noted on his colonoscopy. He denies any history of GI bleeding in the past that he is aware of, prior to his recent admissions when he was told his stool was positive for blood. Patient was admitted for further workup and treatment of GI bleed. HOSPITAL COURSE: Upon arrival to hospital floor patient had large bloody bowel movement with systolic BP dropping to 70's. Appeared patient was in hemorrhagic shock, Class 2 advancing to 3. Patient required massive transfusion protocol and had emergent endoscopy that found deeply cratered scattered duodenal ulcers with adherent clot to which he had clips placed around the margins of one of the deep ulcers, and was transiently stable but had more massive bleeding 24h later with associated hemorrhagic shock requiring now in total 15u pRBCs, 6 FFP, 3 platelet s/p embolization. Course complicated by severe sepsis 2/2 Klebs bacteremia now resolved after starting zosyn now switched to ceftriaxone, doing well. Patient doing well with Pt/OT, discharging today to complete course of IV vancomycin and oral levofloxacin until 11/29/19 for Klebsiella bacteremia. Patient has follow up with PCP within 1-2 weeks and ID managing IV antibiotics. ID contacted prior to discharge. Patient feels much improved, has no bleeding and denies SOB, chest pain, n/v/d, fevers or chills. Repeat BCx NG at 72 hours. PAST MEDICAL HISTORY: 1. GI bleed 2/2 to deeply cratered scattered duodenal ulcers 2. Type 2 diabetes mellitus. 3. Diabetic neuropathy. 4. Chronic non healing ulcer of the right foot. 5. History of Clostridium difficile infection. 6. MRSA endocarditis, currently on IV vancomycin until 12/03/2019 7. Chronic anemia 8. Renal cell carcinoma with metastasis to the liver and lung. PAST SURGICAL HISTORY: 1. Left sided nephrectomy. 2. Multiple left sided toe amputations. 3. Right toe amputation of digits 1 through 5. 4. Right foot debridement. 5. Right knee surgery. 6. Cataracts, bilateral. 7. Lower extremity angiography. SOCIAL HISTORY: Never smoker. No alcohol use. Denies IV drug use. Lives at home with his and one dog. FAMILY HISTORY: Father with coronary artery disease. Mother with history of heart disease and diabetes mellitus. Sister with diabetes mellitus. ALLERGIES: Please see below. DISCHARGE MEDICATIONS: Please see below. PHYSICAL EXAMINATION: CONSTITUTIONAL: No acute distress, resting comfortably, AAO x 3 EYES: PERRLA, EOM intact HENT, MOUTH: Normocephalic, atraumatic, moist mucous membranes, NECK: SUPPLE, no JVD, no lymphadenopathy, no carotid bruit CV: Regular rate and rhythm, S1S2 normal, no murmurs/rubs/gallops RESPIRATORY: Clear to auscultation bilaterally, no rales/rhonchi/wheezes GI: BS positive in 4 quadrants, soft, nontender, nondistended, no rebound or gu arding, no organomegaly : Deferred MUSCULOSKELETAL: Right upper ext PICC in place. Normal ROM. No cyanosis, clubbing, swelling, joint deformity, extremity edema INTEGUMENTARY: Intact, no rashes, no lesions, no erythema NEUROLOGIC: Cranial Nerves II-XII are intact, no focal deficits PSYCHIATRIC: Mood and affect are normal LABORATORY DATA: Please see below IMAGING: Please see all transcriptions under "Imaging" ASSESSMENT: 74 y/o M treated for GI bleed, Klebsiella bacteremia, endocarditis on IV vancomycin. PLAN: 1. Klebsiella bacteremia, suspected line infection as source; however, no positive tip of catheter or source definitively identified from multiple lines he had. 11/16 BCx grew Klebs, 11/17 BCx NGTD. Treated with 3 days IV ceftriaxone, switched to PO levofloxacin today to complete 14 day course treatment on 11/29/19. 2. Acute anemia secondary to GI bleed 2/2 to cratered scattered duodenal ulcers with adherent clot. S/p total 15 units PRBCs , 3 pool of platelets and 6 units of FFP. S/p endoscopy 11/[address] Ortiz, found to have deeply cratered scattered duodenal ulcers with adherent clot and had clips placed around the margins of one of the deep ulcers. Then more bleeding on 11/15 s/p IR embolization. CBC stable, no more bleeding, f/u with PCP closely. 3. MRSA infective endocarditis. Continue IV vancomycin per Dr. Armstrong until 12/03/2019 4. Diabetes mellitus. C/w home medications. Consistent carb diet. 5. NORBERT on CKD: improving and 2/2 to dehydration and GI bleed. Avoid nephrotoxic medications going further, recommend f/u with PCP with repeat BMP on next visit. 6. 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 Followed by Dr. Ocampo at [facility]. Patient was previously on nivolumab currently being held due to infective endocarditis. C/w pancreatic enzymes with meals. 7. Right foot wound s/p transmetarsal amputation. Wound care daily, follows with Dr. Hyatt outpatient 8. Hypoxemic respiratory failure likely 2/2 atelectasis, without evidence of infection at this time. Resolved. DISPOSITION: Much improved since admission. D/c home today with follow up with PCP. Did well with PT/OT. TIME SPENT ON DISCHARGE: Greater than 30 minutes. Vital Signs/I&Os Vital Signs Date Time Temp Pulse Resp B/P (MAP) Pulse Ox O2 Delivery O2 Flow Rate FiO2 11/21/19 12:00 97.9 96 18 146/81 (102) 98 Room Air 11/17/19 18:08 98 11/17/19 02:00 1.0 I&O- Last 24 Hours up to 6 AM 11/21/19 06:00 Intake Total 690 ml Output Total 775 ml Balance -85 ml Laboratory Data Labs 24H Laboratory Tests 2 11/20/19 17:09: Bedside Glucose (Misc Panel) 298H 11/20/19 19:55: Bedside Glucose (Misc Panel) 307H 11/21/19 07:53: Lab Scanned Report Transfusion Record 11/21/19 08:22: Bedside Glucose (Misc Panel) 359H 11/21/19 08:43: Nucleated Red Blood Cells % (auto) 0.0, Anion Gap 7L, Glomerular Filtration Rate 55.2, Calcium Level 7.4L, Total Bilirubin 0.4, Aspartate Amino Transf (AST/SGOT) 15, Alanine Aminotransferase (ALT/SGPT) 20, Alkaline Phosphatase 143H, Total Protein 5.1L, Albumin 1.8L, Albumin/Globulin Ratio 0.5 11/21/19 11:30: Bedside Glucose (Misc Panel) 279H CBC/BMP Laboratory Tests 11/21/19 08:43 FSBS Laboratory Tests Test 11/20/19 17:09 11/20/19 19:55 11/21/19 08:22 11/21/19 11:30 Range/Units Bedside Glucose (Misc Panel) 298 307 359 279 83-110 MG/DL Microbiology Microbiology 11/18/19 Blood Culture - Preliminary, Resulted No Growth after 72 hours. All specime... 11/18/19 Blood Culture - Preliminary, Resulted No Growth after 72 hours. All specime... 11/17/19 Blood Culture - Final, Complete Klebsiella Pneumoniae 11/17/19 Blood Culture - Final, Complete Klebsiella Pneumoniae 11/14/19 Blood Culture - Final, Complete NO GROWTH AFTER 5 DAYS Discharge Medications Scheduled Bisoprolol Fumarate (Bisoprolol Fumarate) 10 Mg Tab, 5 MG PO DAILY, (Reported) Glipizide (Glipizide ER) 10 Mg Tab, 10 MG PO DAILY, (Reported) Insulin Glargine,Hum.rec.anlog (Basaglar Kwikpen U-100) 100 Unit/1 Ml Insuln.pen, 1 DOSE SC QHS, (Reported) PT USES 25-30 UNITS Insulin Human Lispro (Novolog) 100 U/Ml Inj, 1 DOSE SC AC, (Reported) PER SLIDING SCALE Levofloxacin (Levofloxacin) 250 Mg Tablet, 250 MG PO DAILY Start on 11/22/19, Stop on 11/29/19 Losartan Potassium (Losartan Potassium) 25 Mg Tablet, 25 MG PO DAILY, (Reported) Nivolumab (Opdivo) 240 Mg/24 Ml Vial, 240 MG IV Q4WKS, (Reported) LAST INFUSION ON 10/06/19 Pancreatic Enzymes (Creon Dr 12,000 Units Capsule) 1 Ea Capcr, 1 CAP PO BIDWM, (Reported) Vancomycin HCl (Vancomycin HCl) 1 Gm Vial, 1 GM IV DAILY, (Reported) Scheduled PRN Acetaminophen (Acetaminophen) 500 Mg Tablet, 500 MG PO Q6H PRN for PAIN, (Reported) Doxylamine Succinate (Unisom Sleep Aid) 25 Mg Tablet, 25 MG PO QHS PRN for SLEEP, (Reported) Allergies Coded Allergies: No Known Allergies (Unverified , 03/23/18) Gill Lora MD Nov 21, 2019 16:28
[2019-11-21] MEDS ORDERED: PROT1TAB2 PO (16:37)
== END 2019-11-21 15:51 | disposition home or self-care (01) | DRG 356 ==
LOC: EDBD 19:14 → M ED 19:14 → M ED INP 23:26 → ENRESERV 23:34 → M PCU 11-14 00:25 → M ICU 11-14 04:41 → M PCU 11-15 10:32 → M ICU 11-16 16:22 → M PCU 11-19 03:47
PROVIDERS: ADMIT Internal Medicine; ATTEND Internal Medicine
PROC: 30233N1 Transfusion of Nonautologous Red Blood Cells into Peripheral Vein, Percutaneous Approach (ICD-10-PCS; 2019-11-13)
PROC: 30233R1 Transfusion of Nonautologous Platelets into Peripheral Vein, Percutaneous Approach (ICD-10-PCS; 2019-11-14)
PROC: 30233K1 Transfusion of Nonautologous Frozen Plasma into Peripheral Vein, Percutaneous Approach (ICD-10-PCS; 2019-11-14)
PROC: 0W3P8ZZ Control Bleeding in Gastrointestinal Tract, Via Natural or Artificial Opening Endoscopic (ICD-10-PCS; 2019-11-14)
PROC: 02HV33Z Insertion of Infusion Device into Superior Vena Cava, Percutaneous Approach (ICD-10-PCS; 2019-11-14)
PROC: B44KZZ3 Ultrasonography of Celiac and Mesenteric Arteries, Intravascular (ICD-10-PCS; 2019-11-16)
PROC: 02HV33Z Insertion of Infusion Device into Superior Vena Cava, Percutaneous Approach (ICD-10-PCS; 2019-11-16)
PROC: 04L33DZ Occlusion of Hepatic Artery with Intraluminal Device, Percutaneous Approach (ICD-10-PCS; principal; 2019-11-16 13:57)
PROC: 02HV33Z Insertion of Infusion Device into Superior Vena Cava, Percutaneous Approach (ICD-10-PCS; 2019-11-20)
DX: K26.0 Acute duodenal ulcer with hemorrhage (principal); R57.8 Other shock; J96.01 Acute respiratory failure with hypoxia; I33.0 Acute and subacute infective endocarditis; A41.9 Sepsis, unspecified organism; R65.20 Severe sepsis without septic shock; D62 Acute posthemorrhagic anemia; N17.9 Acute kidney failure, unspecified; J98.11 Atelectasis; C78.89 Secondary malignant neoplasm of other digestive organs; C78.00 Secondary malignant neoplasm of unspecified lung; Z66 Do not resuscitate; E11.40 Type 2 diabetes mellitus with diabetic neuropathy, unspecified; E11.621 Type 2 diabetes mellitus with foot ulcer; L97.519 Non-pressure chronic ulcer of other part of right foot with unspecified severity; E11.22 Type 2 diabetes mellitus with diabetic chronic kidney disease; N18.9 Chronic kidney disease, unspecified; B95.62 Methicillin resistant Staphylococcus aureus infection as the cause of diseases classified elsewhere; Z89.421 Acquired absence of other right toe(s); Z90.5 Acquired absence of kidney; Z85.528 Personal history of other malignant neoplasm of kidney; Z98.41 Cataract extraction status, right eye; Z98.42 Cataract extraction status, left eye; Z89.422 Acquired absence of other left toe(s); Z79.4 Long term (current) use of insulin; Z79.899 Other long term (current) drug therapy; Z11.59 Encounter for screening for other viral diseases

== ENCOUNTER → 2019-11-27 | Outpatient (REF) | payer MEDICARE ==
[~2019-11-27] MED LIST changes: +ACET-683 PO; +LEVO250T12 PO; +PROT1TAB2 PO; +VANC-7 IV
[2019-11-27 11:44] LABS: HEMOGLOBIN 9.1 g/dl (13.5-17.5); MEAN CORPUSCULAR HGB CONC 31.4 g/dl (32.0-36.5); MEAN CORPUSCULAR VOLUME 92.4 fl (80.0-96.0); PLATELET COUNT, AUTOMATED 252 10^3/uL (150-450); RED BLOOD COUNT 3.14 10^6/uL (4.30-6.10)
[2019-11-27 12:11] LABS: BLOOD UREA NITROGEN 13 MG/DL (7-18); CALCIUM LEVEL 8.2 MG/DL (8.8-10.2); CARBON DIOXIDE LEVEL 31 MEQ/L (21-32); CHLORIDE LEVEL 105 MEQ/L (98-107); CREATININE FOR GFR 1.23 MG/DL (0.70-1.30); ERYTHROCYTE SEDIMENTATION RATE 126 mm/hr (0-20); GLOMERULAR FILTRATION RATE > 60.0 (>42); GLUCOSE, FASTING 81 MG/DL (70-100); POTASSIUM SERUM 3.7 MEQ/L (3.5-5.1); SODIUM LEVEL 140 MEQ/L (136-145)
== END ==
LOC: M SHH 11:03
PROVIDERS: ATTEND Internal Medicine Infectious Disease
DX: R78.81 Bacteremia (principal)

== ENCOUNTER → 2019-12-04 | Outpatient (REF) | payer MEDICARE ==
[~2019-12-04] MED LIST changes: +OXYC1TAB23 PO; +PANT-23 PO
[2019-12-04 12:59] LABS: HEMATOCRIT 28.3 % (42.0-52.0); HEMOGLOBIN 8.6 g/dl (13.5-17.5); MEAN CORPUSCULAR HEMOGLOBIN 28.1 pg (27.0-33.0); MEAN CORPUSCULAR HGB CONC 30.4 g/dl (32.0-36.5); MEAN CORPUSCULAR VOLUME 92.5 fl (80.0-96.0); PLATELET COUNT, AUTOMATED 249 10^3/uL (150-450); RED BLOOD COUNT 3.06 10^6/uL (4.30-6.10); WHITE BLOOD COUNT 6.7 10^3/uL (4.0-10.0)
[2019-12-04 13:23] LABS: BLOOD UREA NITROGEN 19 MG/DL (7-18); CALCIUM LEVEL 8.4 MG/DL (8.8-10.2); CARBON DIOXIDE LEVEL 26 MEQ/L (21-32); CHLORIDE LEVEL 103 MEQ/L (98-107); CREATININE FOR GFR 1.16 MG/DL (0.70-1.30); GLOMERULAR FILTRATION RATE > 60.0 (>42); GLUCOSE, FASTING 190 MG/DL (70-100); POTASSIUM SERUM 3.9 MEQ/L (3.5-5.1); SODIUM LEVEL 137 MEQ/L (136-145); VANCOMYCIN LEVEL TROUGH 14.3 UG/ML (10.0-20.0)
[2019-12-04 14:38] LABS: ERYTHROCYTE SEDIMENTATION RATE 126 mm/hr (0-20)
== END ==
LOC: M SHH 12:00
PROVIDERS: ATTEND Internal Medicine Infectious Disease
DX: R78.81 Bacteremia (principal)

== ENCOUNTER → 2019-12-12 | Outpatient (REF) | payer MEDICARE ==
[2019-12-12 15:13] LABS: HEMATOCRIT 27.9 % (42.0-52.0); HEMOGLOBIN 8.7 g/dl (13.5-17.5); MEAN CORPUSCULAR HEMOGLOBIN 28.2 pg (27.0-33.0); MEAN CORPUSCULAR HGB CONC 31.2 g/dl (32.0-36.5); MEAN CORPUSCULAR VOLUME 90.6 fl (80.0-96.0); PLATELET COUNT, AUTOMATED 271 10^3/uL (150-450); RED BLOOD COUNT 3.08 10^6/uL (4.30-6.10); WHITE BLOOD COUNT 8.3 10^3/uL (4.0-10.0)
[2019-12-12 15:36] LABS: ALBUMIN 2.3 GM/DL (3.2-5.2); BILIRUBIN,TOTAL 0.5 MG/DL (0.2-1.0); CALCIUM LEVEL 8.5 MG/DL (8.8-10.2); CREATININE FOR GFR 1.46 MG/DL (0.70-1.30); GLOMERULAR FILTRATION RATE 50.4 (>42); POTASSIUM SERUM 4.2 MEQ/L (3.5-5.1); TOTAL PROTEIN 6.4 GM/DL (6.4-8.2)
[2019-12-12 16:07] LABS: ERYTHROCYTE SEDIMENTATION RATE 127 mm/hr (0-20)
== END ==
LOC: M SFHCPLAZ 12:52
PROVIDERS: ATTEND Internal Medicine Infectious Disease
DX: I05.8 Other rheumatic mitral valve diseases (principal); A49.02 Methicillin resistant Staphylococcus aureus infection, unspecified site; M54.9 Dorsalgia, unspecified

== ENCOUNTER 2019-12-13 21:36 | Inpatient (IN) | payer MEDICARE ==
[~2019-12-13] VITALS: Ht 182.9 cm; Wt 75.7 kg
[~2019-12-13 21:36] MED LIST changes: -OXYC1TAB23 PO; -PANT-23 PO
[2019-12-13] MEDS ORDERED: VANCOMYCIN HCL 1,000 MG in IV FLUID PLACE HOLDER 1 EA IV ONE (22:00)
[2019-12-13] MEDS ORDERED: VANCOMYCIN HCL 1,000 MG, VIAL MATE ADAPTER 1 EACH in D5W 250 ML IV ONE (22:15)
[2019-12-13] MEDS ORDERED: NS 500 ML IV ONE (22:15)
[2019-12-13] MEDS ORDERED: OXYC1TAB23 PO (22:26)
[2019-12-13] MEDS ORDERED: PANT-23 PO (22:26)
[2019-12-13 22:57] LABS: BASO % 0.6 % (0.0-1.0); EOS # 0.1 10^3/uL (0.0-0.5); EOS % 1.7 % (0.0-3.0); HEMATOCRIT 27.3 % (42.0-52.0); HEMOGLOBIN 8.3 g/dl (13.5-17.5); LYMPH # 0.8 10^3/uL (1.5-5.0); LYMPH % 11.9 % (24.0-44.0); MEAN CORPUSCULAR HEMOGLOBIN 27.9 pg (27.0-33.0); MEAN CORPUSCULAR HGB CONC 30.4 g/dl (32.0-36.5); MEAN CORPUSCULAR VOLUME 91.6 fl (80.0-96.0); MONO # 0.5 10^3/uL (0.0-0.8); MONO % 7.6 % (0.0-5.0); NEUTROPHILS # 5.4 10^3/uL (1.5-8.5); NEUTROPHILS % 77.2 % (36.0-66.0); PLATELET COUNT, AUTOMATED 232 10^3/uL (150-450); RED BLOOD COUNT 2.98 10^6/uL (4.30-6.10)
[2019-12-13 23:11] LABS: CALCIUM LEVEL 8.4 MG/DL (8.8-10.2); CREATININE FOR GFR 1.42 MG/DL (0.70-1.30); POTASSIUM SERUM 4.4 MEQ/L (3.5-5.1)
[2019-12-14] VITALS (10 sets, daily range): BP systolic 131–169; BP diastolic 62–90
[2019-12-14] MEDS ORDERED: NS 500 ML IV ONE
[2019-12-14] MEDS ORDERED: ACETAMINOPHEN 500 MG TAB PO ONE
[2019-12-14] MEDS ORDERED: DEXTROSE 50% 50 ML SYRINGE IV PRN (00:30)
[2019-12-14] MEDS ORDERED: GLUCOSE 4GM CHEW TABLET PO PRN (00:30)
[2019-12-14] MEDS ORDERED: GLUCAGON INJ 1MG VIAL SC PRN (00:30)
--- NOTE | 2019-12-14 00:35 | HPEPDOC ---
[facility] Medical History & Physical Date of Admission Dec 14, 2019 Date of Service: Dec 14, 2019 Primary Care Physician: Boyd Villalta MD Other Provider ID: Dr. Armstrong Attending Physician: NEYMAR CHRISTIAN DO History and Physical CHIEF COMPLAINT: Bacteremia HISTORY OF PRESENT ILLNESS: Patient was at home when he was called by his infectious disease doctor (Dr. Armstrong) and informed that he had a positive blood culture, therefore he was instructed to go to the emergency department for further evaluation. Otherwise, he has not been feeling acutely ill. A summary of his case is taken from Dr. Armstrong's progress note dated 12/12/19 in [facility] as quoted below: "Zeke is a 74-year-old gentleman with a history of metastatic left renal carcinoma hospitalized on 10/18-10/21/2019 with MRSA bacteremia, culture negative 10/22/2019 The patient had infected [id number] for chemotherapy treated with IV vancomycin followed by IV daptomycin and Teflaro because of persistent ba cteremia. Patient was discharged home on IV vancomycin for total of 6 weeks from negative culture end of therapy would be 12/03/2019. HX chronic diabetic foot ulcer/ osteomyelitis on the right foot that had a transmetatarsal amputation debrided CX MRSA. He was readmitted with severe anemia and GI bleed hemoglobin down to 6. He had endoscopy on 11/14/19 clotted blood was found in the stomach with the 2 losing cratered duodenal ulcers. 11/16/19 Dr. Hernandez G date is super selective embolization for the bleeding ulcer due to persistent bleeding. The patient received 22 units of blood and 2 units of platelets and FFP. He had a recurrent fever on 11/16 2 sets of blood culture were positive for Klebsiella pneumoniae he had a triple lumen catheter and a PICC line that were removed. 11/17/21 sets blood cultures no growth. Patient was discharged home to continue with IV vancomycin end 12/02 and PO levofloxacin for Klebsiella bacteremia. Patient chemotherapy is currently on hold he follows up with Dr. Ocampo in [facility]." CODE STATUS: DNR/DNI. This has been documented in [employer], the patient also gives me a verbal confirmation that this is his wishes. PAST MEDICAL HISTORY: Diabetes mellitus type 2 Metastatic left renal carcinoma History of C. difficile History of MRSA endocarditis History of GI bleed with severe anemia requiring massive blood transfusion History of recurrent infection with Klebsiella History of osteomyelitis of the foot status post transmetatarsal amputation PAST SURGICAL HISTORY: Multiple toes amputated off the left foot 2018 Left nephrectomy 2017 Left knee repair Bilateral cataracts Hernia Right foot transmetatarsal amputation 2018 SOCIAL HISTORY: Nonsmoker, doesn't drink alcohol, does not use illicit drugs. FAMILY HISTORY: Father had heart disease, mother and siblings had diabetes. Mother and aunts with breast cancer. REVIEW OF SYSTEMS: Constitutional: Patient denies fevers, chills, night sweats. HEENT: Patient denies blurred or double vision, transient visual disturbances, postnasal drip, epistaxis, sore throat, difficulty chewing or swallowing food. Cardiovascular: Patient denies chest discomfort/pain, palpitations, orthopnea, edema of the extremities. Respiratory: Patient admits to some mild dyspnea, with cough that produces only minimal frothy sputum. Denies wheezing. Gastrointestinal: Admits that he did have a few bouts of diarrhea over the weekend, however this turned into constipation for the past few days. Patient denies nausea, vomiting, abdominal pain, melena, hematochezia, hematemesis, jaundice. PHYSICAL EXAMINATION: General: Awake, alert, oriented 3. He is in no distress at this time. HEENT: Head normocephalic atraumatic, conjunctiva are pink, sclera are nonicteric, buccal mucosa is pink and moist with no lesions in the oropharynx. Hearing is grossly intact to conversation. Respiratory: Diminished lung sounds at the left base with dullness to percussion, E-A egophony in that region. Otherwise, the remaining lung ravi are essentially clear. Cardiovascular: Tachycardic rate with regular rhythm, with no rubs, gallops, or murmur appreciated. Abdomen: Soft, nontender, nondistended, no hepatosplenomegaly appreciated. Bowel sounds present. Skin: He does have a few small abrasions on his left shoulder. Otherwise no evidence of rash or other skin break. 2 IV lines have been placed just now in the ED, one in each arm. otherwise he does not have any port or other long- standing lines in. Extremities: Left foot has multiple toes amputated, at the site of the second toe amputation he does have a wound that is covered in eschar/slough. There is no surrounding erythema or edema. On his right foot he is status post transm etatarsal amputation, and he does have a large open wound on the plantar surface approximately 2 cm x 1cm by visual estimate. He reports of this is a chronic wound that has been present for a long time. Surely this wound is colonized, therefore a culture is not indicated. There is no surrounding erythema, edema, or any other signs of acute infection present. ASSESSMENT/PLAN: Bacteremia with gram-positive cocci in pairs and clusters -Started on IV vancomycin, patient is stable for now, no signs of sepsis. I do not see an urgent need to consult with specialist in the middle of the night, especially since she is already familiar with his case and was the one who recommended that he come to the ED. Recommend consulting infectious disease first thing in the morning. -Most likely potential sources of infection include the wound on his foot & past history of endocarditis, and consideration may be made for his new onset left- sided pleural effusion. He does have some skin abrasions, although they do not appear to be infected. Wound culture of the foot would not be enlightening at this point since we already know the patient is colonized with MRSA, and the wound is likely colonized with local betito as well. Lines and Port were previously removed. New onset left-sided pleural effusion -He has known metastatic spread to the lungs, suspect malignant pleural effusion, although given that he has bacteremia of an unknown source, a parapneumonic effusion is certainly on the differential. At this point the patient is stable, and this could be considered an uncomplicated effusion. CT scan with contrast of the chest has been ordered. Depending on the results of this, prompt drainage may be indicated. Echocardiogram also ordered. Back pain -Patient has claustrophobia, therefore he is not able to undergo MRI. May be associated with new onset pleural effusion as well, since his back pain is fairly recent. Possibility of metastasis is certainly on the differential as well. Pain control for now with home dose of Percocet. Metastatic renal cancer -Chemotherapy currently on hold. Will need to follow up with his oncologist at [facility] upon discharge. Pancreatic insufficiency -Continue with home dose of Creon Diabetes mellitus type 2 -Continue with home dose of long-acting insulin, continue home dose of glipizide, he'll be on sliding scale before meals and at bedtime History of GI ulcer -Continue with home dose of pantoprazole Hypertension -Continue with home dose of bisoprolol, losartan DVT Prophylaxis -Lovenox Vital Signs Vital Signs Date Time Temp Pulse Resp B/P (MAP) Pulse Ox O2 Delivery O2 Flow Rate FiO2 12/13/19 23:52 100.2 126 18 156/82 (106) 97 Room Air Laboratory Data Labs 24H Laboratory Tests 2 12/13/19 22:33: Immature Granulocyte % (Auto) 1.0, Neutrophils (%) (Auto) 77.2H, Lymphocytes (%) (Auto) 11.9L, Monocytes (%) (Auto) 7.6H, Eosinophils (%) (Auto) 1.7, Basophils (%) (Auto) 0.6, Neutrophils # (Auto) 5.4, Lymphocytes # (Auto) 0.8L, Monocytes # (Auto) 0.5, Eosinophils # (Auto) 0.1, Basophils # (Auto) 0.0, Nucleated Red Blood Cells % (auto) 0.0, Anion Gap 6L, Glomerular Filtration Rate 52.0, Calcium Level 8.4L CBC/BMP Laboratory Tests 12/13/19 22:33 Home Medications Scheduled Bisoprolol Fumarate (Bisoprolol Fumarate) 10 Mg Tab, 5 MG PO DAILY Glipizide (Glipizide ER) 10 Mg Tab, 10 MG PO DAILY Insulin Glargine,Hum.rec.anlog (Basaglar Kwikpen U-100) 100 Unit/1 Ml Insuln.pen, 1 DOSE SC QHS PT USES 25-30 UNITS Insulin Human Lispro (Novolog) 100 U/Ml Inj, 1 DOSE SC AC PER SLIDING SCALE Losartan Potassium (Losartan Potassium) 25 Mg Tablet, 25 MG PO DAILY Nivolumab (Opdivo) 240 Mg/24 Ml Vial, 240 MG IV Q4WKS LAST INFUSION ON 10/06/19 Pancreatic Enzymes (Creon Dr 12,000 Units Capsule) 1 Ea Capcr, 1 CAP PO BIDWM Pantoprazole Sodium (Pantoprazole Sodium) 40 Mg Tablet.dr, 40 MG PO DAILY Scheduled PRN Acetaminophen (Acetaminophen) 500 Mg Tablet, 500 MG PO Q4H PRN for PAIN Doxylamine Succinate (Unisom Sleep Aid) 25 Mg Tablet, 25 MG PO QHS PRN for SLEEP Oxycodone HCl/Acetaminophen (Oxycodone-Acetaminophen 5-325) 1 Each Tablet, 1 TAB PO BID PRN for PAIN Allergies Coded Allergies: No Known Allergies (Unverified , 03/23/18) A-FIB/CHADSVASC A-FIB History Current/History of A-Fib/PAF?: No Current PO Anticoag Therapy: No NEYMAR CHRISTIAN DO Dec 14, 2019 00:34
[2019-12-14] MEDS ORDERED: ISOVUE-370 76% 100ML VIAL As Ordered ONE (00:37)
--- NOTE | 2019-12-14 01:09 | REPVR ---
PROCEDURE INFORMATION: Exam: CT Chest With Contrast Exam date and time: 12/14/2019 12:00 AM Age: 74 years old Clinical indication: Other: Effusion; Patient HX: HX renal CA w mets; Additional info: New onset peural effusion, bacteremia TECHNIQUE: Imaging protocol: Computed tomography of the chest with intravenous contrast. 3D rendering: MIP and/or 3D reconstructed images were created by the technologist. Radiation optimization: All CT scans at this facility use at least one of these dose optimization techniques: automated exposure control; mA and/or kV adjustment per patient size (includes targeted exams where dose is matched to clinical indication); or iterative reconstruction. Contrast material: ISO; Contrast volume: 75 ml; Contrast route: INTRAVENOUS (IV); COMPARISON: MD Chest, 1 view 12/13/2019 10:06 PM FINDINGS: Lungs: Atelectasis or scarring at the right base. Subpleural 1 cm pulmonary nodule in the right lower lobe. Prominent spiculated nodular right perihilar opacity with a pleural tail measuring approximately 1.7 x 0.4 cm demonstrates small central cavitation. Additional nodular cavitary lesion with a pleural tail is noted in the left apex. Multiple scattered 3-4 mm bilateral pulmonary nodules are also seen. Pleural space: Small to moderate partially loculated left pleural effusion with adjacent compressive atelectasis. Trace right pleural effusion. Heart: Atherosclerotic disease of the coronary arteries. Calcified mitral annulus. Coarse calcifications of the aortic valve leaflets. Aorta: Atherosclerotic disease the thoracic aorta. Lymph nodes: Multiple borderline enlarged anterior mediastinal and subcarinal lymph nodes. Liver: Several centrally necrotic right hepatic lobe masses measuring up 2.6 cm in diameter. Kidneys and ureters: Status post left nephrectomy. Bones/joints: Extensive erosive changes along T11-12 endplate with nonspecific inflammatory soft tissues extending into the retrocrural space bilaterally. Suspect acute discitis osteomyelitis. Osteopenia. Soft tissues: Unremarkable. IMPRESSION: Extensive erosive changes along T11-12 endplate with nonspecific inflammatory soft tissues extending into the retrocrural space bilaterally. Suspect acute discitis osteomyelitis. Small to moderate partially loculated left pleural effusion with adjacent compressive atelectasis. Trace right pleural effusion. Subpleural 1 cm pulmonary nodule in the right lower lobe. Prominent spiculated nodular right perihilar opacity with a pleural tail measuring approximately 1.7 x 0.4 cm demonstrates small central cavitation. Additional nodular cavitary lesion with a pleural tail is noted in the left apex. Multiple scattered 3-4 mm bilateral pulmonary nodules are also seen. These may represent metastatic disease or possibly septic emboli. [facility] follow up recommendations for incidental nodules are not indicated. Follow up per patient's medical condition. Several centrally necrotic right hepatic lobe masses measuring up 2.6 cm in diameter. Electronically signed by: Francis Gutierrez On 12/14/2019 01:08:15 AM
[2019-12-14] MEDS ORDERED: METOPROLOL 5 MG/5 ML VIAL IV STA (03:26)
[2019-12-14] MEDS ORDERED: bisoproloL fumarate 5 MG TAB PO ONE (03:30)
[2019-12-14] MEDS: LEVEMIR (INSULIN DETEMIR) 1 UNITS/0.01ML SC SCH ×2 (04:21→20:34)
[2019-12-14] MEDS ORDERED: SLF 3 ML SYR IV PRN (04:30)
[2019-12-14] MEDS: HumaLOG INSULIN (NovoLOG) PER UNIT SC SCH ×5 (04:38→20:33)
[2019-12-14] MEDS: SLF 3 ML SYR IV SCH ×3 (05:12→20:35)
--- NOTE | 2019-12-14 05:18 | PHACANCOPD ---
PHARMACY VANCOMYCIN DOSING Pt Demographics Demographics Patient Age:74 , Weight:75.290 , Gender: male Adjusted Body Weight Date: 12/14/19, Adjusted Body Weight: [75.5] Kg(ACTUAL WT) Vancomycin Vancomycin indication: GM+ BACTEREMIA Vancomycin Target Ranges: 15-20 mcg/ml Vancomycin Load Y/N: Yes Load Dose Date Time Vancomycin Load Dose: 1GM in ED Date:12/12 Time: 23:00 Vancomycin Dose Date: 12/14/19. Current Vancomycin Dose: [1g IV Q24H@10:00] Intermittent Dosing?: No Labs Creatinine Clearance Date:12/14/19. Creatinine Clearance: [49.5 ]. Assessment and Plan Maintaining Current Dose?: Yes Reason for dose change: No Dose Change Pharmacist Note Pharmacist Note Date: 12/14/19. Pharmacist note:[id number] admitted in response to a reported positive blood culture.Patient has HX of L.renal carcinoma. Previous [facility] admission was D/T MRSA bacteremiaOn 12/03/19, patient had completed regimens of Teflaro, Daptomycin along w/Vancomycin.Vancomycin dosing this morning is reflective of previous results. Vanco 1 gm was administered in ED 12/12@23:00. Will continue w/1 gram IV [id number] to begin 12/13@10:00. The first trough level is scheduled to be drawn 12/14@0900(prior to the 3rd dose)-Will continue to follow and make adjustments as needed. [facility] Dec 14, 2019 05:18
[2019-12-14] MEDS: PERCOCET 5MG/325MG TAB PO PRN ×2 (06:22→21:32)
[2019-12-14 06:28] LABS: HEMATOCRIT 25.3 % (42.0-52.0); HEMOGLOBIN 7.8 g/dl (13.5-17.5); MEAN CORPUSCULAR HEMOGLOBIN 28.1 pg (27.0-33.0); MEAN CORPUSCULAR HGB CONC 30.8 g/dl (32.0-36.5); PLATELET COUNT, AUTOMATED 216 10^3/uL (150-450); RED BLOOD COUNT 2.78 10^6/uL (4.30-6.10); WHITE BLOOD COUNT 6.6 10^3/uL (4.0-10.0)
[2019-12-14 06:49] LABS: CREATININE FOR GFR 1.27 MG/DL (0.70-1.30); GLOMERULAR FILTRATION RATE 59.2 (>42)
[2019-12-14] MEDS: ENOXAPARIN 40MG/0.4ML SYRINGE (J1650 PER 10MG) SC SCH (08:10)
[2019-12-14] MEDS: CREON-12 CAPSULE PO SCH ×2 (08:10→18:40)
[2019-12-14] MEDS: LOSARTAN 25 MG TAB PO SCH (08:11)
[2019-12-14] MEDS: bisoproloL fumarate 5 MG TAB PO SCH (08:11)
[2019-12-14] MEDS: PANTOPRAZOLE 40MG TAB (PROTONIX) PO SCH (08:11)
--- NOTE | 2019-12-14 08:20 | REP ---
Portable chest x-ray: Single view. History: Admission. Comparison chest x-ray: November 17, 2019. Findings: There is mild linear plate-like atelectasis in the right base improved from the prior study. Left hemidiaphragm is somewhat elevated as before. No definite infiltrate. Heart is not enlarged. Monitoring electrodes are seen. Impression: Plate-like atelectasis right base. Somewhat elevated left hemidiaphragm. Electronically Signed by Cornelius Henning MD 12/14/2019 08:12 A
[2019-12-14] MEDS ORDERED: glipiZIDE XL 5 MG TABCR PO SCH (09:00)
[2019-12-14] MEDS: VANCOMYCIN HCL 1,000 MG, VIAL MATE ADAPTER 1 EACH in D5W 250 ML IV SCH (09:38)
--- NOTE | 2019-12-14 11:47 | IPNPDOC ---
Text Note Date of Service The patient was seen on 12/14/19. NOTE Subjective: -No complaints this morning Objective: General: Awake, alert, oriented 3. NAD HEENT: PERRLA, EOMI, MMM, anicteric Respiratory: Diminished lung sounds at the left base, otherwise clear clear. Cardiovascular: RRR, with no rubs, gallops, or murmur appreciated. Abdomen: Soft, nontender, nondistended, no hepatosplenomegaly appreciated. Bowel sounds normoactive. Has point tenderness in midback Skin: No rashes or lesions Extremities: Left foot has multiple toes amputated, at the site of the second toe amputation has a wound that is covered in eschar/slough. There is no surrounding erythema or edema. On his right foot he is status post transmetatarsal amputation, and he does have a large open wound on the plantar surface approximately 2 cm x 1cm by visual estimate. There is no surrounding erythema, edema, or any other signs of acute infection present. Labs: reviewed WBC 6.6 hgb 7.8 Cr 1.27 Imaging: CT chest with contrast: Extensive erosive changes along T11-12 endplate with nonspecific inflammatory soft tissues extending into the retrocrural space bilaterally. Suspect acute discitis osteomyelitis. Small to moderate partially loculated left pleural effusion with adjacent compressive atelectasis. Trace right pleural effusion. Subpleural 1 cm pulmonary nodule in the right lower lobe. Prominent spiculated nodular right perihilar opacity with a pleural tail measuring approximately 1.7 x 0.4 cm demonstrates small central cavitation. Additional nodular cavitary lesion with a pleural tail is noted in the left apex. Multiple scattered 3-4 mm bilateral pulmonary nodules are also seen. These may represent metastatic disease or possibly septic emboli. Fleischner follow up recommendations for incidental nodules are not indicated. Follow up per patient's medical condition. Several centrally necrotic right hepatic lobe masses measuring up 2.6 cm in diameter. ASSESSMENT/PLAN: Bacteremia with gram-positive cocci in pairs and clusters with likely T11/12 discitis osteomyelitis as source -Started on IV vancomycin, patient is stable for now, no signs of sepsis. -ID consult this AM -No lines or ports at this time -known to be MRSA colonized and with long standing chronic wounds so culture may not yield useful information -CT chest showing evidence of T11-12 discitis, osteomyelitis -BCx x 2 daily until negative New onset left-sided pleural effusion -He has known metastatic spread to the lungs, suspect malignant pleural effusion, although given that he has bacteremia of an unknown source, a parapneumonic effusion is certainly on the differential. At this point the patient is stable. -f/u TTE Back pain most likely 2/2 discitis osteomyelitis -Patient has claustrophobia, therefore he is not able to undergo MRI. -Pain control for now with home dose of Percocet. Metastatic renal cancer -Chemotherapy currently on hold. Will need to follow up with his oncologist at [facility] upon discharge. Pancreatic insufficiency -Continue with home dose of Creon Diabetes mellitus type 2 -Continue with home dose of long-acting insulin, sliding scale before meals and at bedtime, hold glipizide History of GI ulcer -Continue with home dose of pantoprazole Hypertension -Continue with home dose of bisoprolol, losartan DVT Prophylaxis -Lovenox VS,Fishbone, I+O VS, Fishbone, I+O Laboratory Tests 12/13/19 22:33 12/14/19 06:06 Vital Signs Date Time Temp Pulse Resp B/P (MAP) Pulse Ox O2 Delivery O2 Flow Rate FiO2 12/14/19 08:11 102 131/65 12/14/19 07:22 96.8 18 95 Room Air I&O- Last 24 Hours up to 6 AM 12/14/19 06:00 Intake Total 1270 ml Output Total 0 ml Balance 1270 ml ASCENCION REYES MD Dec 14, 2019 08:30
[2019-12-14] MEDS: ACETAMINOPHEN 500 MG TAB PO PRN ×2 (13:22→18:39)
--- NOTE | 2019-12-14 18:15 | ECHO ---
DATE OF PROCEDURE: 12/14/2019 REFERRING PHYSICIAN: Dr. Tonio Ruiz INDICATION: Dyspnea. HEIGHT: 183 cm WEIGHT: 73 kg 2D MEASUREMENTS: Aortic root: 3.8 cm Left atrium: 4.2 cm Left ventricle diastole: 4.7 cm Ventricular septum: 1.15-1.38 cm Posterior wall: 1.24 cm Aortic annulus: 2.3 cm Inferior vena cava: 1.6 cm (more than 50% respiratory variation). DOPPLER MEASUREMENTS: No aortic regurgitation. No aortic stenosis. Aortic valve velocity: 167 cm/s LVOT velocity: 57.9 cm/s Mild mitral regurgitation. No mitral stenosis. Mitral A velocity: 136 cm/s Mitral E velocity (fusion): 100 bpm Moderate tricuspid regurgitation. Estimated right ventricle systolic pressure: 50-55 mmHg assuming a right atrial pressure of 5-10 mmHg. No pulmonic regurgitation. MITRAL ANNULAR TISSUE DOPPLER: E prime lateral: 6.8 cm/s DESCRIPTION: Rhythm was sinus. Image quality was fair. No pericardial effusion. This was a 2D, M-mode, color flow Doppler and pulse wave Doppler examination and included mitral annular tissue Doppler. CONCLUSIONS: 1. Mild concentric left ventricle hypertrophy. Normal regional left ventricular (LV) wall motion and wall thickening. Normal LV systolic function. Left ventricular ejection fraction (LVEF) 60% by visual estimate. Grade 1 LV diastolic dysfunction. 2. Suggestive of moderate elevation of estimated right ventricle systolic pressure (50-55 mmHg). Moderate tricuspid regurgitation with normal appearing tricuspid leaflets. Normal right ventricle size and systolic function. Normal right atrial size. 3. Severe mitral annular calcification. Mild mitral regurgitation. No mitral stenosis. 4. Moderate aortic valve sclerosis of a 3-cusp aortic valve. No aortic stenosis or regurgitation. 5. Very mild dilatation of the aortic root at the level of the sinus of Valsalva. 6. No pericardial effusion.
--- NOTE | 2019-12-14 20:40 | CR ---
DATE OF CONSULTATION: 12/14/2019 INFECTIOUS DISEASE CONSULTATION Asked to consult by Dr. Jack for evaluation of Staphylococcus (staph) aureus bacteremia and T11-T12 discitis. HISTORY OF PRESENT ILLNESS: Mr. Jo is a 74-year-old gentleman well known to me from previous hospitalization over the past 2 months. His history started on 10/19/2019 when he was admitted with methicillin-resistant Staphylococcus aureus (MRSA) bacteremia and sepsis from an Djodsi-K-[id number] infection. The patient had positive bacteremia from 10/19/2019 until 10/21/2019. His [id number] was removed, and he was treated with IV vancomycin until 12/03/2019. The patient while on IV vancomycin had continued complaining of midthoracic back pain and multiple x-rays and CTs had not shown any evidence of infection. He saw me in the office on 12/12/2019 when we had repeated blood cultures to document clearance of bacteremia; these were positive and therefore the patient was advised to go to the hospital. He denied having any fever or chills except for one episode of rigors, which the thought he was in pain. He was having increased midthoracic back pain radiating onto the right side. He had no nausea, vomiting or diarrhea. The patient had a bleeding ulcer and was hospitalized 11/14/2019. He had endoscopy. He had 22 units of blood, multiple units of fresh frozen plasma and plasma. This has resolved. While in the hospital for his gastrointestinal (GI) bleed, he developed Klebsiella pneumonia bacteremia from a triple lumen catheter infection, and he was treated with oral Levaquin until 11/29/2019. 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 He has been off chemotherapy for the past 3 months. His [id number] was removed due to MRSA infection. History of C difficile. 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 H history of Klebsiella pneumonia line infection, treated with Levaquin for 2 weeks. GI bleed with severe anemia requiring massive transfusion, 22 units. Chronic osteomyelitis of the right foot with MRSA culture, status post transmetatarsal amputation and a persistent open ulcer. PAST SURGICAL HISTORY: Multiple toes amputated left foot. Left nephrectomy. Left knee repair. Bilateral cataracts. Hernia. Right transmetatarsal amputation 2018 with recent debridement done in October of 2019. SOCIAL HISTORY: He does not drink, does not smoke or use drugs. He lives with his . FAMILY HISTORY: Breast cancer in maternal aunts and father with heart disease. REVIEW OF SYSTEMS: He had no fever or chills. He had one episode of chills. No night sweats. No headache or neck stiffness. No nausea, vomiting or diarrhea. No bloody stools. He has midthoracic back pain radiating to the right side. He is weak. He has lost a lot of weight and has no appetite. PHYSICAL EXAM: Temperature is 96.7, pulse 101, respirations 18, blood pressure 156/80, oxygen saturation (O2 sat) 92% on room air. General Appearance: Frail looking gentleman in no acute distress. Heart: Normal S1, S2. No rubs, gallops or murmurs appreciated. Lungs: Diminished breath sounds at the left base, otherwise clear. No wheezes, rales or rhonchi. Abdomen: Soft, nontender. No hepatosplenomegaly. Bowel sounds normal. Back: No costovertebral angle (CVA) tenderness. No thoracic or lumbar tenderness. His pain is mostly left lower thoracic area. Extremities: Left foot toe amputation, right foot transmetatarsal amputation with an ulcer measuring 3 x 1 cm on the plantar aspect of the foot, clean with mild bloody discharge on the dressing. No erythema. No evidence of infection there. CT chest done on 12/14/2019 showed extensive erosive changes of T11-T12 with nonspecific inflammatory soft tissue, suggestive of acute discitis, multiple pulmonary nodules with a right perihilar opacity of the pleural tail measuring 1.7 cm, spiculated nodule with cavitation, several central necrotic right hepatic lobe masses measuring up to 2-1/2 cm. I do not see this dictation being reviewed and compared to the one done previously. He had an abdominal CT abdomen and pelvis done on 10/23/2019, which also showed two rim-enhancing lesions in the liver measuring 1.8 and 1.6 cm. These could be inflammatory versus infectious versus metastatic. Status post left nephrectomy. This is a CT that was done on 10/23/2019. Blood cultures from 11/18/2019, two sets were negative after 5 days. 12/14/2019 blood culture from 12/12/2019 blood culture is positive for Gram-positive cocci in pairs and clusters. LABS: White count 6.6, hemoglobin 7.8, hematocrit 25.3, platelets 216. Patient received one unit of blood. Sodium 137, potassium 4, chloride 104, bicarbonate 29, BUN 20, creatinine 1.27, glucose 216, calcium 8. Repeat transthoracic echocardiogram was done. Echocardiogram shows severe mitral annular calcification, mild mitral regurgitation. No stenosis. No aortic regurgitation. No aortic stenosis. Moderate tricuspid regurgitation. There is no mention of the vegetation being seen on this echo. IMPRESSION: 1. This is a 74-year-old gentleman with a history of MRSA bacteremia on 10/19/2019, presents now with recurrent bacteremia after IV vancomycin was discontinued on 12/03/2019. The patient has evidence of acute discitis as a complication of mitral valve endocarditis and prolonged bacteremia. The patient has been restarted on IV vancomycin with some improvement. He will need again 6 weeks of IV antibiotics. Vancomycin or daptomycin could be used, but daptomycin probably would be preferred, though patient could not afford the co-pay on last admission. 2. Renal cell carcinoma with metastasis to the lung and new hepatic lesions. I am not sure if these were present before. This needs to be discussed with his oncologist, Dr. Jorge Ocampo, in [place] as they have enlarged in size. 3. Severe anemia from bleeding peptic ulcer disease, currently stable. The patient has received blood transfusion. PLAN: Continue with IV vancomycin at current dose 1 gram every 24 hours, keep vancomycin trough between 15 and 20. Repeat blood cultures until you have documentation of two negative blood cultures. Monitor CBC, basic profile, CRP and sed rate every 2-3 days. The patient will need a peripherally inserted central catheter (PICC) line for IV antibiotics at home once his blood cultures are negative. This has been discussed with Dr. Jack. I would suggest that hospitalist call his oncologist, Dr. Jorge Ocampo, to discuss his CT findings, including the pulmonary mets and liver mets and his life expectancy. [facility]
[2019-12-15] VITALS: BP 168/84
[2019-12-15 04:00] VITALS: BP 168/70
[2019-12-15] MEDS: ACETAMINOPHEN 500 MG TAB PO PRN ×3 (04:34→18:34)
[2019-12-15] MEDS: SLF 3 ML SYR IV SCH ×3 (04:35→21:12)
[2019-12-15 05:36] LABS: HEMATOCRIT 28.2 % (42.0-52.0); HEMOGLOBIN 8.8 g/dl (13.5-17.5); MEAN CORPUSCULAR HEMOGLOBIN 27.8 pg (27.0-33.0); MEAN CORPUSCULAR HGB CONC 31.2 g/dl (32.0-36.5); MEAN CORPUSCULAR VOLUME 89.2 fl (80.0-96.0); PLATELET COUNT, AUTOMATED 219 10^3/uL (150-450); RED BLOOD COUNT 3.16 10^6/uL (4.30-6.10); WHITE BLOOD COUNT 7.8 10^3/uL (4.0-10.0)
[2019-12-15 05:55] LABS: BLOOD UREA NITROGEN 18 MG/DL (7-18); CALCIUM LEVEL 8.4 MG/DL (8.8-10.2); CARBON DIOXIDE LEVEL 31 MEQ/L (21-32); CHLORIDE LEVEL 105 MEQ/L (98-107); CREATININE FOR GFR 1.23 MG/DL (0.70-1.30); GLOMERULAR FILTRATION RATE > 60.0 (>42); GLUCOSE, FASTING 102 MG/DL (70-100); POTASSIUM SERUM 3.7 MEQ/L (3.5-5.1); SODIUM LEVEL 141 MEQ/L (136-145)
[2019-12-15 05:57] LABS: ERYTHROCYTE SEDIMENTATION RATE 125 mm/hr (0-20)
[2019-12-15] MEDS: HumaLOG INSULIN (NovoLOG) PER UNIT SC SCH ×4 (07:30→21:00)
[2019-12-15 08:00] VITALS: BP 146/80
[2019-12-15] MEDS: ENOXAPARIN 40MG/0.4ML SYRINGE (J1650 PER 10MG) SC SCH (08:05)
[2019-12-15] MEDS: LOSARTAN 25 MG TAB PO SCH (08:05)
[2019-12-15] MEDS: PERCOCET 5MG/325MG TAB PO PRN ×2 (08:06→21:19)
[2019-12-15] MEDS: PANTOPRAZOLE 40MG TAB (PROTONIX) PO SCH (08:06)
[2019-12-15] MEDS: bisoproloL fumarate 5 MG TAB PO SCH (08:06)
[2019-12-15] MEDS: CREON-12 CAPSULE PO SCH ×2 (08:06→17:55)
[2019-12-15] MEDS: VANCOMYCIN HCL 1,000 MG, VIAL MATE ADAPTER 1 EACH in D5W 250 ML IV SCH (09:54)
[2019-12-15 12:38] VITALS: BP 146/90
--- NOTE | 2019-12-15 17:20 | IPNPDOC ---
Text Note Date of Service The patient was seen on 12/15/19. NOTE Subjective: -No complaints this morning, asking for consult to Dr. Hyatt whom he was supposed to see in clinic today for L foot debridement Objective: General: Awake, alert, oriented 3. NAD HEENT: PERRLA, EOMI, MMM, anicteric Respiratory: Diminished lung sounds at the left base, otherwise clear clear. Cardiovascular: RRR, with no rubs, gallops, or murmur appreciated. Abdomen: Soft, nontender, nondistended, no hepatosplenomegaly appreciated. Bowel sounds normoactive. Has point tenderness in midback Skin: No rashes or lesions Extremities: Left foot has multiple toes amputated, at the site of the second toe amputation has a wound that is covered in eschar/slough. There is no surrounding erythema or edema. On his right foot he is status post transmetatarsal amputation, and he does have a large open wound on the plantar surface approximately 2 cm x 1cm by visual estimate. There is no surrounding erythema, edema, or any other signs of acute infection present. Labs: reviewed WBC 7.8 hgb 8.8 Cr 1.23 Imaging: CT chest with contrast: Extensive erosive changes along T11-12 endplate with nonspecific inflammatory soft tissues extending into the retrocrural space bilaterally. Suspect acute discitis osteomyelitis. Small to moderate partially loculated left pleural effusion with adjacent compressive atelectasis. Trace right pleural effusion. Subpleural 1 cm pulmonary nodule in the right lower lobe. Prominent spiculated nodular right perihilar opacity with a pleural tail measuring approximately 1.7 x 0.4 cm demonstrates small central cavitation. Additional nodular cavitary lesion with a pleural tail is noted in the left apex. Multiple scattered 3-4 mm bilateral pulmonary nodules are also seen. These may represent metastatic disease or possibly septic emboli. [facility] follow up recommendations for incidental nodules are not indicated. Follow up per patient's medical condition. Several centrally necrotic right hepatic lobe masses measuring up 2.6 cm in diameter. TTE: 1. Mild concentric left ventricle hypertrophy. Normal regional left ventricular (LV) wall motion and wall thickening. Normal LV systolic function. Left ventricular ejection fraction (LVEF) 60% by visual estimate. Grade 1 LV diastolic dysfunction. 2. Suggestive of moderate elevation of estimated right ventricle systolic pressure (50-55 mmHg). Moderate tricuspid regurgitation with normal appearing tricuspid leaflets. Normal right ventricle size and systolic function. Normal right atrial size. 3. Severe mitral annular calcification. Mild mitral regurgitation. No mitral stenosis. 4. Moderate aortic valve sclerosis of a 3-cusp aortic valve. No aortic stenosis or regurgitation. 5. Very mild dilatation of the aortic root at the level of the sinus of Valsalva. 6. No pericardial effusion. ASSESSMENT/PLAN: Bacteremia with gram-positive cocci in pairs and clusters with likely T11/12 discitis osteomyelitis as source -continue IV vancomycin -ID consulted, to place PICC line once BCx are negative and plan for IV vanc for 6 weeks -No lines or ports at this time -known to be MRSA colonized and with long standing chronic wounds so culture may not yield useful information -CT chest showing evidence of T11-12 discitis, osteomyelitis -12/13 BCx thus far negative. last +BCx were 12/11 New onset left-sided pleural effusion -He has known metastatic spread to the lungs, suspect malignant pleural effusion, although given that he has bacteremia of an unknown source, a parapneumonic effusion is certainly on the differential. At this point the patient is stable. -TTE unchanged, normal EF, mild diastolic dysfunction, moderate elevation of estimated right ventricle systolic pressure Back pain most likely 2/2 discitis osteomyelitis -Patient has claustrophobia, therefore he is not able to undergo MRI. -Pain control for now with home dose of Percocet. Metastatic renal cancer -Chemotherapy currently on hold. Will need to follow up with his oncologist at [facility] upon discharge. Pancreatic insufficiency -Continue with home dose of Creon Diabetes mellitus type 2 -Continue with home dose of long-acting insulin, sliding scale before meals and at bedtime, hold glipizide History of GI ulcer -Continue with home dose of pantoprazole Hypertension -Continue with home dose of bisoprolol, losartan DVT Prophylaxis -Lovenox Chronic LE wounds: -Will consult Dr. Hyatt about the missed appointment today for debridement of RLE VS,Fishbone, I+O VS, Fishbone, I+O Laboratory Tests 12/15/19 05:04 Vital Signs Date Time Temp Pulse Resp B/P (MAP) Pulse Ox O2 Delivery O2 Flow Rate FiO2 12/15/19 12:38 96.7 96 16 146/90 (108) 99 Room Air I&O- Last 24 Hours up to 6 AM 6/26/20 06:00 Intake Total 1120 ml Output Total 1750 ml Balance -630 ml ASCENCION REYES MD Dec 15, 2019 17:20
[2019-12-15 20:00] VITALS: BP 155/76
[2019-12-15] MEDS: LEVEMIR (INSULIN DETEMIR) 1 UNITS/0.01ML SC SCH (21:19)
[2019-12-16] VITALS: BP 160/80
[2019-12-16] MEDS: ACETAMINOPHEN 500 MG TAB PO PRN ×3 (01:59→18:10)
[2019-12-16 04:00] VITALS: BP 134/78
[2019-12-16 05:10] LABS: HEMATOCRIT 28.6 % (42.0-52.0); MEAN CORPUSCULAR HEMOGLOBIN 28.1 pg (27.0-33.0); MEAN CORPUSCULAR HGB CONC 31.5 g/dl (32.0-36.5); MEAN CORPUSCULAR VOLUME 89.4 fl (80.0-96.0); PLATELET COUNT, AUTOMATED 251 10^3/uL (150-450); WHITE BLOOD COUNT 8.6 10^3/uL (4.0-10.0)
[2019-12-16 05:30] LABS: BLOOD UREA NITROGEN 17 MG/DL (7-18); CALCIUM LEVEL 8.5 MG/DL (8.8-10.2); CARBON DIOXIDE LEVEL 28 MEQ/L (21-32); CHLORIDE LEVEL 103 MEQ/L (98-107); CREATININE FOR GFR 1.24 MG/DL (0.70-1.30); GLOMERULAR FILTRATION RATE > 60.0 (>42); GLUCOSE, FASTING 168 MG/DL (70-100); POTASSIUM SERUM 4.1 MEQ/L (3.5-5.1); SODIUM LEVEL 136 MEQ/L (136-145)
[2019-12-16] MEDS: SLF 3 ML SYR IV SCH ×3 (06:05→20:13)
[2019-12-16 08:00] VITALS: BP 153/87
[2019-12-16] MEDS: HumaLOG INSULIN (NovoLOG) PER UNIT SC SCH ×4 (08:15→20:13)
[2019-12-16] MEDS: ENOXAPARIN 40MG/0.4ML SYRINGE (J1650 PER 10MG) SC SCH (08:16)
[2019-12-16] MEDS: CREON-12 CAPSULE PO SCH ×2 (08:16→18:07)
[2019-12-16] MEDS: bisoproloL fumarate 5 MG TAB PO SCH (08:16)
[2019-12-16] MEDS: PANTOPRAZOLE 40MG TAB (PROTONIX) PO SCH (08:16)
[2019-12-16] MEDS: LOSARTAN 25 MG TAB PO SCH (08:17)
[2019-12-16] MEDS: PERCOCET 5MG/325MG TAB PO PRN ×2 (08:40→21:36)
[2019-12-16] MEDS: VANCOMYCIN HCL 1,000 MG, VIAL MATE ADAPTER 1 EACH in D5W 250 ML IV SCH (10:20)
--- NOTE | 2019-12-16 11:27 | IPNPDOC ---
Text Note Date of Service The patient was seen on 12/16/19. NOTE Subjective: -No complaints this morning Objective: General: Awake, alert, oriented 3. NAD HEENT: PERRLA, EOMI, MMM, anicteric Respiratory: Diminished lung sounds at the left base, otherwise clear clear. Cardiovascular: RRR, with no rubs, gallops, or murmur appreciated. Abdomen: Soft, nontender, nondistended, no hepatosplenomegaly appreciated. Bowel sounds normoactive. Has point tenderness in midback Skin: No rashes or lesions Extremities: Left foot has multiple toes amputated with bandage on. On his right foot he is status post transmetatarsal amputation, also bandaged. Labs: reviewed WBC 8.6 hgb 9 Cr 1.24 Imaging: CT chest with contrast: Extensive erosive changes along T11-12 endplate with nonspecific inflammatory soft tissues extending into the retrocrural space bilaterally. Suspect acute discitis osteomyelitis. Small to moderate partially loculated left pleural effusion with adjacent compressive atelectasis. Trace right pleural effusion. Subpleural 1 cm pulmonary nodule in the right lower lobe. Prominent spiculated nodular right perihilar opacity with a pleural tail measuring approximately 1.7 x 0.4 cm demonstrates small central cavitation. Additional nodular cavitary lesion with a pleural tail is noted in the left apex. Multiple scattered 3-4 mm bilateral pulmonary nodules are also seen. These may represent metastatic disease or possibly septic emboli. [facility] follow up recommendations for incidental nodules are not indicated. Follow up per patient's medical condition. Several centrally necrotic right hepatic lobe masses measuring up 2.6 cm in diameter. TTE: 1. Mild concentric left ventricle hypertrophy. Normal regional left ventricular (LV) wall motion and wall thickening. Normal LV systolic function. Left ventricular ejection fraction (LVEF) 60% by visual estimate. Grade 1 LV diastolic dysfunction. 2. Suggestive of moderate elevation of estimated right ventricle systolic pressure (50-55 mmHg). Moderate tricuspid regurgitation with normal appearing tricuspid leaflets. Normal right ventricle size and systolic function. Normal right atrial size. 3. Severe mitral annular calcification. Mild mitral regurgitation. No mitral stenosis. 4. Moderate aortic valve sclerosis of a 3-cusp aortic valve. No aortic stenosis or regurgitation. 5. Very mild dilatation of the aortic root at the level of the sinus of Valsalva. 6. No pericardial effusion. ASSESSMENT/PLAN: Bacteremia with gram-positive cocci in pairs and clusters with likely T11/12 discitis osteomyelitis as source -continue IV vancomycin -ID consulted, to place PICC line once BCx are negative (thus far negative since 12/13 BCx) and plan for IV vanc for 6 weeks. Will request PICC line at this time. -No lines or ports at this time -known to be MRSA colonized and with long standing chronic wounds so culture may not yield useful information -CT chest showing evidence of T11-12 discitis, osteomyelitis New onset left-sided pleural effusion -He has known metastatic spread to the lungs, suspect malignant pleural effusion, although given that he has bacteremia of an unknown source, a parapneumonic effusion is certainly on the differential. At this point the patient is stable. -TTE unchanged, normal EF, mild diastolic dysfunction, moderate elevation of estimated right ventricle systolic pressure Back pain most likely 2/2 discitis osteomyelitis -Patient has claustrophobia, therefore he is not able to undergo MRI and CT was able to establish the diagnosis -Pain control for now with home dose of Percocet. Metastatic renal cancer -Chemotherapy currently on hold. Will need to follow up with his oncologist at [facility] upon discharge. Pancreatic insufficiency -Continue with home dose of Creon Diabetes mellitus type 2 -Continue with home dose of long-acting insulin, sliding scale before meals and at bedtime, hold glipizide History of GI ulcer -Continue with home dose of pantoprazole Hypertension -Continue with home dose of bisoprolol, losartan DVT Prophylaxis -Lovenox Chronic LE wounds: -Will consult Dr. Hyatt about the missed appointment on 12/14 for debridement of RLE VS,Fishbone, I+O VS, Fishbone, I+O Laboratory Tests 12/16/19 04:35 Vital Signs Date Time Temp Pulse Resp B/P (MAP) Pulse Ox O2 Delivery O2 Flow Rate FiO2 12/16/19 04:00 98.1 114 16 134/78 (96) 95 Room Air I&O- Last 24 Hours up to 6 AM 12/16/19 06:00 Intake Total 300 ml Output Total 900 ml Balance -600 ml ASCENCION REYES MD Dec 16, 2019 07:11
[2019-12-16 12:00] VITALS: BP 130/72
[2019-12-16 16:00] VITALS: BP 152/74
[2019-12-16 20:00] VITALS: BP 158/77
[2019-12-16] MEDS: LEVEMIR (INSULIN DETEMIR) 1 UNITS/0.01ML SC SCH (20:17)
[2019-12-17] VITALS: BP 154/71
[2019-12-17] MEDS: ACETAMINOPHEN 500 MG TAB PO PRN ×4 (02:50→21:49)
[2019-12-17 04:00] VITALS: BP 138/74
[2019-12-17 05:42] LABS: HEMATOCRIT 26.7 % (42.0-52.0); HEMOGLOBIN 8.3 g/dl (13.5-17.5); MEAN CORPUSCULAR HEMOGLOBIN 27.9 pg (27.0-33.0); MEAN CORPUSCULAR HGB CONC 31.1 g/dl (32.0-36.5); MEAN CORPUSCULAR VOLUME 89.9 fl (80.0-96.0); PLATELET COUNT, AUTOMATED 209 10^3/uL (150-450); RED BLOOD COUNT 2.97 10^6/uL (4.30-6.10); WHITE BLOOD COUNT 6.9 10^3/uL (4.0-10.0)
[2019-12-17] MEDS: SLF 3 ML SYR IV SCH ×3 (05:55→21:50)
[2019-12-17 05:57] LABS: CALCIUM LEVEL 8.4 MG/DL (8.8-10.2); CREATININE FOR GFR 1.27 MG/DL (0.70-1.30); GLOMERULAR FILTRATION RATE 59.2 (>42)
[2019-12-17 08:00] VITALS: BP 158/84
[2019-12-17] MEDS: HumaLOG INSULIN (NovoLOG) PER UNIT SC SCH ×4 (08:18→21:00)
[2019-12-17] MEDS: PANTOPRAZOLE 40MG TAB (PROTONIX) PO SCH (08:19)
[2019-12-17] MEDS: bisoproloL fumarate 5 MG TAB PO SCH (08:19)
[2019-12-17] MEDS: CREON-12 CAPSULE PO SCH ×2 (08:19→17:43)
[2019-12-17] MEDS: ENOXAPARIN 40MG/0.4ML SYRINGE (J1650 PER 10MG) SC SCH (08:19)
[2019-12-17] MEDS: LOSARTAN 25 MG TAB PO SCH (08:20)
[2019-12-17] MEDS: VANCOMYCIN HCL 1,000 MG, VIAL MATE ADAPTER 1 EACH in D5W 250 ML IV SCH (10:11)
--- NOTE | 2019-12-17 11:25 | IPNPDOC ---
Text Note Date of Service The patient was seen on 12/17/19. NOTE Subjective: -No complaints this morning, pending PICC for home IV abx Objective: General: Awake, alert, oriented 3. NAD HEENT: PERRLA, EOMI, MMM, anicteric Respiratory: Diminished lung sounds at the left base, otherwise clear clear. Cardiovascular: RRR, with no rubs, gallops, or murmur appreciated. Abdomen: Soft, nontender, nondistended, no hepatosplenomegaly appreciated. Bowel sounds normoactive. Has point tenderness in midback Skin: No rashes or lesions Extremities: Left foot has multiple toes amputated with bandage on. On his right foot he is status post transmetatarsal amputation, also bandaged. Labs: reviewed WBC 6.9 hgb 8.3 Cr 1.27 k 4 na 134 Imaging: CT chest with contrast: Extensive erosive changes along T11-12 endplate with nonspecific inflammatory soft tissues extending into the retrocrural space bilaterally. Suspect acute discitis osteomyelitis. Small to moderate partially loculated left pleural effusion with adjacent compressive atelectasis. Trace right pleural effusion. Subpleural 1 cm pulmonary nodule in the right lower lobe. Prominent spiculated nodular right perihilar opacity with a pleural tail measuring approximately 1.7 x 0.4 cm demonstrates small central cavitation. Additional nodular cavitary lesion with a pleural tail is noted in the left apex. Multiple scattered 3-4 mm bilateral pulmonary nodules are also seen. These may represent metastatic disease or possibly septic emboli. [facility] follow up recommendations for incidental nodules are not indicated. Follow up per patient's medical condition. Several centrally necrotic right hepatic lobe masses measuring up 2.6 cm in diameter. TTE: 1. Mild concentric left ventricle hypertrophy. Normal regional left ventricular (LV) wall motion and wall thickening. Normal LV systolic function. Left ventricular ejection fraction (LVEF) 60% by visual estimate. Grade 1 LV diastol ic dysfunction. 2. Suggestive of moderate elevation of estimated right ventricle systolic pressure (50-55 mmHg). Moderate tricuspid regurgitation with normal appearing tricuspid leaflets. Normal right ventricle size and systolic function. Normal right atrial size. 3. Severe mitral annular calcification. Mild mitral regurgitation. No mitral stenosis. 4. Moderate aortic valve sclerosis of a 3-cusp aortic valve. No aortic stenosis or regurgitation. 5. Very mild dilatation of the aortic root at the level of the sinus of Valsalva. 6. No pericardial effusion. ASSESSMENT/PLAN: Bacteremia with gram-positive cocci in pairs and clusters with likely T11/12 discitis osteomyelitis as source -continue IV vancomycin -ID consulted, last positive BCx were on 12/11, placed order for PICC and plan for IV vanc for 6 weeks. 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 At this point the patient is stable. -TTE unchanged, normal EF, mild diastolic dysfunction, moderate elevation of estimated right ventricle systolic pressure Back pain most likely 2/2 discitis osteomyelitis -Patient has claustrophobia, therefore he is not able to undergo MRI and CT was able to establish the diagnosis -Pain control for now with home dose of Percocet. Metastatic renal cancer -Chemotherapy currently on hold. Will need to follow up with his oncologist at [facility] upon discharge. Pancreatic insufficiency -Continue with home dose of Creon Diabetes mellitus type 2 -Continue with home dose of long-acting insulin, sliding scale before meals and at bedtime, hold glipizide History of GI ulcer -Continue with home dose of pantoprazole Hypertension -Continue with home dose of bisoprolol, losartan DVT Prophylaxis -Lovenox Chronic LE wounds: -Consulted Dr. Hyatt about the missed appointment on 12/14 for debridement of RLE, had debridement on 12/16/2019. VS,Fishbone, I+O VS, Fishbone, I+O Laboratory Tests 12/17/19 04:59 Vital Signs Date Time Temp Pulse Resp B/P (MAP) Pulse Ox O2 Delivery O2 Flow Rate FiO2 12/17/19 08:20 158/84 12/17/19 08:19 107 12/17/19 08:00 97.3 15 97 Room Air I&O- Last 24 Hours up to 6 AM 12/17/19 06:00 Intake Total 840 ml Output Total 1345 ml Balance -505 ml ASCENCION REYES MD Dec 17, 2019 09:02
[2019-12-17 11:30] VITALS: BP 137/80
[2019-12-17] MEDS: PERCOCET 5MG/325MG TAB PO PRN (12:05)
[2019-12-17 14:00] VITALS: BP 107/62
[2019-12-17] MEDS: LEVEMIR (INSULIN DETEMIR) 1 UNITS/0.01ML SC SCH (21:49)
[2019-12-17 22:00] VITALS: BP 128/74
[2019-12-18] MEDS: PERCOCET 5MG/325MG TAB PO PRN ×3 (02:09→22:22)
[2019-12-18 06:00] VITALS: BP 156/75
[2019-12-18] MEDS: SLF 3 ML SYR IV SCH ×3 (06:01→21:14)
[2019-12-18 06:41] LABS: HEMATOCRIT 27.2 % (42.0-52.0); HEMOGLOBIN 8.4 g/dl (13.5-17.5); MEAN CORPUSCULAR HGB CONC 30.9 g/dl (32.0-36.5); MEAN CORPUSCULAR VOLUME 90.7 fl (80.0-96.0); PLATELET COUNT, AUTOMATED 212 10^3/uL (150-450); WHITE BLOOD COUNT 6.2 10^3/uL (4.0-10.0)
[2019-12-18 07:04] LABS: CALCIUM LEVEL 8.3 MG/DL (8.8-10.2); CREATININE FOR GFR 1.35 MG/DL (0.70-1.30); GLOMERULAR FILTRATION RATE 55.2 (>42); POTASSIUM SERUM 4.1 MEQ/L (3.5-5.1)
[2019-12-18] MEDS: bisoproloL fumarate 5 MG TAB PO SCH (08:04)
[2019-12-18] MEDS: CREON-12 CAPSULE PO SCH ×2 (08:04→18:20)
[2019-12-18] MEDS: HumaLOG INSULIN (NovoLOG) PER UNIT SC SCH ×4 (08:04→21:00)
[2019-12-18] MEDS: ENOXAPARIN 40MG/0.4ML SYRINGE (J1650 PER 10MG) SC SCH (08:04)
[2019-12-18] MEDS: LOSARTAN 25 MG TAB PO SCH (08:05)
[2019-12-18] MEDS: ACETAMINOPHEN 500 MG TAB PO PRN (08:05)
[2019-12-18] MEDS: PANTOPRAZOLE 40MG TAB (PROTONIX) PO SCH (08:05)
--- NOTE | 2019-12-18 08:58 | CR ---
DATE OF CONSULTATION: 12/16/2019 REASON FOR CONSULTATION: Foot ulceration. HISTORY OF PRESENT ILLNESS: Zeke Jo is a 74-year-old gentleman well known to me who has long standing ulcerations to his right foot. He has missed his past several appointments with me due to hospitalizations secondary to bacteremia followed by bleeding ulceration. He is noted to have some persisting drainage from his wound. He denies other symptoms in his feet. PAST MEDICAL HISTORY: Significant for metastatic left renal cell carcinoma with metastases to lungs, history of diabetes with peripheral neuropathy, history of Clostridium difficile, history of methicillin-resistant Staphylococcus aureus (MRSA) endocarditis, history of GI bleed, and history of osteomyelitis status post metatarsal amputation. SURGICAL HISTORY: Includes right foot transmetatarsal amputation, left toe amputation, left nephrectomy, left knee replacement, bilateral cataracts, hernia. SOCIAL HISTORY: Nonsmoker. Denies alcohol use. FAMILY HISTORY: Noncontributory. REVIEW OF SYSTEMS: Denies nausea, vomiting, fever, chills. VITALS: Reviewed. He has been afebrile since admission. LABS: His white blood cell count is normal. ESR is 125. CRP 15.5. Blood cultures thus far are no growth. LOWER EXTREMITY EXAMINATION: His left foot has a healed ulceration. There is a toe amputation site on the right foot. There is plantar ulceration of the forefoot. There is no necrosis or drainage with a generally granular wound base. ASSESSMENT: 74-year-old diabetic male with long standing ulceration to the right foot. PLAN: Debridement was performed at bedside using a dermal curette and excision including subcutaneous tissue. Wound cultures, care, dressings ordered, including Hydrofera Blue and Optifoam to be changed daily. He should followup with me in the office upon discharge.
[2019-12-18] MEDS: VANCOMYCIN HCL 1,000 MG, VIAL MATE ADAPTER 1 EACH in D5W 250 ML IV SCH (10:36)
[2019-12-18] MEDS ORDERED: MORPHINE 2 MG/ML 1ML VIAL (J2270) IV ONE (13:15)
--- NOTE | 2019-12-18 13:52 | IPNPDOC ---
Text Note Date of Service The patient was seen on 12/18/19. NOTE Subjective: -complaining of back pain this morning. Worried about having to lie on IR bed that hurts a lot. Asking for pain medication pre-going to IR for PICC today for home IV abx Objective: General: Awake, alert, oriented 3. NAD HEENT: PERRLA, EOMI, MMM, anicteric Respiratory: Diminished lung sounds at the left base, otherwise clear clear. Cardiovascular: RRR, with no rubs, gallops, or murmur appreciated. Abdomen: Soft, nontender, nondistended, no hepatosplenomegaly appreciated. Bowel sounds normoactive. Has point tenderness in midback Skin: No rashes or lesions Extremities: Left foot has multiple toes amputated with bandage on. On his right foot he is status post transmetatarsal amputation, also bandaged. Labs: reviewed WBC 6.2 hgb 8.4 Cr 1.35 Imaging: CT chest with contrast: Extensive erosive changes along T11-12 endplate with nonspecific inflammatory soft tissues extending into the retrocrural space bilaterally. Suspect acute discitis osteomyelitis. Small to moderate partially loculated left pleural effusion with adjacent compressive atelectasis. Trace right pleural effusion. Subpleural 1 cm pulmonary nodule in the right lower lobe. Prominent spiculated nodular right perihilar opacity with a pleural tail measuring approximately 1.7 x 0.4 cm demonstrates small central cavitation. Additional nodular cavitary lesion with a pleural tail is noted in the left apex. Multiple scattered 3-4 mm bilateral pulmonary nodules are also seen. These may represent metastatic disease or possibly septic emboli. Fleischner follow up recommendations for inci dental nodules are not indicated. Follow up per patient's medical condition. Several centrally necrotic right hepatic lobe masses measuring up 2.6 cm in diameter. TTE: 1. Mild concentric left ventricle hypertrophy. Normal regional left ventricular (LV) wall motion and wall thickening. Normal LV systolic function. Left ventricular ejection fraction (LVEF) 60% by visual estimate. Grade 1 LV diasto lic dysfunction. 2. Suggestive of moderate elevation of estimated right ventricle systolic pressure (50-55 mmHg). Moderate tricuspid regurgitation with normal appearing tricuspid leaflets. Normal right ventricle size and systolic function. Normal right atrial size. 3. Severe mitral annular calcification. Mild mitral regurgitation. No mitral stenosis. 4. Moderate aortic valve sclerosis of a 3-cusp aortic valve. No aortic stenosis or regurgitation. 5. Very mild dilatation of the aortic root at the level of the sinus of Valsalva. 6. No pericardial effusion. 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 At this point the pa tient is stable. -TTE unchanged, normal EF, mild diastolic dysfunction, moderate elevation of estimated right ventricle systolic pressure Back pain most likely 2/2 discitis osteomyelitis -Patient has claustrophobia, therefore he is not able to undergo MRI and CT was able to establish the diagnosis -Increase home dose of Percocet from BID PRN to TID PRN -morphine 2mg IV before going down to IR for PICC line. Metastatic renal cancer -Chemotherapy currently on hold. Will need to follow up with his oncologist at [facility] upon discharge. Pancreatic insufficiency -Continue with home dose of Creon Diabetes mellitus type 2 -Continue with home dose of long-acting insulin, sliding scale before meals and at bedtime, hold glipizide History of GI ulcer -Continue with home dose of pantoprazole Hypertension -Continue with home dose of bisoprolol, losartan DVT Prophylaxis -Lovenox Chronic LE wounds: -Consulted Dr. Hyatt about the missed appointment on 12/14 for debridement of RLE, had debridement on 12/16/2019, to follow up outpatient. VS,Pawanbone, I+O VS, Fishbone, I+O Laboratory Tests 12/18/19 06:16 Vital Signs Date Time Temp Pulse Resp B/P (MAP) Pulse Ox O2 Delivery O2 Flow Rate FiO2 12/18/19 13:13 18 Room Air 12/18/19 08:04 120 156/90 12/18/19 06:00 98.1 94 I&O- Last 24 Hours up to 6 AM 12/18/19 06:00 Intake Total 1470 ml Output Total 1600 ml Balance -130 ml ASCENCION REYES MD Dec 18, 2019 13:52
[2019-12-18 14:00] VITALS: BP 137/90
[2019-12-18] MEDS ORDERED: LIDOCAINE 1% MDV 20ML VIAL As Ordered ONE (15:46)
[2019-12-18] MEDS ORDERED: SODIUM CHLORIDE 0.9% INJ 10 ML SYR IV PRN (17:15)
[2019-12-18] MEDS: SODIUM CHLORIDE 0.9% INJ 10 ML SYR IV SCH (18:20)
[2019-12-18 22:00] VITALS: BP 113/75
[2019-12-18] MEDS: LEVEMIR (INSULIN DETEMIR) 1 UNITS/0.01ML SC SCH (22:22)
[2019-12-19] MEDS: ACETAMINOPHEN 500 MG TAB PO PRN ×2 (03:04→12:55)
[2019-12-19] MEDS: SLF 3 ML SYR IV SCH ×2 (05:27→12:51)
[2019-12-19 06:00] VITALS: BP 120/71
[2019-12-19] MEDS: SODIUM CHLORIDE 0.9% INJ 10 ML SYR IV SCH (06:31)
[2019-12-19] MEDS: PERCOCET 5MG/325MG TAB PO PRN (06:32)
[2019-12-19 07:05] LABS: HEMATOCRIT 26.7 % (42.0-52.0); HEMOGLOBIN 8.2 g/dl (13.5-17.5); MEAN CORPUSCULAR HEMOGLOBIN 27.9 pg (27.0-33.0); MEAN CORPUSCULAR HGB CONC 30.7 g/dl (32.0-36.5); MEAN CORPUSCULAR VOLUME 90.8 fl (80.0-96.0); PLATELET COUNT, AUTOMATED 203 10^3/uL (150-450); RED BLOOD COUNT 2.94 10^6/uL (4.30-6.10); WHITE BLOOD COUNT 6.7 10^3/uL (4.0-10.0)
[2019-12-19 07:29] LABS: CALCIUM LEVEL 8.9 MG/DL (8.8-10.2); CREATININE FOR GFR 1.35 MG/DL (0.70-1.30); GLOMERULAR FILTRATION RATE 55.2 (>42); POTASSIUM SERUM 4.1 MEQ/L (3.5-5.1)
[2019-12-19] MEDS: HumaLOG INSULIN (NovoLOG) PER UNIT SC SCH ×2 (08:03→12:00)
[2019-12-19 08:04] VITALS: BP 147/84
[2019-12-19] MEDS: CREON-12 CAPSULE PO SCH (08:04)
[2019-12-19] MEDS: ENOXAPARIN 40MG/0.4ML SYRINGE (J1650 PER 10MG) SC SCH (08:04)
[2019-12-19] MEDS: bisoproloL fumarate 5 MG TAB PO SCH (08:04)
[2019-12-19] MEDS: PANTOPRAZOLE 40MG TAB (PROTONIX) PO SCH (08:04)
[2019-12-19] MEDS: LOSARTAN 25 MG TAB PO SCH (08:05)
--- NOTE | 2019-12-19 08:10 | REP ---
PICC line insertion under ultrasound guidance. The procedure was performed by COLIN Diaz, under the direct supervision of Dr. Henning. The risks and benefits of the procedure were explained to the patient and informed consent was obtained both verbally and written. Directly prior to the start of the procedure, a formal timeout was completed in the procedure room. The right basilic vein was localized using ultrasound guidance. The skin was prepped and draped in the sterile fashion. 1 ml 1% lidocaine 10 mg/ml was used as a local anesthetic. Using ultrasound guidance the right basilic vein was cannulated and a 0.018 guidewire was inserted and advanced to the SVC using fluoroscopic guidance. The needle was removed and a 4.5 Niuean dilator and peel-away sheath was inserted over the guidewire. A 4.5 Niuean single lumen catheter was cut to the length of 45 cm. The dilator was removed and the catheter was inserted over the guide wire with the tip ending in the SVC. The peel-away sheath was removed and the catheter was flushed with heparinized saline as per hospital protocol. The catheter was affixed to the skin and a sterile dressing was applied. The patient tolerated the procedure well and there were no immediate complications. 0.1 minutes of fluoroscopy time was utilized for this procedure. Some fluoroscopic images are performed with last image hold technology. These images require no additional radiation. Reviewed by COLIN Carranza 12/18/2019 04:33 P Electronically Signed by Cornelius Henning MD 12/19/2019 08:01 A
[2019-12-19] MEDS: VANCOMYCIN HCL 1,000 MG, VIAL MATE ADAPTER 1 EACH in D5W 250 ML IV SCH (10:39)
--- NOTE | 2019-12-19 16:06 | DS.PDOC ---
Discharge Summary General Date of Admission Dec 14, 2019 at 00:00 Date of Discharge 12/19/19 Attending Physician: Gill Lora MD Discharge Summary HISTORY OF PRESENT ILLNESS: Patient is a 74 y/o M with PMH Diabetes mellitus type 2, metastatic left renal carcinoma, hx of C. difficile, hx of MRSA endocarditis, hx of GI bleed with severe anemia requiring massive blood transfusion, hx of recurrent infection with Klebsiella, hx of osteomyelitis of the foot status post transmetatarsal amputation who was at home when he was called by his infectious disease doctor (Dr. Armstrong) and informed that he had a positive blood culture, therefore he was instructed to go to the emergency department for further evaluation. Otherwise, he has not been feeling acutely ill. A summary of his case is taken from Dr. Armstrong's progress note dated 12/12/19 in [place] as quoted below: "Zeke is a 74-year-old gentleman with a history of metastatic left renal carcinoma hospitalized on 10/18-10/21/2019 with MRSA bacteremia, culture negative 10/22/2019 The patient had infected [id number] for chemotherapy treated with IV vancomycin followed by IV daptomycin and Teflaro because of persistent erlin teremia. Patient was discharged home on IV vancomycin for total of 6 weeks from negative culture end of therapy would be 12/03/2019. HX chronic diabetic foot ulcer/ osteomyelitis on the right foot that had a transmetatarsal amputation debrided CX MRSA. He was readmitted with severe anemia and GI bleed hemoglobin down to 6. He had endoscopy on 11/14/19 clotted blood was found in the stomach with the 2 losing cratered duodenal ulcers. 11/16/19 Dr. Hernandez G date is super selective embolization for the bleeding ulcer due to persistent bleeding. The patient received 22 units of blood and 2 units of platelets and FFP. He had a recurrent fever on 11/16 2 sets of blood culture were positive for Klebsiella pneumoniae he had a triple lumen catheter and a PICC line that were removed. 11/17/21 sets blood cultures no growth. Patient was discharged home to continue with IV vancomycin end 12/02 and PO levofloxacin for Klebsiella bacteremia. Patient chemotherapy is currently on hold he follows up with Dr. Ocampo in [facility]." Patient was ultimately admitted for further treatment and workup of bacteremia. HOSPITAL COURSE: During his hospitalization, patient was diagnosed with newly noted T11-T12 discitis/osteomyelitis. He was placed back on Vancomycin. PICC line was placed and ID evaluated inpatient. 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 Infectious disease stated patient will need again 6 weeks of IV antibiotics. In addition to the new areas of infection, patient was found to have concern for new lung and new hepatic lesions. This needs to be discussed with his oncologist, Dr. Jorge Ocampo, in [place] as they have enlarged in size- Dr. Ocampo's office was called and message was left with no return call as of yet. During this stay, podiatry was consulted for further evaluation of right foot ulcer. Debridement was performed at bedside using a dermal curette and excision including subcutaneous tissue. Patient had multiple repeat blood cultures drawn this hospitalization, all of which have been NG to date. WBC wnl and patient had been afebrile on 12/19/19. Patient was discharged on 12/19/19 to continue IV vancomycin 1 gm Q24 hrs until 01/25/20. He will have home services set up and will need close follow up with PCP, oncology and Dr. Armstrong's office after discharge. He denies chest pain, n/v/d, fevers, chills, bleeding. ROS: Negative except for what is mentioned above. PAST MEDICAL HISTORY: Diabetes mellitus type 2 Metastatic left renal carcinoma History of C. difficile History of MRSA endocarditis History of GI bleed with severe anemia requiring massive blood transfusion History of recurrent infection with Klebsiella History of osteomyelitis of the foot status post transmetatarsal amputation PAST SURGICAL HISTORY: Multiple toes amputated off the left foot 2018 Left nephrectomy 2017 Left knee repair Bilateral cataracts Hernia Right foot transmetatarsal amputation 2018 SOCIAL HISTORY: Nonsmoker, doesn't drink alcohol, does not use illicit drugs. FAMILY HISTORY: Father had heart disease, mother and siblings had diabetes. Mother and aunts with breast cancer. Objective: General: Awake, alert, oriented 3. NAD HEENT: PERRLA, EOMI, MMM, anicteric Respiratory: CTAB, no w/r/r Cardiovascular: RRR, with no rubs, gallops, or murmur appreciated. Abdomen: Soft, nontender, nondistended, no hepatosplenomegaly appreciated. Bowel sounds normoactive. Has point tenderness in midback Skin: No rashes or lesions Extremities: Left foot has multiple toes amputated with bandage on. On his right foot he is status post transmetatarsal amputation, also bandaged. PICC in RUE Labs: Please see below. Microbiology: BCx from , 12/14, 12/15, 12/16- NG to date Imaging: CT chest with contrast: Extensive erosive changes along T11-12 endplate with nonspecific inflammatory soft tissues extending into the retrocrural space bilaterally. Suspect acute discitis osteomyelitis. Small to moderate partially loculated left pleural effusion with adjacent compressive atelectasis. Trace right pleural effusion. Subpleural 1 cm pulmonary nodule in the right lower lobe. Prominent spiculated nodular right perihilar opacity with a pleural tail measuring approximately 1.7 x 0.4 cm demonstrates small central cavitation. Additional nodular cavitary lesion with a pleural tail is noted in the left apex. Multiple scattered 3-4 mm bilateral pulmonary nodules are also seen. These may represent metastatic disease or possibly septic emboli. Fleischner follow up recommendations for incidental nodules are not indicated. Follow up per patient's medical condition. Several centrally necrotic right hepatic lobe masses measuring up 2.6 cm in diameter. TTE: 1. Mild concentric left ventricle hypertrophy. Normal regional left ventricular (LV) wall motion and wall thickening. Normal LV systolic function. Left ventricular ejection fraction (LVEF) 60% by visual estimate. Grade 1 LV diastolic dysfunction. 2. Suggestive of moderate elevation of estimated right ventricle systolic pressure (50-55 mmHg). Moderate tricuspid regurgitation with normal appearing tricuspid leaflets. Normal right ventricle size and systolic function. Normal r ight atrial size. 3. Severe mitral annular calcification. Mild mitral regurgitation. No mitral stenosis. 4. Moderate aortic valve sclerosis of a 3-cusp aortic valve. No aortic stenosis or regurgitation. 5. Very mild dilatation of the aortic root at the level of the sinus of Valsalva. 6. No pericardial effusion. 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 Armstrong (ID) and Dr. Villalta (PCP) New onset left-sided pleural effusion -He has known metastatic spread to the lungs, suspect malignant pleural effusion, although given that he has bacteremia of an unknown source, a par apneumonic effusion is certainly on the differential. At this point the patient is stable. -TTE unchanged, normal EF, mild diastolic dysfunction, moderate elevation of estimated right ventricle systolic pressure Back pain most likely 2/2 discitis osteomyelitis -Patient has claustrophobia, therefore he is not able to undergo MRI and CT was able to establish the diagnosis -Percocet PRN. Metastatic renal cancer -Chemotherapy currently on hold. Attempted to discuss case with Dr. Jorge Ocampo, left message to get ahold of me. No call back yet. Advising patient to f/u closely with oncologist at [facility] upon discharge. Pancreatic insufficiency -Continue with home dose of Creon Diabetes mellitus type 2 -Continue with home dose of long-acting insulin, sliding scale before meals and at bedtime, hold glipizide History of GI ulcer -Continue with home dose of pantoprazole Hypertension -Continue with home dose of bisoprolol, losartan Chronic LE wounds: -Consulted Dr. Hyatt about the missed appointment on 12/14 for debridement of RLE, had debridement on 12/16/2019, to follow up outpatient. DISPOSITION: Discharge home today with f/u with PCP, oncology and infectious disease. TIME SPENT ON DISCHARGE: Greater than 30 minutes. Vital Signs/I&Os Vital Signs Date Time Temp Pulse Resp B/P (MAP) Pulse Ox O2 Delivery O2 Flow Rate FiO2 12/19/19 08:04 107 147/84 12/19/19 07:02 18 Room Air 12/19/19 06:00 98.4 96 I&O- Last 24 Hours up to 6 AM 12/19/19 06:00 Intake Total 1070 ml Output Total 1225 ml Balance -155 ml Laboratory Data Labs 24H Laboratory Tests 2 12/18/19 17:00: Bedside Glucose (Misc Panel) 176H 12/18/19 20:27: Bedside Glucose (Misc Panel) 191H 12/19/19 06:43: Nucleated Red Blood Cells % (auto) 0.0, Anion Gap 5L, Glomerular Filtration Rate 55.2, Calcium Level 8.9 12/19/19 09:25: Vancomycin Level Trough 15.7 12/19/19 11:19: Bedside Glucose (Misc Panel) 98 CBC/BMP Laboratory Tests 12/19/19 06:43 FSBS Laboratory Tests Test 12/18/19 17:00 12/18/19 20:27 12/19/19 11:19 Range/Units Bedside Glucose (Misc Panel) 176 191 98 83-110 MG/DL Microbiology Microbiology 12/18/19 Blood Culture - Preliminary, Resulted No growth after 24 hours . All specim... 12/17/19 Blood Culture - Preliminary, Resulted No Growth after 48 hours. All Specime... 12/16/19 Blood Culture - Preliminary, Resulted No Growth after 72 hours. All specime... 12/15/19 Blood Culture - Preliminary, Resulted No Growth after 72 hours. All specime... 12/14/19 Blood Culture - Final, Complete NO GROWTH AFTER 5 DAYS Discharge Medications Scheduled Bisoprolol Fumarate (Bisoprolol Fumarate) 10 Mg Tab, 5 MG PO DAILY, (Reported) Glipizide (Glipizide ER) 10 Mg Tab, 10 MG PO DAILY, (Reported) Insulin Glargine,Hum.rec.anlog (Basaglar Kwikpen U-100) 100 Unit/1 Ml Insuln.pen, 1 DOSE SC QHS, (Reported) PT USES 25-30 UNITS Insulin Human Lispro (Novolog) 100 U/Ml Inj, 1 DOSE SC AC, (Reported) PER SLIDING SCALE Losartan Potassium (Losartan Potassium) 25 Mg Tablet, 25 MG PO DAILY, (Reported) Nivolumab (Opdivo) 240 Mg/24 Ml Vial, 240 MG IV Q4WKS, (Reported) LAST INFUSION ON 10/06/19 Pancreatic Enzymes (Creon Dr 12,000 Units Capsule) 1 Ea Capcr, 1 CAP PO BIDWM, (Reported) Pantoprazole Sodium (Pantoprazole Sodium) 40 Mg Tablet.dr, 40 MG PO DAILY, (Reported) Scheduled PRN Acetaminophen (Acetaminophen) 500 Mg Tablet, 500 MG PO Q4H PRN for PAIN, (Reported) Doxylamine Succinate (Unisom Sleep Aid) 25 Mg Tablet, 25 MG PO QHS PRN for SLEEP, (Reported) Oxycodone HCl/Acetaminophen (Oxycodone-Acetaminophen 5-325) 1 Each Tablet, 1 TAB PO BID PRN for PAIN, (Reported) Allergies Coded Allergies: No Known Allergies (Unverified , 03/23/18) Gill Lora MD Dec 19, 2019 16:06
== END 2019-12-19 16:35 | disposition home health service (06) | DRG 552 ==
LOC: M ED 21:36 → M ED INP 12-14 → ENRESERV 12-14 03:50 → M PCU 12-14 04:04 → M MSPAV 12-17 11:27
PROVIDERS: ADMIT Neuromusculoskeletal Medicine & OMM; ATTEND Internal Medicine
PROC: 30233N1 Transfusion of Nonautologous Red Blood Cells into Peripheral Vein, Percutaneous Approach (ICD-10-PCS; 2019-12-14)
PROC: 0JBQ3ZZ Excision of Right Foot Subcutaneous Tissue and Fascia, Percutaneous Approach (ICD-10-PCS; principal; 2019-12-17)
PROC: 02HV33Z Insertion of Infusion Device into Superior Vena Cava, Percutaneous Approach (ICD-10-PCS; 2019-12-18)
DX: M46.44 Discitis, unspecified, thoracic region (principal); R78.81 Bacteremia; J91.0 Malignant pleural effusion; C78.00 Secondary malignant neoplasm of unspecified lung; A49.02 Methicillin resistant Staphylococcus aureus infection, unspecified site; M54.9 Dorsalgia, unspecified; I05.8 Other rheumatic mitral valve diseases; K86.89 Other specified diseases of pancreas; E11.621 Type 2 diabetes mellitus with foot ulcer; Z89.422 Acquired absence of other left toe(s); I10 Essential (primary) hypertension; Z79.4 Long term (current) use of insulin; Z79.899 Other long term (current) drug therapy; Z66 Do not resuscitate; L97.529 Non-pressure chronic ulcer of other part of left foot with unspecified severity

== ENCOUNTER → 2019-12-25 | Outpatient (REF) | payer MEDICARE ==
[~2019-12-25] MED LIST changes: +OXYC1TAB23 PO; +PANT-23 PO; +VANC25SOL
[2019-12-25 12:24] LABS: HEMOGLOBIN 7.4 g/dl (13.5-17.5); MEAN CORPUSCULAR HEMOGLOBIN 27.8 pg (27.0-33.0); MEAN CORPUSCULAR HGB CONC 30.8 g/dl (32.0-36.5); MEAN CORPUSCULAR VOLUME 90.2 fl (80.0-96.0); PLATELET COUNT, AUTOMATED 212 10^3/uL (150-450); RED BLOOD COUNT 2.66 10^6/uL (4.30-6.10)
[2019-12-25 12:43] LABS: ERYTHROCYTE SEDIMENTATION RATE 126 mm/hr (0-20)
[2019-12-25 12:57] LABS: ALBUMIN 2.3 GM/DL (3.2-5.2); BILIRUBIN,TOTAL 0.7 MG/DL (0.2-1.0); C REACTIVE PROTEIN QUANTITATIV 13.7 MG/DL (0.00-0.30); CALCIUM LEVEL 8.2 MG/DL (8.8-10.2); CREATININE FOR GFR 1.33 MG/DL (0.70-1.30); GLOMERULAR FILTRATION RATE 56.1 (>42); POTASSIUM SERUM 3.6 MEQ/L (3.5-5.1); TOTAL PROTEIN 6.1 GM/DL (6.4-8.2)
== END ==
LOC: M SHH 12:08
PROVIDERS: ATTEND Internal Medicine
DX: A49.02 Methicillin resistant Staphylococcus aureus infection, unspecified site (principal); R78.81 Bacteremia

== ENCOUNTER → 2020-01-01 | Outpatient (REF) | payer MEDICARE ==
[2020-01-01 14:13] LABS: HEMATOCRIT 25.1 % (42.0-52.0); HEMOGLOBIN 7.5 g/dl (13.5-17.5); MEAN CORPUSCULAR HEMOGLOBIN 27.3 pg (27.0-33.0); MEAN CORPUSCULAR HGB CONC 29.9 g/dl (32.0-36.5); MEAN CORPUSCULAR VOLUME 91.3 fl (80.0-96.0); PLATELET COUNT, AUTOMATED 237 10^3/uL (150-450); RED BLOOD COUNT 2.75 10^6/uL (4.30-6.10); WHITE BLOOD COUNT 6.3 10^3/uL (4.0-10.0)
[2020-01-01 14:47] LABS: ERYTHROCYTE SEDIMENTATION RATE 128 mm/hr (0-20)
[2020-01-01 14:54] LABS: ALBUMIN 2.4 GM/DL (3.2-5.2); ALT/SGPT 12 U/L (12-78); BILIRUBIN,TOTAL 0.6 MG/DL (0.2-1.0); BLOOD UREA NITROGEN 17 MG/DL (7-18); C REACTIVE PROTEIN QUANTITATIV 7.52 MG/DL (0.00-0.30); CALCIUM LEVEL 8.4 MG/DL (8.8-10.2); CARBON DIOXIDE LEVEL 26 MEQ/L (21-32); CHLORIDE LEVEL 104 MEQ/L (98-107); CREATININE FOR GFR 1.25 MG/DL (0.70-1.30); GLOMERULAR FILTRATION RATE > 60.0 (>42); GLUCOSE, FASTING 197 MG/DL (70-100); SODIUM LEVEL 137 MEQ/L (136-145); TOTAL PROTEIN 6.2 GM/DL (6.4-8.2)
== END ==
LOC: M SHH 11:34
PROVIDERS: ATTEND Internal Medicine
DX: A49.02 Methicillin resistant Staphylococcus aureus infection, unspecified site (principal); R78.81 Bacteremia; I38 Endocarditis, valve unspecified; I34.0 Nonrheumatic mitral (valve) insufficiency

== ENCOUNTER → 2020-01-02 | Outpatient (CLI) | payer MEDICARE ==
--- NOTE | 2020-01-02 16:55 | REPPI ---
REASON: Back pain. There is a mildly exaggerated thoracic kyphosis. There is a grade 3/4 superior endplate concave compression deformity involving T11. There is disc space narrowing and anterior lipping at every level. Degenerative changes are seen throughout the spine with marginal osteophytosis/partial syndesmophyte formation. The tip of a PICC line catheter is seen on the right in the superior vena cava. IMPRESSION: Age undetermined thoracic spine compression deformity, as described above, with other findings and chronic changes. Electronically Signed by Mars Swanson DO 01/02/2020 04:57 P
--- NOTE | 2020-01-02 17:09 | REPPI ---
REASON FOR EXAM: Back pain. COMPARISON: The latest prior a portable exam of 12/13/2019. Seen on the lateral view, there is a posterior lung field opacity. Curvilinear left basilar opacities are noted, status quo, with discoid opacities in right lower lobe, which have improved slightly. There is no significant change in appearance of the osseous structures on the frontal view. See the thoracic spine report. There is a PICC line catheter seen entering from the right, the tip of which is in the superior vena cava. IMPRESSION: 1. Posterior lung field opacity, etiology uncertain. Since the prior exam was a portable exam and, in fact, since the last three prior exams are portable with the latest prior two-view examination of 10/20/2019 and that examination showing no abnormal posterior opacity, I would recommend followup with contrast-enhanced chest CT. 2. Other findings as described above. Electronically Signed by Mars Swanson DO 01/02/2020 06:49 P
== END ==
LOC: M PLAIMG 12:12
PROVIDERS: ATTEND Internal Medicine Infectious Disease
DX: R91.8 Other nonspecific abnormal finding of lung field (principal); M46.44 Discitis, unspecified, thoracic region
CPT/HCPCS: 71046; 72072; G0463

== ENCOUNTER 2020-01-04 11:36 | Emergency (ER) | payer MEDICARE ==
[~2020-01-04] VITALS: Ht 182.9 cm; Wt 72.8 kg
[~2020-01-04 11:36] MED LIST changes: -VANC25SOL
[2020-01-04] MEDS ORDERED: VANC25SOL (11:45)
[2020-01-04] MEDS ORDERED: ALTEPLASE 2MG/2ML VIAL XX ONE (12:30)
[2020-01-04 13:57] VITALS: BP 160/86
== END 2020-01-04 14:13 | disposition home or self-care (01) ==
LOC: M ED 11:36
DX: T82.898A Other specified complication of vascular prosthetic devices, implants and grafts, initial encounter (principal); E11.9 Type 2 diabetes mellitus without complications; Z79.4 Long term (current) use of insulin; Z79.2 Long term (current) use of antibiotics; Z79.899 Other long term (current) drug therapy; Z86.19 Personal history of other infectious and parasitic diseases; Z85.118 Personal history of other malignant neoplasm of bronchus and lung
CPT/HCPCS: 99283; J2997

== ENCOUNTER → 2020-01-08 | Outpatient (CLI) | payer MEDICARE ==
[~2020-01-08] MED LIST changes: +VANC25SOL
--- NOTE | 2020-01-08 14:58 | REP ---
Clinical: Pleural effusion. Technique: Axial noncontrast images from the thoracic inlet to the upper abdomen with coronal and sagittal re-formations. Comparison: 12/14/2019. Findings: Small left and minimal right pleural effusions are identified along with basilar atelectasis which appear improved as compared to prior examination. Small focal densities in the right upper lobe (image 29) and left apex (images 15 - 22) along with Ill-defined area of linear/nodular opacity in the right mid lung zone appear somewhat less pronounced than prior examination. 10 mm noncalcified nodule in the right base (image 59) and 4 mm noncalcified nodule in the medial left lower lobe (image 39) remain stable. No new pleuroparenchymal process is appreciated. Tracheobronchial tree is patent. No pneumothorax. Mediastinum demonstrates stable atherosclerotic changes to the thoracic aorta and coronary arteries along with stable cardiomegaly. Presumed reactive adenopathy in the mediastinum and right hilum are unchanged. Surrounding musculoskeletal structures are intact. Impression: 1. Pleural effusion and basilar atelectasis (left greater than right) again noted but improved and decreased since prior examination. 2. Few scattered areas of opacity appears slightly less prominent than prior examination. 3. Basilar nodules (right greater than left) are unchanged. Electronically Signed by Solo Garcia MD 01/08/2020 02:48 P
--- NOTE | 2020-03-31 16:02 | ROOR ---
Patient Name: Zeke Jo Procedure Date: 01/23/2020 4:58 PM Date of : 1945 Age: 74 Gender: Male Note Status: Finalized Procedure: Upper GI endoscopy Indications: Follow-up of duodenal ulcer Providers: Imtiaz ORTIZ MD Referring MD: 2. Inpatient 2. Inpatient Requesting Provider: Medicines: Monitored Anesthesia Care Complications: No immediate complications. Procedure: Pre-Anesthesia Assessment: - The heart rate, respiratory rate, oxygen saturations, blood pressure, adequacy of pulmonary ventilation, and response to care were monitored throughout the procedure. The Endoscope was introduced through the mouth, and advanced to the second part of duodenum. The upper GI endoscopy was accomplished without difficulty. The patient tolerated the procedure well. Findings: One cratered duodenal ulcer with no stigmata of bleeding was found in the first portion of the duodenum. Biopsies were taken with a cold forceps for histology. The exam was otherwise without abnormality. Impression: - Duodenal ulcer with no stigmata of bleeding. Biopsied. - The examination was otherwise normal. Recommendation: - Return patient to [facility] for ongoing care. Imtiaz Ortiz MD Imtiaz ORTIZ MD 03/31/2020 4:02:14 PM Electronically signed by Imtiaz ORTIZ MD Number of Addenda: 0 Note Initiated On: 03/31/2020 3:58 PM Estimated Blood Loss: Estimated blood loss: none.
== END ==
LOC: M RAD 13:10
PROVIDERS: ATTEND Internal Medicine Infectious Disease
DX: J90 Pleural effusion, not elsewhere classified (principal)

== ENCOUNTER 2020-01-22 00:06 | Inpatient (IN) | payer MEDICARE ==
[2020-01-22] MEDS ORDERED: PANTOPRAZOLE 40MG VIAL (C9113 PER 1) As Ordered ONE ×2 (13:32→21:46)
[2020-01-22] MEDS ORDERED: ACETAMINOPHEN TAB 650MG DOSE (2X325MG) As Ordered ONE (20:10)
[2020-01-22] MEDS ORDERED: diphenhydrAMINE 50MG CAP As Ordered ONE (20:10)
[2020-01-23] MEDS ORDERED: FUROSEMIDE 20MG/2ML VIAL (J1940) As Ordered ONE ×2 (01:14→03:50)
[2020-01-23] MEDS ORDERED: ACETAMINOPHEN TAB 650MG DOSE (2X325MG) As Ordered ONE ×2 (01:50→16:22)
[2020-01-23] MEDS ORDERED: LIDOCAINE 2% 100MG/5ML SDV (FOR ANES.) ONE (03:29)
[2020-01-23] MEDS ORDERED: propofoL 200 MG/20 ML VIAL ONE (03:29)
[2020-01-23] MEDS ORDERED: LEVOTHYROXINE 25MCG TABLET (0.025MG) As Ordered ONE (06:05)
[2020-01-23] MEDS ORDERED: PANTOPRAZOLE 40MG VIAL (C9113 PER 1) As Ordered ONE ×2 (09:49→21:05)
[2020-01-23] MEDS ORDERED: VANCOMYCIN 750MG/25ML VIAL As Ordered ONE (09:49)
[2020-01-23] MEDS ORDERED: bisoproloL fumarate 5 MG TAB As Ordered ONE (09:49)
[2020-01-23] MEDS ORDERED: HumaLOG INSULIN (NovoLOG) PER UNIT As Ordered ONE (13:14)
[2020-01-23] MEDS ORDERED: traMADol 50 MG TAB As Ordered ONE ×2 (19:11→23:15)
[2020-01-23] MEDS ORDERED: LEVEMIR (INSULIN DETEMIR) 1 UNITS/0.01ML As Ordered ONE (21:06)
[2020-01-24] MEDS ORDERED: PROHANCE 279.3MG/ML 15ML VIAL ONE (12:42)
[2020-01-24] MEDS ORDERED: ACETAMINOPHEN TAB 650MG DOSE (2X325MG) ONE ×2 (14:30→16:44)
[2020-01-24] MEDS ORDERED: traMADol 50 MG TAB ONE ×2 (16:09→18:04)
[2020-01-24] MEDS ORDERED: fentaNYL 12 MCG/HR PATCH As Ordered ONE (17:10)
[2020-01-24] MEDS ORDERED: HumaLOG INSULIN (NovoLOG) PER UNIT ONE ×3 (17:40→20:36)
[2020-01-24] MEDS ORDERED: LEVOTHYROXINE 25MCG TABLET (0.025MG) ONE (18:04)
[2020-01-24] MEDS ORDERED: PANTOPRAZOLE 40MG VIAL (C9113 PER 1) ONE ×2 (20:08→20:36)
[2020-01-24] MEDS ORDERED: bisoproloL fumarate 5 MG TAB ONE (20:08)
[2020-01-24] MEDS ORDERED: LEVEMIR (INSULIN DETEMIR) 1 UNITS/0.01ML ONE (20:36)
[2020-01-24] MEDS ORDERED: PERCOCET 5MG/325MG TAB ONE (20:55)
[2020-01-24] MEDS ORDERED: VANCOMYCIN 750MG/25ML VIAL ONE (22:54)
[2020-01-24] MEDS ORDERED: LORazepam 1 MG TAB ONE (22:56)
[2020-01-24] MEDS ORDERED: MORPHINE 2 MG/ML 1ML VIAL (J2270) ONE (23:46)
[2020-01-25] MEDS ORDERED: PANTOPRAZOLE 40MG VIAL (C9113 PER 1) ONE ×2 (08:55→21:44)
[2020-01-25] MEDS ORDERED: HumaLOG INSULIN (NovoLOG) PER UNIT ONE ×3 (08:55→21:43)
[2020-01-25] MEDS ORDERED: VANCOMYCIN 750MG/25ML VIAL ONE (08:55)
[2020-01-25] MEDS ORDERED: bisoproloL fumarate 5 MG TAB ONE (08:55)
[2020-01-25] MEDS ORDERED: ACETAMINOPHEN 325 MG TAB ONE (13:46)
[2020-01-25] MEDS ORDERED: traMADol 50 MG TAB ONE ×2 (17:10→23:46)
[2020-01-25] MEDS ORDERED: LEVEMIR (INSULIN DETEMIR) 1 UNITS/0.01ML ONE (21:45)
[2020-01-25] MEDS ORDERED: ACETAMINOPHEN TAB 650MG DOSE (2X325MG) ONE (21:53)
[2020-01-26] MEDS ORDERED: LEVOTHYROXINE 25MCG TABLET (0.025MG) ONE (05:32)
[2020-01-26] MEDS ORDERED: VANCOMYCIN 750MG/25ML VIAL ONE (08:50)
[2020-01-26] MEDS ORDERED: HumaLOG INSULIN (NovoLOG) PER UNIT ONE ×2 (08:51→18:11)
[2020-01-26] MEDS ORDERED: bisoproloL fumarate 5 MG TAB ONE (08:52)
[2020-01-26] MEDS ORDERED: PANTOPRAZOLE 40MG VIAL (C9113 PER 1) ONE ×2 (08:52→20:55)
[2020-01-26] MEDS ORDERED: traMADol 50 MG TAB ONE ×2 (14:31→20:57)
[2020-01-26] MEDS ORDERED: LEVEMIR (INSULIN DETEMIR) 1 UNITS/0.01ML ONE (20:56)
[2020-01-27] MEDS ORDERED: ACETAMINOPHEN TAB 650MG DOSE (2X325MG) ONE ×4 (00:21→20:56)
[2020-01-27] MEDS ORDERED: traMADol 50 MG TAB ONE ×3 (04:49→22:45)
[2020-01-27] MEDS ORDERED: DOCUSATE SODIUM 100 MG CAP ONE ×3 (04:49→20:54)
[2020-01-27] MEDS ORDERED: LEVOTHYROXINE 25MCG TABLET (0.025MG) ONE (06:09)
[2020-01-27] MEDS ORDERED: HumaLOG INSULIN (NovoLOG) PER UNIT ONE ×3 (09:20→17:56)
[2020-01-27] MEDS ORDERED: bisoproloL fumarate 5 MG TAB ONE (09:21)
[2020-01-27] MEDS ORDERED: PANTOPRAZOLE 40MG VIAL (C9113 PER 1) ONE ×2 (09:25→20:56)
[2020-01-27] MEDS ORDERED: LOSARTAN 25 MG TAB ONE (10:36)
[2020-01-27] MEDS ORDERED: fentaNYL 12 MCG/HR PATCH ONE (12:35)
[2020-01-27] MEDS ORDERED: VANCOMYCIN 750MG/25ML VIAL ONE (15:18)
[2020-01-27] MEDS ORDERED: OMEPRAZOLE 20 MG CAP ONE (20:36)
[2020-01-27] MEDS ORDERED: LEVEMIR (INSULIN DETEMIR) 1 UNITS/0.01ML ONE ×2 (20:37→20:57)
[2020-01-28] MEDS ORDERED: LEVOTHYROXINE 25MCG TABLET (0.025MG) As Ordered ONE (06:09)
[2020-01-28] MEDS ORDERED: traMADol 50 MG TAB As Ordered ONE ×3 (06:36→17:09)
[2020-01-28] MEDS ORDERED: HumaLOG INSULIN (NovoLOG) PER UNIT As Ordered ONE ×2 (09:14→12:01)
[2020-01-28] MEDS ORDERED: PANTOPRAZOLE 40MG VIAL (C9113 PER 1) As Ordered ONE (09:14)
[2020-01-28] MEDS ORDERED: LOSARTAN 25 MG TAB As Ordered ONE (09:14)
[2020-01-28] MEDS ORDERED: bisoproloL fumarate 5 MG TAB As Ordered ONE (09:15)
[2020-01-28] MEDS ORDERED: VANCOMYCIN 750MG/25ML VIAL As Ordered ONE (14:48)
[2020-01-28] MEDS ORDERED: ACETAMINOPHEN TAB 650MG DOSE (2X325MG) As Ordered ONE (14:49)
[2020-01-29] MEDS ORDERED: traMADol 50 MG TAB ONE ×3 (03:30→20:26)
[2020-01-29] MEDS ORDERED: LEVOTHYROXINE 25MCG TABLET (0.025MG) As Ordered ONE (05:47)
[2020-01-29] MEDS ORDERED: ACETAMINOPHEN TAB 650MG DOSE (2X325MG) As Ordered ONE ×2 (05:58→22:30)
[2020-01-29] MEDS ORDERED: DOCUSATE SODIUM 100 MG CAP ONE (10:24)
[2020-01-29] MEDS ORDERED: OMEPRAZOLE 20 MG CAP ONE (10:25)
[2020-01-29] MEDS ORDERED: LOSARTAN 25 MG TAB ONE (10:25)
[2020-01-29] MEDS ORDERED: bisoproloL fumarate 5 MG TAB ONE (10:25)
[2020-01-29] MEDS ORDERED: HumaLOG INSULIN (NovoLOG) PER UNIT ONE ×3 (10:28→17:33)
[2020-01-29] MEDS ORDERED: ACETAMINOPHEN TAB 650MG DOSE (2X325MG) ONE (14:59)
[2020-01-29] MEDS ORDERED: VANCOMYCIN 750MG/25ML VIAL ONE (16:04)
[2020-01-29] MEDS ORDERED: DOCUSATE SODIUM 100 MG CAP As Ordered ONE (22:30)
[2020-01-29] MEDS ORDERED: OMEPRAZOLE 20 MG CAP As Ordered ONE (22:30)
[2020-01-29] MEDS ORDERED: LEVEMIR (INSULIN DETEMIR) 1 UNITS/0.01ML As Ordered ONE (22:31)
[2020-01-30] MEDS ORDERED: fentaNYL 12 MCG/HR PATCH ONE (00:10)
[2020-01-30] MEDS ORDERED: traMADol 50 MG TAB As Ordered ONE (02:25)
[2020-01-30] MEDS ORDERED: LEVOTHYROXINE 25MCG TABLET (0.025MG) As Ordered ONE (06:38)
[2020-01-30] MEDS ORDERED: ACETAMINOPHEN TAB 650MG DOSE (2X325MG) As Ordered ONE ×2 (06:38→23:19)
[2020-01-30] MEDS ORDERED: OMEPRAZOLE 20 MG CAP ONE ×2 (08:53→20:31)
[2020-01-30] MEDS ORDERED: DOCUSATE SODIUM 100 MG CAP ONE ×2 (08:53→20:31)
[2020-01-30] MEDS ORDERED: HumaLOG INSULIN (NovoLOG) PER UNIT ONE ×3 (08:55→20:34)
[2020-01-30] MEDS ORDERED: bisoproloL fumarate 5 MG TAB ONE (08:55)
[2020-01-30] MEDS ORDERED: LOSARTAN 25 MG TAB ONE (08:55)
[2020-01-30] MEDS ORDERED: fentaNYL 25 MCG/HR PATCH ONE (11:59)
[2020-01-30] MEDS ORDERED: VANCOMYCIN 750MG/25ML VIAL ONE (14:23)
[2020-01-30] MEDS ORDERED: traMADol 50 MG TAB ONE ×2 (14:23→20:31)
[2020-01-30] MEDS ORDERED: ACETAMINOPHEN TAB 650MG DOSE (2X325MG) ONE (17:43)
[2020-01-30] MEDS ORDERED: LEVEMIR (INSULIN DETEMIR) 1 UNITS/0.01ML ONE (20:34)
[2020-01-31] MEDS ORDERED: traMADol 50 MG TAB As Ordered ONE ×2 (03:07→10:20)
[2020-01-31] MEDS ORDERED: LEVOTHYROXINE 25MCG TABLET (0.025MG) As Ordered ONE (05:36)
[2020-01-31] MEDS ORDERED: ACETAMINOPHEN TAB 650MG DOSE (2X325MG) As Ordered ONE ×2 (05:44→14:56)
[2020-01-31] MEDS ORDERED: DOCUSATE SODIUM 100 MG CAP As Ordered ONE (10:17)
[2020-01-31] MEDS ORDERED: LOSARTAN 25 MG TAB As Ordered ONE (10:18)
[2020-01-31] MEDS ORDERED: OMEPRAZOLE 20 MG CAP As Ordered ONE (10:18)
[2020-01-31] MEDS ORDERED: bisoproloL fumarate 5 MG TAB As Ordered ONE (10:18)
[2020-01-31] MEDS ORDERED: VANCOMYCIN 750MG/25ML VIAL ONE (16:15)
[2020-01-31] MEDS ORDERED: traMADol 50 MG TAB ONE (16:30)
[2020-01-31] MEDS ORDERED: DOCUSATE SODIUM 100 MG CAP ONE (21:03)
[2020-01-31] MEDS ORDERED: OMEPRAZOLE 20 MG CAP ONE (21:03)
[2020-01-31] MEDS ORDERED: LEVEMIR (INSULIN DETEMIR) 1 UNITS/0.01ML ONE (21:05)
[2020-01-31] MEDS ORDERED: fentaNYL 25 MCG/HR PATCH ONE (23:53)
[2020-02-01] MEDS ORDERED: traMADol 50 MG TAB ONE ×2 (02:08→13:42)
[2020-02-01] MEDS ORDERED: ACETAMINOPHEN TAB 650MG DOSE (2X325MG) ONE ×2 (04:36→20:19)
[2020-02-01] MEDS ORDERED: LEVOTHYROXINE 25MCG TABLET (0.025MG) ONE (06:32)
[2020-02-01] MEDS ORDERED: bisoproloL fumarate 5 MG TAB ONE (08:57)
[2020-02-01] MEDS ORDERED: LOSARTAN 25 MG TAB ONE (08:57)
[2020-02-01] MEDS ORDERED: DOCUSATE SODIUM 100 MG CAP ONE ×2 (08:57→20:19)
[2020-02-01] MEDS ORDERED: OMEPRAZOLE 20 MG CAP ONE ×2 (08:57→20:19)
[2020-02-01] MEDS ORDERED: HumaLOG INSULIN (NovoLOG) PER UNIT ONE ×2 (13:42→18:25)
[2020-02-01] MEDS ORDERED: VANCOMYCIN 750MG/25ML VIAL ONE (15:11)
[2020-02-01] MEDS ORDERED: LEVEMIR (INSULIN DETEMIR) 1 UNITS/0.01ML ONE (20:19)
[2020-02-02] MEDS ORDERED: traMADol 50 MG TAB ONE ×3 (00:50→18:31)
[2020-02-02] MEDS ORDERED: LEVOTHYROXINE 25MCG TABLET (0.025MG) ONE (04:54)
[2020-02-02] MEDS ORDERED: OMEPRAZOLE 20 MG CAP ONE ×2 (09:06→20:21)
[2020-02-02] MEDS ORDERED: DOCUSATE SODIUM 100 MG CAP ONE ×2 (09:06→20:21)
[2020-02-02] MEDS ORDERED: HumaLOG INSULIN (NovoLOG) PER UNIT ONE ×3 (09:08→17:41)
[2020-02-02] MEDS ORDERED: LOSARTAN 25 MG TAB ONE (09:08)
[2020-02-02] MEDS ORDERED: bisoproloL fumarate 5 MG TAB ONE (09:08)
[2020-02-02] MEDS ORDERED: VANCOMYCIN 750MG/25ML VIAL ONE (15:10)
[2020-02-02] MEDS ORDERED: LEVEMIR (INSULIN DETEMIR) 1 UNITS/0.01ML ONE (20:25)
[2020-02-02] MEDS ORDERED: ACETAMINOPHEN TAB 650MG DOSE (2X325MG) ONE (22:23)
[2020-02-03] MEDS ORDERED: traMADol 50 MG TAB ONE ×2 (01:35→17:44)
[2020-02-03] MEDS ORDERED: ACETAMINOPHEN TAB 650MG DOSE (2X325MG) ONE ×2 (05:13→20:54)
[2020-02-03] MEDS ORDERED: LEVOTHYROXINE 25MCG TABLET (0.025MG) ONE (05:13)
[2020-02-03] MEDS ORDERED: DOCUSATE SODIUM 100 MG CAP ONE ×2 (08:48→20:49)
[2020-02-03] MEDS ORDERED: OMEPRAZOLE 20 MG CAP ONE ×2 (08:49→20:49)
[2020-02-03] MEDS ORDERED: HumaLOG INSULIN (NovoLOG) PER UNIT ONE ×4 (08:50→20:51)
[2020-02-03] MEDS ORDERED: bisoproloL fumarate 5 MG TAB ONE (08:50)
[2020-02-03] MEDS ORDERED: LOSARTAN 25 MG TAB ONE (08:50)
[2020-02-03] MEDS ORDERED: ACETAMINOPHEN 325 MG TAB ONE (13:02)
[2020-02-03] MEDS ORDERED: VANCOMYCIN 750MG/25ML VIAL ONE (14:23)
[2020-02-03] MEDS ORDERED: fentaNYL 25 MCG/HR PATCH ONE (16:32)
[2020-02-03] MEDS ORDERED: LEVEMIR (INSULIN DETEMIR) 1 UNITS/0.01ML ONE (20:52)
[2020-02-04] MEDS ORDERED: traMADol 50 MG TAB ONE ×4 (01:52→19:52)
[2020-02-04] MEDS ORDERED: LEVOTHYROXINE 25MCG TABLET (0.025MG) ONE (06:03)
[2020-02-04] MEDS ORDERED: OMEPRAZOLE 20 MG CAP ONE ×2 (08:21→19:53)
[2020-02-04] MEDS ORDERED: DOCUSATE SODIUM 100 MG CAP ONE ×2 (08:21→19:52)
[2020-02-04] MEDS ORDERED: bisoproloL fumarate 5 MG TAB ONE (08:23)
[2020-02-04] MEDS ORDERED: LOSARTAN 25 MG TAB ONE (08:23)
[2020-02-04] MEDS ORDERED: ACETAMINOPHEN 325 MG TAB ONE ×3 (08:23→22:40)
[2020-02-04] MEDS ORDERED: HumaLOG INSULIN (NovoLOG) PER UNIT ONE ×2 (11:47→18:00)
[2020-02-04] MEDS ORDERED: VANCOMYCIN 750MG/25ML VIAL ONE (15:00)
[2020-02-04] MEDS ORDERED: LEVEMIR (INSULIN DETEMIR) 1 UNITS/0.01ML ONE (21:13)
[2020-02-05] MEDS ORDERED: traMADol 50 MG TAB ONE ×3 (03:04→14:00)
[2020-02-05] MEDS ORDERED: LEVOTHYROXINE 25MCG TABLET (0.025MG) ONE (05:39)
[2020-02-05] MEDS ORDERED: ACETAMINOPHEN 325 MG TAB ONE (05:42)
[2020-02-05] MEDS ORDERED: DOCUSATE SODIUM 100 MG CAP ONE (09:05)
[2020-02-05] MEDS ORDERED: OMEPRAZOLE 20 MG CAP ONE (09:06)
[2020-02-05] MEDS ORDERED: HumaLOG INSULIN (NovoLOG) PER UNIT ONE ×2 (09:06→14:00)
[2020-02-05] MEDS ORDERED: LOSARTAN 25 MG TAB ONE (09:07)
[2020-02-05] MEDS ORDERED: bisoproloL fumarate 5 MG TAB ONE ×2 (09:07→13:00)
[2020-02-05] MEDS ORDERED: VANCOMYCIN 750MG/25ML VIAL ONE (14:00)
[2020-02-20 09:27] LABS: HEMATOCRIT 28.6 % (42.0-52.0); HEMOGLOBIN 9.2 g/dl (13.5-17.5)
--- NOTE | 2020-02-23 07:25 | CR ---
DATE: 01/23/2020 Asked to consult by Dr. Marmolejo for followup of methicillin-resistant Staphylococcus aureus (MRSA) discitis. HISTORY OF PRESENT ILLNESS: Mr. 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 The patient has been on IV vancomycin for the past 6 weeks with an anticipated discontinuation date of January 24. The patient was admitted to the hospital with a hemoglobin of 5.9 on January 14, and he required 3 units of packed red blood cells. The patient had an endoscopy done by Dr. Ortiz, who found an ulcer that is not actively bleeding. He has a history of a bleeding peptic ulcer disease in the end of November 2019 that required embolization of the gastric ulcers. The patient had been on a proton pump inhibitor (PPI) but stopped using them because he ran out of the prescription. He has also been taking some nonsteroidal anti- inflammatory drugs (NSAIDs) for chronic back pain. He has this chronic back pain, mid thoracic area, and was recently started on a fentanyl patch by his primary care provider. MEDICAL HISTORY: 1. Hypertension. 2. Renal cell carcinoma, metastatic to lungs. 3. Status post left nephrectomy. 4. MRSA discitis, on intravenous (IV) vancomycin at T8. 5. Metastatic cancer to pancreas, liver, and lungs. REVIEW OF SYSTEMS: Patient denies any cough or chest pain. He has chronic mid back pain. He has chronic nausea, itching with upper back ulcerations. He has generalized fatigue and weakness, difficulty with ambulation. PHYSICAL EXAMINATION: A thin gentleman in no acute distress. He has been afebrile. Vital signs are stable. Heart: Normal S1, S2. No murmurs appreciated. Lungs are clear. No wheezes, rales, or rhonchi. Abdomen: Soft, nontender, thin. No hepatosplenomegaly. Back with kyphoscoliosis, especially around the thoracic spine around T8-9 there is a protuberance with tenderness. LABORATORY DATA: White count 5.26, hemoglobin 9.2, hematocrit 28.6, platelets 181. PTT 14.5, INR 1.11. Vancomycin trough 13.9. Sodium 141, potassium 3.7. chloride 108, bicarbonate 29, glucose 97, BUN 31, creatinine 1.7, calcium 8.4. Albumin 2.7, alkaline phosphatase 147, ALT 11, AST 12, bilirubin 0.8. that was on January 26. On January 21, BUN was 33, creatinine 1.9. No ESR or CRP have been done. Review of endoscopy report: Examination of the esophagus was normal. Stomach was normal. There is a nonobstructing, nonbleeding crater duodenal ulcer, measuring 1 cm. No evidence of perforation. That was biopsied. Case was discussed with Dr. Ortiz. IMPRESSION: 1. Complicated history of Mr. Jo with methicillin-resistant Staphylococcus aureus (MRSA) endocarditis, osteomyelitis of the right foot that is healing with metastatic infection and thoracic discitis at T8 with persistent elevated erythrocyte sedimentation rate (ESR) and C-reactive protein (CRP). His sedimentation rate has been over 100 in spite of treatment with IV vancomycin. His end of treatment was supposed to be on January 24, but patient with persistent elevated inflammatory markers. Would recommend obtaining MRI of thoracic spine to see if he needs a surgical procedure or intervention. 2. Metastatic renal cell carcinoma to pancreas and lung and therefore very poor surgical candidate for any intervention. 3. History of MRSA endocarditis, resolved. PLAN: Continue with IV vancomycin at 500-750 mg daily, depending on vancomycin trough. Please continue with 2 more weeks of IV antibiotics upon discharge. MRI of thoracic spine. We are scheduling him morning with premedication with lorazepam 1 mg by mouth before procedure and Percocet 5/325 half hour before procedure. Complete blood count (CBC), CRP, ESR, and basic profile to be done in the morning. If the patient gets discharged tomorrow, please make sure he gets 2 more weeks of IV vancomycin upon discharge. MTDD
[2020-02-24 07:19] LABS: ERYTHROCYTE SEDIMENTATION RATE 72 mm/hr (0-20)
[2020-02-24 07:56] LABS: HEMATOCRIT 28.8 % (42.0-52.0); HEMOGLOBIN 9.1 g/dl (13.5-17.5); MEAN CORPUSCULAR HEMOGLOBIN 29.1 pg (27.0-33.0); MEAN CORPUSCULAR HGB CONC 31.6 g/dl (32.0-36.5); PLATELET COUNT, AUTOMATED 186 10^3/uL (150-450); RED BLOOD COUNT 3.13 10^6/uL (4.30-6.10); WHITE BLOOD COUNT 6.4 10^3/uL (4.0-10.0)
[2020-02-24 07:57] LABS: HEMATOCRIT 32.3 % (42.0-52.0); HEMOGLOBIN 9.8 g/dl (13.5-17.5)
--- NOTE | 2020-03-06 10:42 | IPN ---
DATE: 01/25/2020 SUBJECTIVE: Zeke was having a full liquid diet for dinner today, and he is complaining of being hungry. He is in the process of being transferred to [place] for evaluation of discal abscess. He had an MRI under sedation done on 01/24/2020, findings were compatible with discitis, osteomyelitis at T10-T11 with endplate fragmentation and suspected discal abscess and moderate canal stenosis. There is a suspicion of a ventral epidural and prevertebral phlegmon. Diffuse fluid intensity at T10-11 with rim enhancement. OBJECTIVE: He has remained afebrile. Temperature is 97.4, pulse 96, respirations 20, O2 saturation 97% on room air. Heart normal S1, S2 with systolic ejection murmur 2/6. Lungs are clear with no wheezes, rales, or rhonchi. Abdomen is soft and nontender with no hepatosplenomegaly. Extremities with no edema. Right foot transmetatarsal amputation with open ulcer measuring about 2 x 1 cm x 5 cm depth, clean. LABORATORY DATA: Labs today with sodium 139, potassium 3.7, chloride 106, bicarb 29, BUN 21, creatinine 1.35, glucose 106. White count of 6.5, hemoglobin 8.8, hematocrit 28, platelets 164,000. CRP 6.43 (normal being less than 0.3). vancomycin trough 13.9. ESR between 68 and 72. ASSESSMENT: Methicillin-resistant Staphylococcus aureus (MRSA) discitis, osteomyelitis of T10-T11 with concern of discal abscess and moderate canal stenosis with endplate fragmentation and suspicion of ventral epidural and prevertebral phlegmon. The patient has been on his second course of intravenous (IV) vancomycin currently finishing his six weeks with continued back pain and concern for epidural abscess. The patient will be transferred for evaluation of surgical intervention. 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 History of chronic osteomyelitis of the right foot with methicillin-resistant Staphylococcus aureus (MRSA) healing well. Insulin-dependent diabetes on a regular diet. Patients diet will be advanced as he is not being transferred today. There is no bed available. Renal cancer with metastasis to lungs, bones, pancreas. Patients oncologist is Dr. Jorge Ocampo at [facility]. He has not seen him for at least four months and his immunotherapy is on hold at this point. Peptic ulcer disease with bleeding ulcer. Patient has received over 30 units of packed red blood cells in the past two months. Biopsy of ulcer is still pending. Status post endoscopy on 01/23/2020. PLAN: Transfer to [facility] for evaluation of possible surgical intervention for MRSA discal abscess and epidural ventral abscess. Continue IV vancomycin. Patient could not afford home daptomycin and ceftaroline. MTDD
--- NOTE | 2020-03-06 10:48 | IPN ---
DATE: 01/29/2020 SUBJECTIVE: Mr. Jo continues complaining of back pain. He denies any nausea or vomiting, but he has early satiety. He eats 50% of his meals. His back pain is mid-back and migrates up and down the spine and around his torso. He has had no fever or chills. Continues on IV vancomycin at a dose of 750 mg daily. He denies any GI bleed. He had a guaiac done yesterday, which was negative even though he still has black stools. LABORATORY DATA: White count is 5.1, hemoglobin 8.5, hematocrit 26.7, platelets 163,000. Sodium 136, potassium 4, chloride 101, bicarb 31, BUN 13, creatinine 1.35, calcium 8.5. OBJECTIVE: HEART: Normal S1, S2. Systolic ejection murmur 2/6 unchanged. LUNGS: Diminished breath sounds at the left base. ABDOMEN: Soft and nontender. No hepatosplenomegaly. BACK: Kyphosis with a protuberant T11-T12 with some tenderness. No CVA tenderness. No lumbosacral tenderness. EXTREMITIES: No clubbing, cyanosis, or edema. IMPRESSION: T10-T11 discitis with fragmentation and suspect ventral epidural abscess and prevertebral phlegmon. Patient has been on intravenous (IV) vancomycin for a total of three months. Initially six weeks for treatment of methicillin- resistant Staphylococcus aureus (MRSA) endocarditis followed by six weeks for discitis with persistent back pain. Peptic ulcer disease with gastrointestinal (GI) bleed requiring multiple blood transfusion up to 25 units over the past three months. Patient has been switched from intravenous (IV) Protonix to omeprazole 40 mg p.o. two times a day. He is to avoid nonsteroidal anti-inflammatory agents (NSAIDs). 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 Finished six weeks of intravenous (IV) vancomycin. From a cardiac standpoint, he is stable. PLAN: CBC, CMP, ESR, and CRP in the morning. Continue IV vancomycin. Case has been discussed with Dr. Saeid Ocampo his oncologist in [place] to try to arrange for him a transport and a bed at [facility]. Patient also has asked me to bring to social media intern his [facility] bills as he feels he has been over billed. [facility]
--- NOTE | 2020-03-06 10:51 | IPN ---
DATE: 02/01/2020 Patient was seen in followup. He still has not been transferred to [place] for evaluation of epidural abscess with fragmentation of T10-11. Patient states his back pain has improved since his Fentanyl patch was increased to 25 mcg yesterday. He remains afebrile, temperature is 98.1. He has no nausea, vomiting, or diarrhea. His stools are black but no active gastrointestinal (GI) bleeding. He has no cough or shortness of breath. Temperature is 98.9, pulse 101, respirations 20, oxygen saturation 98% on room air. Heart: Normal S1, S2. No murmurs appreciated. Lungs: Clear, diminished at the left base. No wheezes, rales, or rhonchi. Abdomen: Soft, nontender, no hepatosplenomegaly. Back: Severe kyphosis T10-11 with minimal tenderness. Extremities: No clubbing, cyanosis, or edema. Left foot transmetatarsal amputation. LABORATORY DATA: White count 5.7, hemoglobin 8.4, hematocrit 26.9, platelets 154. Sodium 139, potassium 4, chloride 103, bicarbonate 32, glucose 221, BUN 18, creatinine 1.28, calcium 8.4. ESR 81. MEDICATIONS: - vancomycin 750 mg IV every 24 hours - losartan 25 mg by mouth daily - Levemir 6 units nightly - Fentanyl patch increase to 25 mcg every 3 days - omeprazole 40 mg by mouth twice a day - Colace 100 mg by mouth twice a day IMPRESSION: 1. Thoracic discitis with ventral epidural abscess and fragmentation of thoracic spine. Patient has been on IV vancomycin for 7 weeks. His erythrocyte sedimentation rate (ESR) remains elevated at 81 and patient has no neurologic deficit but at risk of having further collapse of the vertebral spine. 2. Insulin-dependent diabetes, stable. 3. Peptic ulcer disease. Biopsy was negative for malignancy. Patient remains anemic. He has received, over the past couple months, over 25 units of blood. 4. Metastatic renal cell carcinoma. Case has been discussed with Dr. Ocampo, his oncologist at [facility] on hold for over 3 months. PLAN: Continue IV vancomycin. Consider obtaining a back brace for stability while waiting for his transfer to [place], hopefully at [facility], [facility], or at [place]. [facility] CENTERAlfredo
[2020-03-08 15:58] LABS: HEMATOCRIT 28.8 % (42.0-52.0); HEMOGLOBIN 8.8 g/dl (13.5-17.5); MEAN CORPUSCULAR HEMOGLOBIN 28.6 pg (27.0-33.0); MEAN CORPUSCULAR HGB CONC 30.6 g/dl (32.0-36.5); MEAN CORPUSCULAR VOLUME 93.5 fl (80.0-96.0); PLATELET COUNT, AUTOMATED 167 10^3/uL (150-450); RED BLOOD COUNT 3.08 10^6/uL (4.30-6.10); WHITE BLOOD COUNT 4.9 10^3/uL (4.0-10.0)
[2020-03-12 12:01] LABS: CALCIUM LEVEL 8.9 MG/DL (8.8-10.2); CREATININE FOR GFR 1.91 MG/DL (0.70-1.30); POTASSIUM SERUM 3.7 MEQ/L (3.5-5.1)
[2020-03-13 21:20] LABS: ERYTHROCYTE SEDIMENTATION RATE 74 mm/hr (0-20); HEMATOCRIT 27.3 % (42.0-52.0); HEMOGLOBIN 8.7 g/dl (13.5-17.5); MEAN CORPUSCULAR HEMOGLOBIN 29.6 pg (27.0-33.0); MEAN CORPUSCULAR HGB CONC 31.9 g/dl (32.0-36.5); MEAN CORPUSCULAR VOLUME 92.9 fl (80.0-96.0); PLATELET COUNT, AUTOMATED 172 10^3/uL (150-450); RED BLOOD COUNT 2.94 10^6/uL (4.30-6.10); WHITE BLOOD COUNT 5.1 10^3/uL (4.0-10.0)
[2020-03-14 01:30] LABS: MEAN CORPUSCULAR HEMOGLOBIN 28.3 pg (27.0-33.0); MEAN CORPUSCULAR HGB CONC 30.2 g/dl (32.0-36.5); MEAN CORPUSCULAR VOLUME 93.5 fl (80.0-96.0); PLATELET COUNT, AUTOMATED 239 10^3/uL (150-450); RED BLOOD COUNT 1.84 10^6/uL (4.30-6.10); WHITE BLOOD COUNT 8.1 10^3/uL (4.0-10.0)
[2020-03-14 01:31] LABS: HEMATOCRIT 17.2 % (42.0-52.0); HEMOGLOBIN 5.2 g/dl (13.5-17.5)
[2020-03-14 14:54] LABS: HEMATOCRIT 54.6 % (42.0-52.0); HEMOGLOBIN 17.7 g/dl (13.5-17.5)
[2020-03-15 14:28] LABS: HEMATOCRIT 27.2 % (42.0-52.0); HEMOGLOBIN 8.6 g/dl (13.5-17.5); MEAN CORPUSCULAR HEMOGLOBIN 29.1 pg (27.0-33.0); MEAN CORPUSCULAR HGB CONC 31.6 g/dl (32.0-36.5); MEAN CORPUSCULAR VOLUME 91.9 fl (80.0-96.0); PLATELET COUNT, AUTOMATED 150 10^3/uL (150-450); RED BLOOD COUNT 2.96 10^6/uL (4.30-6.10); WHITE BLOOD COUNT 4.7 10^3/uL (4.0-10.0)
[2020-03-15 18:29] LABS: HEMOGLOBIN 9.2 g/dl (13.5-17.5); MEAN CORPUSCULAR HGB CONC 31.7 g/dl (32.0-36.5); MEAN CORPUSCULAR VOLUME 91.5 fl (80.0-96.0); PLATELET COUNT, AUTOMATED 154 10^3/uL (150-450); RED BLOOD COUNT 3.17 10^6/uL (4.30-6.10); WHITE BLOOD COUNT 4.9 10^3/uL (4.0-10.0)
[2020-03-20 08:17] LABS: HEMATOCRIT 26.7 % (42.0-52.0); HEMOGLOBIN 8.5 g/dl (13.5-17.5); MEAN CORPUSCULAR HGB CONC 31.8 g/dl (32.0-36.5); MEAN CORPUSCULAR VOLUME 91.1 fl (80.0-96.0); PLATELET COUNT, AUTOMATED 163 10^3/uL (150-450); RED BLOOD COUNT 2.93 10^6/uL (4.30-6.10)
[2020-03-21 07:17] LABS: HEMATOCRIT 29.3 % (42.0-52.0); HEMOGLOBIN 9.2 g/dl (13.5-17.5); MEAN CORPUSCULAR HEMOGLOBIN 28.8 pg (27.0-33.0); MEAN CORPUSCULAR HGB CONC 31.4 g/dl (32.0-36.5); MEAN CORPUSCULAR VOLUME 91.6 fl (80.0-96.0); PLATELET COUNT, AUTOMATED 146 10^3/uL (150-450); WHITE BLOOD COUNT 5.6 10^3/uL (4.0-10.0)
[2020-03-21 07:18] LABS: ERYTHROCYTE SEDIMENTATION RATE 65 mm/hr (0-20)
[2020-03-23 11:08] LABS: ERYTHROCYTE SEDIMENTATION RATE 68 mm/hr (0-20); HEMOGLOBIN 8.8 g/dl (13.5-17.5); MEAN CORPUSCULAR HGB CONC 31.4 g/dl (32.0-36.5); MEAN CORPUSCULAR VOLUME 92.4 fl (80.0-96.0); PLATELET COUNT, AUTOMATED 164 10^3/uL (150-450); RED BLOOD COUNT 3.03 10^6/uL (4.30-6.10); WHITE BLOOD COUNT 6.5 10^3/uL (4.0-10.0)
[2020-03-24 01:00] LABS: HEMATOCRIT 26.6 % (42.0-52.0); HEMOGLOBIN 8.3 g/dl (13.5-17.5); MEAN CORPUSCULAR HEMOGLOBIN 28.7 pg (27.0-33.0); MEAN CORPUSCULAR HGB CONC 31.2 g/dl (32.0-36.5); PLATELET COUNT, AUTOMATED 172 10^3/uL (150-450); RED BLOOD COUNT 2.89 10^6/uL (4.30-6.10); WHITE BLOOD COUNT 5.2 10^3/uL (4.0-10.0)
[2020-03-24 01:42] LABS: ERYTHROCYTE SEDIMENTATION RATE 83 mm/hr (0-20)
[2020-03-24 16:42] LABS: HEMATOCRIT 26.9 % (42.0-52.0); HEMOGLOBIN 8.4 g/dl (13.5-17.5); MEAN CORPUSCULAR HEMOGLOBIN 28.8 pg (27.0-33.0); MEAN CORPUSCULAR HGB CONC 31.2 g/dl (32.0-36.5); MEAN CORPUSCULAR VOLUME 92.1 fl (80.0-96.0); PLATELET COUNT, AUTOMATED 154 10^3/uL (150-450); RED BLOOD COUNT 2.92 10^6/uL (4.30-6.10); WHITE BLOOD COUNT 5.7 10^3/uL (4.0-10.0)
[2020-03-24 17:20] LABS: ERYTHROCYTE SEDIMENTATION RATE 81 mm/hr (0-20)
[2020-03-31 07:15] LABS: ERYTHROCYTE SEDIMENTATION RATE 86 mm/hr (0-20); HEMATOCRIT 28.5 % (42.0-52.0); HEMOGLOBIN 8.9 g/dl (13.5-17.5); MEAN CORPUSCULAR HGB CONC 31.2 g/dl (32.0-36.5); MEAN CORPUSCULAR VOLUME 92.8 fl (80.0-96.0); PLATELET COUNT, AUTOMATED 166 10^3/uL (150-450); RED BLOOD COUNT 3.07 10^6/uL (4.30-6.10); WHITE BLOOD COUNT 5.6 10^3/uL (4.0-10.0)
[2020-03-31 14:40] LABS: BASO # 0.1 10^3/uL (0.0-0.2); EOS # 0.1 10^3/uL (0.0-0.5); EOS % 2.6 % (0.0-3.0); HEMATOCRIT 29.1 % (42.0-52.0); HEMOGLOBIN 9.2 g/dl (13.5-17.5); INR 1.11; LYMPH # 0.8 10^3/uL (1.5-5.0); LYMPH % 15.6 % (24.0-44.0); MEAN CORPUSCULAR HEMOGLOBIN 29.1 pg (27.0-33.0); MEAN CORPUSCULAR HGB CONC 31.6 g/dl (32.0-36.5); MEAN CORPUSCULAR VOLUME 92.1 fl (80.0-96.0); MONO # 0.4 10^3/uL (0.0-0.8); MONO % 8.4 % (0.0-5.0); NEUTROPHILS # 3.6 10^3/uL (1.5-8.5); NEUTROPHILS % 71.8 % (36.0-66.0); PLATELET COUNT, AUTOMATED 176 10^3/uL (150-450); PROTHROMBIN TIME 14.5 SECONDS (12.5-14.3); RED BLOOD COUNT 3.16 10^6/uL (4.30-6.10)
[2020-03-31 14:41] LABS: HEMATOCRIT 27.9 % (42.0-52.0); HEMOGLOBIN 8.9 g/dl (13.5-17.5); MEAN CORPUSCULAR HEMOGLOBIN 29.4 pg (27.0-33.0); MEAN CORPUSCULAR HGB CONC 31.9 g/dl (32.0-36.5); MEAN CORPUSCULAR VOLUME 92.1 fl (80.0-96.0); PLATELET COUNT, AUTOMATED 188 10^3/uL (150-450); RED BLOOD COUNT 3.03 10^6/uL (4.30-6.10); WHITE BLOOD COUNT 5.4 10^3/uL (4.0-10.0)
[2020-03-31 14:41] LABS: HEMATOCRIT 29.8 % (42.0-52.0); HEMOGLOBIN 9.5 g/dl (13.5-17.5)
[2020-03-31 18:14] LABS: HEMATOCRIT 27.7 % (42.0-52.0); HEMOGLOBIN 8.5 g/dl (13.5-17.5); MEAN CORPUSCULAR HEMOGLOBIN 28.5 pg (27.0-33.0); MEAN CORPUSCULAR HGB CONC 30.7 g/dl (32.0-36.5); PLATELET COUNT, AUTOMATED 139 10^3/uL (150-450); RED BLOOD COUNT 2.98 10^6/uL (4.30-6.10); WHITE BLOOD COUNT 4.5 10^3/uL (4.0-10.0)
[2020-04-01 01:20] LABS: CALCIUM LEVEL 8.9 MG/DL (8.8-10.2); CREATININE FOR GFR 1.91 MG/DL (0.70-1.30); POTASSIUM SERUM 3.7 MEQ/L (3.5-5.1)
[2020-04-07 19:32] LABS: ALBUMIN 2.7 GM/DL (3.2-5.2); BILIRUBIN,TOTAL 0.8 MG/DL (0.2-1.0); CALCIUM LEVEL 8.4 MG/DL (8.8-10.2); CREATININE FOR GFR 1.7 MG/DL (0.70-1.30); GLOMERULAR FILTRATION RATE 42.3 (>42); POTASSIUM SERUM 3.7 MEQ/L (3.5-5.1)
[2020-04-07 19:38] LABS: CALCIUM LEVEL 8.4 MG/DL (8.8-10.2); CREATININE FOR GFR 1.61 MG/DL (0.70-1.30)
[2020-04-15 09:46] LABS: ALBUMIN 2.5 GM/DL (3.2-5.2); BILIRUBIN,TOTAL 0.6 MG/DL (0.2-1.0); C REACTIVE PROTEIN QUANTITATIV 9.72 MG/DL (0.00-0.30); CREATININE FOR GFR 1.31 MG/DL (0.70-1.30); GLOMERULAR FILTRATION RATE 57.1 (>42); POTASSIUM SERUM 4.1 MEQ/L (3.5-5.1); TOTAL PROTEIN 5.8 GM/DL (6.4-8.2)
[2020-04-15 13:45] LABS: HEMATOCRIT 28.1 % (42.0-52.0); HEMOGLOBIN 8.7 g/dl (13.5-17.5); MEAN CORPUSCULAR HEMOGLOBIN 28.5 pg (27.0-33.0); MEAN CORPUSCULAR VOLUME 92.1 fl (80.0-96.0); PLATELET COUNT, AUTOMATED 164 10^3/uL (150-450); RED BLOOD COUNT 3.05 10^6/uL (4.30-6.10); WHITE BLOOD COUNT 5.2 10^3/uL (4.0-10.0)
[2020-04-15 17:16] LABS: C REACTIVE PROTEIN QUANTITATIV 9.37 MG/DL (0.00-0.30); CALCIUM LEVEL 8.1 MG/DL (8.8-10.2); CREATININE FOR GFR 1.35 MG/DL (0.70-1.30); GLOMERULAR FILTRATION RATE 55.2 (>42); POTASSIUM SERUM 3.7 MEQ/L (3.5-5.1)
[2020-04-17 15:08] LABS: CREATININE FOR GFR 1.49 MG/DL (0.70-1.30); GLOMERULAR FILTRATION RATE 49.2 (>42); POTASSIUM SERUM 3.5 MEQ/L (3.5-5.1)
[2020-04-17 15:09] LABS: C REACTIVE PROTEIN QUANTITATIV 6.43 MG/DL (0.00-0.30); CALCIUM LEVEL 8.3 MG/DL (8.8-10.2)
[2020-04-21 07:37] LABS: CALCIUM LEVEL 8.7 MG/DL (8.8-10.2); CREATININE FOR GFR 1.4 MG/DL (0.70-1.30); GLOMERULAR FILTRATION RATE 52.9 (>42); POTASSIUM SERUM 4.2 MEQ/L (3.5-5.1)
[2020-04-22 19:31] LABS: BLOOD UREA NITROGEN 14 MG/DL (7-18); CARBON DIOXIDE LEVEL 28 mmol/L (20-29); CHLORIDE LEVEL 106 MEQ/L (98-107); CREATININE FOR GFR 1.18 MG/DL (0.70-1.30); GLOMERULAR FILTRATION RATE > 60.0 (>42); GLUCOSE, FASTING 168 MG/DL (70-100); POTASSIUM SERUM 3.7 MEQ/L (3.5-5.1); SODIUM LEVEL 140 MEQ/L (136-145)
[2020-04-22 23:13] LABS: BLOOD UREA NITROGEN 12 MG/DL (7-18); CALCIUM LEVEL 8.3 MG/DL (8.8-10.2); CARBON DIOXIDE LEVEL 29 MEQ/L (21-32); CHLORIDE LEVEL 102 MEQ/L (98-107); CREATININE FOR GFR 1.23 MG/DL (0.70-1.30); GLOMERULAR FILTRATION RATE > 60.0 (>42); GLUCOSE, FASTING 228 MG/DL (70-100); POTASSIUM SERUM 3.6 MEQ/L (3.5-5.1); SODIUM LEVEL 136 MEQ/L (136-145)
[2020-04-23 04:11] LABS: BLOOD UREA NITROGEN 13 MG/DL (7-18); CALCIUM LEVEL 8.5 MG/DL (8.8-10.2); CARBON DIOXIDE LEVEL 31 MEQ/L (21-32); CHLORIDE LEVEL 101 MEQ/L (98-107); CREATININE FOR GFR 1.35 MG/DL (0.70-1.30); GLOMERULAR FILTRATION RATE 55.2 (>42); GLUCOSE, FASTING 262 MG/DL (70-100); SODIUM LEVEL 136 MEQ/L (136-145)
[2020-04-23 13:10] LABS: C REACTIVE PROTEIN QUANTITATIV 3.96 MG/DL (0.00-0.30); CALCIUM LEVEL 8.6 MG/DL (8.8-10.2); CREATININE FOR GFR 1.34 MG/DL (0.70-1.30); GLOMERULAR FILTRATION RATE 55.6 (>42); MAGNESIUM LEVEL 1.8 MG/DL (1.8-2.4); POTASSIUM SERUM 3.9 MEQ/L (3.5-5.1)
[2020-04-24 08:44] LABS: CALCIUM LEVEL 8.3 MG/DL (8.8-10.2); CREATININE FOR GFR 1.33 MG/DL (0.70-1.30); GLOMERULAR FILTRATION RATE 56.1 (>42); POTASSIUM SERUM 3.9 MEQ/L (3.5-5.1)
[2020-04-24 16:18] LABS: CREATININE FOR GFR 1.28 MG/DL (0.70-1.30); GLOMERULAR FILTRATION RATE 58.6 (>42)
[2020-04-24 16:19] LABS: CALCIUM LEVEL 8.4 MG/DL (8.8-10.2)
== END 2020-02-05 14:10 | disposition short-term general hospital (02) | DRG 552 ==
LOC: M ED 00:06 → M PCU 13:55
PROVIDERS: ADMIT Internal Medicine; ATTEND Internal Medicine
PROC: 30233N1 Transfusion of Nonautologous Red Blood Cells into Peripheral Vein, Percutaneous Approach (ICD-10-PCS; principal; 2020-01-22)
DX: M46.44 Discitis, unspecified, thoracic region (principal); C78.01 Secondary malignant neoplasm of right lung; C78.02 Secondary malignant neoplasm of left lung; C78.7 Secondary malignant neoplasm of liver and intrahepatic bile duct; C78.89 Secondary malignant neoplasm of other digestive organs; C64.9 Malignant neoplasm of unspecified kidney, except renal pelvis; C79.51 Secondary malignant neoplasm of bone; B95.62 Methicillin resistant Staphylococcus aureus infection as the cause of diseases classified elsewhere; E11.9 Type 2 diabetes mellitus without complications; I10 Essential (primary) hypertension; K27.7 Chronic peptic ulcer, site unspecified, without hemorrhage or perforation